=== PATIENT | female | born 1960 | race Hispanic/Latino ===

== ENCOUNTER 2017-03-13 17:57 | Emergency (ER) | payer SELFPAY ==
[~2017-03-13] VITALS: Ht 147.3 cm; Wt 64.9 kg
--- NOTE | 2017-03-13 18:36 | Diagnostic Imaging Report ---
PROCEDURE: Frontal and lateral views of the chest. COMPARISON: None. INDICATIONS: cough, sob FINDINGS: Lines/tubes: None. Lungs: The lungs are well inflated and clear. There is no evidence of pneumonia or pulmonary edema. Pleura: There is no pleural effusion or pneumothorax. Heart and mediastinum: The heart and the mediastinum are normal. Mild calcification of aortic arch. Bones: No acute bony abnormality. IMPRESSION: 1. No acute cardiopulmonary disease. Libia Rodriguez M.D. Dictated by: Libia Rodriguez M.D. on 03/13/2017 at 18:45 Electronically approved by: Libia Rodriguez M.D. on 03/13/2017 at 18:45
[2017-03-14] MEDS ORDERED: CLONIDINE HCL 0.1 MG TAB PO ONE (00:30)
[2017-03-14 02:10] VITALS: BP 144/67
== END 2017-03-14 02:15 | disposition home or self-care (01) ==
LOC: ER 17:57
DX: R05 Cough (principal); J20.9 Acute bronchitis, unspecified; I10 Essential (primary) hypertension; E11.9 Type 2 diabetes mellitus without complications
CPT/HCPCS: 71020; 87400; 99283

== ENCOUNTER 2017-04-19 09:21 | Inpatient (IN) | payer MEDICAID ==
[~2017-04-19] VITALS: Ht 147.3 cm; Wt 66.2 kg
--- OUTSIDE RECORDS SUMMARY | 2017-04-19 09:23 | XMS REPORT ---
Author Author [facility] Address Unknown Phone Unavailable Care Team Providers Care Cushion Builder Name Role Phone MOE MCKEON Unavailable Unavailable Problems This patient has no known problems. Allergies, Adverse Reactions, Alerts This patient has no known allergies or adverse reactions. Medications This patient has no known medications. Encounters Start Date/Time End Date/Time Encounter Type Admission Type Attending Clinicians Care Facility Care Department Encounter ID 2016-06-03 00:00:00 2016-06-03 00:00:00 Outpatient [facility] [id number] Results Test Description Test Time Test Comments Text Results Atomic Results Result Comments CHEST 2 VIEWS [place] [address] Patient Name: JIMBO TORRES MR #: [id number] : 1960 Age/Sex: 57/F Req # : [id number] Adm Physician: Ordered by: MOE MCKEON MD Report #: [id number] Location: ER Room/Bed: Procedure: [id number] DX/CHEST 2 VIEWS Exam Date: 03/13/17 Exam Time : 1820 REPORT STATUS: Signed PROCEDURE: Frontal and lateral views of the chest. COMPARISON: None. INDICATIONS: cough, sob FINDINGS: Lines/tubes: None. Lungs: The lungs are well inflated and clear. There is no evidence of pneumonia or pulmonary edema. Pleura: There is no pleural effusion or pneumothorax. Heart and mediastinum: The heart and the mediastinum are normal. Mild calcification of aortic arch. Bones: No acute bony abnormality. IMPRESSION: 1. No acute cardiopulmonary disease. Libia Mcpherson M.D. Dictated by: Libia Mcpherson M.D. on 03/13/2017 at 18:45 Electronically approved by: Libia Mcpherson M.D. on 03/13/2017 at 18:45 Dictated By: NATHALIE MCPHERSON MD, MD 44 Transcribed By: BRENT on 03/13/171844 COPY TO: MOE MCKEON MD
[2017-04-19] MEDS ORDERED: LISINOPRIL10 MG PO (10:03)
[2017-04-19] MEDS ORDERED: CLONIDINE HCL0.1 MG PO (10:03)
[2017-04-19] MEDS ORDERED: ASPIRIN 81 MG CHEW TAB PO ONE (10:15)
[2017-04-19 10:22] LABS: BASOPHILS # (AUTO) 0.1 (0.0-0.1); BASOPHILS % 0.7 % (0.0-1.0); EOSINOPHILS # (AUTO) 0.3 (0.0-0.4); EOSINOPHILS % 2.3 % (0.0-6.0); HEMATOCRIT 31.2 % (34.2-44.1); HEMOGLOBIN 10.4 g/dL (12.0-16.0); LYMPHOCYTES # (AUTO) 2.9 (1.0-3.2); LYMPHOCYTES % 21.9 % (18.0-39.1); MEAN CORPUSCULAR HGB CONC 33.3 g/dL (31-35); MEAN CORPUSCULAR VOLUME 89.9 fL (81-99); MONOCYTES # (AUTO) 0.7 (0.2-0.8); MONOCYTES % 5.2 % (4.4-11.3); NEUTROPHILS # (AUTO) 9.2 (2.1-6.9); NEUTROPHILS % 69.6 % (38.7-80.0); PLATELET COUNT 360 x10e3/uL (140-360); RED BLOOD COUNT 3.47 x10e6/uL (3.6-5.1); RED CELL DISTRIBUTION WIDTH 14.1 % (11.7-14.4)
[2017-04-19 10:26] LABS: INR 1.01; PROTHROMBIN TIME 12.5 seconds (11.9-14.5)
[2017-04-19 10:27] LABS: PARTIAL THROMBOPLASTIN TIME 34.7 seconds (23.8-35.5)
[2017-04-19] MEDS ORDERED: FUROSEMIDE INJ 10 MG/ML 4 ML VIAL IV NR (10:30)
[2017-04-19 10:38] LABS: ALANINE AMINOTRANSFERASE 11 IU/L (0-55); ALBUMIN 1.6 g/dL (3.5-5.0); ALBUMIN/GLOBULIN RATIO 0.4 (0.8-2.0); ALKALINE PHOSPHATASE 104 IU/L (40-150); ANION GAP 13.3 mmol/L (8-16); BLOOD UREA NITROGEN 30 mg/dL (7-26); BUN/CREATININE RATIO 8 (6-25); CALCIUM 8.2 mg/dL (8.4-10.2); CARBON DIOXIDE 19 mmol/L (22-29); CHLORIDE 113 mmol/L (98-107); CREATINE KINASE 150 IU/L (29-168); CREATININE, SERUM 3.95 mg/dL (0.57-1.11); EST GLOMERULAR FILTRATION RATE 12 ML/MIN (60-); GLUCOSE 114 mg/dL (74-118); POTASSIUM 3.3 mmol/L (3.5-5.1); SODIUM 142 mmol/L (136-145)
--- NOTE | 2017-04-19 11:46 | Diagnostic Imaging Report ---
EXAMINATION: CHEST 2 VIEWS INDICATION: \S\SOB \[id number] \S\1040 \S\N COMPARISON: Chest radiograph from 03/13/2017 FINDINGS: PA and lateral views TUBES and LINES: None. LUNGS: Lungs are well inflated. Bilateral interstitial edema, new since prior exam. No lobar consolidations. PLEURA: No pleural effusion or pneumothorax. HEART AND MEDIASTINUM: The cardiac silhouette is mildly enlarged. Mild atherosclerotic calcifications of the aortic arch. BONES AND SOFT TISSUES: No acute osseous lesion. Soft tissues are unremarkable. UPPER ABDOMEN: No free air under the diaphragm. IMPRESSION: Interval development of bilateral interstitial edema. Superimposed atypical infection can have a similar appearance. Signed by: Dr. Eileen Blake M.D. on 04/19/2017 11:42 AM
[2017-04-19] MEDS ORDERED: ISOSORBIDE MONONITRATE 30 MG TAB CR PO STA (13:50)
[2017-04-19] MEDS ORDERED: DEXTROSE 50% SYRINGE 50 ML IV PRN (14:00)
[2017-04-19] MEDS ORDERED: SODIUM CHLORIDE FLUSH 10 ML SYR INJ PRN (14:00)
[2017-04-19] MEDS ORDERED: HYDRALAZINE HCL 20 MG/ML VIAL IV NR (14:15)
[2017-04-19] MEDS ORDERED: METFORMIN HCL500 MG PO (14:47)
[2017-04-19] MEDS: ISOSORBIDE MONONITRATE 30 MG TAB CR PO SCH (16:32)
[2017-04-19] MEDS: INSULIN REGULAR, HUMAN 100 UNIT/1 ML 3ML VIAL SQ SCH ×2 (16:48→21:00)
[2017-04-19] MEDS: FUROSEMIDE INJ 10 MG/ML 4 ML VIAL IV SCH (17:52)
[2017-04-19] MEDS: HYDRALAZINE HCL 25 MG TAB PO SCH ×3 (17:52→23:59)
[2017-04-19 21:11] VITALS: BP 194/84
[2017-04-19 21:56] LABS: CREATINE KINASE MB 3.5 ng/mL (0-5.0)
[2017-04-19 22:08] LABS: BILIRUBIN,URINE NEGATIVE (NEGATIVE); CLARITY,URINE CLEAR (CLEAR); COLOR,URINE YELLOW (YELLOW); KETONES,URINE NEGATIVE (NEGATIVE); LEUKOCYTE ESTERASE ,URINE NEGATIVE (NEGATIVE); NITRITE,URINE NEGATIVE (NEGATIVE); PROTEIN,URINE DIPSTICK 3+ (NEGATIVE); URINE UROBILINOGEN 0.2 mg/dL (0.2 - 1)
[2017-04-19 22:35] LABS: BACTERIA,URINE FEW /HPF; EPITHELIAL CELLS,URINE FEW /LPF
[2017-04-19 22:37] VITALS: BP 168/76
[2017-04-19 23:00] VITALS: BP 168/76
[2017-04-20] VITALS (9 sets, daily range): BP systolic 116–197; BP diastolic 56–93
[2017-04-20] MEDS: HYDRALAZINE HCL 25 MG TAB PO SCH ×3 (06:09→22:30)
[2017-04-20 07:07] LABS: BASOPHILS # (AUTO) 0.1 (0.0-0.1); BASOPHILS % 0.5 % (0.0-1.0); EOSINOPHILS # (AUTO) 0.3 (0.0-0.4); EOSINOPHILS % 2.8 % (0.0-6.0); LYMPHOCYTES # (AUTO) 2.2 (1.0-3.2); LYMPHOCYTES % 20.7 % (18.0-39.1); MEAN CORPUSCULAR HEMOGLOBIN 31.1 pg (28-32); MEAN CORPUSCULAR HGB CONC 33.6 g/dL (31-35); MEAN CORPUSCULAR VOLUME 92.4 fL (81-99); MONOCYTES # (AUTO) 0.6 (0.2-0.8); MONOCYTES % 6.1 % (4.4-11.3); NEUTROPHILS # (AUTO) 7.3 (2.1-6.9); NEUTROPHILS % 69.6 % (38.7-80.0); PLATELET COUNT 251 x10e3/uL (140-360); RED BLOOD COUNT 2.38 x10e6/uL (3.6-5.1); RED CELL DISTRIBUTION WIDTH 14.1 % (11.7-14.4)
[2017-04-20 07:12] LABS: HEMOGLOBIN 7.4 g/dL (12.0-16.0)
[2017-04-20 07:22] LABS: ANION GAP 13.5 mmol/L (8-16); CALCIUM 7.9 mg/dL (8.4-10.2); CREATININE, SERUM 4.04 mg/dL (0.57-1.11); POTASSIUM 3.5 mmol/L (3.5-5.1)
[2017-04-20] MEDS: INSULIN REGULAR, HUMAN 100 UNIT/1 ML 3ML VIAL SQ SCH ×4 (07:30→21:00)
[2017-04-20 07:38] LABS: CREATINE KINASE MB 2.3 ng/mL (0-5.0)
--- NOTE | 2017-04-20 07:43 | Diagnostic Imaging Report ---
EXAM: Single AP view of the chest (Portable). COMPARISON: Chest radiograph from 04/19/2017 INDICATION: CHF FINDINGS: Single portable AP view of the chest. The visualized bones and soft tissues, cardiac silhouette , pleura appear unchanged. IMPRESSION: 1. Lines/tubes: None 2. Significant improvement in the bilateral interstitial edema. Signed by: Dr. Eileen Blake M.D. on 04/20/2017 7:39 AM
[2017-04-20] MEDS: ISOSORBIDE MONONITRATE 30 MG TAB CR PO SCH ×3 (08:02→18:21)
[2017-04-20] MEDS: FUROSEMIDE INJ 10 MG/ML 4 ML VIAL IV SCH ×3 (08:02→18:20)
[2017-04-20] MEDS ORDERED: HYDRALAZINE HCL 20 MG/ML VIAL IV PRN (08:30)
[2017-04-20 08:37] LABS: HEMOGLOBIN 7.3 g/dL (12.0-16.0)
[2017-04-20] MEDS ORDERED: CARVEDILOL 3.125 MG TAB PO SCH (09:00)
[2017-04-20] MEDS ORDERED: SODIUM CHLORIDE 0.9% 250ML 250 ML IV NR (09:30)
[2017-04-20] MEDS ORDERED: HYDRALAZINE HCL 25 MG TAB PO SCH (12:00)
[2017-04-20] MEDS: FAMOTIDINE 20 MG TAB PO SCH ×2 (12:32→16:30)
[2017-04-20] MEDS: CARVEDILOL 3.125 MG TAB PO SCH ×2 (12:33→21:00)
[2017-04-20] MEDS ORDERED: SODIUM CHLORIDE 0.9% 250ML 250 ML IV ONE (13:30)
[2017-04-20] MEDS: CLONIDINE HCL 0.1 MG TAB PO SCH ×3 (14:18→18:21)
[2017-04-20] MEDS: AMLODIPINE BESYLATE 10 MG TAB PO SCH (14:19)
--- NOTE | 2017-04-20 15:17 | History and Physical ---
PRIMARY CARE PROVIDER: [facility]. The patient has no insurance. CHIEF COMPLAINT: Shortness of breath. HISTORY OF PRESENT ILLNESS: Ms. Bradshaw is a 57-year-old lady presenting with 1 to 2 days of increasing shortness of breath, dyspnea with exertion, orthopnea and lower extremity swelling. The patient normally takes Lasix as needed for lower extremity edema. She has not been taking her Lasix for the last couple of weeks. She presents now with what appears to be worsening CHF or volume overload. The patient has a history of diabetes and hypertension. She is not sure about her kidney status although here her labs showed chronic kidney disease stage V. She says that she has been told that the diabetes and hypertension have effected her kidneys but no one has told her how bad. REVIEW OF SYSTEMS: She denies fever, chills or weight loss. Denies sinus congestion or sore throat. Denies chest pain or palpitations. She has had shortness of breath, dyspnea on exertion and orthopnea and lower extremity edema. She denies abdominal pain, nausea, vomiting or melena. She denies dysuria or flank pain. She denies rash or pruritus. She denies joint pain or swelling. She denies bleeding or bruising. She denies headache, vertigo or loss of consciousness. Denies depression, agitation, homicidal or suicidal ideation. PAST MEDICAL HISTORY: Significant for longstanding hypertension, type 2 diabetes, apparently has a history of congestive heart failure, probably diastolic. Hyperlipidemia and apparently chronic kidney disease. REGULAR MEDICATIONS: Clonidine 0.1 mg daily. Lisinopril 40 mg daily. Metformin 500 mg twice daily. PAST SURGICAL HISTORY: Laparoscopic cholecystectomy a couple of years ago. ALLERGIES: NO KNOWN DRUG ALLERGIES. FAMILY HISTORY: Remarkable for hypertension and diabetes. SOCIAL HISTORY: The patient is . She is bilingual and speaks fairly good Arabic. She does not smoke, drink or use illegal drugs. She is generally independently functioning. PHYSICAL EXAM: PSYCHIATRIC: She is alert and oriented times 3 with normal mood and affect. CONSTITUTIONAL: She has a normal body habitus. Is in no acute distress. VITAL SIGNS: Blood pressure 197/93. Pulse 78 and regular. Respiratory rate 18. O2 sat 99% on 2 liters nasal cannula. Temperature 97.5. HEENT: Head is atraumatic. Her eyes are anicteric with clear conjunctivae. Ears and nares are without erythema or discharge. Oropharynx is clear. NECK: Is supple with no mass or thyromegaly. LYMPHATIC SYSTEM: She has no palpable cervical, axillary or inguinal adenopathy. CARDIOVASCULAR: Her heart has a regular rate and rhythm without murmur or extra heart sounds. She has no carotid bruit. She has a small amount of pretibial pitting edema about the ankles. She has palpable dorsal pedal pulse. RESPIRATORY: Clear to auscultation and percussion with normal respiratory effort. GASTROINTESTINAL: Abdomen is soft without organomegaly, masses or tenderness. Normal bowel sounds present. CUTANEOUS: Her skin is warm dry to touch with no rash or skin breakdown. MUSCULOSKELETAL: Joints are normal alignment without erythema or swelling. She has no calf tenderness. NEUROLOGIC: Exam is nonfocal with intact cranial nerves and no motor or sensory deficits. DIAGNOSTIC STUDIES: Chest x-ray on admission showed bilateral interstitial edema. A followup chest x-ray after Lasix showed some improvement. Her UA has 6 to 10 white cells, rare bacteria. BNP is 2345.2. Troponin 0.045 and 0.027. Her chemistry shows potassium 3.3. Rest of her electrolytes are normal. CO2 is 19. Creatinine 3.95. BUN 30 for a GFR of 12. Glucose 114. Calcium 8.2. CBC shows a white count 13.2 with 70% neutrophils, 22% lymphocytes. Hemoglobin 10.4, hematocrit 31.2 and platelet count 360,000. Followup CBC twenty four hours later shows a white count of 10.4 with 70% neutrophils. Hemoglobin 7.3, hematocrit 22.0 and platelet count 251,000. Coags are normal. Transaminases, bilirubin and alkaline phos are normal. Repeat chemistry profile shows a creatinine 4.04, BUN 33 for GFR 11. Calcium 7.9. Glucose 112. Electrolytes are normal after 24 hours. IMPRESSION AND PLAN 1. Acute on chronic diastolic heart failure. Presumably diastolic although echocardiogram is pending. Has been ordered but has not been done yet. The patient has been started on IV Lasix 40 mg q.12 hours for 48 hours and then will switch to 40 mg p.o. daily at noon. Patient has been placed on Imdur and hydralazine since we cannot use any GAGAN inhibitors or ARBs due to the chronic kidney disease. 2. Chronic kidney disease stage 5 with volume overload. Again patient started on IV Lasix as well as renally neutral blood pressure medications of Imdur, hydralazine and Norvasc. 3. Accelerated hypertension. The patient's lisinopril has been discontinued due to stage 5 chronic kidney disease. Will restart her clonidine at a slightly higher dose and will add Imdur, hydralazine and Norvasc which are renally neutral and should help with the heart failure. 4. Type 2 diabetes. Will stop metformin due to chronic kidney disease stage V. Will use sliding scale insulin for now and start low-dose Glucotrol. 5. Normocytic anemia most likely due to chronic kidney disease. Will transfuse 2 units of packed cells for hemoglobin of 7.3. Will check fecal occult blood as well as the other typical anemia labs. 6. For prophylaxis the patient will be using SCDs for DVT prophylaxis. No anticoagulation due to the anemia and Pepcid for GI prophylaxis. Job#: [id number]
[2017-04-20] MEDS ORDERED: SODIUM CHLORIDE 0.9% 250ML 250 ML ONE (17:26)
[2017-04-20] MEDS: FUROSEMIDE INJ 10 MG/ML 2 ML VIAL IV PRN (22:20)
[2017-04-21] VITALS (7 sets, daily range): BP systolic 109–141; BP diastolic 54–65
[2017-04-21] MEDS: FUROSEMIDE INJ 10 MG/ML 2 ML VIAL IV PRN (02:25)
[2017-04-21] MEDS: HYDRALAZINE HCL 25 MG TAB PO SCH ×3 (06:01→22:15)
[2017-04-21 07:15] LABS: BASOPHILS # (AUTO) 0.1 (0.0-0.1); BASOPHILS % 0.6 % (0.0-1.0); EOSINOPHILS # (AUTO) 0.3 (0.0-0.4); EOSINOPHILS % 3.1 % (0.0-6.0); HEMOGLOBIN 9.7 g/dL (12.0-16.0); LYMPHOCYTES # (AUTO) 1.9 (1.0-3.2); MEAN CORPUSCULAR HEMOGLOBIN 30.3 pg (28-32); MEAN CORPUSCULAR HGB CONC 34.6 g/dL (31-35); MEAN CORPUSCULAR VOLUME 87.5 fL (81-99); MONOCYTES # (AUTO) 0.7 (0.2-0.8); MONOCYTES % 7.1 % (4.4-11.3); NEUTROPHILS # (AUTO) 6.7 (2.1-6.9); NEUTROPHILS % 68.8 % (38.7-80.0); PLATELET COUNT 239 x10e3/uL (140-360); RED CELL DISTRIBUTION WIDTH 14.4 % (11.7-14.4)
[2017-04-21 07:57] LABS: ANION GAP 10.9 mmol/L (8-16); CALCIUM 7.7 mg/dL (8.4-10.2); CREATININE, SERUM 4.14 mg/dL (0.57-1.11); MAGNESIUM 1.5 MG/DL (1.3-2.1)
[2017-04-21 08:01] LABS: POTASSIUM 2.9 mmol/L (3.5-5.1)
[2017-04-21 08:02] LABS: FREE T4 (FREE THYROXINE) 0.89 ng/dL (0.9-1.8); THYROID STIMULATING HORMONE 5.413 uIU/mL (0.350-4.940)
[2017-04-21] MEDS: INSULIN REGULAR, HUMAN 100 UNIT/1 ML 3ML VIAL SQ SCH ×4 (08:22→21:00)
[2017-04-21] MEDS: FAMOTIDINE 20 MG TAB PO SCH ×2 (08:22→16:56)
[2017-04-21] MEDS: ISOSORBIDE MONONITRATE 30 MG TAB CR PO SCH ×2 (08:23→16:57)
[2017-04-21] MEDS: CARVEDILOL 3.125 MG TAB PO SCH ×2 (08:23→21:00)
[2017-04-21] MEDS: AMLODIPINE BESYLATE 10 MG TAB PO SCH (08:23)
[2017-04-21] MEDS: CLONIDINE HCL 0.1 MG TAB PO SCH ×2 (08:23→16:50)
[2017-04-21] MEDS ORDERED: POTASSIUM CHLORIDE 20 MEQ TAB CR PO ONE (08:30)
[2017-04-21 08:47] LABS: FOLATE 6.4 ng/mL (7.0-15.4)
[2017-04-21] MEDS ORDERED: FUROSEMIDE 40 MG TAB PO SCH (09:00)
[2017-04-21] MEDS ORDERED: GLIPIZIDE 5 MG TAB PO SCH (10:00)
[2017-04-21] MEDS: LEVOTHYROXINE SODIUM 25 MCG TABLET PO SCH (10:32)
[2017-04-21] MEDS: FOLIC ACID 1 MG TAB PO SCH (10:32)
[2017-04-21] MEDS: GLIPIZIDE 5 MG TAB PO SCH (10:32)
[2017-04-21] MEDS: FUROSEMIDE 40 MG TAB PO SCH (12:13)
[2017-04-22 00:17] VITALS: BP 146/55
[2017-04-22 00:35] VITALS: BP 146/55
[2017-04-22 04:33] VITALS: BP 137/61
[2017-04-22] MEDS: LEVOTHYROXINE SODIUM 25 MCG TABLET PO SCH (05:55)
[2017-04-22] MEDS: HYDRALAZINE HCL 25 MG TAB PO SCH (06:00)
[2017-04-22 07:13] LABS: BASOPHILS % 0.4 % (0.0-1.0); EOSINOPHILS # (AUTO) 0.3 (0.0-0.4); HEMATOCRIT 28.2 % (34.2-44.1); HEMOGLOBIN 9.4 g/dL (12.0-16.0); LYMPHOCYTES # (AUTO) 2.3 (1.0-3.2); LYMPHOCYTES % 21.4 % (18.0-39.1); MEAN CORPUSCULAR HGB CONC 33.3 g/dL (31-35); MEAN CORPUSCULAR VOLUME 90.1 fL (81-99); MONOCYTES # (AUTO) 0.8 (0.2-0.8); MONOCYTES % 7.5 % (4.4-11.3); NEUTROPHILS # (AUTO) 7.1 (2.1-6.9); NEUTROPHILS % 67.3 % (38.7-80.0); PLATELET COUNT 249 x10e3/uL (140-360); RED BLOOD COUNT 3.13 x10e6/uL (3.6-5.1); RED CELL DISTRIBUTION WIDTH 14.6 % (11.7-14.4)
[2017-04-22] MEDS: INSULIN REGULAR, HUMAN 100 UNIT/1 ML 3ML VIAL SQ SCH ×2 (07:30→11:30)
[2017-04-22] MEDS ORDERED: GLIPIZIDE 5 MG TAB PO SCH (07:30)
[2017-04-22] MEDS: GLIPIZIDE 5 MG TAB PO SCH (07:30)
[2017-04-22 07:40] LABS: ANION GAP 13.1 mmol/L (8-16); CALCIUM 7.8 mg/dL (8.4-10.2); CREATININE, SERUM 4.55 mg/dL (0.57-1.11); MAGNESIUM 1.9 MG/DL (1.3-2.1); POTASSIUM 4.1 mmol/L (3.5-5.1)
[2017-04-22 07:50] VITALS: BP 137/61
[2017-04-22 08:12] VITALS: BP 143/66
[2017-04-22] MEDS: CARVEDILOL 3.125 MG TAB PO SCH (08:33)
[2017-04-22] MEDS: FAMOTIDINE 20 MG TAB PO SCH (08:33)
[2017-04-22] MEDS: FOLIC ACID 1 MG TAB PO SCH (08:33)
[2017-04-22] MEDS: ISOSORBIDE MONONITRATE 30 MG TAB CR PO SCH (08:33)
[2017-04-22] MEDS: AMLODIPINE BESYLATE 10 MG TAB PO SCH (08:34)
[2017-04-22] MEDS: CLONIDINE HCL 0.1 MG TAB PO SCH (09:00)
[2017-04-22] MEDS ORDERED: POTASSIUM CHLORIDE 20 MEQ TAB CR PO SCH (09:00)
[2017-04-22] MEDS ORDERED: FOLIC ACID 1 MG TAB PO SCH (09:00)
--- NOTE | 2017-04-22 09:07 | Diagnostic Imaging Report ---
PROCEDURE: CHEST SINGLE (PORTABLE) COMPARISON: Patients [facility], DX, CHEST SINGLE (PORTABLE), 04/20/2017, 7:13. INDICATIONS: SHORTNESS OF BREATH. PULMONARY EDEMA FINDINGS: LUNGS: Bibasilar airspace opacities likely represents pneumonia with a worsened appearance. PLEURA: There is a left pleural effusion. HEART \T\ MEDIASTINUM: The heart is within normal size-limits. BONES \T\ SOFT TISSUES: No acute findings. CONCLUSION: Worsening bibasilar airspace opacities. Emeterio Fong D.O. Dictated by: Emeterio Fong D.O. on 04/22/2017 at 9:06 Electronically approved by: Emeterio Fong D.O. on 04/22/2017 at 9:06
[2017-04-22] MEDS ORDERED: CALCIUM GLUCONATE 10% INJ 13.95 MEQ in SODIUM CHLORIDE 0.9% 100 ML 100 ML IV ONE (09:30)
[2017-04-22] MEDS ORDERED: KLOR-CON M2020 MEQ PO (09:32)
[2017-04-22] MEDS ORDERED: Isosorbide Mononitrate PO (09:32)
[2017-04-22] MEDS ORDERED: COREG3.125 MG PO (09:32)
[2017-04-22] MEDS ORDERED: NORVASC10 MG PO (09:32)
[2017-04-22] MEDS ORDERED: FOLIC ACID1 MG PO (09:32)
[2017-04-22] MEDS ORDERED: LEVOTHYROXINE25 MCG PO (09:32)
[2017-04-22] MEDS ORDERED: FUROSEMIDE40 MG PO (09:32)
[2017-04-22] MEDS ORDERED: INSULIN HUMALOG SC (09:39)
[2017-04-22] MEDS ORDERED: AZITHROMYCIN250 MG PO (09:56)
[2017-04-22] MEDS ORDERED: CEFTIN PO (09:56)
[2017-04-22 11:47] VITALS: BP 132/62
[2017-04-22] MEDS: FUROSEMIDE 40 MG TAB PO SCH (11:57)
--- NOTE | 2017-04-23 16:33 | Discharge Summary ---
ADMISSION DIAGNOSES 1. [id number] diastolic heart failure. 2. Chronic kidney disease stage 5 with volume overload. 3. Accelerated hypertension. 4. Type 2 diabetes. 5. Normocytic anemia. DISCHARGE DIAGNOSES 1. [id number] diastolic heart failure. 2. Chronic kidney disease stage 5 with volume overload. 3. Accelerated hypertension. 4. Type 2 diabetes. 5. Normocytic anemia. 6. Rule out gastrointestinal bleed. HISTORY: Patient has a history of hypertension, type 2 diabetes, CHF, hyperlipidemia and CKD, although she was unaware of the kidney disease. HOSPITAL COURSE: A 57-year-old female, presents with 1 to 2 days of increasing shortness of breath, dyspnea with exertion, orthopnea and lower extremity swelling. The patient usually takes Lasix as needed for lower extremity edema. She has not been taking her Lasix for the last couple of weeks. She was apparently told that diabetes and hypertension have affected her kidneys, but she did not know how badly they were affected. Patient was started on IV Lasix and eventually switched to p.o. Lasix once a day. We discontinued her metformin and lisinopril and started her on Glucotrol which she was unable to handle and sliding scale insulin. Patient was started on Imdur, Norvasc, hydralazine and her clonidine dose was increased. Her blood pressure dropped drastically. On admission, her systolic blood pressure was 223, so she needed those medications; but during hospitalization, the nurses held the clonidine and the hydralazine and the patient's blood pressure was noted to be in the 130s and 140s on just those 2 medications. Patient had an echo done which showed EF of 55% to 60%, pericardial effusion of 1.5 cm, mild MR and TR. Chest x-ray on admission showed interval development of bilateral interstitial edema. The next day, it showed significant improvement in bilateral interstitial edema. Chest x-ray on the 6th, day of discharge, showed worsening airspace opacity. Patient was started on antibiotics. During hospitalization, the patient's hemoglobin dropped from 10.4 on the 3rd to 7.4 on the 4th and with the re-draw, the hemoglobin was still 7.3. Patient was given 2 units of PRBC and the patient's hemoglobin stabilized in the 9. On the day of discharge, WBC was 10.5, hemoglobin 9.4, hematocrit of 28.2. Sodium 140, potassium 4.1, creatinine 4.55, GFR of 10, BUN of 45, calcium 7.8, patient was given 3 g prior to discharge, mag 1.9. Blood pressure was 143/66, pulse of 68. Patient was sent home on her Norvasc, Coreg, Lasix, potassium, sliding scale insulin and Imdur. During hospitalization, patient was also found to have hypothyroidism. She was started on levothyroxine 25 mcg daily. She was also found to have a low folic acid and was started on 1 mg folic acid daily. Patient will follow up with primary care in 1 to 2 weeks. She refused to have any specialist on her case because she did not have insurance and would not be able to follow up with them. She said she would just go to [facility] and have them follow her kidneys and heart as well as other medical issue. Dictated by Batool Foster NP. MENDOZA VILLEGAS MD Job#: [id number]
== END 2017-04-22 13:59 | disposition home or self-care (01) | DRG 291 ==
LOC: ER 09:21 → ERHOLD 15:24 → MED/SURG 20:19
PROVIDERS: ADMIT Internal Medicine; ATTEND Internal Medicine
DX: I13.2 Hypertensive heart and chronic kidney disease with heart failure and with stage 5 chronic kidney disease, or end stage renal disease (principal); I50.33 Acute on chronic diastolic (congestive) heart failure; N18.5 Chronic kidney disease, stage 5; E11.22 Type 2 diabetes mellitus with diabetic chronic kidney disease; E87.1 Hypo-osmolality and hyponatremia; I12.9 Hypertensive chronic kidney disease with stage 1 through stage 4 chronic kidney disease, or unspecified chronic kidney disease; N18.9 Chronic kidney disease, unspecified; D64.9 Anemia, unspecified; E03.9 Hypothyroidism, unspecified; E87.6 Hypokalemia
CPT/HCPCS: 36415; 36430; 71045; 71046; 80048; 80053; 81001; 82270; 82550; 82553; 82607; 82746; 82948; 83540; 83735; 83880; 84439; 84443; 84466; 84484; 85014; 85018; 85025; 85610; 85730; 86850; 86900; 86920; 87086; 93005; 93306; 96374; 96376; 99284; J0360; J0610; J1940; J7050; J7799; P9016

== ENCOUNTER 2017-07-09 13:00 | Inpatient (IN) | payer MEDICAID ==
[~2017-07-09] VITALS: Ht 154.9 cm; Wt 53.6 kg
[~2017-07-09 13:00] MED LIST: ALPRAZOLAM0.5 MG PO; AZITHROMYCIN250 MG PO; CATAPRES0.3 MG PO; CEFTIN PO; CLONIDINE HCL0.1 MG PO; COREG12.5 MG PO; COREG3.125 MG PO; FOLIC ACID1 MG PO; FUROSEMIDE40 MG PO; HYDRALAZINE HC100 MG PO; INSULIN HUMALOG SC; ISOSORBIDE DINI20 MG PO; Isosorbide Mononitrate PO; KLOR-CON M2020 MEQ PO; LEVOTHYROXINE25 MCG PO; LISINOPRIL10 MG PO; METFORMIN HCL500 MG PO; MINOXIDIL2.5 MG PO; NORVASC10 MG PO; PROTONIX40 MG/ML PO; RENVELA800 MG PO; SEROQUEL25 MG PO
--- OUTSIDE RECORDS SUMMARY | 2017-07-09 13:05 | XMS REPORT | Continuity of Care Document ---
Author Author [facility] Organization [facility] Address [address] [place] [address] Phone Unavailable Care Team Providers Care Jockey'S Agent Name Role Phone NO, PCP PCP Unavailable Insurance Providers Guarantor Jimbo Torres Address [facility] [place] [address] Email [email or web address] Payer Medicaid Pending Subscriber's Name Jimbo Torres Relationship 18 Self / Same As Patient Advance Directives Directive Response Recorded Date/Time Does the patient have an advance directive? No 06/10/17 1:00pm If yes, is advance directive on file with [facility]? No 06/10/17 1:00pm If not on file with [facility] will patient provide a copy? No 06/10/17 1:00pm Do you have a Directive to Physician? No 06/09/17 4:19pm Do you have a Medical Power of Tank Setter Helper? No 06/09/17 4:19pm Do you have an out of hospital Do Not Resuscitate Order? No 06/09/17 4:19pm Do you have any special needs we should be aware of? NN 06/09/17 4:19pm Do you have a support person here with you today? Yes 06/09/17 4:19pm Did patient receive Notice of Privacy Practices? Yes 06/09/17 4:19pm Did patient receive patient rights and responsibilities? Yes 06/09/17 4:19pm Problems Medical Problem Onset Date Status Acute renal failure Unknown CHF (congestive heart failure) Unknown Cough Unknown Acute Hypertension Unknown Acute Hypertension Unknown Medications Current Home Medications Medication Dose Units Route Directions Days Qty Instructions Start Date Alprazolam 0.5 Mg Tablet 0.5 Mg Oral Every 8 Hours 14 Days 06/19/17 Carvedilol (Coreg) 12.5 Mg Tab 50 Mg Oral Every 12 Hours 30 Days Clonidine Hcl (Catapres) 0.3 Mg Tablet 0.3 Mg Oral Three Times A Day 30 Days 06/19/17 Folic Acid 1 Mg Tablet 1 Mg Oral Daily 30 Days 04/22/17 Furosemide 40 Mg Tablet 40 Mg Oral Q24h 30 Days 04/22/17 Hydralazine Hcl 100 Mg Tablet 100 Mg Oral Every 8 Hours 30 Days 05/04 Insulin, Humalog Units Subcutaneously Before Meals And At Bedtime BS 121-150=> 2 UNITS BS 151-200=> 4 UNITS BS 201-250=> 6 UNITS BS 251-300=> 8 UNITS BS 301-350=> 10 UNITS BS 351-399=>12 UNITS BS >400=> 14 UNITS 04/22/17 Isosorbide Dinitrate 20 Mg Tablet 30 Mg Oral Twice A Day 30 Days Levothyroxine Sodium 25 Mcg Tablet 25 Mcg Oral Daily@06 30 Days 08/04 Minoxidil 2.5 Mg Tablet 5 Mg Oral Every 12 Hours 14 Days 06/19/17 Pantoprazole Sod (Protonix) 40 Mg/Ml Susp 40 Mg Oral Before Breakfast 30 Days 06/19/17 Potassium Chloride (Klor-Con M20) 20 Meq Tabcr 20 Meq Oral Daily 30 Days 04/22/17 Quetiapine Fumarate (Seroquel) 25 Mg Tablet 12.5 Mg Oral Bedtime 30 Days 06/19/17 Sevelamer Hcl (Renvela) 800 Mg Tab 800 Mg Oral Three Times Daily With Meals 90 Days 06/19/17 Past Home Medications Medication Directions Ordered Status Amlodipine Besylate (Norvasc) 10 Mg Tab, 10 Mg Oral Daily 04/22/17 Discontinued Azithromycin (Z-Sushant) 250 Mg Tablet, 500 Mg Oral 5 Day Pack As Direct Discontinued Carvedilol (Coreg) 3.125 Mg Tab, 6.25 Mg Oral Every 12 Hours 04/22/17 Discontinued Ceftin , 500 Mg Oral Twice A Day 04/22/17 Discontinued Clonidine Hcl 0.1 Mg Tablet, 1 Tab Oral Daily Discontinued Isosorbide Mononitrate 30 Mg Tabcr, 30 Mg Oral Twice A Day 04/22/17 Discontinued Lisinopril 10 Mg Tablet, 40 Mg Oral Daily Discontinued Metformin Hcl 500 Mg Tablet, 500 Mg Oral Twice A Day Discontinued Social History Social History Problem Response Recorded Date/Time Onset Date Status Hx Psychiatric Problems No 06/10/2017 1:00pm Not Applicable Not Applicable Hx Eating Disorder No 06/10/2017 1:00pm Not Applicable Not Applicable Hx Substance Use Disorder No 06/10/2017 1:00pm Not Applicable Not Applicable Hx Depression No 06/10/2017 1:00pm Not Applicable Not Applicable Hx Alcohol Use No 06/10/2017 1:00pm Not Applicable Not Applicable Hx Substance Use Treatment No 06/10/2017 1:00pm Not Applicable Not Applicable Hx Physical Abuse No 06/10/2017 1:00pm Not Applicable Not Applicable Smoking Status Start Date Stop Date Former smoker Hospital Discharge Instructions No hospital discharge instruction information available. Plan of Care Discharge Date 06/22/17 6:20pm Disposition HOME, SELF-CARE Instructions/Education Provided Kidney Failure Prescriptions See Medication Section Referrals Your note keeper (Nephrology) Order Date: 5-7 Days Entered Date: 06/19/2017 8:02am AVA BUENROSTRO MD (Internal Medicine) Order Date: 5-7 Days Entered Date: 06/19/2017 8:23am Address: [address] [place] [id number] SUZI YOUNGER MD (Surgery) Order Date: 1 Month Entered Date: 06/22/2017 12:47pm Address: [address] [place] [id number] Additional Instructions/Education Attend scheduled Hemodialysis tomorrow at 3: 30pm @ [address] [place] [address], phone [phone] Monitor B/P at home and hold B/P meds x 4 hours, then recheck; contact HD clinic if BP still low for guidance on HD days. Activity as tolerated Renal diet Maintain BP log for PCP/Hot Header Operator Assistance at home per family PO OTC stool softener for constipation FOLLOW UP WITH YOUR PRIMARY CARE PHYSICIAN IN 1 WEEK. Functional Status Query Response Date Recorded Assistive Devices None June 10, 2017 1:00pm Ambulation Ability Independent June 10, 2017 1:00pm Toileting Ability Moderate Assistance June 22, 2017 1:59pm Allergies, Adverse Reactions, Alerts Allergen Type Severity Reaction Status Last Updated Nifedipine Allergy Intermediate Active 06/17/17 Immunizations No immunization information available. Vital Signs Acute Vital Signs Vital Response Date/Time Temperature (Fahrenheit) 96.6 degrees F (97.6 - 99.5) 06/22/2017 4:07pm Pulse Pulse Rate (adult) 92 bpm (60 - 90) 06/22/2017 4:07pm Respiratory Rate 18 bpm (12 - 24) 06/22/2017 4:07pm Blood Pressure 150/66 mm Hg 06/22/2017 4:07pm Height 4 ft 10 in 06/09/2017 2:05pm Weight 141.56 lb 06/20/2017 12:00am Body Mass Index 29.6 kg/m^2 06/20/2017 12:00am Results Laboratory Results Test Name Result Units Flags Reference Collection Date/Time Result Date/ Time Comments Influenza Virus Types A,B Antigen NEGATIVE NEGATIVE 03/13/2017 6:00pm 03/13/2017 10:31pm Iron Level 57 ug/dL 50-170 04/21/2017 6:45am 04/21/2017 8:01am Total Iron Binding Capacity 137 ug/dL L 261-478 04/21/2017 6:45am 2017 8:01am Percent Iron Saturation 42 % 15-50 04/21/2017 6:45am 04/21/2017 8:01am Transferrin 98 mg/dL L 180-382 04/21/2017 6:45am 04/21/2017 8:01am Vitamin B12 Level 530 pg/mL 213-816 04/21/2017 6:45am 04/21/2017 8: 49am Folate 6.4 ng/mL L 7.0-15.4 04/21/2017 6:45am 04/21/2017 8:49am Free Thyroxine 0.89 ng/dL L 0.9-1.8 04/21/2017 6:45am 04/21/2017 8:02am Stool Occult Blood NEGATIVE NEGATIVE 04/20/2017 3:05am 04/20/2017 3: 33pm White Blood Count 11.54 x10e3/uL H 4.8-10.8 06/22/2017 6:55am 2017 7:33am Red Blood Count 2.69 x10e6/uL L 3.6-5.1 06/22/2017 6:55am 06/22/2017 7: 33am Hemoglobin 8.0 g/dL L 12.0-16.0 06/22/2017 6:55am 06/22/2017 7:33am Hematocrit 24.8 % L 34.2-44.1 06/22/2017 6:55am 06/22/2017 7:33am Mean Corpuscular Volume 92.2 fL 81-99 06/22/2017 6:55am 06/22/2017 7: 33am Mean Corpuscular Hemoglobin 29.7 pg 28-32 06/22/2017 6:55am 06/22/2017 7:33am Mean Corpuscular Hemoglobin Concent 32.3 g/dL 31-35 06/22/2017 6:55am 06/22/2017 7:33am Red Cell Distribution Width 13.8 % 11.7-14.4 06/22/2017 6:55am 2017 7:33am Platelet Count 227 x10e3/uL 140-360 06/22/2017 6:55am 06/22/2017 7: 33am Neutrophils (%) (Auto) 72.8 % 38.7-80.0 06/22/2017 6:55am 06/22/2017 7: 33am Lymphocytes (%) (Auto) 15.0 % L 18.0-39.1 06/22/2017 6:55am 06/22/2017 7 :33am Monocytes (%) (Auto) 9.5 % 4.4-11.3 06/22/2017 6:55am 06/22/2017 7: 33am Eosinophils (%) (Auto) 1.6 % 0.0-6.0 06/22/2017 6:55am 06/22/2017 7: 33am Basophils (%) (Auto) 0.5 % 0.0-1.0 06/22/2017 6:55am 06/22/2017 7:33am IM GRANULOCYTES % 0.6 % 0.0-1.0 06/22/2017 6:55am 06/22/2017 7:33am Neutrophils # (Auto) 8.4 H 2.1-6.9 06/22/2017 6:55am 06/22/2017 7: 33am Lymphocytes # (Auto) 1.7 1.0-3.2 06/22/2017 6:55am 06/22/2017 7:33am Monocytes # (Auto) 1.1 H 0.2-0.8 06/22/2017 6:55am 06/22/2017 7:33am Eosinophils # (Auto) 0.2 0.0-0.4 06/22/2017 6:55am 06/22/2017 7:33am Basophils # (Auto) 0.1 0.0-0.1 06/22/2017 6:55am 06/22/2017 7:33am Absolute Immature Granulocyte (auto 0.07 x10e3/uL 0-0.1 06/22/2017 6: 55am 06/22/2017 7:33am Prothrombin Time 13.5 seconds 11.9-14.5 06/10/2017 4:40am 06/10/2017 5: 22am Prothromb Time International Ratio 1.11 06/10/2017 4:40am 2017 5:22am Oral Anticoagulant Therapy INR Values: 1. Low Intensity Therapy 1.5 - 2.0 2. Moderate Intensity Therapy 2.0 - 3.0 3. High Intensity Therapy(1) 2.5 - 3.5 4. High Intensity Therapy(2) 3.0 - 4.0 5. Panic Value INR > 5.0 Activated Partial Thromboplast Time 35.4 seconds 23.8-35.5 06/10/2017 4: 40am 06/10/2017 5:22am Urine Color YELLOW YELLOW 06/09/2017 2:20pm 06/09/2017 2:47pm Urine Clarity CLEAR CLEAR 06/09/2017 2:20pm 06/09/2017 2:47pm Urine Specific [place] 1.025 1.010-1.025 06/09/2017 2:20pm 2017 2:47pm Urine pH 7 5 - 7 06/09/2017 2:20pm 06/09/2017 2:47pm Urine Leukocyte Esterase NEGATIVE NEGATIVE 06/09/2017 2:20pm 2017 2:47pm Urine Nitrite NEGATIVE NEGATIVE 06/09/2017 2:20pm 06/09/2017 2:47pm Urine Protein 3+ H NEGATIVE 06/09/2017 2:20pm 06/09/2017 2:47pm Urine Glucose (UA) 2+ H NEGATIVE 06/09/2017 2:20pm 06/09/2017 2:47pm Urine Ketones NEGATIVE NEGATIVE 06/09/2017 2:20pm 06/09/2017 2:47pm Urine Urobilinogen 0.2 mg/dL 0.2 - 1 06/09/2017 2:20pm 06/09/2017 2: 47pm Urine Bilirubin NEGATIVE NEGATIVE 06/09/2017 2:20pm 06/09/2017 2: 47pm Urine Blood 2+ H NEGATIVE 06/09/2017 2:20pm 06/09/2017 2:47pm Urine WBC 0-5 /HPF 0-5 06/09/2017 2:20pm 06/09/2017 3:02pm Urine RBC 11-20 /HPF H 0-5 06/09/2017 2:20pm 06/09/2017 3:02pm Urine Bacteria RARE /HPF NONE 06/09/2017 2:20pm 06/09/2017 3:02pm Urine Epithelial Cells MODERATE /LPF NONE 06/09/2017 2:20pm 06/09/2017 3:02pm Urine Mucus FEW H RARE 06/09/2017 2:20pm 06/09/2017 3:02pm Urine Random Total Protein 892.5 mg/dL H 1-14 06/11/2017 10:25am 2017 11:18am Urine Collection Time 24 hrs 06/11/2017 10:25am 06/11/2017 10:50am Urine Total Volume 900 ml/24hr 800-2000 06/11/2017 10:25am 06/11/2017 10:50am Urine Creatinine 50.57 mg/dL 47-110 06/11/2017 10:25am 06/11/2017 11: 04am Urine Creatinine 24 Hour 455 mg/24hr L 600-1800 06/11/2017 10:25am 06/11 11:04am Creatinine Clearance 6 ml/min L 88-128 06/11/2017 10:25am 06/11/2017 11: 04am Urine Total Protein 24 Hour 8032.5 mg/24hr H 50-100 06/11/2017 10:25am 06/11/2017 11:18am Sodium Level 137 mmol/L 136-145 06/21/2017 10:15am 06/21/2017 10:39am Potassium Level 4.5 mmol/L 3.5-5.1 06/21/2017 10:15am 06/21/2017 10: 39am Chloride Level 103 mmol/L 98-107 06/21/2017 10:15am 06/21/2017 10:39am Carbon Dioxide Level 23 mmol/L 22-29 06/21/2017 10:15am 06/21/2017 10: 39am Anion Gap 15.5 mmol/L 8-16 06/21/2017 10:15am 06/21/2017 10:39am Blood Urea Nitrogen 12 mg/dL 7-06/21/2017 10:15am 06/21/2017 10: 39am Creatinine 2.63 mg/dL H 0.57-1.11 06/21/2017 10:15am 06/21/2017 10:39am BUN/Creatinine Ratio 5 L 6-06/21/2017 10:15am 06/21/2017 10:39am Estimat Glomerular Filtration Rate 19 ML/MIN L 60- 06/21/2017 10:15am 10:39am Ranges were taken from the National Kidney Disease Education Program and the National Kidney Foundation literature. Reference ranges: 60 or greater: Normal 16-59 (for 3 consecutive months): Chronic kidney disease 15 or less: Kidney failure Glucose Level 129 mg/dL H 74-118 06/21/2017 10:15am 06/21/2017 10:39am Calcium Level 8.1 mg/dL L 8.4-10.2 06/21/2017 10:15am 06/21/2017 10: 39am Bedside Glucose 88 mg/dL 70-120 06/22/2017 3:30pm 06/22/2017 3:46pm Meter ID: [id number] Hemoglobin A1c Percent 5.0 % 4.0-7.0 06/10/2017 4:40am 06/10/2017 8: 47am Phosphorus Level 2.4 MG/DL 2.3-4.7 06/16/2017 10:35am 06/16/2017 11: 42am Magnesium Level 1.6 MG/DL 1.3-2.1 06/10/2017 4:40am 06/10/2017 6:06am Total Bilirubin 0.3 mg/dL 0.2-1.2 06/12/2017 6:30am 06/12/2017 7:36am Aspartate Amino Transf (AST/SGOT) 13 IU/L 5-34 06/12/2017 6:302017 7:36am Alanine Aminotransferase (ALT/SGPT) 7 IU/L 0-55 06/12/2017 6:3006/12 7:36am Total Protein 5.2 g/dL L 6.5-8.1 06/12/2017 6:3006/12/2017 7:36am Albumin 1.6 g/dL L 3.5-5.0 06/12/2017 6:3006/12/2017 7:36am Globulin 3.6 g/dL H 2.3-3.5 06/12/2017 6:3006/12/2017 7:36am Albumin/Globulin Ratio 0.4 L 0.8-2.0 06/12/2017 6:3006/12/2017 7: 36am Alkaline Phosphatase 90 IU/L 40-150 06/12/2017 6:30am 06/12/2017 7: 36am B-Type Natriuretic Peptide 2158.5 pg/mL H 0-100 06/09/2017 2:20pm 2017 3:05pm Creatine Kinase 107 IU/L 29-168 06/09/2017 2:20pm 06/09/2017 3:02pm Creatine Kinase MB 5.30 ng/mL H 0-5.0 06/09/2017 2:20pm 06/09/2017 3: 10pm Troponin I 0.016 ng/mL 0-0.300 06/09/2017 2:20pm 06/09/2017 3:10pm Thyroid Stimulating Hormone (TSH) 6.568 uIU/mL H 0.350-4.940 06/10/2017 4 :40am 06/10/2017 8:56am Hepatitis B Surface Antibody, Quant <3.1 mIU/mL L Immunity>9.9 2017 12:15pm 06/19/2017 7:53am Status of Immunity Anti- HBs Level Inconsistent with Immunity 0.0 - 9.9 Consistent with Immunity >9.9 Hepatitis B Core Total Antibody Negative Negative 06/18/2017 12:15pm 06/19/2017 7:53am Performed at: - [facility] [id number] Merchandise Manager: Mani Stevens MD, Phone: [phone] Hepatitis B Surface Antigen Negative Negative 06/18/2017 12:15pm 04/2017 7:53am Prealbumin 14 mg/dL 10-36 06/10/2017 4:40am 06/11/2017 1:17pm Performed at: [facility] - [address] [id number] Merchandise Manager: Mani Stevens MD, Phone: [phone] Microbiology Results Procedure Source Organism/Result Collection Date/Time Result Date/Time Result Status Blood Culture Blood NO GROWTH AFTER 5 DAYS, FINAL REPORT 06/09/2017 3:44pm 06/14/2017 6:54pm Final Blood Culture Blood STAPHYLOCOCCUS SP COAG NEG 06/09/2017 3:44pm 2017 7:39am Final Procedures Procedure Status Date Provider(s) Creation of arteriovenous fistula Completed 06/20/17 SUZI ABEL MD X-ray of chest, two views Active 03/13/17 MOE MCKEON MD X-ray of chest, two views Active 04/19/17 ARCHIE THORNTON MD X-ray of chest, single view Active 06/09/17 ARCHIE THORNTON MD Ultrasound, renal Active 06/09/17 TATA WATKINS NP Ultrasound guidance for vascular access Active 06/12/17 AVA BUENROSTRO MD Encounters Encounter Location Arrival/Admit Date Discharge/Depart Date Attending Provider Discharged Inpatient [facility] 06/09/17 6:12pm 06/22/17 6:20pm AVA BUENROSTRO MD Discharged Inpatient [facility] 04/19/17 3:24pm 04/22/17 1:59pm MENDOZA VILLEGAS MD Departed Emergency Room [facility] 03/13/17 5:57pm 2:15am MOE MCKEON MD
[2017-07-09] MEDS ORDERED: ASPIRIN 81 MG CHEW TAB PO ONE ×2 (13:30→16:00)
--- NOTE | 2017-07-09 14:11 | Diagnostic Imaging Report ---
Examination: CT BRAIN WITHOUT CONTRAST History:Weakness. Comparison studies:None Technique: Axial images were obtained from the skull base to the vertex. Coronal and sagittal images reconstructed from the axial data. Intravenous contrast: None Findings: Scalp: No abnormalities. Bones: No fractures, blastic or lytic lesions. Brain sulci: Mild central volume loss for age with ex vacuo dilatation of the lateral ventricles. Ventricles: No hydrocephalus. Extra-axial space: No abnormalities. Parenchyma: No masses, hemorrhage, or acute or chronic cortical based vascular insults. Sellar/suprasellar region: No abnormalities. Craniocervical junction: Patent foramen magnum. No Chiari one malformation. Incidental findings: Atherosclerotic calcification of the cavernous and supraclinoid internal carotid arteries. Impression: No acute intracranial abnormalities. Mild volume loss for age. Signed by: Dr. Lu Giron M.D. on 07/09/2017 2:08 PM
--- NOTE | 2017-07-09 14:14 | Diagnostic Imaging Report ---
PROCEDURE: A single AP view of the chest. COMPARISON: Patients [facility], DX, CHEST SINGLE (NOT PORTABLE), 06/09/2017, 14:31. INDICATIONS: COUGH, EYE TWITCH FINDINGS: Lines/tubes: Right sided dual lumen tunneled central venous catheter with the distal tips projected on the cavoatrial junction/right atrium. Lungs: There is patchy density in the right upper lobe, and left lower lobe concerning for multifocal pneumonia. Pleura: There is no pneumothorax. The small left pleural effusion. Heart and mediastinum: The heart and the mediastinum are unremarkable. Bones: No acute bony abnormality. IMPRESSION: 1. Findings suggestive of right upper lobe and left lower lobe pneumonia. Recommend followup after treatment to document resolution. Libia Rodriguez M.D. Dictated by: Libia Rodriguez M.D. on 07/09/2017 at 14:17 Electronically approved by: Libia Rodriguez M.D. on 07/09/2017 at 14:17
[2017-07-09 14:21] LABS: BASOPHILS % 0.5 % (0.0-1.0); EOSINOPHILS # (AUTO) 0.2 (0.0-0.4); EOSINOPHILS % 2.1 % (0.0-6.0); HEMOGLOBIN 7.6 g/dL (12.0-16.0); LYMPHOCYTES # (AUTO) 0.9 (1.0-3.2); MEAN CORPUSCULAR HGB CONC 34.1 g/dL (31-35); MEAN CORPUSCULAR VOLUME 88.1 fL (81-99); MONOCYTES # (AUTO) 0.4 (0.2-0.8); MONOCYTES % 5.2 % (4.4-11.3); NEUTROPHILS # (AUTO) 6.9 (2.1-6.9); NEUTROPHILS % 80.7 % (38.7-80.0); PLATELET COUNT 233 x10e3/uL (140-360); RED BLOOD COUNT 2.53 x10e6/uL (3.6-5.1); RED CELL DISTRIBUTION WIDTH 14.2 % (11.7-14.4)
[2017-07-09 14:22] LABS: HEMATOCRIT 22.3 % (34.2-44.1)
[2017-07-09 14:28] LABS: INR 1.04; PROTHROMBIN TIME 12.8 seconds (11.9-14.5)
[2017-07-09 14:29] LABS: PARTIAL THROMBOPLASTIN TIME 34.9 seconds (23.8-35.5)
[2017-07-09 14:36] LABS: ALBUMIN 2.1 g/dL (3.5-5.0); ALBUMIN/GLOBULIN RATIO 0.5 (0.8-2.0); ALKALINE PHOSPHATASE 95 IU/L (40-150); AMYLASE 30 U/L (25-125); ANION GAP 12.8 mmol/L (8-16); BLOOD UREA NITROGEN 16 mg/dL (7-26); BUN/CREATININE RATIO 5 (6-25); CALCIUM 8.7 mg/dL (8.4-10.2); CARBON DIOXIDE 32 mmol/L (22-29); CHLORIDE 98 mmol/L (98-107); CREATINE KINASE 38 IU/L (29-168); CREATININE, SERUM 2.98 mg/dL (0.57-1.11); EST GLOMERULAR FILTRATION RATE 16 ML/MIN (60-); GLUCOSE 182 mg/dL (74-118); SODIUM 140 mmol/L (136-145)
[2017-07-09 14:37] LABS: ALANINE AMINOTRANSFERASE < 6 IU/L (0-55)
[2017-07-09 14:39] LABS: POTASSIUM 2.8 mmol/L (3.5-5.1)
[2017-07-09 14:53] LABS: B-TYPE NATRIURETIC PEPTIDE2 2675.9 pg/mL (0-100)
[2017-07-09] MEDS ORDERED: LEVOFLOXACIN 500MG/D5W 100ML 100 ML IV ONE (15:15)
[2017-07-09] MEDS ORDERED: AZITHROMYCIN 500MG/NS 250 ML 250 ML IV ONE (15:15)
[2017-07-09] MEDS ORDERED: HYDRALAZINE HCL 20 MG/ML VIAL IV ONE ×2 (16:15→16:30)
[2017-07-09] MEDS ORDERED: POTASSIUM CHLORIDE 20 MEQ TAB CR PO STA (17:58)
[2017-07-09] MEDS: SODIUM CHLORIDE 0.9% 250ML 250 ML IV ONE (18:15)
[2017-07-09] MEDS ORDERED: FUROSEMIDE INJ 10 MG/ML 2 ML VIAL IV PRN (18:45)
--- NOTE | 2017-07-09 19:52 | Consultation ---
DATE OF CONSULTATION: July 09, 2017 HISTORY OF PRESENT ILLNESS: Ms. Bradshaw is a 57-year-old, right-hand dominant woman with past medical history significant for hypertension, diabetes mellitus, and end-stage renal disease on hemodialysis Mondays, Wednesdays and Fridays, who presented to the emergency center at [facility] on July 09, 2017, with symptoms concerning for stroke. On the morning of July 08, 2017, the patient experienced the abrupt onset of right facial weakness and left hemiparesis, arm and leg equally affected, as well as numbness over the left arm. Ms. Bradshaw endorses gait impairment as well. However, both the patient and her daughter report the impairment of gait and poor balance is chronic. Ms. Bradshaw does not report a visual field cut or other disturbance, dysarthria, aphasia, dizziness, or confusion. She has not experienced similar symptoms previously. As stated above, the described symptoms began suddenly on the morning of July 08, 2017. After the symptoms persisted for more than 24 hours, the patient was brought to the emergency center at [facility] by multiple family members for further evaluation. Upon arrival in the emergency center, the patient was afebrile with a blood pressure of 198/77 mmHg and a pulse of 68 beats per minute. The neurological examination performed by the emergency center physician was significant for right facial weakness and left hemiparesis. A CT of the brain without contrast was performed, but did not show evidence of recent large territorial ischemia or hemorrhage. A chest x-ray performed in the emergency center did show evidence of pneumonia. Ms. Bradshaw will be admitted to [facility] for treatment of pneumonia and evaluation and treatment of her other symptoms. REVIEW OF SYSTEMS: Right facial weakness, numbness of the left arm and both feet, weakness of the left arm and leg, impairment of balance and gait (chronic). Otherwise, a 12-point review of systems is negative. PAST MEDICAL HISTORY: Hypertension, diabetes mellitus, end-stage renal disease on hemodialysis Friday, Friday and Friday. PAST SURGICAL HISTORY: Multiple AV fistulas procedures. Most recently, an AV fistula was placed in the left upper arm. Bilateral tubal ligation, laser eye surgery. PAST HOSPITALIZATIONS: Surgeries and procedures as listed, childbirth times 7, multiple hospitalizations for renal dysfunction and pulmonary edema/effusion. FAMILY HISTORY: The patient's paternal and maternal grandparents are . Their medical histories are unknown. The patient's father is . He had hypertension. Ms. Bradshaw' mother is . She had hypertension and diabetes mellitus. Ms. Bradshaw has 2 sisters who are living, both have hypertension. All of the patient's 7 children are alive and healthy. SOCIAL HISTORY: Ms. Bradshaw is single. She is in the process of filing for disability. The patient does not report current or prior tobacco, alcohol, or recreational drug use. MEDICATIONS: Lasix 40 mg by mouth daily, hydralazine 100 mg by mouth every 8 hours, isosorbide dinitrate 30 mg by mouth twice daily, carvedilol 50 mg by mouth every 12 hours, minoxidil 5 mg by mouth every 12 hours, sevelamer 800 mg by mouth every 8 hours, pantoprazole 40 mg by mouth daily. ALLERGIES: NO KNOWN DRUG ALLERGIES. NO KNOWN FOOD ALLERGIES. NO KNOWN ALLERGIES TO LATEX. NO KNOWN ALLERGIES TO IODINE OR OTHER CONTRAST MATERIALS. PHYSICAL EXAMINATION: VITAL SIGNS: Height 58 inches, weight 145 pounds, BMI 30.3 kg/m squared, blood pressure 199/82 mmHg, pulse 71 beats per minute, respiratory rate 18 breaths per minute, oxygen saturation 95% on room air. GENERAL: The patient is awake and alert, does not appear distressed. Overweight. HEENT: Normocephalic, atraumatic. Pupils are surgical. Moist mucous membranes. NECK: Supple. No appreciable thyromegaly. No appreciable carotid bruits. CARDIOVASCULAR: S1, S2. Regular rate and rhythm. No murmurs, rubs, or gallops. RESPIRATORY: Clear to auscultation bilaterally. No wheezes, rhonchi, or rales. EXTREMITIES: The skin is warm and dry. No clubbing, cyanosis or edema. The posterior tibial and dorsalis pedis pulses are 1+ and symmetric. SKIN: No rashes or lesions. NEUROLOGIC MEMORY/ATTENTION: The patient is awake and alert, oriented to person, place, time, and situation. CRANIAL NERVES: Cranial nerve I-not tested. Cranial nerves II, III, IV, -pupils are surgical, extraocular movements intact, no nystagmus. Cranial nerve V-sensation to light touch and pinprick is intact in the bilateral V1 through V3 distributions. Strength of the temporalis and masseter muscles is within normal limits. Cranial nerve VII-there is right facial asymmetry with [id number] right facial weakness. The right side of the forehead is mildly affected. Cranial nerve VIII-hearing is intact to finger rub on the right, diminished to finger rub on the left. Cranial nerves IX, X-the soft palate elevates equally and symmetrically. Cranial nerve XI-normal strength of the bilateral sternocleidomastoid and trapezius muscles. Cranial nerve XII-the tongue protrudes in the midline and moves symmetrically from side to side. STRENGTH: Bulk is normal. Ms. Bradshaw maintains both arms against gravity for more than 10 seconds each with drift in the left arm. She maintains both legs against gravity for more than 5 seconds each without drift. Tone is normal. DTRs: Deep tendon reflexes are trace and symmetric at the triceps, biceps, brachioradialis, and patellas. Deep tendon reflexes are absent and symmetric at the Achilles. Plantar responses are flexor bilaterally. SENSATION: Sensation is intact to light touch and pinprick in both arms and both legs except as follows: Decreased sensation to pinprick over the left hand. CEREBELLAR: Mysakc-gbzh-umcrie movements are impaired on the left arm, but within the bounds of paresis. Heel-saenz movements are impaired on the left leg, not within the bounds of paresis. GAIT: Deferred. SPEECH: Spontaneous speech is dysarthric without aphasia. Repetition is intact. INVOLUNTARY MOVEMENTS: None. PRONATOR DRIFT: As per motor exam. LABORATORY DATA: Sodium 140, potassium 2.8, chloride 98, carbon dioxide 32, anion gap 12.8, BUN 16, creatinine 2.98, estimated GFR 16, BUN to creatinine ratio of 5, glucose 182, calcium 8.7. Total bilirubin 0.5, AST 14, ALT less than 6, alkaline phosphatase 95, total protein 6.6, albumin 2.1, globulin 4.5, albumin to globulin ratio 0.5. Creatinine kinase 38, CK-MB 0.70, troponin I is 0.380. B-type natriuretic peptide 2675.9. Lactic acid 11.5, amylase 30. CBC with differential and platelets reveals a white blood cell count of 8.53 with 80.7% neutrophils, 11.0% lymphocytes, 5.2% monocytes, 2.1% eosinophils and 0.5% basophils. The hemoglobin and hematocrit are 7.6 and 22.3, respectively. The platelet count is 233,000. PT 12.8, INR 1.04, PTT 34.9. DIAGNOSTIC STUDIES: 1. EKG of July 09, 2017: Accelerated junctional rhythm at 68 beats per minute. 2. Chest x-ray of July 09, 2017: Findings suggestive of right upper lobe and left lower lobe pneumonia. Recommend followup after treatment to document resolution. 3. CT of the brain without contrast of July 09, 2017: On my review, there is no evidence of recent large territorial ischemia, hemorrhage, mass, or mass effect. ASSESSMENT AND PLAN: Ms. Bradshaw is a 57-year-old, right-hand dominant woman with multiple vascular risk factors who presented to the emergency center at [facility] on July 09, 2017, with right facial weakness and left hemiparesis of one day's duration. The patient's neurological examination is detailed above. Ms. Bradshaw' laboratory data and diagnostic studies have been reviewed and are documented above. In a patient with multiple vascular risk factors who presents with the acute onset of multiple neurological deficits, stroke must be the primary concern. In the case of Ms. Bradshaw, a brainstem stroke could explain the crossed findings on examination. Other possible diagnosis which would account for the crossed findings include a right Laird's palsy with a right middle cerebral artery stroke or a right Laird's palsy with effort dependent weakness of the left arm and leg. RECOMMENDATIONS: 1. An MRI of the brain without contrast will be ordered for further evaluation. If the patient has experienced a stroke, there should be evidence of it on the MRI of the brain. 2. Results of the above study will dictate further recommendations for evaluation and treatment. 3. Defer treatment of the remaining medical comorbidities to the primary and other services. Thank you for this consultation. I will continue to follow this patient while she remains in the hospital. TIME SPENT: 50 minutes. Job#: [id number] [facility]PITALErna
[2017-07-10 00:30] LABS: CREATINE KINASE MB 0.8 ng/mL (0-5.0)
[2017-07-10] MEDS: CARVEDILOL 12.5 MG TAB PO SCH ×3 (05:16→21:14)
[2017-07-10 06:40] LABS: CHOL/HDL RATIO 4.4 (3.0-3.6)
[2017-07-10 06:50] LABS: CREATINE KINASE MB 0.7 ng/mL (0-5.0)
[2017-07-10 06:50] LABS: CLARITY,URINE SL CLOUDY (CLEAR); COLOR,URINE YELLOW (YELLOW)
[2017-07-10 06:51] LABS: BILIRUBIN,URINE NEGATIVE (NEGATIVE); KETONES,URINE NEGATIVE (NEGATIVE); LEUKOCYTE ESTERASE ,URINE NEGATIVE (NEGATIVE); NITRITE,URINE NEGATIVE (NEGATIVE); PROTEIN,URINE DIPSTICK 3+ (NEGATIVE); URINE UROBILINOGEN 0.2 mg/dL (0.2 - 1)
[2017-07-10 07:01] LABS: RBC,URINE 0-5 /HPF (0-5)
[2017-07-10 07:02] LABS: BACTERIA,URINE RARE /HPF; EPITHELIAL CELLS,URINE MODERATE /LPF; MUCUS,URINE RARE (RARE); YEAST,URINE FEW
[2017-07-10] MEDS ORDERED: CEFTRIAXONE SOD 1 GM/NS 50 ML 50 ML IV SCH (08:30)
[2017-07-10] MEDS ORDERED: DEXTROSE 50% SYRINGE 50 ML IV PRN (08:30)
[2017-07-10] MEDS: CEFTRIAXONE SOD 1 GM VIAL IV SCH (08:58)
[2017-07-10] MEDS: ISOSORBIDE DINITRATE 20 MG TAB PO SCH ×2 (08:59→17:29)
[2017-07-10] MEDS: CLONIDINE HCL 0.3 MG TAB PO SCH ×3 (08:59→21:10)
[2017-07-10] MEDS ORDERED: POTASSIUM CHLORIDE 20 MEQ TAB CR PO SCH (09:00)
[2017-07-10] MEDS: SODIUM CHLORIDE 0.9% 250ML 250 ML IV ONE (09:00)
[2017-07-10] MEDS ORDERED: MINOXIDIL 2.5 MG TAB PO SCH (09:00)
[2017-07-10] MEDS: INSULIN LISPRO 100 UNIT/1 ML 3ML VIAL SQ SCH ×3 (11:55→21:15)
[2017-07-10] MEDS ORDERED: HEPARIN SOD (PORCINE) 1000 UNIT/ML SDV IV NR (12:00)
[2017-07-10] MEDS: FOLIC ACID 1 MG TAB PO SCH (12:03)
[2017-07-10] MEDS: FUROSEMIDE 40 MG TAB PO SCH (12:04)
[2017-07-10] MEDS ORDERED: CLONIDINE HCL 0.2 MG TAB ONE (12:40)
[2017-07-10] MEDS ORDERED: CLONIDINE HCL 0.1 MG TAB ONE (12:40)
[2017-07-10] MEDS: SEVELAMER CARBONATE 800 MG TAB PO SCH ×2 (13:36→17:29)
[2017-07-10] MEDS ORDERED: DOCUSATE SODIUM 100 MG CAP PO ONE (14:00)
[2017-07-10] MEDS: HYDRALAZINE HCL 100 MG TABLET PO SCH ×2 (14:45→22:59)
[2017-07-10 15:14] LABS: CREATINE KINASE MB 1.2 ng/mL (0-5.0)
[2017-07-10] MEDS: AZITHROMYCIN 250MG/NS 100 ML 100 ML IV SCH (15:31)
[2017-07-10] MEDS ORDERED: HYDRALAZINE HCL 20 MG/ML VIAL IV STA (15:45)
[2017-07-10] MEDS ORDERED: NITROGLYCERIN 0.4 MG SUBL SL PRN (15:45)
--- NOTE | 2017-07-10 15:55 | Diagnostic Imaging Report ---
EXAMINATION: MRI of the brain without contrast. HISTORY: CVA, pneumonia, evaluate for acute infarct, facial droop COMPARISON: Head CT on 07/09/2017 TECHNIQUE: Sagittal T2; axial DWI, T2, FLAIR, T1-IR, T2 gradient echo; coronal FLAIR. IMAGE QUALITY: Adequate. FINDINGS: Parenchyma: 1. Approximately 8 mm low T1, high T2 and FLAIR signal intensity lesion in the right middle cerebellar peduncle with minimal expansion, no surrounding edema or significant mass effect. This finding is nonspecific and may represent an area of ischemia, demyelinating lesion, less likely low-grade neoplasm. 2. Few scattered white matter T2 hyperintense foci, most likely nonspecific chronic microvascular ischemic changes. 3. Small focal cortical subcortical encephalomalacia in the left inferior parietal lobule, likely sequela from remote infarction or trauma. 4. No hemorrhage or acute infarcts. Skull: Unremarkable. Vessels: Expected flow voids present in the major arteries and dural sinuses. Extra-axial spaces: No abnormal signal intensity or mass effect. Brain volume: Within normal limits for age. Ventricles: No hydrocephalus or displacement. Foramen magnum: Unremarkable. Sella: Unremarkable. Paranasal / mastoid sinuses: No significant inflammatory disease. IMPRESSION: 1. No acute infarcts. 2. Nonspecific small focal lesion in the right middle cerebellar pedicle, the differential diagnoses would include ischemia, demyelination or low-grade neoplasm. Comparison to prior brain MRIs if available is recommended, otherwise a brain MRI with contrast is advised. 3. Small chronic cortical infarct in the left parietal lobe. 4. Mild chronic microvascular ischemic changes. Signed by: Dr. Rolanda Lundy M.D. on 07/10/2017 3:52 PM
[2017-07-10] MEDS ORDERED: HYDRALAZINE HCL 20 MG/ML VIAL IV PRN (16:00)
--- NOTE | 2017-07-10 16:37 | Consultation ---
DATE OF CONSULTATION: July 10, 2017 Patient seen in the emergency room. A 57-year-old lady who is known to nephrology service, has poorly controlled hypertension, underlying hyperlipidemia, type 2 diabetes, peripheral neuropathy, end stage renal disease, hypothyroidism, secondary hypoparathyroidism, anemia, chronic kidney disease who has had a prior CVA and pneumonia, history of congestive heart failure. Came in for possible CVA. She came yesterday. She is currently awake, alert, no apparent distress. Had a CT scan done. There is no acute CVA noted. She is currently laying supine, no apparent distress. Following commands. Denies any nausea, vomiting, or shortness of breath. She has been relatively hypertensive. PHYSICAL EXAMINATION VITAL SIGNS: This morning blood pressure 192/76, pulse of 73, repeat 189/70, pulse of 65. Respiratory rate 14. HEAD AND NECK: Cornea clear. Oral mucosa dry. Neck veins flat. LUNGS: Few bibasilar rales. HEART: S1, S2 audible. ABDOMEN: Otherwise soft, nontender. EXTREMITIES: Lower extremity examination shows no edema. CURRENT MEDICATIONS: Patient is on azithromycin, got 1 dose of Levaquin, aspirin 81 mg to chew, carvedilol 50 mg p.o. q.12, ceftriaxone 1 gram IV daily, clonidine 0.3 mg p.o. t.i.d., she is on folic acid 1 mg daily, Furosemide 40 mg daily, she is on hydralazine 100 mg q.8, isosorbide 30 mg p.o. b.i.d., levothyroxine 25 mcg daily. She is on, for some reason, potassium chloride 20 mEq daily which I am going to stop immediately. SOCIAL HISTORY: Does not smoke or drink. LABS: White count 8.5, hemoglobin 7.6, potassium level of 2.8 critically low with creatinine of 2.98. IMPRESSION/PLAN 1. Hypokalemia. 2. End stage renal disease. 3. Anemia. Plan on hemodialysis. Will transfuse packed RBC. I will be dialyzing against a high potassium bath in order to correct the hypokalemia. Will increase minoxidil dose to 10 mg p.o. b.i.d. Will place on hydralazine 10 mg IV q.4-6 hours p.r.n. for systolic blood pressure 180 or more with these stroke-like symptoms, which is not clear and evident that she has had a stroke. I will have to be careful in lowering her blood pressure. Will seek Neurology input of how much the blood pressure needs to be corrected. Brain MRI was done, results are pending. Please see orders. Job#: [id number] DG
[2017-07-10 18:00] VITALS: BP 128/97
[2017-07-10 20:29] VITALS: BP 147/62
[2017-07-10 21:10] VITALS: BP 147/62
[2017-07-10] MEDS: MINOXIDIL 2.5 MG TAB PO SCH (21:14)
[2017-07-10] MEDS: ONDANSETRON HCL 4 MG ORAL DISINTEGRATING TAB PO PRN (22:54)
[2017-07-10 22:55] VITALS: BP 180/85
[2017-07-11] MEDS: HYDRALAZINE HCL 100 MG TABLET PO SCH ×3 (05:25→22:00)
[2017-07-11] MEDS: LEVOTHYROXINE SODIUM 25 MCG TABLET PO SCH (05:33)
[2017-07-11 05:41] VITALS: BP 127/57
[2017-07-11 06:23] LABS: BASOPHILS % 0.3 % (0.0-1.0); HEMATOCRIT 26.9 % (34.2-44.1); HEMOGLOBIN 9.2 g/dL (12.0-16.0); LYMPHOCYTES # (AUTO) 0.9 (1.0-3.2); MEAN CORPUSCULAR HEMOGLOBIN 29.7 pg (28-32); MEAN CORPUSCULAR HGB CONC 34.2 g/dL (31-35); MEAN CORPUSCULAR VOLUME 86.8 fL (81-99); MONOCYTES # (AUTO) 0.3 (0.2-0.8); MONOCYTES % 5.2 % (4.4-11.3); NEUTROPHILS # (AUTO) 5.3 (2.1-6.9); NEUTROPHILS % 80.2 % (38.7-80.0); PLATELET COUNT 165 x10e3/uL (140-360); RED CELL DISTRIBUTION WIDTH 14.5 % (11.7-14.4)
[2017-07-11 06:31] LABS: ANION GAP 14.8 mmol/L (8-16); CREATININE, SERUM 2.44 mg/dL (0.57-1.11)
[2017-07-11 06:40] LABS: POTASSIUM 2.8 mmol/L (3.5-5.1)
[2017-07-11] MEDS: INSULIN LISPRO 100 UNIT/1 ML 3ML VIAL SQ SCH ×4 (07:30→21:44)
[2017-07-11 07:50] VITALS: BP 128/49
[2017-07-11 07:58] LABS: LYMPHOCYTES % (MANUAL) 10 % (19-48); MONOCYTES % (MANUAL) 9 % (3.4-9.0); NEUTROPHILS % (MANUAL) 80 % (40-74)
[2017-07-11 07:59] LABS: ANISOCYTOSIS SLIGHT; HYPOCHROMASIA SLIGHT; PLATELET ESTIMATE ADEQUATE; PLATELET MORPHOLOGY COMMENT FEW LARGE; RBC MORPHOLOGY COMMENT NORMAL
[2017-07-11 08:00] VITALS: BP 128/49
[2017-07-11] MEDS: DOCUSATE SODIUM 100 MG CAP PO SCH (08:40)
[2017-07-11] MEDS: SEVELAMER CARBONATE 800 MG TAB PO SCH ×3 (08:40→17:00)
[2017-07-11] MEDS: CLONIDINE HCL 0.3 MG TAB PO SCH ×3 (08:40→21:00)
[2017-07-11] MEDS: CEFTRIAXONE SOD 1 GM VIAL IV SCH (08:40)
[2017-07-11] MEDS: FUROSEMIDE 40 MG TAB PO SCH (08:40)
[2017-07-11] MEDS: PANTOPRAZOLE SOD 40 MG TABEC PO SCH (08:40)
[2017-07-11] MEDS: ISOSORBIDE DINITRATE 20 MG TAB PO SCH ×2 (08:40→16:36)
[2017-07-11] MEDS: MINOXIDIL 2.5 MG TAB PO SCH ×2 (08:40→21:00)
[2017-07-11] MEDS: FOLIC ACID 1 MG TAB PO SCH (08:40)
[2017-07-11] MEDS ORDERED: POTASSIUM CHLORIDE 20 MEQ TAB CR PO NR (09:00)
[2017-07-11] MEDS: CARVEDILOL 12.5 MG TAB PO SCH ×2 (09:00→21:00)
[2017-07-11 12:00] VITALS: BP 112/45
[2017-07-11] MEDS: ONDANSETRON HCL 4 MG ORAL DISINTEGRATING TAB PO PRN (12:00)
[2017-07-11] MEDS: ACETAMINOPHEN 325 MG TAB PO PRN ×2 (13:00→18:27)
[2017-07-11] MEDS: SODIUM CHLORIDE 0.9% 1000ML 2,000 ML IV PRN (14:37)
[2017-07-11] MEDS: HEPARIN SOD (PORCINE) 1000 UNIT/ML SDV IV PRN (14:37)
[2017-07-11 15:11] LABS: CHOL/HDL RATIO 4.3 (3.0-3.6)
[2017-07-11 16:00] VITALS: BP 111/53
[2017-07-11] MEDS: FAMOTIDINE 20 MG TAB PO SCH (17:00)
[2017-07-11 19:05] VITALS: BP 98/47
[2017-07-11] MEDS: AZITHROMYCIN 250MG/NS 100 ML 100 ML IV SCH (19:14)
[2017-07-11] MEDS ORDERED: IOPAMIDOL 370 MG/ML 200 ML INFUS..BTL INJ ONE (22:26)
[2017-07-11] MEDS ORDERED: SODIUM CHLORIDE 0.9% 50ML 50 ML ONE (22:26)
--- NOTE | 2017-07-11 22:43 | Diagnostic Imaging Report ---
History: Abnormal MR Comparison studies: MR brain 07/10/17 Technique: Axial images were obtained from the skull base to the vertex. Coronal and sagittal reconstructions obtained from the axial data. Findings: Scalp/skull: No abnormalities. No fractures, blastic or lytic lesions. Extra-axial spaces: No masses. No fluid collections. Brain sulci: Appropriate for age. Ventricles: Normal in size and configuration. No hydrocephalus. Parenchyma: Subtle non enhancing small hypodensity in the right middle cerebellar peduncle , no surrounding edema or significant mass effect. . No hemorrhage. Sellar/suprasellar region: No abnormalities Craniocervical junction: Patent foramen magnum. No Chiari one malformation. IMPRESSION: Non specific small non enhancing lesion at the right middle cerebellar peduncle, better seen on MR, recommend MR follow up in 3 months . Signed by: DR Nestor Calvillo M.D. on 07/11/2017 10:40 PM
[2017-07-12] VITALS (8 sets, daily range): BP systolic 99–111; BP diastolic 51–57
[2017-07-12] MEDS: HYDRALAZINE HCL 100 MG TABLET PO SCH ×3 (00:52→14:00)
[2017-07-12] MEDS: LEVOTHYROXINE SODIUM 25 MCG TABLET PO SCH (06:00)
[2017-07-12 07:02] LABS: ALBUMIN 1.8 g/dL (3.5-5.0); ALBUMIN/GLOBULIN RATIO 0.5 (0.8-2.0); CALCIUM 7.7 mg/dL (8.4-10.2); CREATININE, SERUM 1.61 mg/dL (0.57-1.11); POTASSIUM 3.2 mmol/L (3.5-5.1)
[2017-07-12 07:44] LABS: ANION GAP 15.2 mmol/L (8-16)
[2017-07-12] MEDS: CLONIDINE HCL 0.3 MG TAB PO SCH ×3 (08:29→21:00)
[2017-07-12] MEDS: CARVEDILOL 12.5 MG TAB PO SCH ×2 (08:30→21:00)
[2017-07-12] MEDS: ISOSORBIDE DINITRATE 20 MG TAB PO SCH ×2 (08:31→16:37)
[2017-07-12] MEDS: MINOXIDIL 2.5 MG TAB PO SCH (08:32)
[2017-07-12] MEDS: DOCUSATE SODIUM 100 MG CAP PO SCH (08:46)
[2017-07-12] MEDS: FAMOTIDINE 20 MG TAB PO SCH ×2 (08:46→16:44)
[2017-07-12] MEDS: COLLAGENASE OINTMENT 30 GM TUBE TP SCH (08:46)
[2017-07-12] MEDS: FUROSEMIDE 40 MG TAB PO SCH (08:46)
[2017-07-12] MEDS: FOLIC ACID 1 MG TAB PO SCH (08:46)
[2017-07-12] MEDS: PANTOPRAZOLE SOD 40 MG TABEC PO SCH (08:46)
[2017-07-12] MEDS: SEVELAMER CARBONATE 800 MG TAB PO SCH ×3 (08:46→16:44)
[2017-07-12] MEDS: ASPIRIN 81 MG ENTERIC COATED PO SCH (08:46)
[2017-07-12] MEDS: CEFTRIAXONE SOD 1 GM VIAL IV SCH (08:46)
[2017-07-12] MEDS: INSULIN LISPRO 100 UNIT/1 ML 3ML VIAL SQ SCH ×4 (08:50→21:45)
[2017-07-12] MEDS: MEGACE 400MG/ 10ML CUP PO SCH (12:07)
[2017-07-12] MEDS: AZITHROMYCIN 250MG/NS 100 ML 100 ML IV SCH (13:49)
[2017-07-12] MEDS: ACETAMINOPHEN 325 MG TAB PO PRN (14:34)
[2017-07-12] MEDS ORDERED: BISACODYL 10 MG SUPP PR PRN (17:30)
[2017-07-12] MEDS: SIMVASTATIN 20 MG TAB PO SCH (21:45)
[2017-07-13] VITALS: BP 161/72
[2017-07-13] MEDS: HYDRALAZINE HCL 100 MG TABLET PO SCH ×3 (05:31→22:45)
[2017-07-13] MEDS: LEVOTHYROXINE SODIUM 25 MCG TABLET PO SCH (05:33)
[2017-07-13] MEDS: INSULIN LISPRO 100 UNIT/1 ML 3ML VIAL SQ SCH ×4 (07:30→21:40)
[2017-07-13 08:00] VITALS: BP 158/68
[2017-07-13] MEDS: MEGACE 400MG/ 10ML CUP PO SCH (08:55)
[2017-07-13] MEDS: DOCUSATE SODIUM 100 MG CAP PO SCH (08:55)
[2017-07-13] MEDS: PANTOPRAZOLE SOD 40 MG TABEC PO SCH (08:55)
[2017-07-13] MEDS: CLONIDINE HCL 0.3 MG TAB PO SCH ×3 (08:55→21:43)
[2017-07-13] MEDS: FAMOTIDINE 20 MG TAB PO SCH ×2 (08:55→16:00)
[2017-07-13] MEDS: SEVELAMER CARBONATE 800 MG TAB PO SCH ×3 (08:55→16:00)
[2017-07-13] MEDS: ASPIRIN 81 MG ENTERIC COATED PO SCH (08:55)
[2017-07-13] MEDS: CEFTRIAXONE SOD 1 GM VIAL IV SCH (08:55)
[2017-07-13] MEDS: FOLIC ACID 1 MG TAB PO SCH (08:55)
[2017-07-13] MEDS: CARVEDILOL 12.5 MG TAB PO SCH ×2 (08:55→21:00)
[2017-07-13] MEDS: COLLAGENASE OINTMENT 30 GM TUBE TP SCH (08:55)
[2017-07-13] MEDS ORDERED: LACTULOSE SYRUP 20 GM/30 ML UDC PO PRN (09:15)
[2017-07-13] MEDS ORDERED: BISACODYL 10 MG SUPP PR PRN (09:15)
[2017-07-13] MEDS: SENNOSIDES 8.6 MG TAB PO SCH ×2 (11:00→16:34)
[2017-07-13 12:00] VITALS: BP 172/106
[2017-07-13] MEDS: AZITHROMYCIN 250MG/NS 100 ML 100 ML IV SCH (14:00)
[2017-07-13 16:00] VITALS: BP 123/58
[2017-07-13] MEDS: BALSAM PERU/CASTOR OIL 60 GM OINT...G. TP SCH (17:24)
[2017-07-13] MEDS: SIMVASTATIN 20 MG TAB PO SCH (21:40)
[2017-07-14] MEDS: HYDRALAZINE HCL 100 MG TABLET PO SCH ×3 (06:00→21:45)
[2017-07-14 06:22] LABS: ALBUMIN 1.6 g/dL (3.5-5.0); ALBUMIN/GLOBULIN RATIO 0.4 (0.8-2.0); ANION GAP 14.1 mmol/L (8-16); CALCIUM 7.7 mg/dL (8.4-10.2); CREATININE, SERUM 3.69 mg/dL (0.57-1.11); POTASSIUM 3.1 mmol/L (3.5-5.1)
[2017-07-14] MEDS: LEVOTHYROXINE SODIUM 25 MCG TABLET PO SCH (06:23)
[2017-07-14] MEDS: INSULIN LISPRO 100 UNIT/1 ML 3ML VIAL SQ SCH ×4 (07:30→21:45)
[2017-07-14 07:56] VITALS: BP 153/67
[2017-07-14 08:06] VITALS: BP 153/67
[2017-07-14] MEDS: PANTOPRAZOLE SOD 40 MG TABEC PO SCH (08:39)
[2017-07-14] MEDS: SEVELAMER CARBONATE 800 MG TAB PO SCH ×3 (08:39→16:00)
[2017-07-14] MEDS: ASPIRIN 81 MG ENTERIC COATED PO SCH (08:39)
[2017-07-14] MEDS: CEFTRIAXONE SOD 1 GM VIAL IV SCH (08:39)
[2017-07-14] MEDS: FAMOTIDINE 20 MG TAB PO SCH ×2 (08:39→16:00)
[2017-07-14] MEDS: SENNOSIDES 8.6 MG TAB PO SCH ×2 (08:40→16:00)
[2017-07-14] MEDS: BALSAM PERU/CASTOR OIL 60 GM OINT...G. TP SCH ×2 (08:40→16:00)
[2017-07-14] MEDS: MEGACE 400MG/ 10ML CUP PO SCH (08:40)
[2017-07-14] MEDS: CARVEDILOL 12.5 MG TAB PO SCH ×2 (08:40→21:45)
[2017-07-14] MEDS: COLLAGENASE OINTMENT 30 GM TUBE TP SCH (08:40)
[2017-07-14] MEDS: FOLIC ACID 1 MG TAB PO SCH (08:40)
[2017-07-14] MEDS: CLONIDINE HCL 0.3 MG TAB PO SCH ×3 (08:41→21:45)
[2017-07-14] MEDS: SODIUM CHLORIDE 0.9% 1000ML 2,000 ML IV PRN (08:42)
[2017-07-14] MEDS: HEPARIN SOD (PORCINE) 1000 UNIT/ML SDV IV PRN (08:42)
[2017-07-14 12:00] VITALS: BP 123/61
[2017-07-14] MEDS: BENZONATATE 100 MG CAP PO SCH ×3 (12:00→21:45)
[2017-07-14] MEDS: GUAIFENESIN 600 MG TAB PO SCH ×2 (12:00→16:00)
[2017-07-14] MEDS: LEVOFLOXACIN 250 MG TAB PO SCH (12:00)
[2017-07-14 16:00] VITALS: BP 143/63
[2017-07-14 20:00] VITALS: BP 121/57
[2017-07-14 20:32] VITALS: BP 121/57
[2017-07-14] MEDS: SIMVASTATIN 20 MG TAB PO SCH (21:45)
[2017-07-15] VITALS (7 sets, daily range): BP systolic 120–153; BP diastolic 53–80
[2017-07-15] MEDS: HYDRALAZINE HCL 100 MG TABLET PO SCH ×3 (06:02→22:00)
[2017-07-15] MEDS: LEVOTHYROXINE SODIUM 25 MCG TABLET PO SCH (06:02)
[2017-07-15] MEDS: INSULIN LISPRO 100 UNIT/1 ML 3ML VIAL SQ SCH ×4 (07:30→20:58)
[2017-07-15] MEDS: FAMOTIDINE 20 MG TAB PO SCH ×2 (09:28→16:40)
[2017-07-15] MEDS: SEVELAMER CARBONATE 800 MG TAB PO SCH ×3 (09:28→16:41)
[2017-07-15] MEDS: AMOXICILLIN/CLAVULANATE K 875 MG TAB PO SCH (09:28)
[2017-07-15] MEDS: ASPIRIN 81 MG ENTERIC COATED PO SCH (09:28)
[2017-07-15] MEDS: PANTOPRAZOLE SOD 40 MG TABEC PO SCH (09:28)
[2017-07-15] MEDS: GUAIFENESIN 600 MG TAB PO SCH ×2 (09:29→16:41)
[2017-07-15] MEDS: SENNOSIDES 8.6 MG TAB PO SCH ×2 (09:29→16:41)
[2017-07-15] MEDS: MEGACE 400MG/ 10ML CUP PO SCH (09:29)
[2017-07-15] MEDS: FOLIC ACID 1 MG TAB PO SCH (09:29)
[2017-07-15] MEDS: BENZONATATE 100 MG CAP PO SCH ×3 (09:29→20:56)
[2017-07-15] MEDS: CLONIDINE HCL 0.3 MG TAB PO SCH ×3 (09:29→20:55)
[2017-07-15] MEDS: CARVEDILOL 12.5 MG TAB PO SCH ×2 (09:30→20:56)
[2017-07-15] MEDS: COLLAGENASE OINTMENT 30 GM TUBE TP SCH (09:30)
[2017-07-15] MEDS: BALSAM PERU/CASTOR OIL 60 GM OINT...G. TP SCH ×2 (09:30→16:41)
[2017-07-15] MEDS: LEVOFLOXACIN 250 MG TAB PO SCH (11:27)
[2017-07-15] MEDS: SIMVASTATIN 20 MG TAB PO SCH (20:56)
[2017-07-16] VITALS (8 sets, daily range): BP systolic 88–157; BP diastolic 50–80
[2017-07-16] MEDS: LEVOTHYROXINE SODIUM 25 MCG TABLET PO SCH (06:00)
[2017-07-16] MEDS: HYDRALAZINE HCL 100 MG TABLET PO SCH ×2 (06:00→13:10)
[2017-07-16] MEDS: PANTOPRAZOLE SOD 40 MG TABEC PO SCH (08:25)
[2017-07-16] MEDS: FAMOTIDINE 20 MG TAB PO SCH ×2 (08:25→16:49)
[2017-07-16] MEDS: CARVEDILOL 12.5 MG TAB PO SCH ×2 (08:26→21:52)
[2017-07-16] MEDS: INSULIN LISPRO 100 UNIT/1 ML 3ML VIAL SQ SCH ×4 (08:26→21:00)
[2017-07-16] MEDS: AMOXICILLIN/CLAVULANATE K 875 MG TAB PO SCH (08:26)
[2017-07-16] MEDS: ASPIRIN 81 MG ENTERIC COATED PO SCH (08:26)
[2017-07-16] MEDS: SEVELAMER CARBONATE 800 MG TAB PO SCH ×3 (08:26→16:51)
[2017-07-16] MEDS: BENZONATATE 100 MG CAP PO SCH ×3 (08:27→21:52)
[2017-07-16] MEDS: GUAIFENESIN 600 MG TAB PO SCH ×2 (08:27→16:50)
[2017-07-16] MEDS: LEVOFLOXACIN 250 MG TAB PO SCH (08:27)
[2017-07-16] MEDS: MEGACE 400MG/ 10ML CUP PO SCH (08:27)
[2017-07-16] MEDS: SENNOSIDES 8.6 MG TAB PO SCH ×2 (08:27→16:51)
[2017-07-16] MEDS: FOLIC ACID 1 MG TAB PO SCH (08:46)
[2017-07-16] MEDS: CLONIDINE HCL 0.3 MG TAB PO SCH ×2 (09:00→15:00)
[2017-07-16] MEDS ORDERED: HEPARIN SOD (PORCINE) 1000 UNIT/ML SDV IV PRN (10:15)
[2017-07-16] MEDS ORDERED: MANNITOL 25% 12.5GM/50 ML VIAL IV PRN (10:15)
[2017-07-16] MEDS ORDERED: SODIUM CHLORIDE 0.9% 250ML 500 ML IV PRN (10:15)
[2017-07-16] MEDS ORDERED: SODIUM CHLORIDE 0.9% 1000ML 2,000 ML IV PRN (10:15)
[2017-07-16] MEDS ORDERED: ALBUMIN 25% 12.5GM 0.25 GM/ML BTL IV PRN (10:15)
[2017-07-16] MEDS: COLLAGENASE OINTMENT 30 GM TUBE TP SCH (14:30)
[2017-07-16] MEDS: BALSAM PERU/CASTOR OIL 60 GM OINT...G. TP SCH ×2 (14:30→18:26)
[2017-07-16] MEDS ORDERED: CLONIDINE HCL 0.3 MG TAB PO SCH (21:00)
[2017-07-16] MEDS: SIMVASTATIN 20 MG TAB PO SCH (21:52)
[2017-07-16] MEDS: CLONIDINE HCL 0.1 MG TAB PO SCH (21:53)
[2017-07-17] VITALS: BP 138/63
[2017-07-17 04:00] VITALS: BP 181/82
[2017-07-17] MEDS: LEVOTHYROXINE SODIUM 25 MCG TABLET PO SCH (06:10)
[2017-07-17 08:00] VITALS: BP 139/77
[2017-07-17] MEDS: CLONIDINE HCL 0.1 MG TAB PO SCH ×2 (08:33→16:21)
[2017-07-17] MEDS: FAMOTIDINE 20 MG TAB PO SCH ×2 (08:33→16:20)
[2017-07-17] MEDS: FOLIC ACID 1 MG TAB PO SCH (08:33)
[2017-07-17] MEDS: SEVELAMER CARBONATE 800 MG TAB PO SCH ×3 (08:33→16:20)
[2017-07-17] MEDS: AMOXICILLIN/CLAVULANATE K 875 MG TAB PO SCH (08:33)
[2017-07-17] MEDS: CARVEDILOL 12.5 MG TAB PO SCH (08:33)
[2017-07-17] MEDS: INSULIN LISPRO 100 UNIT/1 ML 3ML VIAL SQ SCH ×3 (08:33→16:21)
[2017-07-17] MEDS: ASPIRIN 81 MG ENTERIC COATED PO SCH (08:33)
[2017-07-17] MEDS: PANTOPRAZOLE SOD 40 MG TABEC PO SCH (08:33)
[2017-07-17] MEDS: MEGACE 400MG/ 10ML CUP PO SCH (08:34)
[2017-07-17] MEDS: BENZONATATE 100 MG CAP PO SCH ×2 (08:34→16:20)
[2017-07-17] MEDS: GUAIFENESIN 600 MG TAB PO SCH ×2 (08:34→16:20)
[2017-07-17] MEDS: BALSAM PERU/CASTOR OIL 60 GM OINT...G. TP SCH (08:34)
[2017-07-17] MEDS: COLLAGENASE OINTMENT 30 GM TUBE TP SCH (09:00)
[2017-07-17 09:08] VITALS: BP 139/77
[2017-07-17] MEDS: LEVOFLOXACIN 250 MG TAB PO SCH (09:30)
[2017-07-17 12:00] VITALS: BP 140/60
[2017-07-17] MEDS: SENNOSIDES 8.6 MG TAB PO SCH ×2 (12:30→16:20)
--- NOTE | 2017-07-17 15:07 | Discharge Summary ---
CONSULTANTS: Dr. Jesús Tellez and Dr. Collazo. FINAL DIAGNOSES 1. Acute cerebrovascular accident, ischemic. 2. Baseline pneumonia. 3. End-stage renal disease, on dialysis. 4. Left-sided facial weakness with left hemiparesis and dysarthria secondary to the above. 5. Multiple chronic baseline problems. SUMMARY: Patient is a 57-year-old female, patient of [facility], came in with basically left facial weakness and speech problems. Patient basically had an ischemic stroke. Please review Dr. Collazo's evaluation. Patient is doing better. She did receive dialysis. Arrangement was made for the patient to go home and continue with her dialysis. The patient refused any home health arrangement that was offered by casework supervisor. Please review casework supervisor note. The patient is stable. Of note, the MRI of the brain shows that the patient has nonspecific small focal lesion in the right middle cerebral pedicle. The differential diagnosis includes ischemic, most likely CVA due to the right facial droop. CT scan of the brain otherwise unremarkable and nonspecific. The patient is stable. Vital signs are stable. Blood pressure is 139/77, pulse rate 66. Laboratory otherwise unremarkably. She did receive 1 unit of blood transfusion with dialysis. Hemoglobin and hematocrit are 9.2 and 26.9. Chemistry is stable. The patient is stable at this time. She is comfortable. She will go home today. Follow up with the [facility]. Family is educated on the medications that she was taking. The patient will take the following medications: 1. She will take Ecotrin 81 mg daily. 2. Augmentin 875 mg daily for 7 days. 3. Tessalon Perles p.r.n. 4. Senna-S 1 tablet b.i.d. 5. For her diabetes, will be NPH 10 units twice a day. For insulin coverage, the patient will continue with Humalog insulin coverage at home. The patient is stable and will discharge home today. Job#: [id number] ANDRES
[2017-07-17 16:00] VITALS: BP 139/64
== END 2017-07-17 18:51 | disposition home or self-care (01) | DRG 64 ==
LOC: ER 13:00 → ERHOLD 15:51 → MED/SURG2 07-10 17:06
PROVIDERS: ADMIT Internal Medicine; ATTEND Internal Medicine
PROC: 5A1D70Z Performance of Urinary Filtration, Intermittent, Less than 6 Hours Per Day (ICD-10-PCS; principal; 2017-07-10)
PROC: 30243N1 Transfusion of Nonautologous Red Blood Cells into Central Vein, Percutaneous Approach (ICD-10-PCS; principal; 2017-07-10)
PROC: 5A1D70Z Performance of Urinary Filtration, Intermittent, Less than 6 Hours Per Day (ICD-10-PCS; 2017-07-11)
PROC: 5A1D70Z Performance of Urinary Filtration, Intermittent, Less than 6 Hours Per Day (ICD-10-PCS; 2017-07-14)
PROC: 5A1D70Z Performance of Urinary Filtration, Intermittent, Less than 6 Hours Per Day (ICD-10-PCS; 2017-07-16)
PROC: 0T768DZ Dilation of Right Ureter with Intraluminal Device, Via Natural or Artificial Opening Endoscopic (ICD-10-PCS; 2017-07-16)
DX: I63.9 Cerebral infarction, unspecified (principal); J18.9 Pneumonia, unspecified organism; N18.6 End stage renal disease; G81.94 Hemiplegia, unspecified affecting left nondominant side; I13.2 Hypertensive heart and chronic kidney disease with heart failure and with stage 5 chronic kidney disease, or end stage renal disease; Z99.2 Dependence on renal dialysis; R47.1 Dysarthria and anarthria; R29.810 Facial weakness; E11.22 Type 2 diabetes mellitus with diabetic chronic kidney disease; Z79.4 Long term (current) use of insulin; E03.9 Hypothyroidism, unspecified; E11.51 Type 2 diabetes mellitus with diabetic peripheral angiopathy without gangrene; E20.8 Other hypoparathyroidism; D63.1 Anemia in chronic kidney disease; E87.6 Hypokalemia; G51.0 Bell's palsy; L89.320 Pressure ulcer of left buttock, unstageable; L89.310 Pressure ulcer of right buttock, unstageable; L89.150 Pressure ulcer of sacral region, unstageable; I50.9 Heart failure, unspecified
CPT/HCPCS: 36415; 70450; 70460; 70551; 71045; 80048; 80053; 80061; 81001; 82150; 82550; 82553; 82948; 83036; 83605; 83880; 84443; 84484; 85025; 85610; 85730; 86704; 86706; 86850; 86900; 86920; 87086; 87340; 90962; 93005; 93880; 96372; 97139; 99285; J0360; J0456; J0696; J1644; J1956; J2150; J7030; P9016; Q9967

== ENCOUNTER 2017-11-24 21:00 | Emergency (ER) | payer MEDICARE ==
[~2017-11-24] VITALS: Ht 154.9 cm; Wt 54.9 kg
[2017-11-24 21:52] LABS: BASOPHILS % 0.5 % (0.0-1.0); EOSINOPHILS % 0.1 % (0.0-6.0); HEMATOCRIT 34.3 % (34.2-44.1); HEMOGLOBIN 11.6 g/dL (12.0-16.0); LYMPHOCYTES # (AUTO) 1.1 (1.0-3.2); LYMPHOCYTES % 13.1 % (18.0-39.1); MEAN CORPUSCULAR HEMOGLOBIN 29.4 pg (28-32); MEAN CORPUSCULAR HGB CONC 33.8 g/dL (31-35); MEAN CORPUSCULAR VOLUME 87.1 fL (81-99); MONOCYTES # (AUTO) 0.2 (0.2-0.8); MONOCYTES % 2.9 % (4.4-11.3); NEUTROPHILS # (AUTO) 6.9 (2.1-6.9); NEUTROPHILS % 83.3 % (38.7-80.0); PLATELET COUNT 263 x10e3/uL (140-360); RED BLOOD COUNT 3.94 x10e6/uL (3.6-5.1); RED CELL DISTRIBUTION WIDTH 14.1 % (11.7-14.4)
[2017-11-24 21:56] LABS: INR 0.92; PROTHROMBIN TIME 13.2 seconds (11.9-14.5)
[2017-11-24 21:57] LABS: PARTIAL THROMBOPLASTIN TIME 30.8 seconds (23.8-35.5)
[2017-11-24] MEDS ORDERED: COREG12.5 MG PO (22:06)
--- NOTE | 2017-11-24 22:12 | Diagnostic Imaging Report ---
EXAM: CT ABDOMEN AND PELVIS without IV CONTRAST INDICATION: Nausea and vomiting after dialysis this morning COMPARISON: None TECHNIQUE: The abdomen and pelvis were scanned using a multidetector helical scanner. Coronal and sagittal reformations were obtained. Dose modulation, iterative reconstruction, and/or weight based adjustment of the mA/kV was utilized to reduce the radiation dose to as low as reasonably achievable. Renal stone protocol performed. IV Contrast: None Oral Contrast: None CTDIvol has been reviewed. It is below the limits set by the Radiation Protocol Committee (RPC). FINDINGS: LOWER THORAX: Mild septal thickening. Trace bilateral pleural effusions. Small pericardial effusion. Partially visualized hemodialysis catheter tip in the proximal right atrium. LIVER: No masses BILIARY: Cholecystectomy. No ductal dilation. SPLEEN: No masses PANCREAS: No masses ADRENALS: No nodules RIGHT KIDNEY: No nephroureterolithiasis or hydronephrosis. LEFT KIDNEY: No nephroureterolithiasis or hydronephrosis. GI TRACT: No wall thickening or obstruction. Nonspecific debris in the fundus of the stomach. Normal appendix. VESSELS: Mild atherosclerotic changes of the abdominal aorta without aneurysm. PERITONEUM/RETROPERITONEUM: No free air or fluid LYMPH NODES: No lymphadenopathy REPRODUCTIVE ORGANS: Normal BLADDER: Normal SOFT TISSUES: Normal BONES: No suspicious bone lesions. IMPRESSION: No acute findings in the CT of the abdomen or pelvis. No bowel obstruction or evidence of appendicitis. Mild interstitial edema, trace bilateral pleural effusions and small pericardial effusion. Signed by: Dr. Waleska Bustillo M.D. on 11/24/2017 10:09 PM
--- NOTE | 2017-11-24 22:15 | Diagnostic Imaging Report ---
EXAM: CHEST SINGLE (PORTABLE), AP 1 view INDICATION: Nausea and vomiting since this morning after dialysis COMPARISON: AP view of the chest July 09, 2017 FINDINGS: LINES/TUBES: Stable position right internal jugular vein tunneled hemodialysis catheter. LUNGS: Mild interstitial edema. PLEURA: Trace bilateral pleural effusions better seen on same-day CT of the abdomen and pelvis. HEART AND MEDIASTINUM: Normal size and contour. BONES AND SOFT TISSUES: Right upper quadrant cholecystectomy clips. IMPRESSION: Mild interstitial edema and trace bilateral pleural effusions. Signed by: Dr. Waleska Bustillo M.D. on 11/24/2017 10:11 PM
[2017-11-24] MEDS ORDERED: MORPHINE SULFATE 2 MG/ML SYR IV STA (22:59)
[2017-11-24] MEDS ORDERED: ONDANSETRON HCL INJ 2 MG/ML VIAL IV STA (22:59)
[2017-11-24] MEDS ORDERED: PROMETHAZINE 12.5MG/ NACL 0.9% 12.5 MG/50 ML BAG IV ONE (23:15)
[2017-11-25 00:02] LABS: ALBUMIN 3.2 g/dL (3.5-5.0); ALBUMIN/GLOBULIN RATIO 0.7 (0.8-2.0); ANION GAP 12.9 mmol/L (8-16); CREATININE, SERUM 2.9 mg/dL (0.57-1.11); POTASSIUM 3.9 mmol/L (3.5-5.1)
[2017-11-25 00:08] LABS: CREATINE KINASE MB 1.1 ng/mL (0-5.0)
[2017-11-25 00:31] LABS: CALCIUM 11.6 mg/dL (8.4-10.2)
[2017-11-25] MEDS ORDERED: CLONIDINE HCL 0.2 MG TAB PO ONE (01:15)
[2017-11-25 03:42] VITALS: BP 167/89
== END 2017-11-25 03:58 | disposition home or self-care (01) ==
LOC: ER 21:00
DX: R10.12 Left upper quadrant pain (principal); R11.2 Nausea with vomiting, unspecified
CPT/HCPCS: 36415; 71045; 74176; 80053; 82150; 82330; 82550; 82553; 83690; 84484; 85025; 85610; 85730; 99284; J2270; J2550

== ENCOUNTER 2018-01-04 12:57 | Observation (INO) | payer MEDICARE ==
[~2018-01-04] VITALS: Ht 142.2 cm; Wt 55.8 kg
[2018-01-04 13:54] LABS: BASOPHILS # (AUTO) 0.1 (0.0-0.1); BASOPHILS % 0.4 % (0.0-1.0); EOSINOPHILS # (AUTO) 0.6 (0.0-0.4); EOSINOPHILS % 4.5 % (0.0-6.0); HEMATOCRIT 24.7 % (34.2-44.1); HEMOGLOBIN 8.2 g/dL (12.0-16.0); LYMPHOCYTES # (AUTO) 2.1 (1.0-3.2); LYMPHOCYTES % 15.7 % (18.0-39.1); MEAN CORPUSCULAR HGB CONC 33.2 g/dL (31-35); MEAN CORPUSCULAR VOLUME 90.5 fL (81-99); MONOCYTES % 7.3 % (4.4-11.3); NEUTROPHILS # (AUTO) 9.7 (2.1-6.9); NEUTROPHILS % 71.7 % (38.7-80.0); PLATELET COUNT 270 x10e3/uL (140-360); RED BLOOD COUNT 2.73 x10e6/uL (3.6-5.1); RED CELL DISTRIBUTION WIDTH 15.4 % (11.7-14.4)
[2018-01-04 14:04] LABS: INR 0.96; PROTHROMBIN TIME 13.7 seconds (11.9-14.5)
[2018-01-04 14:12] LABS: B-TYPE NATRIURETIC PEPTIDE2 3086.5 pg/mL (0-100)
[2018-01-04 14:13] LABS: ALBUMIN 2.4 g/dL (3.5-5.0); ALBUMIN/GLOBULIN RATIO 0.5 (0.8-2.0); ANION GAP 18.7 mmol/L (8-16); CREATININE, SERUM 4.66 mg/dL (0.57-1.11); MAGNESIUM 2.1 MG/DL (1.3-2.1); POTASSIUM 3.7 mmol/L (3.5-5.1)
--- NOTE | 2018-01-04 14:14 | Diagnostic Imaging Report ---
EXAMINATION: CHEST SINGLE (NOT PORTABLE) COMPARISON: Chest x-ray 11/24/2017 INDICATION: Shortness of breath, left chest pain DISCUSSION: Frontal view of the chest obtained at 1343 hours. HEART AND MEDIASTINUM: The heart is top normal in size and normal in contour. LINES: Dual lumen central venous catheter remains at the cavoatrial junction. LUNGS: Low lung volumes. No confluent infiltrates. Pulmonary vascular markings and interstitium are normal. PLEURA: No pleural effusion or pneumothorax. BONES AND SOFT TISSUES: No focal osseous lesion. Cholecystectomy clips in the right upper quadrant are stable. IMPRESSION: Low lung volumes. No acute cardiopulmonary process. Signed by: Dr. Otilio Barr MD on 01/04/2018 2:10 PM
[2018-01-04 14:20] LABS: CREATINE KINASE MB 0.7 ng/mL (0-5.0)
[2018-01-04] MEDS ORDERED: MORPHINE SULFATE 2 MG/ML SYR IV NR (15:00)
[2018-01-04] MEDS ORDERED: FUROSEMIDE INJ 10 MG/ML 4 ML VIAL IV NR (15:15)
[2018-01-04] MEDS ORDERED: MORPHINE SULFATE 2 MG/ML SYR IV PRN (15:15)
[2018-01-04] MEDS ORDERED: NITROGLYCERIN 0.4 MG SUBL SL PRN (15:15)
[2018-01-04] MEDS ORDERED: ONDANSETRON HCL INJ 2 MG/ML VIAL IV PRN (15:15)
[2018-01-04] MEDS ORDERED: DEXTROSE 50% SYRINGE 50 ML IV PRN (15:15)
[2018-01-04] MEDS: ASPIRIN 81 MG ENTERIC COATED PO SCH (15:40)
[2018-01-04 16:38] VITALS: BP 173/74
[2018-01-04 16:49] VITALS: BP 173/74
[2018-01-04] MEDS: INSULIN LISPRO 100 UNIT/1 ML 3ML VIAL SQ SCH ×2 (17:00→20:29)
[2018-01-04 17:24] VITALS: BP 173/74
[2018-01-04] MEDS ORDERED: CLONIDINE HCL0.3 MG PO (17:46)
[2018-01-04 18:45] LABS: CREATINE KINASE MB 0.7 ng/mL (0-5.0)
[2018-01-04 19:51] VITALS: BP 182/79
[2018-01-04 20:00] VITALS: BP 182/79
[2018-01-05] VITALS (8 sets, daily range): BP systolic 156–220; BP diastolic 69–89
--- NOTE | 2018-01-05 00:57 | Consultation ---
DATE OF CONSULTATION: January 04, 2018 NEPHROLOGY CONSULTATION REASON FOR CONSULTATION: ESRD. REFERRING PHYSICIAN: ER physician. HISTORY OF PRESENT ILLNESS: This is a 57-year-old female with past medical history of ESRD and hemodialysis on Friday, Friday, and Friday scheduled through right chest Port-A-Cath with last dialysis 2 days ago; congestive heart failure; status post left arm AV fistula (which has not matured yet); hyperlipidemia; diabetes mellitus; hypertension; and anemia, who was admitted with chest pain and shortness of breath. At the time of my examination, she appeared in no acute distress and was laying flat without any oxygen and denied any chest pain or shortness of breath. She denied any nausea, vomiting, headache, blurring of vision, cough, phlegm, fever, chills, abdominal pain, diarrhea, urinary problems, skin rash, joint pains, or any focal weakness. PAST MEDICAL AND SURGICAL HISTORY: As above. PERSONAL/SOCIAL HISTORY: No history of alcohol or tobacco. MEDICATIONS: See the medication sheet that was reviewed. PHYSICAL EXAMINATION GENERAL: She appeared in no acute distress. VITAL SIGNS: Blood pressure 155/61, respirations 16, heart rate 68, and temperature 98.7. HEENT: Head was atraumatic and normocephalic. Pupils were reactive to light. NECK: Supple. There was no significant lymphadenopathy or thyromegaly. CHEST: Fair air entry with occasional crackles. HEART: S1 and S2. ABDOMEN: Soft. Bowel sounds were positive. EXTREMITIES: No pedal edema. RESOURCE TECHNICIAN: She was awake, alert, and oriented x3. Cranial nerves were intact. There was no gross motor deficit noted. LABS: Sodium 136, potassium 3.7, BUN 50, creatinine 4.6, calcium 8, and albumin 2.4. White cell count 13.5, hemoglobin 8.2, hematocrit 24.7, and platelets 270. IMPRESSION 1. End-stage renal disease, on hemodialysis on a Friday, Friday, and Friday schedule. There is no evidence of volume overload or hyperkalemia. 2. Anemia secondary to chronic kidney disease. 3. Chest pain, rule out myocardial infarction. PLAN: Strict I's and O's. Renal diet with 5-liter fluid restriction in 24 hours. CBC and BMP in the a.m. Epogen 6000 units subcutaneous Friday, Friday, and Friday, dialysis in the morning. Further recommendations to follow. Thank you for the consultation. Job#: [id number] ARACELI
[2018-01-05 01:57] LABS: CREATINE KINASE MB 0.4 ng/mL (0-5.0)
[2018-01-05 05:05] LABS: BASOPHILS % 0.4 % (0.0-1.0); EOSINOPHILS # (AUTO) 0.7 (0.0-0.4); EOSINOPHILS % 6.2 % (0.0-6.0); HEMOGLOBIN 7.2 g/dL (12.0-16.0); LYMPHOCYTES # (AUTO) 2.7 (1.0-3.2); LYMPHOCYTES % 24.4 % (18.0-39.1); MEAN CORPUSCULAR HEMOGLOBIN 29.9 pg (28-32); MEAN CORPUSCULAR HGB CONC 32.6 g/dL (31-35); MEAN CORPUSCULAR VOLUME 91.7 fL (81-99); MONOCYTES % 8.9 % (4.4-11.3); NEUTROPHILS # (AUTO) 6.6 (2.1-6.9); NEUTROPHILS % 59.7 % (38.7-80.0); PLATELET COUNT 209 x10e3/uL (140-360); RED BLOOD COUNT 2.41 x10e6/uL (3.6-5.1); RED CELL DISTRIBUTION WIDTH 15.4 % (11.7-14.4)
[2018-01-05 05:23] LABS: ANION GAP 16.4 mmol/L (8-16); CALCIUM 9.1 mg/dL (8.4-10.2); CHOL/HDL RATIO 3.8 (3.0-3.6); CREATININE, SERUM 5.22 mg/dL (0.57-1.11); POTASSIUM 3.4 mmol/L (3.5-5.1)
[2018-01-05 05:40] LABS: HEMATOCRIT 22.1 % (34.2-44.1)
[2018-01-05] MEDS: INSULIN LISPRO 100 UNIT/1 ML 3ML VIAL SQ SCH ×4 (07:48→19:24)
[2018-01-05] MEDS: FOLIC ACID/CYANOCOB/PYRIDOXINE TAB PO SCH (08:39)
[2018-01-05] MEDS: CARVEDILOL 12.5 MG TAB PO SCH ×2 (08:39→18:58)
[2018-01-05 09:34] LABS: CREATINE KINASE MB 0.6 ng/mL (0-5.0)
[2018-01-05] MEDS ORDERED: SODIUM CHLORIDE 0.9% 250ML 250 ML IV ONE (11:30)
[2018-01-05] MEDS ORDERED: HEPARIN SOD (PORCINE) 1000 UNIT/ML SDV IV PRN (14:45)
[2018-01-05] MEDS ORDERED: SODIUM CHLORIDE 0.9% 250ML 500 ML IV PRN (14:45)
[2018-01-05] MEDS ORDERED: SODIUM CHLORIDE 0.9% 1000ML 2,000 ML IV PRN (14:45)
[2018-01-05] MEDS: HYDRALAZINE HCL 25 MG TAB PO SCH ×5 (15:00→21:56)
--- NOTE | 2018-01-05 15:26 | Consultation ---
DATE OF CONSULTATION: CARDIOLOGY CONSULTATION REASON FOR CONSULTATION: Chest pain. HISTORY OF PRESENT ILLNESS: This is a 57-year-old woman with a history of end-stage renal disease on hemodialysis and hypertension who presented to the emergency department with chest pain and shortness of breath. The patient reported left anterior chest pain that woke her up from sleep. No exacerbating factors. Was relieved with Tylenol, and she returned to sleep. She also had some atypical shortness of breath and presented to the emergency department where she was found to be hypertensive. The patient states that she has no history of heart attacks or coronary artery disease. She states that she had a stress test done at [facility] within the previous year which was normal. She is currently feeling well, and laboratory values do not indicate any acute coronary syndrome. She currently denies any chest pain, shortness of breath, palpitations, or near syncopal symptoms. REVIEW OF SYSTEMS: A 12-point review of systems was conducted and was negative unless otherwise stated above in the HPI. PAST MEDICAL HISTORY: End-stage renal disease, hypertension. PAST SURGICAL HISTORY: AV fistula. ALLERGIES: NIFEDIPINE. MEDICATIONS: See medication reconciliation form. SOCIAL HISTORY: No illicit drug use, alcohol use or tobacco use. OBJECTIVE VITAL SIGNS: Temperature 98.4, heart rate 66, respiratory rate 20, blood pressure 176/76, oxygen saturation 99% on room air. GENERAL: She is a woman lying comfortably in bed. Appears older than her stated age. In no apparent distress. Alert and oriented times 3. HEAD: Normocephalic and atraumatic. EYES: The extraocular muscles are intact. Conjunctivae are clear. NECK: No JVD. No bruits. CARDIOVASCULAR: Regular rate and rhythm with a mild systolic murmur heard best at the left lower sternal border and apical region. LUNGS: Clear to auscultation. ABDOMEN: Soft, nontender. EXTREMITIES: No edema. VASCULAR: Diminished pulses. NEUROLOGIC: No focal deficits noted. SKIN: Warm, dry and intact. LABORATORY DATA: White blood cell count 11, hemoglobin 7.2, platelets 209. Creatinine is 5.22. Troponins are within normal limits times 4. BNP is 3086. Chest x-ray shows no acute cardiopulmonary abnormality. IMPRESSION AND RECOMMENDATIONS 1. Precordial pain. The patient has atypical features and reported as sharp sensation. She has ruled out for acute myocardial infarction. A 2-D echocardiogram showed overall preserved left ventricular systolic function with a small pericardial effusion. She is currently hemodynamically stable and asymptomatic. The patient states she had a recent stress test at [facility]. No further cardiac workup is necessary at this point in time. She can follow up as an outpatient to assess for further ischemic workup. 2. Hypertension. The patient's blood pressure is elevated. Continue volume removal with hemodialysis. Continue Coreg and clonidine. I have started hydralazine for further afterload reduction. Can increase this as needed. 3. Anemia. This is due to chronic kidney disease. No evidence of bleeding. Thank you for the consultation. The patient is stable from a cardiovascular standpoint for discharge and outpatient followup. Job#: [id number]
[2018-01-05] MEDS ORDERED: EPOETIN ALFA 10000 UNIT/ML VIAL SC SCH (18:00)
[2018-01-05] MEDS: CLONIDINE HCL 0.3 MG TAB PO PRN (23:54)
[2018-01-06] VITALS (8 sets, daily range): BP systolic 149–203; BP diastolic 67–84
[2018-01-06] MEDS: CLONIDINE HCL 0.3 MG TAB PO PRN (04:12)
[2018-01-06 06:20] LABS: BASOPHILS # (AUTO) 0.1 (0.0-0.1); BASOPHILS % 0.5 % (0.0-1.0); EOSINOPHILS # (AUTO) 0.6 (0.0-0.4); EOSINOPHILS % 6.5 % (0.0-6.0); LYMPHOCYTES # (AUTO) 2.6 (1.0-3.2); LYMPHOCYTES % 27.6 % (18.0-39.1); MEAN CORPUSCULAR HEMOGLOBIN 29.6 pg (28-32); MEAN CORPUSCULAR HGB CONC 33.3 g/dL (31-35); MEAN CORPUSCULAR VOLUME 88.8 fL (81-99); MONOCYTES # (AUTO) 0.9 (0.2-0.8); MONOCYTES % 9.5 % (4.4-11.3); NEUTROPHILS # (AUTO) 5.2 (2.1-6.9); NEUTROPHILS % 55.7 % (38.7-80.0); PLATELET COUNT 198 x10e3/uL (140-360); RED BLOOD COUNT 3.38 x10e6/uL (3.6-5.1); RED CELL DISTRIBUTION WIDTH 15.9 % (11.7-14.4)
[2018-01-06 06:55] LABS: ALBUMIN 2.2 g/dL (3.5-5.0); ALBUMIN/GLOBULIN RATIO 0.5 (0.8-2.0); ANION GAP 12.5 mmol/L (8-16); CALCIUM 8.7 mg/dL (8.4-10.2); CREATININE, SERUM 3.08 mg/dL (0.57-1.11); POTASSIUM 3.5 mmol/L (3.5-5.1)
[2018-01-06] MEDS: INSULIN LISPRO 100 UNIT/1 ML 3ML VIAL SQ SCH ×4 (07:50→21:00)
[2018-01-06] MEDS: ASPIRIN 81 MG ENTERIC COATED PO SCH (08:01)
[2018-01-06] MEDS: HYDRALAZINE HCL 25 MG TAB PO SCH ×3 (08:01→21:28)
[2018-01-06] MEDS: CARVEDILOL 12.5 MG TAB PO SCH ×2 (08:01→17:06)
[2018-01-06] MEDS: FOLIC ACID/CYANOCOB/PYRIDOXINE TAB PO SCH (08:01)
--- NOTE | 2018-01-06 17:59 | Progress Note ---
DATE: CARDIOLOGY PROGRESS NOTE SUBJECTIVE: The patient feels better, denies any chest pain or shortness of breath. Her blood pressure is elevated. OBJECTIVE VITAL SIGNS: Temperature 96.7, heart rate is 60, respirations 18, blood pressure is 184/79, oxygen saturation is 100% on room air. GENERALLY: She is well-appearing, seated in bed. CARDIOVASCULAR: Regular rate and rhythm. A systolic murmur heard best at the left lower sternal border and apex. LUNGS: Clear to auscultation. ABDOMEN: Soft, nontender. NEUROLOGIC: No focal deficits noted. All laboratory data were reviewed. Telemetry showed normal sinus rhythm. IMPRESSION/RECOMMENDATIONS 1. Chest pain. Patient has atypical features and has subsided. A 2-D echocardiogram showed overall preserved left ventricular systolic function. She ruled out for acute myocardial infarction. The patient states that she had a recent stress test at [facility]. Continue aspirin and check a lipid panel and start a statin as indicated. 2. Hypertension. The patient's blood pressure remains elevated despite increased doses of hydralazine and maximal dose of carvedilol. Will start amlodipine. Of note, it says that she has an ALLERGY TO NIFEDIPINE. However, when talking with her and her daughter, she has NO TRUE ALLERGY TO THIS. They think she had hallucinations in a dialysis session with a medication that sounded similar to nifedipine. Thank you for the consultation. No further cardiovascular evaluation currently needed. Patient will be initiated on amlodipine for better blood pressure control. She can follow up as an outpatient for further ischemic testing. Job#: [id number] EV
[2018-01-06] MEDS: AMLODIPINE BESYLATE 10 MG TAB PO SCH (18:29)
[2018-01-07] VITALS: BP 131/58
[2018-01-07 04:00] VITALS: BP 146/65
[2018-01-07] MEDS: INSULIN LISPRO 100 UNIT/1 ML 3ML VIAL SQ SCH ×2 (07:30→11:30)
[2018-01-07 08:00] VITALS: BP 160/71
[2018-01-07] MEDS: HYDRALAZINE HCL 25 MG TAB PO SCH ×2 (08:52→15:15)
[2018-01-07] MEDS: AMLODIPINE BESYLATE 10 MG TAB PO SCH ×2 (08:53→15:15)
[2018-01-07] MEDS: CARVEDILOL 12.5 MG TAB PO SCH (08:53)
[2018-01-07] MEDS: ASPIRIN 81 MG ENTERIC COATED PO SCH (08:53)
[2018-01-07] MEDS: FOLIC ACID/CYANOCOB/PYRIDOXINE TAB PO SCH (08:54)
--- NOTE | 2018-01-07 10:59 | Progress Note ---
DATE: January 07, 2018 CARDIOLOGY PROGRESS NOTE SUBJECTIVE: Patient feels better. Denies any chest pain, shortness of breath or palpitations. OBJECTIVE VITAL SIGNS: Temperature is 98.6, heart rate 63, respirations are 14, blood pressure is 146/65. GENERAL: Elderly appearing and no apparent distress. CARDIOVASCULAR: Regular rate and rhythm. Systolic murmur. LUNGS: Clear to auscultation. ABDOMEN: Soft and nontender. NEUROLOGIC: No focal deficits noted. Telemetry monitoring revealed normal sinus rhythm. MEDICATIONS: Reviewed. LABORATORY AND IMAGING DATA: Reviewed. IMPRESSION 1. Chest pain. 2. Hypertension. 3. End-stage renal disease. 4. Hyperlipidemia. RECOMMENDATIONS: Patient's blood pressure is better controlled with hydralazine 50 mg t.i.d., amlodipine 10 mg, and carvedilol. Continue these medications and can increase hydralazine as needed. Patient does not have an allergy to nifedipine. She has tolerated amlodipine times 1 dose. She is otherwise stable for discharge from a cardiovascular standpoint. Again, she ruled out for acute myocardial infarction, and recent stress test at [facility] showed no abnormalities per the patient. Patient is stable for discharge from a cardiovascular standpoint. Job#: [id number] ANDRES
[2018-01-07 12:02] VITALS: BP 162/63
[2018-01-07] MEDS: CLONIDINE HCL 0.3 MG TAB PO PRN (13:23)
[2018-01-07] MEDS ORDERED: AMLODIPINE BESY10 MG PO (16:01)
[2018-01-07] MEDS ORDERED: HYDRALAZINE HCL25 MG PO (16:02)
[2018-01-07 16:38] VITALS: BP 154/68
== END 2018-01-07 17:15 | disposition home or self-care (01) ==
LOC: ER 12:57 → ERHOLD 15:27 → IMCU 15:49
PROVIDERS: ADMIT Internal Medicine; ATTEND Internal Medicine
DX: I13.2 Hypertensive heart and chronic kidney disease with heart failure and with stage 5 chronic kidney disease, or end stage renal disease (principal); I50.9 Heart failure, unspecified; N18.6 End stage renal disease; Z99.2 Dependence on renal dialysis; E78.5 Hyperlipidemia, unspecified; E11.22 Type 2 diabetes mellitus with diabetic chronic kidney disease; D63.1 Anemia in chronic kidney disease; I16.0 Hypertensive urgency; R07.89 Other chest pain; Z82.49 Family history of ischemic heart disease and other diseases of the circulatory system
CPT/HCPCS: 36415 ×3; 36430; 71045; 80048; 80053 ×2; 80061; 82150; 82550 ×2; 82553 ×2; 82948 ×4; 83605; 83690; 83735; 83880; 84484 ×2; 85025 ×3; 85610; 85730; 86704; 86706; 86850; 86900; 86920; 87340; 90935; 93005; 93306; 99284; G0378 ×4; J1644 ×2; J1940; J2270; J2405; J7030 ×2; P9016; Q4081; 90962

== ENCOUNTER 2018-01-09 21:18 | Emergency (ER) | payer MEDICARE ==
[~2018-01-09] VITALS: Ht 142.2 cm; Wt 55.8 kg
[~2018-01-09 21:18] MED LIST changes: +AMLODIPINE BESY10 MG PO; +CLONIDINE HCL0.3 MG PO; +HYDRALAZINE HCL25 MG PO
[2018-01-09] MEDS ORDERED: SODIUM CHLORIDE 0.9% 1000ML 1,000 ML IV STA (21:24)
[2018-01-09 21:47] LABS: BASOPHILS # (AUTO) 0.1 (0.0-0.1); BASOPHILS % 0.8 % (0.0-1.0); EOSINOPHILS % 0.1 % (0.0-6.0); HEMATOCRIT 37.3 % (34.2-44.1); HEMOGLOBIN 12.4 g/dL (12.0-16.0); LYMPHOCYTES # (AUTO) 1.4 (1.0-3.2); MEAN CORPUSCULAR HEMOGLOBIN 29.6 pg (28-32); MEAN CORPUSCULAR HGB CONC 33.2 g/dL (31-35); MONOCYTES # (AUTO) 0.6 (0.2-0.8); MONOCYTES % 5.3 % (4.4-11.3); NEUTROPHILS # (AUTO) 9.5 (2.1-6.9); NEUTROPHILS % 81.2 % (38.7-80.0); PLATELET COUNT 306 x10e3/uL (140-360); RED BLOOD COUNT 4.19 x10e6/uL (3.6-5.1)
[2018-01-09] MEDS ORDERED: HYDRALAZINE HCL 20 MG/ML VIAL ONE (21:48)
[2018-01-09] MEDS ORDERED: HYDRALAZINE HCL 20 MG/ML VIAL IV STA (21:50)
[2018-01-09 21:56] LABS: INR 1.02; PROTHROMBIN TIME 14.3 seconds (11.9-14.5)
[2018-01-09 22:05] LABS: ALBUMIN 3.1 g/dL (3.5-5.0); ALBUMIN/GLOBULIN RATIO 0.6 (0.8-2.0); ANION GAP 18.6 mmol/L (8-16); CREATININE, SERUM 3.05 mg/dL (0.57-1.11); POTASSIUM 3.6 mmol/L (3.5-5.1)
[2018-01-09 22:11] LABS: CREATINE KINASE MB 1.2 ng/mL (0-5.0)
[2018-01-09 22:23] LABS: CALCIUM 10.1 mg/dL (8.4-10.2)
--- NOTE | 2018-01-09 22:25 | Diagnostic Imaging Report ---
EXAMINATION: CHEST SINGLE (PORTABLE) INDICATION: Lower abdominal pain. COMPARISON: Chest x-ray 01/04/2018 FINDINGS: AP view TUBES and LINES: Right IJ dual lumen dialysis catheter tip overlies the right atrium. LUNGS: Lungs are well inflated. Mild interstitial prominence. There is no evidence of pneumonia. PLEURA: No pleural effusion or pneumothorax. HEART AND MEDIASTINUM: The cardiomediastinal silhouette is unremarkable. BONES AND SOFT TISSUES: No acute osseous lesion. Soft tissues are unremarkable. UPPER ABDOMEN: No free air under the diaphragm. IMPRESSION: Mild interstitial edema. Signed by: DR. James Bauer MD on 01/09/2018 10:22 PM
[2018-01-09] MEDS ORDERED: ONDANSETRON HCL INJ 2 MG/ML VIAL IV STA (23:04)
[2018-01-09] MEDS ORDERED: ONDANSETRON HCL INJ 2 MG/ML VIAL ONE (23:06)
[2018-01-09] MEDS ORDERED: PANTOPRAZOLE 40 MG 10ML VIAL IV STA (23:41)
[2018-01-09] MEDS ORDERED: DONNATAL/LIDOCAINE/MAALOX 30 ML SUSP PO ONE (23:45)
[2018-01-09] MEDS ORDERED: BELLADONNA ALK/PHENOBARBITAL 5 ML UDC ONE (23:52)
[2018-01-09] MEDS ORDERED: LIDOCAINE VISC 2% SOLN 15 ML UDC ONE (23:52)
[2018-01-09] MEDS ORDERED: MAGNESIUM/ALUMINUM/SIMETHICONE 30 ML UDC ONE (23:52)
== END 2018-01-10 | disposition home or self-care (01) ==
LOC: ER 01-10 00:37
DX: K29.00 Acute gastritis without bleeding (principal); E11.43 Type 2 diabetes mellitus with diabetic autonomic (poly)neuropathy; K31.84 Gastroparesis; Z88.8 Allergy status to other drugs, medicaments and biological substances
CPT/HCPCS: 36415; 71045; 80053; 82550; 82553; 83690; 84484; 85025; 85610; 85730; 93005; 99283; J0360; J2405

== ENCOUNTER 2018-01-11 13:05 | Emergency (ER) | payer MEDICARE ==
[~2018-01-11] VITALS: Ht 142.2 cm; Wt 55.8 kg
[2018-01-11 14:22] LABS: BASOPHILS # (AUTO) 0.1 (0.0-0.1); BASOPHILS % 0.8 % (0.0-1.0); EOSINOPHILS # (AUTO) 0.1 (0.0-0.4); EOSINOPHILS % 0.7 % (0.0-6.0); HEMATOCRIT 39.5 % (34.2-44.1); HEMOGLOBIN 13.3 g/dL (12.0-16.0); LYMPHOCYTES # (AUTO) 1.6 (1.0-3.2); LYMPHOCYTES % 11.4 % (18.0-39.1); MEAN CORPUSCULAR HGB CONC 33.7 g/dL (31-35); MEAN CORPUSCULAR VOLUME 89.2 fL (81-99); MONOCYTES # (AUTO) 0.7 (0.2-0.8); MONOCYTES % 4.9 % (4.4-11.3); NEUTROPHILS # (AUTO) 11.5 (2.1-6.9); NEUTROPHILS % 81.2 % (38.7-80.0); PLATELET COUNT 343 x10e3/uL (140-360); RED BLOOD COUNT 4.43 x10e6/uL (3.6-5.1); RED CELL DISTRIBUTION WIDTH 15.7 % (11.7-14.4)
[2018-01-11 14:36] LABS: ALBUMIN 3.3 g/dL (3.5-5.0); ALBUMIN/GLOBULIN RATIO 0.6 (0.8-2.0); ANION GAP 18.7 mmol/L (8-16); CALCIUM 9.8 mg/dL (8.4-10.2); CREATININE, SERUM 5.79 mg/dL (0.57-1.11); POTASSIUM 3.7 mmol/L (3.5-5.1)
[2018-01-11] MEDS ORDERED: PROMETHAZINE 12.5MG/ NACL 0.9% 12.5 MG/50 ML BAG IV ONE (15:00)
[2018-01-11] MEDS ORDERED: FAMOTIDINE 20 MG/2 ML VIAL IV ONE (15:30)
[2018-01-11] MEDS ORDERED: HYDRALAZINE HCL 20 MG/ML VIAL IV ONE (15:30)
[2018-01-11] MEDS ORDERED: CLONIDINE HCL 0.2 MG TAB PO ONE (15:30)
[2018-01-11] MEDS ORDERED: PANTOPRAZOLE 40 MG 10ML VIAL IV ONE (15:30)
[2018-01-11 15:32] LABS: CLARITY,URINE HAZY (CLEAR); COLOR,URINE YELLOW (YELLOW); LEUKOCYTE ESTERASE ,URINE NEGATIVE (NEGATIVE); NITRITE,URINE NEGATIVE (NEGATIVE); PROTEIN,URINE DIPSTICK 3+ (NEGATIVE)
[2018-01-11 15:33] LABS: BILIRUBIN,URINE NEGATIVE (NEGATIVE); KETONES,URINE NEGATIVE (NEGATIVE); URINE UROBILINOGEN 0.2 mg/dL (0.2 - 1)
[2018-01-11 15:40] LABS: BACTERIA,URINE MODERATE /HPF; EPITHELIAL CELLS,URINE MODERATE /LPF; WBC,URINE (MAN) 0-5 /HPF (0-5)
--- NOTE | 2018-01-11 15:57 | Diagnostic Imaging Report ---
EXAMINATION: CT of the abdomen and pelvis without contrast. TECHNIQUE: Spiral CT images of the abdomen and pelvis were performed from the lung bases to the lesser trochanters. No intravenous contrast was given per renal stone protocol. Coronal and sagittal reformatted images were obtained. COMPARISON: None. CLINICAL HISTORY:Stomach pain, epigastric pain, nausea and vomiting for 2 days DISCUSSION: ABSENCE OF INTRAVENOUS CONTRAST DECREASES SENSITIVITY FOR DETECTION OF FOCAL LESIONS AND VASCULAR PATHOLOGY. ABDOMEN/PELVIS: LOWER THORAX: Unremarkable. HEPATOBILIARY: No focal hepatic lesions. No intra or extrahepatic biliary ductal dilation. GALLBLADDER: Cholecystectomy clips. SPLEEN: No splenomegaly. PANCREAS: No focal masses or ductal dilatation. ADRENALS: No adrenal nodules. KIDNEYS/URETERS: No renal or ureteral calculi, hydronephrosis or obstruction. No significant perinephric stranding or contour abnormalities. PELVIC ORGANS/BLADDER: Bladder is unremarkable. Calcification of uterine arteries. No adnexal masses. PERITONEUM/RETROPERITONEUM: No free air or fluid. LYMPH NODES: No intra-abdominal,retroperitoneal, pelvic or inguinal lymphadenopathy. VESSELS: Atherosclerotic calcification of the abdominal aorta and iliac vessels. GI TRACT: No bowel dilation or evidence of obstruction BONES AND SOFT TISSUES: No bony destructive lesions. Degenerative changes in the cervical spine. No soft tissue abnormalities. IMPRESSION: 1. No renal, ureteral or bladder calculi, hydronephrosis or obstruction. Signed by: Dr. Darion Hein M.D. on 01/11/2018 3:54 PM
[2018-01-11 16:15] LABS: AMYLASE 62 U/L (25-125); LIPASE 41 U/L (8-78)
[2018-01-11 17:06] VITALS: BP 173/66
[2018-01-12] MEDS ORDERED: AMLODIPINE BESYLATE 10 MG TAB PO SCH (09:00)
== END 2018-01-11 17:18 | disposition home or self-care (01) ==
LOC: ER 13:05
DX: R10.33 Periumbilical pain (principal); R10.13 Epigastric pain; K29.00 Acute gastritis without bleeding; I12.0 Hypertensive chronic kidney disease with stage 5 chronic kidney disease or end stage renal disease; E11.22 Type 2 diabetes mellitus with diabetic chronic kidney disease; N18.6 End stage renal disease; Z99.2 Dependence on renal dialysis
CPT/HCPCS: 36415; 74176; 80053; 81001; 82150; 83690; 85025; 93005; 99284; J0360; J2550

== ENCOUNTER 2018-02-13 02:30 | Observation (INO) | payer MEDICARE ==
[~2018-02-13] VITALS: Ht 147.3 cm; Wt 50.4 kg
[2018-02-13] MEDS ORDERED: PANTOPRAZOLE 40 MG 10ML VIAL IV STA (02:35)
[2018-02-13] MEDS ORDERED: ONDANSETRON HCL INJ 2 MG/ML VIAL IV STA (02:35)
[2018-02-13] MEDS ORDERED: SODIUM CHLORIDE 0.9% 1000ML 1,000 ML IV STA (02:35)
[2018-02-13] MEDS ORDERED: HALOPERIDOL LACTATE 5 MG/ML VIAL IM ONE ×2 (03:00→07:00)
[2018-02-13 03:33] LABS: BASOPHILS # (AUTO) 0.1 (0.0-0.1); BASOPHILS % 1.2 % (0.0-1.0); EOSINOPHILS # (AUTO) 0.1 (0.0-0.4); EOSINOPHILS % 2.1 % (0.0-6.0); HEMATOCRIT 37.5 % (34.2-44.1); HEMOGLOBIN 12.6 g/dL (12.0-16.0); LYMPHOCYTES # (AUTO) 1.4 (1.0-3.2); LYMPHOCYTES % 20.1 % (18.0-39.1); MEAN CORPUSCULAR HEMOGLOBIN 29.6 pg (28-32); MEAN CORPUSCULAR HGB CONC 33.6 g/dL (31-35); MEAN CORPUSCULAR VOLUME 88.2 fL (81-99); MONOCYTES # (AUTO) 0.5 (0.2-0.8); MONOCYTES % 7.3 % (4.4-11.3); NEUTROPHILS # (AUTO) 4.7 (2.1-6.9); NEUTROPHILS % 69.2 % (38.7-80.0); PLATELET COUNT 384 x10e3/uL (140-360); RED BLOOD COUNT 4.25 x10e6/uL (3.6-5.1); RED CELL DISTRIBUTION WIDTH 14.1 % (11.7-14.4)
[2018-02-13] MEDS ORDERED: SODIUM CHLORIDE 0.9% 50ML 50 ML ONE (03:37)
[2018-02-13] MEDS ORDERED: IOPAMIDOL 370 MG/ML 200 ML INFUS..BTL INJ ONE (03:38)
[2018-02-13] MEDS ORDERED: HYDRALAZINE HCL 20 MG/ML VIAL IV STA (03:52)
[2018-02-13 03:54] LABS: ALBUMIN 3.2 g/dL (3.5-5.0); ALBUMIN/GLOBULIN RATIO 0.6 (0.8-2.0); ANION GAP 21.2 mmol/L (8-16); CALCIUM 9.8 mg/dL (8.4-10.2); CREATININE, SERUM 4.73 mg/dL (0.57-1.11); POTASSIUM 3.2 mmol/L (3.5-5.1)
[2018-02-13 04:01] LABS: CREATINE KINASE MB 0.8 ng/mL (0-5.0)
--- NOTE | 2018-02-13 04:01 | Diagnostic Imaging Report ---
EXAM: CT ABDOMEN AND PELVIS with IV CONTRAST DATE: 02/13/2018 2:35 AM Time stamp on Exam: 0331 hours INDICATION: Abdominal pain COMPARISON: CT of the abdomen and pelvis January 11, 2018 TECHNIQUE: The abdomen and pelvis were scanned using a multidetector helical scanner. Coronal and sagittal reformations were obtained. Dose modulation, iterative reconstruction, and/or weight based adjustment of the mA/kV was utilized to reduce the radiation dose to as low as reasonably achievable. Routine protocol performed. IV Contrast: 100 cc Isovue 370 Oral Contrast: None FINDINGS: LOWER THORAX: No consolidations. Trace pericardial effusion. LIVER: No masses BILIARY: Cholecystectomy. Stable expected dilation of the common bile duct from reservoir effect. Subcentimeter hypodensity in the liver is too small to characterize. SPLEEN: Mid spleen wedge shaped hypodensity PANCREAS: No masses ADRENALS: No nodules KIDNEYS: Symmetric perfusion. No enhancing masses. No hydronephrosis. GI TRACT: Diffuse colonic wall thickening, predominantly involving the transverse, descending and sigmoid colon is with adjacent vascular congestion. No bowel obstruction. Normal appendix. VESSELS: Advanced atherosclerotic changes. The main portal and splenic veins are patent. Patent main splenic artery. The superior mesenteric, celiac and inferior mesenteric arteries are patent. Severe focal narrowing of the proximal superior mesenteric artery from soft plaque. PERITONEUM/RETROPERITONEUM: No free air or fluid LYMPH NODES: No lymphadenopathy REPRODUCTIVE ORGANS: Unremarkable BLADDER: Unremarkable SOFT TISSUES: Unremarkable BONES: No suspicious bone lesions. IMPRESSION: Findings consistent with pancolitis. Age-indeterminate partial splenic infarct (<50%). Advanced atherosclerotic changes of the abdominal aorta and branches including severe focal narrowing of the proximal superior mesenteric artery from soft plaque. Signed by: Dr. Waleska Bustillo M.D. on 02/13/2018 3:58 AM
--- NOTE | 2018-02-13 04:02 | Diagnostic Imaging Report ---
EXAM: CHEST SINGLE (PORTABLE), AP 1 view INDICATION: Nausea, vomiting, abdominal pain COMPARISON: AP view the chest January 09, 2018 FINDINGS: LINES/TUBES: Stable position right internal jugular vein tunneled hemodialysis catheter. LUNGS: No consolidations or edema. PLEURA: No effusions or pneumothorax. HEART AND MEDIASTINUM: Normal size and contour. BONES AND SOFT TISSUES: No acute findings. IMPRESSION: No acute thoracic abnormality. Signed by: Dr. Waleska Bustillo M.D. on 02/13/2018 3:59 AM
[2018-02-13] MEDS ORDERED: MORPHINE SULFATE 2 MG/ML SYR IV PRN (04:30)
[2018-02-13] MEDS ORDERED: LEVOFLOXACIN 500MG/D5W 100ML IV SCH (04:30)
[2018-02-13] MEDS ORDERED: MORPHINE SULFATE INJ 4 MG/ML INJ ONE (04:45)
[2018-02-13] MEDS ORDERED: POTASSIUM CHLORIDE 20 MEQ TAB CR PO STA (05:35)
--- NOTE | 2018-02-13 06:02 | NUR ---
PT VOMITED ORAL POTASSIUM CHLORIDE 40MEQ AFTER ADMINISTRATION. DR. KENDALL NOTIFIED AND VERBAL ORDER GIVEN FOR 10MEQ POTASSIUM CHLORIDE IV.
[2018-02-13] MEDS ORDERED: POTASSIUM CHLORIDE 10MEQ/100ML 100 ML IV ONE (06:15)
[2018-02-13] MEDS ORDERED: SODIUM CHLORIDE 0.9% 250ML 250 ML IV ONE (06:15)
[2018-02-13] MEDS ORDERED: SODIUM CHLORIDE 0.9% 250ML 250 ML ONE (06:20)
[2018-02-13] MEDS ORDERED: LISINOPRIL10 MG PO (06:40)
[2018-02-13] MEDS ORDERED: ULTRAM 50MG50 MG PO (06:40)
[2018-02-13] MEDS ORDERED: PROMETHAZINE HC25 M1 PO (06:40)
[2018-02-13] MEDS ORDERED: PANTOPRAZOLE SO40 MG PO (06:40)
[2018-02-13] MEDS ORDERED: METOPROLOL TARTRATE INJ 1 MG/ML VIAL IV ONE (07:00)
--- NOTE | 2018-02-13 07:40 | NUR ---
PT HAD BM. PERFORMED CHITRA-CARE ON PT.
--- NOTE | 2018-02-13 07:41 | NUR ---
REPORT GIVEN TO BRIANA PATEL DAY SHIFT NURSE.
--- NOTE | 2018-02-13 07:45 | NUR ---
RECIEVED REPORT FROM BRIANA TOUSSAINT TRANSPORTATION ATTENDANT NURSE.
[2018-02-13] MEDS: MORPHINE SULFATE INJ 4 MG/ML INJ IV PRN (09:10)
[2018-02-13] MEDS ORDERED: LIDOCAINE HCL 2% LOCAL INJ 5 ML SDV VIAL INJ ONE (12:11)
[2018-02-13] MEDS ORDERED: PROPOFOL IV EMULSION 10 MG/ML 50 ML VIAL ONE (12:11)
--- NOTE | 2018-02-13 13:05 | NUR ---
DR. Rina KUOD HERE TO EVAL PT AND AWARE PT DUE FOR DIALYSIS TODAY. PENDING FURTHER ORDERS AT THIS TIME.
--- NOTE | 2018-02-13 15:29 | NUR ---
CONSULTS CALLED ORDERED. PENDING RETURN CALLS AT THIS TIME.
--- NOTE | 2018-02-13 16:34 | NUR ---
RECEIVED CARE OF PATIENT FROM ER. PATIENT IS AAOX3. NO S/S OF DISTRESS NOTED. PATIENT DENIES HAVING PAIN AT THIS THIS TIME. PT DENIES N/V/D. PT HAS NON-WORKING LEFT AV FISTULA THAT WAS PLACED ABOUT 6 TO 7 MONTHS AGO. RIGHT CHEST DIALYSIS PORT NOTED. IV TO THE R AC, 20 GAUGE, PATENT AND INTACT. EDUCATED ON CURRENT NPO STATUS. PATIENT VERBALIZED UNDERSTANDING. PT ORIENTED TO ROOM AND UNIT. BED LOCKED AND IN LOW POSITION. CALL LIGHT WITHIN EASY REACH. INSTRUCTED TO CALL FOR ASSISTANCE NEEDED.
[2018-02-13 16:45] VITALS: BP 189/79
--- NOTE | 2018-02-13 17:17 | NUR ---
PAGED JESSICA REGARDING PATIENT SCHEDULED DIALYSIS DAY OF [facility]. AWAITING CALL BACK.
--- NOTE | 2018-02-13 17:19 | NUR ---
PAGED DR. Cindy YU REGARDING ORDERS FOR INSULIN SLIDING SCALE, ACHS, AND HOME MEDICATIONS RENEWED. AWAITING CALL BACK.
[2018-02-13 17:31] VITALS: BP 189/79
[2018-02-13 17:37] VITALS: BP 189/79
--- NOTE | 2018-02-13 17:55 | NUR ---
SPOKE WITH DR. AVILA ([employer] STATION HELPER FOR DR. Cindy YU) REGARDING RENEWING HOME MEDICATIONS, ACHS, AND INSULIN SLIDING SCALE. NEW ORDERS RECEIVED.
[2018-02-13] MEDS ORDERED: DEXTROSE 50% SYRINGE 50 ML IV PRN (18:00)
--- NOTE | 2018-02-13 19:35 | NUR ---
Patient received lying in bed. Family at bedside. AAO x 3. Patient had no complaints of pain. No signs of respiratory distress. Bed locked and in lowest position. Bed rails up x 2. Patient instructed to call for assistance when needed. Call light within reach.
[2018-02-13 20:00] VITALS: BP 189/79
--- NOTE | 2018-02-13 20:40 | NUR ---
Dr. Rina Tellez here to see patient.
[2018-02-13 20:50] VITALS: BP 179/75
--- NOTE | 2018-02-13 20:51 | NUR ---
Dr. Rina Tellez here to see patient.
[2018-02-13] MEDS: INSULIN REGULAR, HUMAN 100 UNIT/1 ML 3ML VIAL SQ SCH (20:52)
--- NOTE | 2018-02-13 22:27 | Consultation ---
DATE OF CONSULTATION: February 13, 2018 HISTORY OF PRESENT ILLNESS: Ms Denise Bradshaw is well known to me. She is a 58-year-old female, who was admitted with abdominal pain and nausea, underwent CT scan of the abdomen which showed evidence of pancolitis. Otherwise, she is scheduled for dialysis. Denies any shortness of breath, fever or chills at this point in time. Labs show white count of 6.8, hemoglobin 12.6, potassium 3.2, creatinine 4.7. LFTs within normal range. ALLERGIES: NIFEDIPINE. CURRENT MEDICATIONS: Patient received apparently 1 dose of potassium chloride in the emergency room. She received 1 liter of normal saline bolus in the emergency room. She is on hydralazine p.r.n. She is on insulin on a sliding scale, started on Levaquin 500 mg IV piggyback q.24h., which I am going to change to 250 mg q.48h. given her ESRD status. SOCIAL HISTORY: She does not smoke or drink. PAST MEDICAL HISTORY: History of type 2 diabetes, end-organ damage, diabetic retinopathy and neuropathy, prior pancolitis, anemia, chronic kidney disease, has a right-sided tunneled dialysis catheter, on dialysis, history of volume overload, and hypertension. PHYSICAL EXAMINATION GENERAL: Awake, alert, lying supine, in no apparent distress. VITAL SIGNS: Blood pressure of 189/79, pulse rate 88, afebrile, respiratory rate 17. HEAD AND NECK: Cornea clear. Oral mucosa is moist. LUNGS: Relatively clear. HEART: S1, S2 audible. ABDOMEN: Otherwise soft and nontender. EXTREMITIES: Lower extremities, no edema. IMPRESSION AND PLAN 1. Pancolitis. 2. Mild hypokalemia, corrected. 3. Blood pressure noted. 4. Levaquin dose adjusted. 5. GI to see. 6. End-stage renal disease, scheduled for dialysis. 7. Renal diet. Please see orders. Job#: [id number] ARACELI
[2018-02-13] MEDS: HYDRALAZINE HCL 20 MG/ML VIAL IV PRN (22:35)
[2018-02-14] VITALS (8 sets, daily range): BP systolic 139–197; BP diastolic 65–81
--- NOTE | 2018-02-14 03:10 | NUR ---
Dr. Zina De Dios here to see patient. New order received.
--- NOTE | 2018-02-14 04:27 | NUR ---
Patient informed about recommended diagnostic procedure----EGD. Patient was instructed that she would be "NPO" after having "Clear liquid" breakfast. Patient verbalized understanding and voluntarily signed "Disclosure and Consent' form.
[2018-02-14] MEDS: LEVOFLOXACIN 250MG/D5W 50ML 50 ML IV SCH (04:30)
[2018-02-14] MEDS ORDERED: LEVOFLOXACIN 500MG/D5W 100ML IV SCH (04:30)
[2018-02-14] MEDS ORDERED: SODIUM CHLORIDE 0.9% 250ML 250 ML ONE (04:38)
--- NOTE | 2018-02-14 06:31 | NUR ---
Call placed to inform Dr. Reid Millan of being a " Routine Consult" for patient. Reason: Stenosis of "Superior Mesenteric Artery". A message was left on answering service.
--- NOTE | 2018-02-14 07:15 | NUR ---
Shift report given to oncoming nurse. Patient in stable condition.
[2018-02-14] MEDS: INSULIN REGULAR, HUMAN 100 UNIT/1 ML 3ML VIAL SQ SCH ×4 (07:30→21:00)
--- NOTE | 2018-02-14 09:00 | NUR ---
PT RECEIVED LYING IN BED, AA/O X3. ASSESSMENT COMPLETE, VSS. STARTING HEMODIALYSIS TREATMENT. DISCUSSED PLAN FOR EGD SCHEDULED FOR TODAY.
[2018-02-14] MEDS ORDERED: SODIUM CHLORIDE 0.9% IV PRN (09:30)
[2018-02-14] MEDS ORDERED: SODIUM CHLORIDE 0.9% 1000ML 2,000 ML IV PRN (09:30)
[2018-02-14 09:44] LABS: BASOPHILS # (AUTO) 0.1 (0.0-0.1); BASOPHILS % 0.8 % (0.0-1.0); EOSINOPHILS # (AUTO) 0.2 (0.0-0.4); EOSINOPHILS % 1.9 % (0.0-6.0); HEMATOCRIT 28.5 % (34.2-44.1); HEMOGLOBIN 9.4 g/dL (12.0-16.0); LYMPHOCYTES # (AUTO) 2.1 (1.0-3.2); LYMPHOCYTES % 22.5 % (18.0-39.1); MEAN CORPUSCULAR HEMOGLOBIN 29.9 pg (28-32); MEAN CORPUSCULAR VOLUME 90.8 fL (81-99); MONOCYTES # (AUTO) 0.7 (0.2-0.8); MONOCYTES % 7.2 % (4.4-11.3); NEUTROPHILS # (AUTO) 6.3 (2.1-6.9); PLATELET COUNT 319 x10e3/uL (140-360); RED BLOOD COUNT 3.14 x10e6/uL (3.6-5.1)
[2018-02-14 09:57] LABS: CALCIUM 8.1 mg/dL (8.4-10.2); CREATININE, SERUM 4.78 mg/dL (0.57-1.11)
[2018-02-14] MEDS ORDERED: EPOETIN ALFA 10000 UNIT/ML VIAL SC NR (10:00)
--- NOTE | 2018-02-14 10:19 | Progress Note ---
DATE: February 14, 2018 SUBJECTIVE: Feels okay. On dialysis. Tolerating procedure. OBJECTIVE VITAL SIGNS: Temperature is 97.8, pulse 75, blood pressure 166/71. CHEST: Clear. EXTREMITIES: No edema. ABDOMEN: Now soft. ASSESSMENT 1. Pancolitis. 2. End-stage renal disease. 3. Mild hypokalemia on last check. PLAN: Hemodialysis today, 3.5-hour run, 4 potassium bath, fluid removal of 2 liters, blood flow rate 350 mL per minute, dialysate fluid 700 mL per minute. We will follow along. Job#: [id number] LPA
[2018-02-14] MEDS: ONDANSETRON HCL INJ 2 MG/ML VIAL IV PRN ×2 (13:30→21:20)
[2018-02-14] MEDS: MORPHINE SULFATE INJ 4 MG/ML INJ IV PRN ×2 (13:44→21:20)
--- NOTE | 2018-02-14 14:24 | Consultation ---
DATE OF CONSULTATION: CARDIOLOGY CONSULTATION REASON FOR CONSULTATION: Superior mesenteric arterial stenosis. HISTORY OF PRESENT ILLNESS: This is a 58-year-old woman with a history of end-stage renal disease and hypertension, who presented to the emergency department with abdominal pain. Patient states that last 2 days, she has had progressively worsening abdominal pain, moderate to severe in intensity, associated with nausea and vomiting. She had a CT scan ordered, which showed a severe narrowing of the superior mesenteric artery ostium along with evidence of pancolitis. Discussion with the patient did not reveal episodic daily postprandial pain. This started acutely and progressively worsened. She has no daily chronic abdominal pain. PAST MEDICAL HISTORY: Hypertension and end-stage renal disease. PAST SURGICAL HISTORY: AV fistula. PAST FAMILY HISTORY: No premature coronary artery disease or sudden cardiac . SOCIAL HISTORY: No illicit drug use, alcohol, or tobacco use. ALLERGIES: NONE. MEDICATIONS: See medication reconciliation form. PHYSICAL EXAMINATION VITAL SIGNS: Temperature is 98.4, heart rate is 78, respirations are 16, blood pressure is 164/71, oxygen saturation is 100% on room air. GENERAL: She is a chronically-ill appearing woman in no apparent distress. CARDIOVASCULAR: Regular rate and rhythm. LUNGS: Clear to auscultation. ABDOMEN: Soft, nontender. EXTREMITIES: No edema. VASCULAR: Diminished pulses. SKIN: Warm, dry, and intact. CARDIOVASCULAR MEDICATIONS: Reviewed. LABORATORY DATA: Reviewed. IMAGING DATA: CT of the abdomen showed severe focal narrowing of the proximal superior mesenteric artery from soft plaque and pancolitis. IMPRESSION 1. Pancolitis. 2. Peripheral arterial disease with severe narrowing of the superior mesenteric artery. 3. Hypertension. 4. End-stage renal disease. RECOMMENDATIONS: From a cardiovascular standpoint, patient appears well. Denies any chest pain or shortness of breath. Restart home antihypertensives as tolerated after dialysis. The chart states that she has a nifedipine allergy; however, this is not true, and she was able to tolerate amlodipine as an outpatient. Restart this for better blood pressure control. In regards to her SMA stenosis, patient by history does not complain of chronic mesenteric ischemia. She states prior to this episode she was able to eat daily meals without evidence of pain. I suspect her abdominal discomfort is due to this pancolitis rather than true mesenteric ischemia from her stenosis. Thank you for this consultation. We will follow along with you. Job#: [id number] LPA
--- NOTE | 2018-02-14 15:54 | Progress Note ---
DATE: INTERNAL MEDICINE PROGRESS NOTE SUBJECTIVE: Patient is complaining of abdominal pain. PHYSICAL EXAMINATION VITAL SIGNS: Blood pressure 164/71, temperature 98.4, heart rate 78 per minute, respiratory rate 16 per minute, oxygen saturation 100%. HEART: Showed regular rhythm. Normal S1, S2 sounds. LUNGS: Clear bilaterally. ABDOMEN: Soft. EXTREMITIES: Show no evidence of cyanosis, edema, or trauma. On the BMP: Sodium 135, potassium 4.0, chloride 100, CO2 of 23, BUN 37, creatinine 4.78, glucose 99. On the CBC: White blood count 9.33, hemoglobin 9.4, hematocrit 28.5, platelet count 618,000. AST 18, ALT 14, total bilirubin 0.6, alkaline phosphatase 148. FINAL IMPRESSION 1. Pancolitis. 2. Superior mesenteric artery stenosis. 3. Uncontrolled hypertension with end-stage renal disease. 4. End-stage renal disease, on dialysis. 5. Anemia of chronic disease secondary to end-stage renal disease. 6. Abdominal pain. 7. Uncontrolled diabetes mellitus type 2 with end-stage renal disease. PLAN OF TREATMENT: Continue with Levaquin IV q.48 hours. Continue with Zofran 4 mg IV q.4 hours as needed, morphine 4 mg IV q.4 hours as needed, hydralazine 10 mg IV q.4 hours, hydralazine 50 mg p.o. twice a day, D50 IV push as needed. Continue monitoring blood sugar a.c. and nightly. Job#: [id number] LPA
[2018-02-14] MEDS: HYDRALAZINE HCL 25 MG TAB PO SCH (17:00)
[2018-02-14] MEDS: HYDRALAZINE HCL 20 MG/ML VIAL IV PRN (17:01)
--- NOTE | 2018-02-14 18:14 | NUR ---
PT LEFT FLOOR FOR EGD
[2018-02-14] MEDS ORDERED: SODIUM CHLORIDE 0.9% 500ML 500 ML ONE (18:31)
--- NOTE | 2018-02-14 20:12 | Operative Report ---
DATE OF PROCEDURE: February 14, 2018 REFERRING PHYSICIAN: Dr. Marie De Dios. PROCEDURE PERFORMED: Esophagogastroduodenoscopy with biopsies. INDICATIONS FOR EGD: Upper abdominal pain, nausea, and vomiting. MEDICATION: Patient was done under MAC. Please see anesthesiologist's note. PROCEDURE: With the patient in left lateral decubitus position, a flexible fiberoptic Olympus gastroscope was introduced into the esophagus under direct visualization without any difficulty. There was some patchy erythema noted in distal esophagus. The scope was then advanced with ease into the stomach. Mucosa overlying the antrum and the body revealed some diffuse erythema and moderate edema, and biopsies were obtained and sent to stain for H. pylori. The pylorus was of normal contour and shape. It was intubated with ease, and the scope was advanced all the way to the 2nd portion of the duodenum. The scope was then withdrawn slowly. Mucosa overlying the proximal 2nd portion and the duodenal bulb appeared to be within normal limits. The scope was then withdrawn back into the stomach and retroflexed. Mucosa overlying the fundus and the cardia appeared to be within normal limits. The scope was then straightened out. It was subsequently withdrawn. Patient tolerated the procedure well. IMPRESSION 1. Distal esophagitis, mild. 2. Gastritis, biopsied. Biopsies sent to stain for Helicobacter pylori. PLAN: Follow up histology. Initiate Protonix 40 mg 1 p.o. q.a.m. a.c. Job#: [id number] LPA cc:DR. MARIE WHITTEN
[2018-02-14] MEDS ORDERED: PANTOPRAZOLE 40 MG 10ML VIAL IV STA (21:34)
--- NOTE | 2018-02-14 21:34 | NUR ---
SPOKE TO DR. Rachelle YU AT THIS TIME. NEW ORDERS RCV FOR PROTONIX IV.
[2018-02-15] VITALS (9 sets, daily range): BP systolic 167–198; BP diastolic 66–84
[2018-02-15] MEDS: HYDRALAZINE HCL 20 MG/ML VIAL IV PRN (05:59)
[2018-02-15] MEDS: INSULIN REGULAR, HUMAN 100 UNIT/1 ML 3ML VIAL SQ SCH ×4 (07:30→21:00)
[2018-02-15] MEDS: HYDRALAZINE HCL 25 MG TAB PO SCH ×2 (09:09→17:30)
[2018-02-15] MEDS: AMLODIPINE BESYLATE 5 MG TAB PO SCH (09:09)
--- NOTE | 2018-02-15 09:09 | NUR ---
PT RECEIVED LYING IN BED, AA/O X3. ASSESSMENT COMPLETE, VSS. NO C/O AT THIS TIME. DISCUSSED PLAN FOR DAY
[2018-02-15] MEDS: PANTOPRAZOLE 40 MG 10ML VIAL IV SCH ×2 (11:00→17:30)
--- NOTE | 2018-02-15 15:16 | Progress Note ---
DATE: INTERNAL MEDICINE PROGRESS NOTE SUBJECTIVE: The patient is doing well. No significant complaint. No abdominal pain. PHYSICAL EXAM VITAL SIGNS: Blood pressure 172/74, temperature 98.8, heart rate 82 per minute, respiratory rate 18 per minute, oxygen saturation 95%. HEART: Regular rhythm. Normal S1, S2 sounds. LUNGS: Clear bilaterally. ABDOMEN: Soft. No tension, retention, or visceromegaly. EXTREMITIES: Show no evidence of cyanosis, edema, or trauma. LABS: On the BMP; sodium 135, potassium 4.0, chloride 100, CO2 23, BUN 37, creatinine 4.78, and glucose 99. On the CBC; white blood count 9.33, hemoglobin 9.4, hematocrit 28.5, platelet count 319,000. AST 18, ALT 14, total bilirubin 0.6, and alkaline phosphatase 148,000. FINAL IMPRESSION 1. Pancolitis. 2. Gastritis. 3. Uncontrolled hypertension with end-stage renal disease. 4. End-stage renal disease. 5. Diabetes mellitus type 2 with end-stage renal disease. PLAN OF TREATMENT: Continue Levaquin IV q. 48 hours. Continue with Zofran 4 mg IV q.4 hours as needed, amlodipine 5 mg daily, hydralazine 10 mg IV push every 4 hours as needed for hypertension, hydralazine 50 mg p.o. twice a day, Protonix 40 mg twice a day. Continue monitoring blood sugar a.c. and h.s. Morphine 4 mg IV q.4 hours as needed. Job#: [id number] SE
[2018-02-15] MEDS ORDERED: LABETALOL HCL 5 MG/ML 20ML VIAL IV PRN (18:00)
--- NOTE | 2018-02-15 19:25 | NUR ---
Patient received lying in bed. Family at bedside. AAO x 3. No acute distress noted. Bed locked and in lowest position. Bed rails up x 2. Patient instructed to call for assistance when needed.
[2018-02-16] VITALS: BP 168/62
--- NOTE | 2018-02-16 01:27 | NUR ---
Patient's BP elevated (168/62); HR (84). Patient declined administration of Labetalol 5 mg to lower her BP.
[2018-02-16 04:00] VITALS: BP 179/89
[2018-02-16] MEDS: LEVOFLOXACIN 250MG/D5W 50ML 50 ML IV SCH (04:30)
--- NOTE | 2018-02-16 06:05 | NUR ---
Urine specimen sent to lab for analysis.
[2018-02-16 06:37] LABS: CLARITY,URINE HAZY (CLEAR); COLOR,URINE YELLOW (YELLOW)
[2018-02-16 06:38] LABS: LEUKOCYTE ESTERASE ,URINE NEGATIVE (NEGATIVE); NITRITE,URINE NEGATIVE (NEGATIVE)
[2018-02-16 06:39] LABS: BILIRUBIN,URINE NEGATIVE (NEGATIVE); KETONES,URINE NEGATIVE (NEGATIVE); PROTEIN,URINE DIPSTICK 3+ (NEGATIVE); URINE UROBILINOGEN 0.2 mg/dL (0.2 - 1)
[2018-02-16 06:44] LABS: BACTERIA,URINE MODERATE /HPF; EPITHELIAL CELLS,URINE MODERATE /LPF; RBC,URINE 0-5 /HPF (0-5)
[2018-02-16 06:45] LABS: AMORPHOUS SEDIMENT,URINE FEW (FEW)
--- NOTE | 2018-02-16 07:10 | NUR ---
Pt asleep resp even and unlabored at this time no distress noted, pt easily aroused, call light in reach.
--- NOTE | 2018-02-16 07:29 | NUR ---
Patient resting comfortably . Shift report given to oncoming nurse.
[2018-02-16] MEDS: INSULIN REGULAR, HUMAN 100 UNIT/1 ML 3ML VIAL SQ SCH ×4 (07:30→21:00)
[2018-02-16 08:39] VITALS: BP 186/80
[2018-02-16] MEDS: HYDRALAZINE HCL 25 MG TAB PO SCH ×2 (09:00→17:00)
[2018-02-16] MEDS: PANTOPRAZOLE 40 MG 10ML VIAL IV SCH ×2 (09:02→17:00)
[2018-02-16] MEDS: AMLODIPINE BESYLATE 5 MG TAB PO SCH (09:03)
[2018-02-16 11:42] VITALS: BP 168/72
--- NOTE | 2018-02-16 12:56 | NUR ---
Neon Tube Bender to bedside to discuss plan of care with patient/family. CM/SW role and care transitions discussed. Anticipated discharge plan discussed along with duration of care. CM/SW discussed patients right to make decisions in care. CM/SW work hours given. Patient lives: with her son Admit/Transfer: thru ED, from home POA/Emergency contact: daughter Cathy Bradshaw [phone] Current/Previous Home Health: states she has home health but does not remember the name of the company. PCP/Follow-up Care: does not have PCP, states she will follow up with Dr. Luke when she discharges Current/Previous DME: has walker and wheelchair Other Services: HD at [facility] MWF at 0730 Employment Status: unemployed Areas of Concerns: n/a Referral Needs: n/a Education Needs: medical management IMM/TELLO given and signed (if applicable): TELLO; signed copy in chart. Copy to pt. Goal for discharge: home with current home health. daughter will provide transportation CM/SW left business card at the bedside with contact information. Name and number was also written on the patients whiteboard. Patient verbalized understanding of discussion. CM will follow-up with ongoing discharge and transition of care needs.
--- NOTE | 2018-02-16 14:09 | Progress Note ---
DATE: February 16, 2018 CARDIOVASCULAR PROGRESS NOTE SUBJECTIVE: No major events overnight. Patient asking when she can go home. OBJECTIVE VITAL SIGNS: Temperature 98.1, pulse 65, respiratory rate 18, blood pressure 168/72, satting 99% on room air. GENERAL: female in no acute distress. VASCULAR: Regular rate and rhythm. No murmurs, rubs, or gallops. LUNGS: Clear to auscultation bilaterally. ABDOMEN: Soft, nontender and nondistended. NEURO AND PSYCH: Alert and oriented to person, place and time. Normal affect. CARDIOVASCULAR MEDICATIONS: Reviewed. LABORATORY DATA: Reviewed. Imaging data reviewed. CT scan of the abdomen shows severe focal narrowing of the proximal SMA and pancolitis. ASSESSMENT AND PLAN 1. Pancolitis. 2. Peripheral arterial disease with severe narrowing of superior mesenteric artery per computerized tomography of the abdomen and pelvis. 3. Hypertension. 4. End-stage renal disease. PLAN: Patient continues to do well. Lactate was not elevated. Although she has lost 10 pounds recently, prior to that she did not have any significant weight loss. She denies any pain after eating or any other warning signs of ongoing mesenteric ischemia. Although she has peripheral arterial disease of her SMA, currently she does not seem to be symptomatic from this. Given ongoing pancolitis, no plans or need for intervention at this time. Will continue to follow closely. Thank you for this consult. Job#: [id number] ANDRES
--- NOTE | 2018-02-16 14:45 | NUR ---
Spoke with Dr. De Dios who stated pt will discharge home after HD. MD left prescription in chart.
[2018-02-16 15:56] VITALS: BP 152/82
--- NOTE | 2018-02-16 17:30 | NUR ---
dialysis started, pt tolerating well.
--- NOTE | 2018-02-16 19:37 | NUR ---
report given to oncoming nurse, for continued care.
[2018-02-16 20:09] VITALS: BP 90/53
--- NOTE | 2018-02-16 21:23 | NUR ---
PATIENT LEFT VIA STRETCHER ACCOMPANIED BY STAFF, INSTRUCTIONS GIVEN, LEFT WITH PRIVATE AUTO. ALERT AND VERBAL, ORIENTED, NO COMPLAINTS
--- NOTE | 2018-02-18 07:36 | Operative Report ---
DATE OF PROCEDURE: February 14, 2018 REFERRING PHYSICIAN: Dr. Marie Yu. PROCEDURE PERFORMED: Esophagogastroduodenoscopy. INDICATIONS FOR ESOPHAGOGASTRODUODENOSCOPY: Upper abdominal pain, nausea and vomiting. MEDICATION: Patient was done under MAC. Please see anesthesiologist's note. PROCEDURE: With the patient in lateral decubitus position, flexible fiberoptic Olympus gastroscope was introduced into the esophagus under direct visualization without any difficulty. There was some patchy erythema noted in distal esophagus. The scope was then advanced with ease into the stomach. Mucosa overlying the antrum and the body revealed some diffuse erythema and moderate edema, and biopsies were obtained, sent to stain for H. pylori. The pylorus was of normal contour and shape. It was intubated with ease and the scope was advanced all the way to the 2nd portion of the duodenum. The scope was then withdrawn back into the stomach as the mucosa overlying the proximal 2nd portion and the duodenal bulb appeared to be within normal limits. The scope was then retroflexed and the mucosa overlying the fundus and the cardia appeared to be within normal limits. The scope was then straightened out and was subsequently withdrawn. The patient tolerated the procedure well. IMPRESSION 1. Distal esophagitis, mild. 2. Gastritis, biopsied. Biopsies sent to stain for Helicobacter pylori. PLAN: Follow up histology. Initiate Protonix 40 mg 1 p.o. q.a.m. a.c. Job#: [id number] GE cc:MARIE YU MD
== END 2018-02-16 21:23 | disposition home or self-care (01) ==
LOC: ER 02:30 → ERHOLD 05:11 → MED/SURG2 16:34
DX: K51.012 Ulcerative (chronic) pancolitis with intestinal obstruction (principal); E11.22 Type 2 diabetes mellitus with diabetic chronic kidney disease; I12.0 Hypertensive chronic kidney disease with stage 5 chronic kidney disease or end stage renal disease; N18.6 End stage renal disease; Z99.2 Dependence on renal dialysis; E87.6 Hypokalemia; I77.1 Stricture of artery; K20.9 Esophagitis, unspecified; K29.70 Gastritis, unspecified, without bleeding; D63.1 Anemia in chronic kidney disease; E11.65 Type 2 diabetes mellitus with hyperglycemia; K55.9 Vascular disorder of intestine, unspecified
CPT/HCPCS: 36415 ×4; 43239; 71045; 74177; 80048; 80053; 81001; 82550; 82553; 82948 ×4; 83605; 83690; 84484; 85025 ×2; 87340; 88305; 88312; 90935; 99284; G0378 ×4; J0360 ×3; J1630; J1956 ×3; J2001; J2270 ×2; J2405 ×2; J3480; J3490; J7030; J7040; J7050 ×2; J7799; Q4081; Q9967; 90962

== ENCOUNTER 2018-02-26 15:33 | Emergency (ER) | payer MEDICARE ==
[~2018-02-26] VITALS: Ht 147.3 cm; Wt 50.3 kg
[~2018-02-26 15:33] MED LIST changes: +PANTOPRAZOLE SO40 MG PO; +PROMETHAZINE HC25 M1 PO; +ULTRAM 50MG50 MG PO
[2018-02-26] MEDS ORDERED: METOCLOPRAMIDE HCL 10 MG TAB PO ONE (16:00)
[2018-02-26] MEDS ORDERED: PROMETHAZINE HCL (IM) 25 MG/ML VIAL IM ONE (16:00)
[2018-02-26 16:58] VITALS: BP 150/75
[2018-03-10] MEDS ORDERED: METOCLOPRAMIDE10 MG PO (14:06)
[2018-03-10] MEDS ORDERED: INSULIN SQ (14:06)
== END 2018-02-26 16:30 | disposition home or self-care (01) ==
LOC: ER 15:33
DX: R11.2 Nausea with vomiting, unspecified (principal); K29.50 Unspecified chronic gastritis without bleeding
CPT/HCPCS: 99282; J2550

== ENCOUNTER → 2018-03-12 | Day surgery (SDC) | payer MEDICARE ==
[2018-03-10 14:23] LABS: BASOPHILS % 0.5 % (0.0-1.0); EOSINOPHILS # (AUTO) 0.4 (0.0-0.4); EOSINOPHILS % 4.9 % (0.0-6.0); HEMATOCRIT 31.6 % (34.2-44.1); HEMOGLOBIN 10.2 g/dL (12.0-16.0); LYMPHOCYTES # (AUTO) 1.7 (1.0-3.2); LYMPHOCYTES % 22.2 % (18.0-39.1); MEAN CORPUSCULAR HEMOGLOBIN 29.9 pg (28-32); MEAN CORPUSCULAR HGB CONC 32.3 g/dL (31-35); MEAN CORPUSCULAR VOLUME 92.7 fL (81-99); MONOCYTES # (AUTO) 0.7 (0.2-0.8); MONOCYTES % 9.1 % (4.4-11.3); NEUTROPHILS # (AUTO) 4.9 (2.1-6.9); NEUTROPHILS % 62.9 % (38.7-80.0); PLATELET COUNT 296 x10e3/uL (140-360); RED BLOOD COUNT 3.41 x10e6/uL (3.6-5.1); RED CELL DISTRIBUTION WIDTH 15.4 % (11.7-14.4)
[~2018-03-12] MED LIST changes: +HYOSCYAMINE SULFATE 0.5 MG/ML INJ ONE; +INSULIN SQ; +METOCLOPRAMIDE10 MG PO; +PROPOFOL IV EMULSION 10 MG/ML 50 ML VIAL ONE; +SODIUM CHLORIDE 0.9% 500ML 500 ML ONE
[2018-03-12 10:15] VITALS: BP 162/64
--- NOTE | 2018-03-12 10:37 | Operative Report ---
DATE OF PROCEDURE: March 12, 2018 REFERRING PHYSICIAN: Dr. Marie Yu. PROCEDURE PERFORMED: Colonoscopy and polypectomy. INDICATIONS FOR COLONOSCOPY: Colorectal cancer screening. MEDICATION: Patient was done under MAC. Please see anesthesiologist's note. PROCEDURE: With the patient in the left lateral decubitus position, the flexible fiberoptic Olympus colonoscope was inserted into the rectum with ease and advanced all the way to the cecum. The scope was then withdrawn slowly. The mucosa overlying the cecum, ascending colon, transverse colon and descending colon appeared to be within normal limits. An approximately 8-mm sessile polyp was snared from the sigmoid colon. The rectum appeared to be within normal limits. The scope was then retroflexed into the distal rectum. Small internal hemorrhoids were noted, none of which was actively bleeding. In addition, some hypertrophic anal papillae were also noted. The scope was then straightened out. It was subsequently withdrawn. Patient tolerated the procedure well. IMPRESSION 1. Sigmoid colon polyp, approximately 8 mm, sessile, removed per snare electrocautery. 2. Internal hemorrhoids, none actively bleeding. 3. Hypertrophic anal papillae. PLAN: Follow up histology. Initiate high-fiber, low-fat diet. Initiate high-fiber supplement. Patient might benefit from a followup colonoscopy in 3 to 5 years. Job#: [id number] cc:MARIE YU MD
== END | disposition home or self-care (01) ==
LOC: OR 06:26
PROVIDERS: ATTEND Internal Medicine Gastroenterology
DX: Z12.11 Encounter for screening for malignant neoplasm of colon (principal); D12.5 Benign neoplasm of sigmoid colon; K64.8 Other hemorrhoids; K62.89 Other specified diseases of anus and rectum; K21.9 Gastro-esophageal reflux disease without esophagitis; E11.22 Type 2 diabetes mellitus with diabetic chronic kidney disease; I12.0 Hypertensive chronic kidney disease with stage 5 chronic kidney disease or end stage renal disease; N18.6 End stage renal disease; I69.349 Monoplegia of lower limb following cerebral infarction affecting unspecified side; Z88.8 Allergy status to other drugs, medicaments and biological substances; Z99.2 Dependence on renal dialysis; Z01.812 Encounter for preprocedural laboratory examination; Z79.4 Long term (current) use of insulin
CPT/HCPCS: 36415 ×2; 45385; 82948; 84132; 85025; 88305; J1980; J7040; 45378

== ENCOUNTER → 2018-03-31 | Outpatient (CLI) | payer MEDICARE ==
[~2018-03-31] MED LIST changes: -HYOSCYAMINE SULFATE 0.5 MG/ML INJ ONE; -PROPOFOL IV EMULSION 10 MG/ML 50 ML VIAL ONE; -SODIUM CHLORIDE 0.9% 500ML 500 ML ONE
--- NOTE | 2018-03-31 12:01 | Diagnostic Imaging Report ---
EXAM: US ABDOMEN COMPLETE DATE: 03/31/2018 10:55 AM INDICATION: Nausea, abdominal pain COMPARISON: CT abdomen and pelvis 02/13/2018 TECHNIQUE: Transverse and longitudinal quinones scale and color doppler sonographic images of the upper abdomen were obtained. FINDINGS: LIVER 12.9 cm in the right midclavicular line. Normal echogenicity, normal contour, no masses. SPLEEN 8.1 cm in maximum diameter. Normal echogenicity, no masses. GALLBLADDER Surgically removed BILE DUCTS No intra nor extra-hepatic biliary dilation. Common bile duct measures 0.4 cm PANCREAS: Poorly visualized secondary to overlying bowel gas RIGHT KIDNEY: 9.5 cm in length Echogenicity: Normal Collecting System: No hydronephrosis Stones: None Cyst/Mass: None LEFT KIDNEY: 9.7 cm in length Echogenicity: Normal Collecting System: No hydronephrosis Stones: None Cyst/Mass: None VESSELS: Aorta: Poorly visualized secondary to overlying bowel gas. Inferior Vena Cava: Patent Main Portal Vein: 0.8 cm, normal size with hepatopetal flow. FREE FLUID: None IMPRESSION: Status post cholecystectomy. Otherwise unremarkable abdominal ultrasound. Signed by: Dr. Lorenzo Quinteros M.D. on 03/31/2018 11:58 AM
== END ==
LOC: US 10:43
PROVIDERS: ATTEND Internal Medicine Gastroenterology
DX: R10.84 Generalized abdominal pain (principal)
CPT/HCPCS: 76700

== ENCOUNTER → 2018-06-04 | Day surgery (SDC) | payer MEDICARE ==
[~2018-06-04] MED LIST changes: +ACETAMINOPHEN/CODEINE 300MG - 30MG TAB ONE; +CEFAZOLIN SOD 1 GM/NS 50ML 50 ML IV ONE; +DESFLURANE 240 ML BTL INH ONE; +DEXTROSE 5% 250ML 250 ML IV ONE; +FENTANYL CITRATE/PF 100MCG/2 ML INJ ONE; +HEPARIN SOD (PORCINE) 5,000 UNIT/ML VIAL ONE; +HYDROMORPHONE 2MG/ML 2 MG/ML ML ONE; +LIDOCAINE HCL 2% LOCAL INJ 5 ML SDV VIAL INJ ONE; +MIDAZOLAM HCL 2 MG/2 ML VIAL ONE; +ONDANSETRON HCL INJ 2MG/ML 2ML 2 MG/ML VIAL ONE; +PROPOFOL IV EMULSION 10 MG/ML 20 ML VIAL ONE; +SODIUM CHLORIDE 0.9% 0 ML ONE; +SODIUM CHLORIDE 0.9% 500ML 500 ML ONE
[2018-06-04 12:45] LABS: CALCIUM 9.2 mg/dL (8.4-10.2); CREATININE, SERUM 4.56 mg/dL (0.57-1.11)
[2018-06-04 12:51] LABS: RED BLOOD COUNT 4.96 x10e6/uL (3.6-5.1)
[2018-06-04 12:52] LABS: HEMATOCRIT 48.1 % (34.2-44.1); HEMOGLOBIN 15.4 g/dL (12.0-16.0)
[2018-06-04 12:58] LABS: BASOPHILS % 1.1 % (0.0-1.0); EOSINOPHILS % 6.6 % (0.0-6.0); LYMPHOCYTES % 32.2 % (18.0-39.1); MONOCYTES % 10.5 % (4.4-11.3); NEUTROPHILS % 49.3 % (38.7-80.0); PLATELET COUNT 165 x10e3/uL (140-360); RED CELL DISTRIBUTION WIDTH 15.4 % (11.7-14.4)
[2018-06-04 12:59] LABS: BASOPHILS # (AUTO) 0.1 (0.0-0.1); EOSINOPHILS # (AUTO) 0.5 (0.0-0.4); LYMPHOCYTES # (AUTO) 2.6 (1.0-3.2); MONOCYTES # (AUTO) 0.8 (0.2-0.8); NEUTROPHILS # (AUTO) 3.9 (2.1-6.9)
[2018-06-04 14:50] VITALS: BP 165/94
--- NOTE | 2018-06-04 20:07 | Operative Report ---
DATE OF PROCEDURE: 06/04/2018 SURGEON: Lorenzo Robertson MD PREOPERATIVE DIAGNOSIS: End-stage renal disease. POSTOPERATIVE DIAGNOSIS: End-stage renal disease. PROCEDURES: Revision of left arm arteriovenous fistula with transposition of basilic vein. TAR ROOFER: None. ANESTHESIA: General. INDICATIONS AND FINDINGS: The patient is a 58-year-old female, previous left brachiobasilic fistula which has developed well, now it needs to be transposed, it could be used for dialysis. Surgery, the left arm AV fistula was found to be well developed with the vein up to 12 mm in diameter. There were multiple side branches which were ligated. The vein easily transposed into the subcutaneous tissue. TECHNIQUE: After adequate general anesthesia with the patient in supine position the left arm was prepped and draped in a sterile fashion with ChloraPrep solution. Incision made at the antecubital area medially over the area of the basilic vein. Venous outflow was carried down through the subcutaneous tissue. The vein was identified, dissected free from the surrounding tissues to control the vessel loop. The vein was then dissected free, incision extended proximally along the course of the vein. The vein was dissected free. Branches as encountered were dissected free and divided between hemoclips and one larger branch was dissected free and divided using larger hemoclips. The vein was dissected free all the way up to the axilla, lifted out of its bed so it could be transposed into the subcutaneous tissue, it was very redundant and very dilated with the vein being up to 12 mm in diameter. Once the vein was completely free hemostasis, the wound was seen to be adequate. The skin and subcutaneous tissue laterally was then incised and the skin flap raised so the vein could be transposed into the subcutaneous tissue. This was done in the upper arm throughout the course of the venous outflow. Once this flap had been raised, superficial fascia beneath this was closed, beneath the basilic vein, so it transposed in the subcutaneous tissue, care was taken. The vein was not twisted or kinked and using 2-0 Vicryl the superficial fascia was closed with a running suture. The vein easily sat in the subcutaneous tissue without any tension and was not twisted. There was good flow to the vein. The more superficial subcutaneous tissue was then closed with running suture with 3-0 Vicryl. Skin was closed with fabian. Sterile dressing was applied. The patient tolerated the procedure well. Estimated blood loss was 40 mL. There were no complications. All counts were correct. The patient was taken to the recovery room in satisfactory condition with a palpable thrill over the fistula. MD MAREN Moralez/ELLA /[id number]
== END | disposition home or self-care (01) ==
LOC: OR 11:08
PROVIDERS: ATTEND Surgery
DX: E11.22 Type 2 diabetes mellitus with diabetic chronic kidney disease (principal); I12.0 Hypertensive chronic kidney disease with stage 5 chronic kidney disease or end stage renal disease; N18.6 End stage renal disease; K21.9 Gastro-esophageal reflux disease without esophagitis; Z99.2 Dependence on renal dialysis; Z88.8 Allergy status to other drugs, medicaments and biological substances; Z01.810 Encounter for preprocedural cardiovascular examination; Z79.4 Long term (current) use of insulin; Z86.73 Personal history of transient ischemic attack (TIA), and cerebral infarction without residual deficits
CPT/HCPCS: 36415; 36832; 80048; 82948; 85025; 93005; J0690; J1170; J2001; J2250; J2405; J2704; J7040; J7070; J1644; J7050

== ENCOUNTER 2018-06-18 16:26 | Emergency (ER) | payer MEDICARE ==
[~2018-06-18] VITALS: Ht 147.3 cm; Wt 50.3 kg
[~2018-06-18 16:26] MED LIST changes: -ACETAMINOPHEN/CODEINE 300MG - 30MG TAB ONE; -CEFAZOLIN SOD 1 GM/NS 50ML 50 ML IV ONE; -DESFLURANE 240 ML BTL INH ONE; -DEXTROSE 5% 250ML 250 ML IV ONE; -FENTANYL CITRATE/PF 100MCG/2 ML INJ ONE; -HEPARIN SOD (PORCINE) 5,000 UNIT/ML VIAL ONE; -HYDROMORPHONE 2MG/ML 2 MG/ML ML ONE; -LIDOCAINE HCL 2% LOCAL INJ 5 ML SDV VIAL INJ ONE; -MIDAZOLAM HCL 2 MG/2 ML VIAL ONE; -ONDANSETRON HCL INJ 2MG/ML 2ML 2 MG/ML VIAL ONE; -PROPOFOL IV EMULSION 10 MG/ML 20 ML VIAL ONE; -SODIUM CHLORIDE 0.9% 0 ML ONE; -SODIUM CHLORIDE 0.9% 500ML 500 ML ONE
[2018-06-18] MEDS ORDERED: CLONIDINE HCL 0.1 MG TAB PO ONE (17:45)
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
[2018-06-18 19:32] VITALS: BP 165/67
== END 2018-06-18 19:52 | disposition home or self-care (01) ==
LOC: ER 16:26
DX: S16.1XXA Strain of muscle, fascia and tendon at neck level, initial encounter (principal); V43.62XA Car passenger injured in collision with other type car in traffic accident, initial encounter; Y92.410 Unspecified street and highway as the place of occurrence of the external cause
CPT/HCPCS: 72050; 99283

== ENCOUNTER → 2019-08-12 | Outpatient (CLI) | payer MEDICARE ==
[~2019-08-12] MED LIST changes: +IOPAMIDOL 370 MG/ML 200 ML INFUS..BTL INJ ONE; +SODIUM CHLORIDE 0.9% 50ML 50 ML ONE
--- NOTE | 2019-08-12 09:17 | Diagnostic Imaging Report ---
EXAM: CT Abdomen and Pelvis WITH intravenous contrast INDICATION: Gastritis, diarrhea COMPARISON: CT abdomen and pelvis of 02/13/2018 TECHNIQUE: Abdomen and pelvis were scanned utilizing a multidetector helical scanner from the lung base to the pubic symphysis after administration of IV contrast. Coronal and sagittal reformations were obtained. Routine protocol was performed. Scan was performed during portal venous phase. IV CONTRAST: 100mL of Isovue 370 ORAL CONTRAST: Water RADIATION DOSE: Total DLP: 315 mGy*cm Dose modulation, iterative reconstruction, and/or weight based adjustment of the mA/kV was utilized to reduce the radiation dose to as low as reasonably achievable. FINDINGS: LOWER THORAX: Bibasilar dependent subsegmental atelectasis. HEPATOBILIARY: Subcentimeter right hepatic hypodensities appear unchanged compared to 02/13/2018. No additional focal liver lesions. Status post cholecystectomy. Mild prominence of intrahepatic and extrahepatic bile ducts, likely representing reservoir effect following cholecystectomy. SPLEEN: No splenomegaly. PANCREAS: No focal masses or ductal dilatation. ADRENALS: No adrenal nodules. KIDNEYS/URETERS: No hydronephrosis, stones, or solid mass lesions. PELVIC ORGANS/BLADDER: Unremarkable. PERITONEUM / RETROPERITONEUM: No free air or fluid. LYMPH NODES: No lymphadenopathy. VESSELS: Moderate atherosclerotic calcifications of the nonaneurysmal abdominal aorta and major branches. At least moderate narrowing at the celiac and SMA origins. GI TRACT: No abnormal bowel thickening. No bowel obstruction. Normal appendix. BONES AND SOFT TISSUES: No acute osseous injury. No suspicious lytic or blastic lesions. IMPRESSION: No acute findings in the abdomen or pelvis. Signed by: Jose L Abbott MD on 08/12/2019 9:14 AM
== END ==
LOC: CT 07:32
PROVIDERS: ATTEND Internal Medicine Gastroenterology
DX: R19.7 Diarrhea, unspecified (principal); K29.70 Gastritis, unspecified, without bleeding
CPT/HCPCS: 74177; Q9967

== ENCOUNTER 2019-11-25 12:24 | Emergency (ER) | payer MEDICARE ==
[~2019-11-25] VITALS: Ht 147.3 cm; Wt 63.0 kg
[~2019-11-25 12:24] MED LIST changes: -IOPAMIDOL 370 MG/ML 200 ML INFUS..BTL INJ ONE; -SODIUM CHLORIDE 0.9% 50ML 50 ML ONE
--- NOTE | 2019-11-25 13:05 | Emergency Department Note ---
History of Present Illnes History of Present Illness Chief Complaint: General Medicine Complaints History of Present Illness This is a 59 year old female Chief Complaint Comment pt reports she was in the bathroom and was stepping up to get onto toilet when her foot caught the edge of the step up and fell. patient reports no LOC and that she did not hit her head. pt was brought in by POV and was taken to room via wheel chair. patien t transfered self from wheel chair to bed. pt able to move leg but reports pain 10/10 at this time. Power Regulator Required: No Onset (how long ago): hour(s) (1) Location: R leg Quality: Sharp Radiation: Reports non-radiation Severity: moderate Onset quality: sudden Duration (how long): hour(s) (1) Timing of current episode: constant Progression: unchanged Chronicity: new Context: Denies recent illness, Denies recent surgery Relieving factors: none Exacerbating factors: none Associated symptoms: Reports denies other symptoms Treatments prior to arrival: none Past Medical/Family History Physician Review I have reviewed the patient's past medical and family history. Any updates have been documented here. Past Medical History Past Medical History: Hypertension, Diabetes, CHF, CVA, ESRD, Hemodyalisis, Anxiety, Hyperlipedemia Other Medical History: DIALYSIS M/W/F Other Surgery: Left AV fistula R IJ tunnelled HD cath Social History Physically hurt or threatened: No Other Last Tetanus: UNKNOWN Review of Systems Review of Systems Constitutional: Reports no symptoms EENTM: Reports no symptoms Cardiovascular: Reports no symptoms Respiratory: Reports no symptoms Gastrointestinal: Reports no symptoms Genitourinary: Reports no symptoms Musculoskeletal: Reports as per HPI Integumentary: Reports no symptoms Neurological: Reports no symptoms Psychological: Reports no symptoms Endocrine: Reports no symptoms Hematological/Lymphatic: Reports no symptoms Physical Exam Related Data Allergies: Coded Allergies: nifedipine (Verified Allergy, Intermediate, 02/26/18) DIZZINESS Triage Vital Signs Vital Signs Date Time Temp Pulse Resp B/P (MAP) Pulse Ox O2 Delivery O2 Flow Rate FiO2 11/25/19 12:44 98.3 76 18 185/59 100 Vital signs reviewed: Yes Physical Exam CONSTITUTIONAL Constitutional: Present well-developed, Present well-nourished HENT HENT: Present normocephalic, Present atraumatic, Present oropharynx clear/moist, Present nose normal HENT L/R: Present left ext ear normal, Present right ext ear normal EYES Eyes: Reports PERRL, Reports conjunctivae normal NECK Neck: Present ROM normal PULMONARY Pulmonary: Present effort normal, Present breath sounds normal CARDIOVASCULAR Cardiovascular: Present regular rhythm, Present heart sounds normal, Present capillary refill normal, Present normal rate GASTROINTESTINAL Abdominal: Present soft, Present nontender, Present bowel sounds normal GENITOURINARY Genitourinary: Present exam deferred SKIN Skin: Present warm, Present dry MUSCULOSKELETAL Musculoskeletal: Present ROM normal, Present other (Pulses 2+/equal in BLE) NEUROLOGICAL Neurological: Present alert, Present oriented x 3, Present no gross motor or sensory deficits PSYCHOLOGICAL Psychological: Present mood/affect normal, Present judgement normal Results Imaging Imaging results reviewed: Yes Assessment & Plan Medical Decision Making MDM 59 y.o F presents for fall and R hamstring pain. X-rays benign. DC home. Doubt emergent process at this time. I discussed results patient as well as expected disease time course and management. They will follow up with their primary care provider or return to the emergency department for new or worsening symptoms. Patient's appropriate for discharge. Part of this note was dictated with Tavo and is subject to recognition errors. Reassessment Reassessment time: 14:26 Reassessment Well appearing, NAD Assessment & Plan Final Impression: (1) Hamstring strain Depart Disposition: HOME, SELF-CARE Last Vital Signs Date Time Temp Pulse Resp B/P (MAP) Pulse Ox O2 Delivery O2 Flow Rate FiO2 11/25/19 12:44 98.3 76 18 185/59 100 Home Meds Reported Medications Clonidine Hcl (CLONIDINE HCL) 0.3 Mg Tablet, 0.3 MG PO DAILY, #30 TAB 03/12/18 [Insulin Injection] No Conflict Check, U SQ DAILY 03/10/18 Metoclopramide Hcl (METOCLOPRAMIDE HCL) 10 Mg Tablet, 10 MG PO PRN, TAB 03/10/18 Pantoprazole Sodium* (PROTONIX) 40 Mg Tablet.dr, 40 MG PO HS 02/13/18 Lisinopril (LISINOPRIL) 10 Mg Tablet, 20 MG PO DAILY, #30 TAB 02/13/18 Tramadol Hcl* (ULTRAM 50MG*) 50 Mg Tab, 50 MG PO Q4HR PRN for SEVERE PAIN (7-10) 02/13/18 Hydralazine Hcl (HYDRALAZINE HCL) 25 Mg Tab, 100 MG PO TID, TAB 01/07/18 Amlodipine Besylate (AMLODIPINE BESYLATE) 10 Mg Tablet, 10 MG PO DAILY, #30 TAB 01/07/18 CASSIE CHO MD Nov 25, 2019 13:05
[2019-11-25] MEDS ORDERED: FENTANYL CITRATE/PF 100MCG/2 ML INJ IJ NR (13:15)
--- NOTE | 2019-11-25 14:15 | Diagnostic Imaging Report ---
EXAMINATION: 1. Right hip, 2 views with a single view of the pelvis. 2. Right femur, 2 views 3. Right knee, 3 views INDICATION: ^R hip pain Comparison: None available. Discussion: Multiple views of the right hip with a single view of the pelvis are negative for acute displaced fracture or dislocation of the right hip. Symphysis is not widened and demonstrates moderate degenerative change. Hip joint space is symmetric mild narrowing bilaterally. Sacrum is not well assessed due to overlying bowel gas and soft tissues. The visualized upper portion of the sacrum are unremarkable. SI joints are patent. AP and lateral radiographs of the femur are negative for an acute displaced fracture. Multiple views of the right knee are negative for an acute displaced fracture or dislocation. Negative for suprapatellar joint effusion. Mild narrowing of the patellofemoral and medial joint compartment is noted. Negative for osteophyte formation of [id number] articulation. Diffuse vascular calcifications are noted throughout the right lower extremity. Otherwise the soft tissues are unremarkable. IMPRESSION: 1. Negative for acute displaced fracture or dislocation of the right hip, right femur or right knee. 2. Mild joint space narrowing of the bilateral hip joints and right knee joint. Moderate degenerative change of the pubic symphysis. 3. Diffuse arterial vascular calcifications. Signed by: Scooter Basilio MD on 11/25/2019 2:12 PM
--- OUTSIDE RECORDS SUMMARY | 2019-11-25 14:57 | XMS REPORT | Continuity of Care Document ---
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 Comments Lymphocytes (%) (Auto) (test code = 736-9) 32.2 18.0-39.1 [facility]anoMonocytes (%) (Auto)2018-06-04 12:59:00* Test Item Value Reference Range Interpretation Comments Monocytes (%) (Auto) (test code = 5905-5) 10.5 4.4-11.3 [facility]anoEosinophils (%) (Auto)2018-06-04 12:59:00 * Test Item Value Reference Range Interpretation Comments Eosinophils (%) (Auto) (test code = 713-8) 6.6 0.0-6.0 H [facility]anoBasophils (%) (Auto)2018-06-04 12:59:00* Test Item Value Reference Range Interpretation Comments Basophils (%) (Auto) (test code = 706-2) 1.1 0.0-1.0 H [facility]anoIM GRANULOCYTES %2018-06-04 12:59:00* Test Item Value Reference Range Interpretation Comments IM GRANULOCYTES % (test code = IM GRANULOCYTES %) 0.3 0.0- 1.0 [facility]anoNeutrophils # (Auto)2018-06-04 12:59:00* Test Item Value Reference Range Interpretation Comments Neutrophils # (Auto) (test code = 751-8) 3.9 2.1-6.9 [facility]anoLymphocytes # (Auto)2018-06-04 12:59:00* Test Item Value Reference Range Interpretation Comments Lymphocytes # (Auto) (test code = 22689-8) 2.6 1.0-3.2 [facility]anoMonocytes # (Auto)2018-06-04 12:59:00* Test Item Value Reference Range Interpretation Comments Monocytes # (Auto) (test code = 742-7) 0.8 0.2-0.8 [facility]anoEosinophils # (Auto)2018-06-04 12:59:00* Test Item Value Reference Range Interpretation Comments Eosinophils # (Auto) (test code = 711-2) 0.5 0.0-0.4 H [facility]anoBasophils # (Auto)2018-06-04 12:59:00* Test Item Value Reference Range Interpretation Comments Basophils # (Auto) (test code = 704-7) 0.1 0.0-0.1 [facility] PlanoAbsolute Immature Granulocyte (auto 2018-06-04 12:59:00* Test Item Value Reference Range Interpretation Comments Absolute Immature Granulocyte (auto (bam t code = Absolute Immature Granulocyte (auto) 0.02 0-0.1 [facility] Trgih5727-94-63 12:45:00* Test Item Value Reference Range Interpretation Comments Sodium Level (test code = 2951-2) 134 136-145 L [facility]anoPotassium Xsfou4002-60-85 12:45:00* Test Item Value Reference Range Interpretation Comments Potassium Level (test code = 2823-3) 5.0 3.5-5.1 [facility]anoChloride Foila0918-85-21 12:45:00* Test Item Value Reference Range Interpretation Comments Chloride Level (test code = 2075-0) 99 98-107 [facility] PlanoCarbon Dioxide Ffhso8956-02-83 12:45:00* Test Item Value Reference Range Interpretation Comments Carbon Dioxide Level (test code = 2028-9) 21 22-29 L [facility] PlanoAnion Cef1381-56-37 12:45:00* Test Item Value Reference Range Interpretation Comments Anion Gap (test code = 59635-8) 19.0 8-16 H [facility] PlanoBlood Urea Nsnuchel4629-19-21 12:45:00* Test Item Value Reference Range Interpretation Comments Blood Urea Nitrogen (test code = 3094-0) 50 7-26 H [facility] PlanoCreatinine2019-04-18 12:45:00* Test Item Value Reference Range Interpretation Comments Creatinine (test code = 2160-0) 4.56 0.57-1.11 H [facility]anoBUN/Creatinine Fggqw3577-17-25 12:45:00* Test Item Value Reference Range Interpretation Comments BUN/Creatinine Ratio (test code = 3097-3) 11 6-25 [facility] PlanoEstimat Glomerular Filtration Rate 2018-06-04 12:45:00* Test Item Value Reference Range Interpretation Comments Estimat Glomerular Filtration Rate (test code = 268628882) 10 >60 L Ranges were taken from the National Kidney Disease Education Program and the [facility] literature.Reference ranges:60 or greater: Xlcphz31-41 ( for 3 consecutive months): Chronic kidney disease 15 or less: Kidney failureTexas Health Presbyterian Hospital PlanoGlucose Cznbo3082-03-95 12:45:00* Test Item Value Reference Range Interpretation Comments Glucose Level (test code = EBV6014) 78 74-118 [facility]anoCalcium Wwzut6963-97-96 12:45:00* Test Item Value Reference Range Interpretation Comments Calcium Level (test code = 19207-1) 9.2 8.4-10.2 [facility] PlanoBedside Uoxnith0519-17-62 12:11:00* Test Item Value Reference Range Interpretation Comments Bedside Glucose (test code = 61688-6) 79 70-120 Meter ID: [id number] Health Pres[facility] PlanoUS ABDOMEN COMPLETE 2018-03-31 11:56:00 [place] [address] Patient Name: JIMBO TORRES MR #: [id number] : 1960 Age/Sex: 58/F Req #: [id number] Adm Physician: Ordered by: GEOVANNA YU MD Report #: [id number] Location: Room/Bed: Procedure: [id number] US /US ABDOMEN COMPLETE Exam Date: 03/31/18 Exam Time: 1133 REPORT STATUS: Signed EXAM: US ABDOMEN COMPLETE DATE: 03/31/2018 10:55 AM INDICATION: Nausea, abdomi nal pain COMPARISON: CT abdomen and pelvis 2018 TECHNIQUE: Transverse and longitudinal quinones scale and color doppler sonographic images of the upper abdomen were obtained. FINDINGS: LIVER 12.9 cm in the right midc lavicular line. Normal echogenicity, normal contour, no masses. SPLEEN 8.1 cm in maximum diameter. Normal echogenicity, no masses. GALLBLADDER Surgically removed BILE DUCTS No intra nor extra-hepatic biliary dilatio n. Common bile duct measures 0.4 cm PANCREAS: Poorly visualized secondary to overlying bowel gas RIGHT KIDNEY: 9.5 cm in length Echogenicity: Norm al Collecting System: No hydronephrosis Stones: None Cyst/Mass: None LEFT KIDNEY: 9.7 cm in length Echogenicity: Normal Collecting System: No hydronephrosis Stones: None Cyst/Mass: None VESSELS: Aorta: Poorly v isualized secondary to overlying bowel gas. Inferior Vena Cava: Patent Main Portal Vein: 0.8 cm, normal size with hepatopetal flow. FREE FLUID: None IMPRESSION: Status post cholecystectomy. Otherwise unremarkable abdomi nal ultrasound. Signed by: Dr. Suzi Quinteros M.D. on 03/31/2018 11:58 AM Dictated By: SUZI QUINTEROS MD 1158 Transcribed By: JERMAN on 03/31/18 1158 COPY TO: GEOVANNA SIMPSON MD Bedside Tmqhjby1679-71-11 19:31:00* Test Item Value Reference Range Interpretation Comments Bedside Glucose (test code = 03634-6) 131 70-120 H Meter ID: [id number] [facility] Glucose 2018-02-16 19:31:00* Test Item Value Reference Range Interpretation Comments Bedside Glucose (test code = 73601-4) 131 70-120 H Meter ID: [id number] [facility] CenterUrine WXD7831-18-68 06:45:00* Test Item Value Reference Range Interpretation Comments Urine WBC (test code = 5821-4) 6-10 0-5 H [facility] PlanoUrine TWL6152-15-54 06:45:00* Test Item Value Reference Range Interpretation Comments Urine RBC (test code = 32981-2) 0-5 0-5 [facility]anoUrine Wltxkmea5615-82-98 06:45:00* Test Item Value Reference Range Interpretation Comments Urine Bacteria (test code = 31327-8) MODERATE NONE H [facility] PlanoUrine Epithelial Shalz1788-92-34 06:45:00 * Test Item Value Reference Range Interpretation Comments Urine Epithelial Cells (test code = 34136-1) MODERATE NONE [facility] Amorphous Gfkivhci6715-46-63 06:45:00* Test Item Value Reference Range Interpretation Comments Urine Amorphous Sediment (test code = 8246-1) FEW FEW [facility] PFO6270-09-60 06:45:00* Test Item Value Reference Range Interpretation Comments Urine WBC (test code = 5821-4) 6-10 0-5 H [facility] QNG6341-29-57 06:45:00* Test Item Value Reference Range Interpretation Comments Urine RBC (test code = 40572-8) 0-5 0-5 [facility] Jepbuerd4464-53-90 06:45:00* Test Item Value Reference Range Interpretation Comments Urine Bacteria (test code = 03699-4) MODERATE NONE H [facility] Epithelial Zalpc8213-27-71 06:45:00 * Test Item Value Reference Range Interpretation Comments Urine Epithelial Cells (test code = 29389-5) MODERATE NONE [facility] Amorphous Sncrnxdw5306-38-39 06:45:00* Test Item Value Reference Range Interpretation Comments Urine Amorphous Sediment (test code = 8246-1) FEW FEW [facility] FVM6951-16-70 06:45:00* Test Item Value Reference Range Interpretation Comments Urine WBC (test code = 5821-4) 6-10 0-5 H [facility] ZEX2820-08-23 06:45:00* Test Item Value Reference Range Interpretation Comments Urine RBC (test code = 52358-4) 0-5 0-5 [facility] Wrdmvqlo6417-25-53 06:45:00* Test Item Value Reference Range Interpretation Comments Urine Bacteria (test code = 46937-5) MODERATE NONE H [facility] Epithelial Xdrtq4614-72-21 06:45:00 * Test Item Value Reference Range Interpretation Comments Urine Epithelial Cells (test code = 18041-0) MODERATE NONE [facility] Amorphous Jliyhhdo1768-34-59 06:45:00* Test Item Value Reference Range Interpretation Comments Urine Amorphous Sediment (test code = 8246-1) FEW FEW [facility]anoUrine Xdyji9934-87-97 06:39:00* Test Item Value Reference Range Interpretation Comments Urine Color (test code = 5778-6) YELLOW YELLOW [facility]anoUrine Odwyadk7289-78-79 06:39:00* Test Item Value Reference Range Interpretation Comments Urine Clarity (test code = 50611-1) HAZY CLEAR [facility]anoUrine Specific Smaewmd0524-43-98 06:39:00 * Test Item Value Reference Range Interpretation Comments Urine Specific Lenore (test code = 5811-5) 1.020 1.010-1.02 5 [facility]anoUrine lI4391-36-71 06:39:00* Test Item Value Reference Range Interpretation Comments Urine pH (test code = 43081-8) 8 5-7 H [facility] Leukocyte Htvukeka5065-87-61 06:39:00* Test Item Value Reference Range Interpretation Comments Urine Leukocyte Esterase (test code = 5799-2) NEGATIVE NEGATIVE [facility] Jsfmwbs2772-96-44 06:39:00* Test Item Value Reference Range Interpretation Comments Urine Nitrite (test code = 69836-9) NEGATIVE NEGATIVE [facility]anoUrine Jfsjkul8287-98-40 06:39:00* Test Item Value Reference Range Interpretation Comments Urine Protein (test code = 5804-0) 3+ NEGATIVE H [facility]anoUrine Glucose (UA)2018-02-16 06:39:00* Test Item Value Reference Range Interpretation Comments Urine Glucose (UA) (test code = 2349-9) 2+ NEGATIVE H [facility]anoUrine Dlncetq0501-86-17 06:39:00* Test Item Value Reference Range Interpretation Comments Urine Ketones (test code = 01094-1) NEGATIVE NEGATIVE [facility]anoUrine Fpznypfnbjqx1781-84-49 06:39:00* Test Item Value Reference Range Interpretation Comments Urine Urobilinogen (test code = 83851-1) 0.2 0.2-1 [facility]anoUrine Ucvfqwzan5729-82-49 06:39:00* Test Item Value Reference Range Interpretation Comments Urine Bilirubin (test code = 1978-6) NEGATIVE NEGATIVE [facility]anoUrine Hbmap5717-09-93 06:39:00* Test Item Value Reference Range Interpretation Comments Urine Blood (test code = 95281-5) TRACE NEGATIVE H [facility]anoUrine Bufjg8252-32-84 06:39:00* Test Item Value Reference Range Interpretation Comments Urine Color (test code = 5778-6) YELLOW YELLOW [facility]anoUrine Ufaglao5913-54-32 06:39:00* Test Item Value Reference Range Interpretation Comments Urine Clarity (test code = 71140-4) HAZY CLEAR [facility]anoUrine Specific Ybiksjo3304-89-83 06:39:00 * Test Item Value Reference Range Interpretation Comments Urine Specific Lenore (test code = 5811-5) 1.020 1.010-1.02 5 [facility]anoU[facility] xK9718-68-29 06:39:00* Test Item Value Reference Range Interpretation Comments Urine pH (test code = 97084-8) 8 5-7 H [facility]anoUrine Leukocyte Sbzfkxqf2306-22-00 06:39:00* Test Item Value Reference Range Interpretation Comments Urine Leukocyte Esterase (test code = 5799-2) NEGATIVE NEGATIVE [facility]anoUrine Zalztul4389-89-59 06:39:00* Test Item Value Reference Range Interpretation Comments Urine Nitrite (test code = 22321-2) NEGATIVE NEGATIVE [facility]anoUrine Creviwn3515-80-61 06:39:00* Test Item Value Reference Range Interpretation Comments Urine Protein (test code = 5804-0) 3+ NEGATIVE H [facility]anoUrine Glucose (UA)2018-02-16 06:39:00* Test Item Value Reference Range Interpretation Comments Urine Glucose (UA) (test code = 2349-9) 2+ NEGATIVE H [facility]anoUrine Dybjwof4560-07-59 06:39:00* Test Item Value Reference Range Interpretation Comments Urine Ketones (test code = 54913-9) NEGATIVE NEGATIVE [facility]anoUrine Fdpieekakdyn2217-07-04 06:39:00* Test Item Value Reference Range Interpretation Comments Urine Urobilinogen (test code = 12546-4) 0.2 0.2-1 [facility]anoU[facility] Hgvvpgjvv3929-32-81 06:39:00* Test Item Value Reference Range Interpretation Comments Urine Bilirubin (test code = 1978-6) NEGATIVE NEGATIVE [facility] Hupve1897-57-39 06:39:00* Test Item Value Reference Range Interpretation Comments Urine Blood (test code = 53375-3) TRACE NEGATIVE H [facility]anoUrine Hhuas3467-72-36 06:39:00* Test Item Value Reference Range Interpretation Comments Urine Color (test code = 5778-6) YELLOW YELLOW [facility]anoUrine Gsgrvee4571-44-79 06:39:00* Test Item Value Reference Range Interpretation Comments Urine Clarity (test code = 88108-6) HAZY CLEAR [facility]anoU[facility] Specific Pcbxvio7222-01-54 06:39:00 * Test Item Value Reference Range Interpretation Comments Urine Specific Lenore (test code = 5811-5) 1.020 1.010-1.02 5 [facility]anoU[facility] kZ3685-72-34 06:39:00* Test Item Value Reference Range Interpretation Comments Urine pH (test code = 41177-2) 8 5-7 H [facility]anoU[facility] Leukocyte Kbffhcps2759-65-27 06:39:00* Test Item Value Reference Range Interpretation Comments Urine Leukocyte Esterase (test code = 5799-2) NEGATIVE NEGATIVE [facility]anoU[facility] Vcxsjov8484-51-84 06:39:00* Test Item Value Reference Range Interpretation Comments Urine Nitrite (test code = 25206-2) NEGATIVE NEGATIVE [facility]anoU[facility] Bbtkxko1402-13-94 06:39:00* Test Item Value Reference Range Interpretation Comments Urine Protein (test code = 5804-0) 3+ NEGATIVE H [facility]anoUrine Glucose (UA)2018-02-16 06:39:00* Test Item Value Reference Range Interpretation Comments Urine Glucose (UA) (test code = 2349-9) 2+ NEGATIVE H [facility]anoUrine Shinrnv8037-98-33 06:39:00* Test Item Value Reference Range Interpretation Comments Urine Ketones (test code = 53207-8) NEGATIVE NEGATIVE [facility]anoUrine Oznwmhkarzue3821-72-27 06:39:00* Test Item Value Reference Range Interpretation Comments Urine Urobilinogen (test code = 11696-1) 0.2 0.2-1 [facility]anoU[facility] Mzapktbyv2666-33-73 06:39:00* Test Item Value Reference Range Interpretation Comments Urine Bilirubin (test code = 1978-6) NEGATIVE NEGATIVE [facility]anoUrine Julbp2705-35-99 06:39:00* Test Item Value Reference Range Interpretation Comments Urine Blood (test code = 70471-6) TRACE NEGATIVE H [facility] PlanoHepatitis B Surface Efnawsw6435-01-90 06:34:00* Test Item Value Reference Range Interpretation Comments Hepatitis B Surface Antigen (test code = 5196-1) Negative Negat zak Performed at: [facility] [id number] Director: Mani Stevens MD, Phone: [phone] [facility] B Surface Qsjdgqe2759-28-21 06:34:00* Test Item Value Reference Range Interpretation Comments Hepatitis B Surface Antigen (test code = 5196-1) Negative Negat zak Performed at: [facility] [id number] Director: Mani Stevens MD, Phone: [phone] [facility] B Surface Apyyukp7264-66-11 06:34:00* Test Item Value Reference Range Interpretation Comments Hepatitis B Surface Antigen (test code = 5196-1) Negative Negat zak Performed at: - [facility] [id number] Director: Mani Stevens MD, Phone: [phone] Center Hospitalodium Ijzps8568-38-16 09:59:00* Test Item Value Reference Range Interpretation Comments Sodium Level (test code = 2951-2) 135 136-145 L [facility]anoPotassium Xsfmp2819-92-30 09:59:00* Test Item Value Reference Range Interpretation Comments Potassium Level (test code = 2823-3) 4.0 3.5-5.1 [facility] PlanoChloride Xlpie4277-08-29 09:59:00* Test Item Value Reference Range Interpretation Comments Chloride Level (test code = 2075-0) 100 98-107 [facility] PlanoCarbon Dioxide Bxwar4457-58-20 09:59:00* Test Item Value Reference Range Interpretation Comments Carbon Dioxide Level (test code = 2028-9) 23 22-29 [facility] PlanoAnion Tcw1398-77-73 09:59:00* Test Item Value Reference Range Interpretation Comments Anion Gap (test code = 73215-7) 16.0 8-16 [facility] PlanoBlood Urea Umkizowy3325-07-70 09:59:00* Test Item Value Reference Range Interpretation Comments Blood Urea Nitrogen (test code = 3094-0) 37 7-26 H [facility] PlanoCreatinine2018-12-29 09:59:00* Test Item Value Reference Range Interpretation Comments Creatinine (test code = 2160-0) 4.78 0.57-1.11 H [facility] PlanoBUN/Creatinine Bjtgk9487-07-04 09:59:00* Test Item Value Reference Range Interpretation Comments BUN/Creatinine Ratio (test code = 3097-3) 8 6-25 [facility] PlanoEstimat Glomerular Filtration Rate 2018-02-14 09:59:00* Test Item Value Reference Range Interpretation Comments Estimat Glomerular Filtration Rate (test code = 688198559) 9 >60 L Ranges were taken from the National Kidney Disease Education Program and the [facility] Foundation literature.Reference ranges:60 or greater: Eshjdl00-53 ( for 3 consecutive months): Chronic kidney disease 15 or less: Kidney failureTexas Health Presbyterian Hospital PlanoGlucose Uswwo9945-60-87 09:59:00* Test Item Value Reference Range Interpretation Comments Glucose Level (test code = YYV6716) 99 74-118 [facility] PlanoCalcium Otvkw5987-32-59 09:59:00* Test Item Value Reference Range Interpretation Comments Calcium Level (test code = 42955-2) 8.1 8.4-10.2 [facility] Wbftw9515-77-84 09:59:00* Test Item Value Reference Range Interpretation Comments Sodium Level (test code = 2951-2) 135 136-145 L [facility]anoPotassium Jnqxl6370-79-30 09:59:00* Test Item Value Reference Range Interpretation Comments Potassium Level (test code = 2823-3) 4.0 3.5-5.1 [facility] PlanoChloride Uluaw1732-21-33 09:59:00* Test Item Value Reference Range Interpretation Comments Chloride Level (test code = 2075-0) 100 98-107 [facility] PlanoCarbon Dioxide Mfwvb4067-89-79 09:59:00* Test Item Value Reference Range Interpretation Comments Carbon Dioxide Level (test code = 2028-9) 23 22-29 [facility] PlanoAnion Hpn6162-78-12 09:59:00* Test Item Value Reference Range Interpretation Comments Anion Gap (test code = 07980-9) 16.0 8-16 [facility] PlanoBlood Urea Jtmtphkk0261-42-87 09:59:00* Test Item Value Reference Range Interpretation Comments Blood Urea Nitrogen (test code = 3094-0) 37 7-26 H [facility] PlanoCreatinine2018-12-29 09:59:00* Test Item Value Reference Range Interpretation Comments Creatinine (test code = 2160-0) 4.78 0.57-1.11 [facility]inine Xbclv6595-69-38 09:59:00* Test Item Value Reference Range Interpretation Comments BUN/Creatinine Ratio (test code = 3097-3) 8 6-25 [facility]anoEstimat Glomerular Filtration Rate 2018-02-14 09:59:00* Test Item Value Reference Range Interpretation Comments Estimat Glomerular Filtration Rate (test code = 448877252) 9 >60 L Ranges were taken from the National Kidney Disease Education Program and the [facility] literature.Reference ranges:60 or greater: Oupnnv00-55 ( for 3 consecutive months): Chronic kidney disease 15 or less: Kidney failureTexas [facility]anoGlucose Hqtxa1726-98-65 09:59:00* Test Item Value Reference Range Interpretation Comments Glucose Level (test code = LZT2059) 99 74-118 [facility]anoCalcium Jocre7791-50-06 09:59:00* Test Item Value Reference Range Interpretation Comments Calcium Level (test code = 07472-3) 8.1 8.4-10.2 L [facility]anoWhite Blood Bdgop9512-19-37 09:46:00* Test Item Value Reference Range Interpretation Comments White Blood Count (test code = 6690-2) 9.33 4.8-10.8 [facility]anoRed Blood Tplfv0271-28-66 09:46:00* Test Item Value Reference Range Interpretation Comments Red Blood Count (test code = 789-8) 3.14 3.6-5.1 L [facility]anoHemoglobin2018-12-29 09:46:00* Test Item Value Reference Range Interpretation Comments Hemoglobin (test code = 81492-7) 9.4 12.0-16.0 L [facility]anoHematocrit2018-12-29 09:46:00* Test Item Value Reference Range Interpretation Comments Hematocrit (test code = 4544-3) 28.5 34.2-44.1 L [facility]anoMean Corpuscular Sdznlc7130-81-71 09:46:00* Test Item Value Reference Range Interpretation Comments Mean Corpuscular Volume (test code = 787-2) 90.8 81-99 [facility]anoMean Corpuscular Hxhghzvqxf8622-30-93 09:46:00* Test Item Value Reference Range Interpretation Comments Mean Corpuscular Hemoglobin (test code = 785-6) 29.9 28-32 [facility]anoMean Corpuscular Hemoglobin Concent 2018-02-14 09:46:00* Test Item Value Reference Range Interpretation Comments Mean Corpuscular Hemoglobin Concent (test code = 786-4) 33.0 31-35 [facility]anoRed Cell Distribution Mjxhn6682-23-31 09:46:00* Test Item Value Reference Range Interpretation Comments Red Cell Distribution Width (test code = 06181-3) 15.0 11.7 -14.4 H [facility]anoPlatelet Yqhqi1051-87-00 09:46:00* Test Item Value Reference Range Interpretation Comments Platelet Count (test code = 777-3) 319 140-360 [facility]anoNeutrophils (%) (Auto)2018-02-14 09:46:00 * Test Item Value Reference Range Interpretation Comments Neutrophils (%) (Auto) (test code = 59276-2) 67.0 38.7-80.0 [facility]anoLymphocytes (%) (Auto)2018-02-14 09:46:00 * Test Item Value Reference Range Interpretation Comments Lymphocytes (%) (Auto) (test code = 736-9) 22.5 18.0-39.1 [facility]anoMonocytes (%) (Auto)2018-02-14 09:46:00* Test Item Value Reference Range Interpretation Comments Monocytes (%) (Auto) (test code = 5905-5) 7.2 4.4-11.3 [facility]anoEosinophils (%) (Auto)2018-02-14 09:46:00 * Test Item Value Reference Range Interpretation Comments Eosinophils (%) (Auto) (test code = 713-8) 1.9 0.0-6.0 [facility]anoBasophils (%) (Auto)2018-02-14 09:46:00* Test Item Value Reference Range Interpretation Comments Basophils (%) (Auto) (test code = 706-2) 0.8 0.0-1.0 [facility]anoIM GRANULOCYTES %2018-02-14 09:46:00* Test Item Value Reference Range Interpretation Comments IM GRANULOCYTES % (test code = IM GRANULOCYTES %) 0.6 0.0- 1.0 [facility]anoNeutrophils # (Auto)2018-02-14 09:46:00* Test Item Value Reference Range Interpretation Comments Neutrophils # (Auto) (test code = 751-8) 6.3 2.1-6.9 [facility]anoLymphocytes # (Auto)2018-02-14 09:46:00* Test Item Value Reference Range Interpretation Comments Lymphocytes # (Auto) (test code = 78287-9) 2.1 1.0-3.2 [facility]anoMonocytes # (Auto)2018-02-14 09:46:00* Test Item Value Reference Range Interpretation Comments Monocytes # (Auto) (test code = 742-7) 0.7 0.2-0.8 [facility]anoEosinophils # (Auto)2018-02-14 09:46:00* Test Item Value Reference Range Interpretation Comments Eosinophils # (Auto) (test code = 711-2) 0.2 0.0-0.4 [facility]anoBasophils # (Auto)2018-02-14 09:46:00* Test Item Value Reference Range Interpretation Comments Basophils # (Auto) (test code = 704-7) 0.1 0.0-0.1 [facility]anoAbsolute Immature Granulocyte (auto 2018-02-14 09:46:00* Test Item Value Reference Range Interpretation Comments Absolute Immature Granulocyte (auto (bam t code = Absolute Immature Granulocyte (auto) 0.06 0-0.1 [facility]anoWhite Blood Xwgmg0632-45-72 09:46:00* Test Item Value Reference Range Interpretation Comments White Blood Count (test code = 6690-2) 9.33 4.8-10.8 [facility]anoRed Blood Kvhfq8357-40-12 09:46:00* Test Item Value Reference Range Interpretation Comments Red Blood Count (test code = 789-8) 3.14 3.6-5.1 L [facility]anoHemoglobin2018-12-29 09:46:00* Test Item Value Reference Range Interpretation Comments Hemoglobin (test code = 19832-0) 9.4 12.0-16.0 L [facility]anoHematocrit2018-12-29 09:46:00* Test Item Value Reference Range Interpretation Comments Hematocrit (test code = 4544-3) 28.5 34.2-44.1 L [facility]anoMean Corpuscular Zuimkr6262-85-15 09:46:00* Test Item Value Reference Range Interpretation Comments Mean Corpuscular Volume (test code = 787-2) 90.8 81-99 [facility]anoMean Corpuscular Cwrgbgjbyf1493-04-29 09:46:00* Test Item Value Reference Range Interpretation Comments Mean Corpuscular Hemoglobin (test code = 785-6) 29.9 28-32 [facility]anoMean Corpuscular Hemoglobin Concent 2018-02-14 09:46:00* Test Item Value Reference Range Interpretation Comments Mean Corpuscular Hemoglobin Concent (test code = 786-4) 33.0 31-35 [facility]anoRed Cell Distribution Hsghu9827-94-48 09:46:00* Test Item Value Reference Range Interpretation Comments Red Cell Distribution Width (test code = 84207-9) 15.0 11.7 -14.4 H [facility] PlanoPlatelet Djbhk4534-04-48 09:46:00* Test Item Value Reference Range Interpretation Comments Platelet Count (test code = 777-3) 319 140-360 [facility]anoNeutrophils (%) (Auto)2018-02-14 09:46:00 * Test Item Value Reference Range Interpretation Comments Neutrophils (%) (Auto) (test code = 87918-9) 67.0 38.7-80.0 [facility]anoLymphocytes (%) (Auto)2018-02-14 09:46:00 * Test Item Value Reference Range Interpretation Comments Lymphocytes (%) (Auto) (test code = 736-9) 22.5 18.0-39.1 [facility]anoMonocytes (%) (Auto)2018-02-14 09:46:00* Test Item Value Reference Range Interpretation Comments Monocytes (%) (Auto) (test code = 5905-5) 7.2 4.4-11.3 [facility]anoEosinophils (%) (Auto)2018-02-14 09:46:00 * Test Item Value Reference Range Interpretation Comments Eosinophils (%) (Auto) (test code = 713-8) 1.9 0.0-6.0 [facility]anoBasophils (%) (Auto)2018-02-14 09:46:00* Test Item Value Reference Range Interpretation Comments Basophils (%) (Auto) (test code = 706-2) 0.8 0.0-1.0 [facility]anoIM GRANULOCYTES %2018-02-14 09:46:00* Test Item Value Reference Range Interpretation Comments IM GRANULOCYTES % (test code = IM GRANULOCYTES %) 0.6 0.0- 1.0 [facility]anoNeutrophils # (Auto)2018-02-14 09:46:00* Test Item Value Reference Range Interpretation Comments Neutrophils # (Auto) (test code = 751-8) 6.3 2.1-6.9 [facility]anoLymphocytes # (Auto)2018-02-14 09:46:00* Test Item Value Reference Range Interpretation Comments Lymphocytes # (Auto) (test code = 76750-3) 2.1 1.0-3.2 [facility]anoMonocytes # (Auto)2018-02-14 09:46:00* Test Item Value Reference Range Interpretation Comments Monocytes # (Auto) (test code = 742-7) 0.7 0.2-0.8 [facility]anoEosinophils # (Auto)2018-02-14 09:46:00* Test Item Value Reference Range Interpretation Comments Eosinophils # (Auto) (test code = 711-2) 0.2 0.0-0.4 [facility]anoBasophils # (Auto)2018-02-14 09:46:00* Test Item Value Reference Range Interpretation Comments Basophils # (Auto) (test code = 704-7) 0.1 0.0-0.1 [facility]anoAbsolute Immature Granulocyte (auto 2018-02-14 09:46:00* Test Item Value Reference Range Interpretation Comments Absolute Immature Granulocyte (auto (bam t code = Absolute Immature Granulocyte (auto) 0.06 0-0.1 [facility] PlanoCreatine Kinase [id number] 04:10:00* Test Item Value Reference Range Interpretation Comments Creatine Kinase MB (test code = 66146-9) 0.80 0-5.0 [facility] G4657-53-76 04:10:00* Test Item Value Reference Range Interpretation Comments Troponin I (test code = UWM0361) 0.037 0-0.300 [facility]anoCreatine Kinase [id number] 04:10:00* Test Item Value Reference Range Interpretation Comments Creatine Kinase MB (test code = 36273-5) 0.80 0-5.0 [facility] A[facility]-51-86 04:10:00* Test Item Value Reference Range Interpretation Comments Troponin I (test code = VWX7708) 0.037 0-0.300 [facility]anoCreatine Kinase NQ9864-92-18 04:10:00* Test Item Value Reference Range Interpretation Comments Creatine Kinase MB (test code = 64965-1) 0.80 0-5.0 [facility]n Q0379-30-88 04:10:00* Test Item Value Reference Range Interpretation Comments Troponin I (test code = SQR1918) 0.037 0-0.300 [facility]anoCHEST [facility]INGLE [facility])2018 03:58:00 [place] [address] Patient Name: JIMBO TORRES MR #: [id number] : 1960 Age/Sex: 58/F Req #: [id number] Adm Physician: Ordered by: ESTEFANY SPAIN MD Report #: [id number] Location: ER Room/Bed: Procedure: [id number] D X/CHEST SINGLE (PORTABLE) Exam Date: 02/13/18 Exam T edvin: 0315 REPORT STATUS: Signed EXAM: CHEST SINGLE (PORTABLE), AP 1 view INDICATION: Nausea, vomiting, abdomin al pain COMPARISON: AP view the chest January 09, 2018 FINDINGS: LINES /TUBES: Stable position right internal jugular vein tunneled hemodialysis cath eter. LUNGS: No consolidations or edema. PLEURA: No effusions or pneu mothorax. HEART AND MEDIASTINUM: Normal size and contour. BONES AND SO FT TISSUES: No acute findings. IMPRESSION: No acute thoracic abnormality . Signed by: Dr. Nahomy Bustillo M.D. on 2018 3:59 AM Dictated By: NAHOMY BUSTILLO MD 8 COPY TO: CATE SPAIN MD Total Weozfssyc0145-91-57 03:57:00* Test Item Value Reference Range Interpretation Comments Total Bilirubin (test code = 1975-2) 0.6 0.2-1.2 [facility]anoAspartate Amino Transf (AST/SGOT) 2018 03:57:00* Test Item Value Reference Range Interpretation Comments Aspartate Amino Transf (AST/SGOT) (test code = Aspartate Amino Transf (AST/SGOT)) 18 5-34 [facility]anoAlanine Aminotransferase (ALT/SGPT) 2018 03:57:00* Test Item Value Reference Range Interpretation Comments Alanine Aminotransferase (ALT/SGPT) (test code = 1742-6) 14 0-55 [facility]anoTotal Cnhyomx7840-38-67 03:57:00* Test Item Value Reference Range Interpretation Comments Total Protein (test code = 2885-2) 8.8 6.5-8.1 H [facility]anoAlbumin2018-12-28 03:57:00* Test Item Value Reference Range Interpretation Comments Albumin (test code = 1751-7) 3.2 3.5-5.0 L [facility]anoGlobulin2018-12-28 03:57:00* Test Item Value Reference Range Interpretation Comments Globulin (test code = 93146-6) 5.6 2.3-3.5 H [facility]anoAlbumin/Globulin Jkypq2498-31-90 03:57:00 * Test Item Value Reference Range Interpretation Comments Albumin/Globulin Ratio (test code = 1759-0) 0.6 0.8-2.0 L [facility]anoAlkaline Sairkptlwut5610-39-24 03:57:00* Test Item Value Reference Range Interpretation Comments Alkaline Phosphatase (test code = 6768-6) 148 40-150 [facility]anoCreatine Jlxhqw3411-10-62 03:57:00* Test Item Value Reference Range Interpretation Comments Creatine Kinase (test code = 2157-6) 21 29-168 L [facility] PlanoLipase2018-12-28 03:57:00* Test Item Value Reference Range Interpretation Comments Lipase (test code = 3040-3) 27 8-78 [facility]anoTotal Aysucvinb6496-32-30 03:57:00* Test Item Value Reference Range Interpretation Comments Total Bilirubin (test code = 1975-2) 0.6 0.2-1.2 [facility]anoAspartate Amino Transf (AST/SGOT) 2018 03:57:00* Test Item Value Reference Range Interpretation Comments Aspartate Amino Transf (AST/SGOT) (test code = Aspartate Amino Transf (AST/SGOT)) 18 5-34 [facility]anoAlanine Aminotransferase (ALT/SGPT) 2018 03:57:00* Test Item Value Reference Range Interpretation Comments Alanine Aminotransferase (ALT/SGPT) (test code = 1742-6) 14 0-55 [facility]anoTotal Ntmxnkm0839-82-44 03:57:00* Test Item Value Reference Range Interpretation Comments Total Protein (test code = 2885-2) 8.8 6.5-8.1 H [facility] PlanoAlbumin2018-12-28 03:57:00* Test Item Value Reference Range Interpretation Comments Albumin (test code = 1751-7) 3.2 3.5-5.0 L [facility]anoGlobulin2018-12-28 03:57:00* Test Item Value Reference Range Interpretation Comments Globulin (test code = 92591-0) 5.6 2.3-3.5 H [facility]anoAlbumin/Globulin Jyzyu5700-59-13 03:57:00 * Test Item Value Reference Range Interpretation Comments Albumin/Globulin Ratio (test code = 1759-0) 0.6 0.8-2.0 L [facility]anoAlkaline Hkyigntwkoz4182-56-40 03:57:00* Test Item Value Reference Range Interpretation Comments Alkaline Phosphatase (test code = 6768-6) 148 40-150 [facility]anoCreatine Huzdhy9094-36-39 03:57:00* Test Item Value Reference Range Interpretation Comments Creatine Kinase (test code = 2157-6) 21 29-168 L [facility]anoLipase2018-12-28 03:57:00* Test Item Value Reference Range Interpretation Comments Lipase (test code = 3040-3) 27 8-78 [facility]anoTotal Vznihvqvx4959-06-60 03:57:00* Test Item Value Reference Range Interpretation Comments Total Bilirubin (test code = 1975-2) 0.6 0.2-1.2 [facility]anoAspartate Amino Transf (AST/SGOT) 2018 03:57:00* Test Item Value Reference Range Interpretation Comments Aspartate Amino Transf (AST/SGOT) (test code = Aspartate Amino Transf (AST/SGOT)) 18 5-34 [facility]anoAlanine Aminotransferase (ALT/SGPT) 2018 03:57:00* Test Item Value Reference Range Interpretation Comments Alanine Aminotransferase (ALT/SGPT) (test code = 1742-6) 14 0-55 [facility]anoTotal Hmdvllb5129-61-48 03:57:00* Test Item Value Reference Range Interpretation Comments Total Protein (test code = 2885-2) 8.8 6.5-8.1 H [facility]anoAlbumin2018-12-28 03:57:00* Test Item Value Reference Range Interpretation Comments Albumin (test code = 1751-7) 3.2 3.5-5.0 L [facility]anoGlobulin2018-12-28 03:57:00* Test Item Value Reference Range Interpretation Comments Globulin (test code = 20820-8) 5.6 2.3-3.5 H [facility]anoAlbumin/Globulin Nwnpj9881-99-35 03:57:00 * Test Item Value Reference Range Interpretation Comments Albumin/Globulin Ratio (test code = 1759-0) 0.6 0.8-2.0 L [facility]anoAlkaline Ceuosuhbyej2510-69-11 03:57:00* Test Item Value Reference Range Interpretation Comments Alkaline Phosphatase (test code = 6768-6) 148 40-150 [facility]anoCreatine Exqsui5983-86-20 03:57:00* Test Item Value Reference Range Interpretation Comments Creatine Kinase (test code = 2157-6) 21 29-168 L [facility] PlanoLipase2018-12-28 03:57:00* Test Item Value Reference Range Interpretation Comments Lipase (test code = 3040-3) 27 8-78 [facility] PlanoLactic Acid Prvrn6830-82-93 03:51:00* Test Item Value Reference Range Interpretation Comments Lactic Acid Level (test code = Lactic Acid Level) 12.4 4.5- 19.8 [facility] PlanoLactic Acid Ctrpr9844-23-47 03:51:00* Test Item Value Reference Range Interpretation Comments Lactic Acid Level (test code = Lactic Acid Level) 12.4 4.5- 19.8 [facility] PlanoLactic Acid Ayonp9598-93-57 03:51:00* Test Item Value Reference Range Interpretation Comments Lactic Acid Level (test code = Lactic Acid Level) 12.4 4.5- 19.8 [facility] B1322-89-04 03:48:00 [facility] [address] [address] Patient Name: JIMBO TORRES MR #: [id number] : [birth year] Age/Sex: 58/F Req #: [id number] Adm Physician: Ordered by: ESTEFANY SPAIN MD Report #: [id number] Location: ER Room/Bed: Procedure: [id number] C T/CT ABDOMEN/PELVIS W Exam Date: 02/13/18 Exam Time: 0320 REPORT STATUS: Signed EXAM : CT ABDOMEN AND PELVIS with IV CONTRAST DATE: 2018 2:35 AM Time stamp on Exam: 0331 hours INDICATION: Abdominal pain COMPARISON: CT of the abdom en and pelvis January 11, 2018 TECHNIQUE: The abdomen and pelvis were scanned using a multidetector helical scanner. Coronal and sagittal reformations were obtained. Dose modulation, iterative reconstruction, and/or weight based adju stment of the mA/kV was utilized to reduce the radiation dose to as low as miguel sonably achievable. Routine protocol performed. IV Contrast: 100 cc Isovue 3 70 Oral Contrast: None FINDINGS: LOWER THORAX: No consolidations. Trace pericardial effusion. LIVER: No masses BILIARY: Cholecystectomy. Stable expected dilation of the common bile duct from reservoir effect. Subcentimeter hypodensity in the liver is too small to characterize. SPLEEN: Mid sple en wedge shaped hypodensity PANCREAS: No masses ADRENALS: No nodules KI DNEYS: Symmetric perfusion. No enhancing masses. No hydronephrosis. GI TRAC T: Diffuse colonic wall thickening, predominantly involving the transverse, de scending and sigmoid colon is with adjacent vascular congestion. No bowel obst ruction. Normal appendix. VESSELS: Advanced atherosclerotic changes. The ma in portal and splenic veins are patent. Patent main splenic artery. The superi or mesenteric, celiac and inferior mesenteric arteries are patent. Severe foca l narrowing of the proximal superior mesenteric artery from soft plaque. PER ITONEUM/RETROPERITONEUM: No free air or fluid LYMPH NODES: No lymphadenopathy REPRODUCTIVE ORGANS: Unremarkable BLADDER: Unremarkable SOFT TISSUES : Unremarkable BONES: No suspicious bone lesions. IMPRESSION: Findings consistent with pancolitis. 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 Advanced atherosclerotic changes of the abdominal aorta and branches including severe focal narrowing of the proximal superior mesenteric artery fr om soft plaque. Signed by: Dr. Nahomy Bustillo M.D. on 2018 3:58 AM Dictated By: NAHOMY BUSTILLO MD 7 Transcribed By: JERMAN on 02/13/18357 COPY TO: ESTEFANY SPAIN MD Amylase Vmxnj2759-51-14 16:16:00* Test Item Value Reference Range Interpretation Comments Amylase Level (test code = 1798-8) 62 -125 [facility]anoLipase2018-11-25 16:16:00* Test Item Value Reference Range Interpretation Comments Lipase (test code = 3040-3) 41 8-78 [facility]anoAmylase Nzakw1072-74-57 16:16:00* Test Item Value Reference Range Interpretation Comments Amylase Level (test code = 1798-8) 62 25-125 [facility] PlanoAmylase Gxyyg6092-64-32 16:16:00* Test Item Value Reference Range Interpretation Comments Amylase Level (test code = 1798-8) 62 -125 [facility]anoAmylase Bkmgk7460-22-09 16:16:00* Test Item Value Reference Range Interpretation Comments Amylase Level (test code = 1798-8) 62 25-125 [facility]CT ABD[facility]EN/PELVIS [id number] 15:47:00 [facility] [address] [address] Patient Name: JIMBO TORRES MR #: [id number] : 1959 Age/Sex: 57/F Req #: [id number] Adm Physician: Ordered by: MORE GILBERT MD Report #: [id number] Location: ER Room/Bed: Procedure: [id number] CT /CT ABDOMEN/PELVIS WO Exam Date: 01/11/18 Exam Time: 1511 REPORT STATUS: Signed EXAM INATION: CT of the abdomen and pelvis without contrast. TECHNIQUE: Spiral CT images of the abdomen and pelvis were performed from the lung bases to the lesser trochanters. No intravenous contrast was given per renal stone protoco l. Coronal and sagittal reformatted images were obtained. COMPARISON: Non e. CLINICAL HISTORY:Stomach pain, epigastric pain, nausea and vomiting for 2 days DISCUSSION: ABSENCE OF INTRAVENOUS CONTRAST DECREASES SENSITIVI TY FOR DETECTION OF FOCAL LESIONS AND VASCULAR PATHOLOGY. ABDOMEN/PELVIS: LOWER THORAX: Unremarkable. HEPATOBILIARY: No focal hepatic lesions. No intra or extrahepatic biliary ductal dilation. GALLBLADDER: Cholecys tectomy clips. SPLEEN: No splenomegaly. PANCREAS: No focal masses or ductal dilatation. ADRENALS: No adrenal nodules. KIDNEYS/URETERS: No renal or ureteral calculi, hydronephrosis or obstruction. No significant pe rinephric stranding or contour abnormalities. PELVIC ORGANS/BLADDER: Bladde r is unremarkable. Calcification of uterine arteries. No adnexal masses. PERITONEUM/RETROPERITONEUM: No free air or fluid. LYMPH NODES: No intra-abd ominal,retroperitoneal, pelvic or inguinal lymphadenopathy. VESSELS: Athe rosclerotic calcification of the abdominal aorta and iliac vessels. GI TR ACT: No bowel dilation or evidence of obstruction BONES AND SOFT TISSUES: N o bony destructive lesions. Degenerative changes in the cervical spine. No sof t tissue abnormalities. IMPRESSION: 1. No renal, ureteral or santos dder calculi, hydronephrosis or obstruction. Signed by: Dr. Darion aguilar M.D. on 01/11/2018 3:54 PM Dictated By: DARION ram Signed By: DARION GAGE MD on 01/11/181553 Transcribed By: JERMAN on 01/11/181553 COPY TO: MORE GILBERT MD Urine [id number] 15:40:00* Test Item Value Reference Range Interpretation Comments Urine WBC (test code = 5821-4) 0-5 0-5 [facility] [id number] 15:40:00* Test Item Value Reference Range Interpretation Comments Urine RBC (test code = 23324-0) 6-10 0-5 H [facility]anoUrine Cadbgbkx4550-97-94 15:40:00* Test Item Value Reference Range Interpretation Comments Urine Bacteria (test code = 93183-1) MODERATE NONE H [facility]anoUrine Epithelial Cruyk7188-72-70 15:40:00 * Test Item Value Reference Range Interpretation Comments Urine Epithelial Cells (test code = 15775-9) MODERATE NONE [facility]anoUrine Hyaline Dddcp1618-51-40 15:40:00* Test Item Value Reference Range Interpretation Comments Urine Hyaline Casts (test code = 59426-5) 2-5 0-1 H [facility]anoUrine Hyaline Lukoa6251-23-33 15:40:00* Test Item Value Reference Range Interpretation Comments Urine Hyaline Casts (test code = 01937-3) 2-5 0-1 H [facility]anoUrine Hyaline Bmmlv1453-83-42 15:40:00* Test Item Value Reference Range Interpretation Comments Urine Hyaline Casts (test code = 66319-2) 2-5 0-1 [facility] Hyaline Jceva0260-69-72 15:40:00* Test Item Value Reference Range Interpretation Comments Urine Hyaline Casts (test code = 36786-8) 2-5 0-1 H [facility] Cwbpz4502-33-51 15:33:00* Test Item Value Reference Range Interpretation Comments Urine Color (test code = 5778-6) YELLOW YELLOW [facility] Aszvaen9967-66-89 15:33:00* Test Item Value Reference Range Interpretation Comments Urine Clarity (test code = 46578-2) HAZY CLEAR [facility]ano[facility] Specific Qayiwgg2810-28-84 15:33:00 * Test Item Value Reference Range Interpretation Comments Urine Specific Lenore (test code = 5811-5) 1.020 1.010-1.02 5 [facility]ano[facility] eP4048-57-73 15:33:00* Test Item Value Reference Range Interpretation Comments Urine pH (test code = 77619-8) 7 5-7 [facility] Leukocyte Htgdedjg8592-88-35 15:33:00* Test Item Value Reference Range Interpretation Comments Urine Leukocyte Esterase (test code = 5799-2) NEGATIVE NEGATIVE [facility] Hjovmnx4231-28-33 15:33:00* Test Item Value Reference Range Interpretation Comments Urine Nitrite (test code = 45607-4) NEGATIVE NEGATIVE [facility]anoU[facility] Siqrzym7875-48-49 15:33:00* Test Item Value Reference Range Interpretation Comments Urine Protein (test code = 5804-0) 3+ NEGATIVE H [facility]anoUrine Glucose (UA)2018-01-11 15:33:00* Test Item Value Reference Range Interpretation Comments Urine Glucose (UA) (test code = 2349-9) 3+ NEGATIVE H [facility]anoUrine Jjlflsm8993-97-11 15:33:00* Test Item Value Reference Range Interpretation Comments Urine Ketones (test code = 58216-5) NEGATIVE NEGATIVE [facility]anoU[facility] Qxjkwkcvonpf0670-96-57 15:33:00* Test Item Value Reference Range Interpretation Comments Urine Urobilinogen (test code = 49409-2) 0.2 0.2-1 [facility]ano[facility] Nuxtkgiyv8636-20-67 15:33:00* Test Item Value Reference Range Interpretation Comments Urine Bilirubin (test code = 1978-6) NEGATIVE NEGATIVE [facility] Fiywt3855-88-27 15:33:00* Test Item Value Reference Range Interpretation Comments Urine Blood (test code = 91425-5) [facility] Oycuw0766-15-39 14:42:00* Test Item Value Reference Range Interpretation Comments Sodium Level (test code = 2951-2) 133 136-145 L [facility]Potassium Njwad9048-09-06 14:42:00* Test Item Value Reference Range Interpretation Comments Potassium Level (test code = 2823-3) 3.7 3.5-5.1 [facility]anoChloride Erhmp0283-04-13 14:42:00* Test Item Value Reference Range Interpretation Comments Chloride Level (test code = 2075-0) 94 98-107 L [facility]anoCarbon Dioxide Lujcn3536-19-47 14:42:00* Test Item Value Reference Range Interpretation Comments Carbon Dioxide Level (test code = 2028-9) 24 22-29 [facility]anoAnion Jbk7504-96-87 14:42:00* Test Item Value Reference Range Interpretation Comments Anion Gap (test code = 43743-7) 18.7 8-16 H [facility]anoBlood Urea Zrknucms1114-17-69 14:42:00* Test Item Value Reference Range Interpretation Comments Blood Urea Nitrogen (test code = 3094-0) 47 7-26 H [facility]anoCreatinine2018-11-25 14:42:00* Test Item Value Reference Range Interpretation Comments Creatinine (test code = 2160-0) 5.79 0.57-1.11 H [facility]anoBUN/Creatinine Hwwox1214-74-43 14:42:00* Test Item Value Reference Range Interpretation Comments BUN/Creatinine Ratio (test code = 3097-3) 8 6-25 [facility]anoEstimat Glomerular Filtration Rate 2018-01-11 14:42:00* Test Item Value Reference Range Interpretation Comments Estimat Glomerular Filtration Rate (test code = 844120660) 8 >60 L Ranges were taken from the National Kidney Disease Education Program and the [facility] literature.Reference ranges:60 or greater: Hctook53-43 ( for 3 consecutive months): Chronic kidney disease 15 or less: Kidney failureTexas [facility] Hospital PlanoGlucose Fjpbu0959-70-55 14:42:00* Test Item Value Reference Range Interpretation Comments Glucose Level (test code = EUI2756) 304 74-118 H [facility]anoCalcium Bpytv0405-27-98 14:42:00* Test Item Value Reference Range Interpretation Comments Calcium Level (test code = 64269-3) 9.8 8.4-10.2 [facility]anoTotal Fikvboczb5856-31-62 14:42:00* Test Item Value Reference Range Interpretation Comments Total Bilirubin (test code = 1975-2) 0.7 0.2-1.2 [facility]anoAspartate Amino Transf (AST/SGOT) 2018-01-11 14:42:00* Test Item Value Reference Range Interpretation Comments Aspartate Amino Transf (AST/SGOT) (test code = Aspartate Amino Transf (AST/SGOT)) 21 5-34 [facility]anoAlanine Aminotransferase (ALT/SGPT) 2018-01-11 14:42:00* Test Item Value Reference Range Interpretation Comments Alanine Aminotransferase (ALT/SGPT) (test code = 1742-6) 10 0-55 [facility]anoTotal Xyniszh8548-28-87 14:42:00* Test Item Value Reference Range Interpretation Comments Total Protein (test code = 2885-2) 8.9 6.5-8.1 H [facility]anoAlbumin2018-11-25 14:42:00* Test Item Value Reference Range Interpretation Comments Albumin (test code = 1751-7) 3.3 3.5-5.0 L [facility]anoGlobulin2018-11-25 14:42:00* Test Item Value Reference Range Interpretation Comments Globulin (test code = 53906-6) 5.6 2.3-3.5 H [facility]anoAlbumin/Globulin Ecwgr5337-59-79 14:42:00 * Test Item Value Reference Range Interpretation Comments Albumin/Globulin Ratio (test code = 1759-0) 0.6 0.8-2.0 L [facility]anoAlkaline Msgorafwvoc0004-41-02 14:42:00* Test Item Value Reference Range Interpretation Comments Alkaline Phosphatase (test code = 6768-6) 111 40-150 [facility]anoWhite Blood Wpbuu3642-96-05 14:27:00* Test Item Value Reference Range Interpretation Comments White Blood Count (test code = 6690-2) 14.15 4.8-10.8 H [facility]anoRed Blood Vtfwq0767-13-46 14:27:00* Test Item Value Reference Range Interpretation Comments Red Blood Count (test code = 789-8) 4.43 3.6-5.1 [facility]anoHemoglobin2018-11-25 14:27:00* Test Item Value Reference Range Interpretation Comments Hemoglobin (test code = 71183-3) 13.3 12.0-16.0 [facility]anoHematocrit2018-11-25 14:27:00* Test Item Value Reference Range Interpretation Comments Hematocrit (test code = 4544-3) 39.5 34.2-44.1 [facility]anoMean Corpuscular Ovzjfw9905-53-93 14:27:00* Test Item Value Reference Range Interpretation Comments Mean Corpuscular Volume (test code = 787-2) 89.2 81-99 [facility]anoMean Corpuscular Rmqpenkjxv2035-80-74 14:27:00* Test Item Value Reference Range Interpretation Comments Mean Corpuscular Hemoglobin (test code = 785-6) 30.0 28-32 [facility]anoMean Corpuscular Hemoglobin Concent 2018-01-11 14:27:00* Test Item Value Reference Range Interpretation Comments Mean Corpuscular Hemoglobin Concent (test code = 786-4) 33.7 31-35 [facility]anoRed Cell Distribution Jxgit5667-24-60 14:27:00* Test Item Value Reference Range Interpretation Comments Red Cell Distribution Width (test code = 26188-9) 15.7 11.7 -14.4 H [facility]anoPlatelet Ahzic1709-39-63 14:27:00* Test Item Value Reference Range Interpretation Comments Platelet Count (test code = 777-3) 343 140-360 [facility]anoNeutrophils (%) (Auto)2018-01-11 14:27:00 * Test Item Value Reference Range Interpretation Comments Neutrophils (%) (Auto) (test code = 18626-3) 81.2 38.7-80.0 H [facility]anoLymphocytes (%) (Auto)2018-01-11 14:27:00 * Test Item Value Reference Range Interpretation Comments Lymphocytes (%) (Auto) (test code = 736-9) 11.4 18.0-39.1 L [facility]anoMonocytes (%) (Auto)2018-01-11 14:27:00* Test Item Value Reference Range Interpretation Comments Monocytes (%) (Auto) (test code = 5905-5) 4.9 4.4-11.3 [facility]anoEosinophils (%) (Auto)2018-01-11 14:27:00 * Test Item Value Reference Range Interpretation Comments Eosinophils (%) (Auto) (test code = 713-8) 0.7 0.0-6.0 [facility]anoBasophils (%) (Auto)2018-01-11 14:27:00* Test Item Value Reference Range Interpretation Comments Basophils (%) (Auto) (test code = 706-2) 0.8 0.0-1.0 [facility]anoIM GRANULOCYTES %2018-01-11 14:27:00* Test Item Value Reference Range Interpretation Comments IM GRANULOCYTES % (test code = IM GRANULOCYTES %) 1.0 0.0- 1.0 [facility]anoNeutrophils # (Auto)2018-01-11 14:27:00* Test Item Value Reference Range Interpretation Comments Neutrophils # (Auto) (test code = 751-8) 11.5 2.1-6.9 H [facility]anoLymphocytes # (Auto)2018-01-11 14:27:00* Test Item Value Reference Range Interpretation Comments Lymphocytes # (Auto) (test code = 38380-5) 1.6 1.0-3.2 [facility]anoMonocytes # (Auto)2018-01-11 14:27:00* Test Item Value Reference Range Interpretation Comments Monocytes # (Auto) (test code = 742-7) 0.7 0.2-0.8 [facility]anoEosinophils # (Auto)2018-01-11 14:27:00* Test Item Value Reference Range Interpretation Comments Eosinophils # (Auto) (test code = 711-2) 0.1 0.0-0.4 [facility]anoBasophils # (Auto)2018-01-11 14:27:00* Test Item Value Reference Range Interpretation Comments Basophils # (Auto) (test code = 704-7) 0.1 0.0-0.1 [facility]anoAbsolute Immature Granulocyte (auto 2018-01-11 14:27:00* Test Item Value Reference Range Interpretation Comments Absolute Immature Granulocyte (auto (bam t code = Absolute Immature Granulocyte (auto) 0.14 0-0.1 H [facility] PlanoCreatine Karhms3391-40-90 22:23:00* Test Item Value Reference Range Interpretation Comments Creatine Kinase (test code = 2157-6) 33 29-168 [facility]anoCreatine Kinase NE6420-80-68 22:23:00* Test Item Value Reference Range Interpretation Comments Creatine Kinase MB (test code = 46841-2) 1.20 0-5.0 [facility]anoTroponin G5856-48-21 22:23:00* Test Item Value Reference Range Interpretation Comments Troponin I (test code = OYF1739) 0.042 0-0.300 [facility]anoCHEST SINGLE (PORTABLE)2018-01-09 22:19:00 [place] [address] Patient Name: JIMBO TORRES MR #: [id number] : 1960 Age/Sex: 57/F Req #: [id number] Adm Physician: Ordered by: CHICA SEPULVEDA MD Report #: [id number] Location: ER Room/Bed: Procedure: 49 DX/CHEST SINGLE (PORTABLE) Exam Date: 01/09/18 Ex am Time: 2200 REPORT STATUS: Signed EXAMINATION: CHEST SINGLE (PORTABLE) INDICATION: Lower abdominal p ain. COMPARISON: Chest x-ray 01/04/2018 FINDINGS: AP view TUBES and LINES: Right IJ dual lumen dialysis catheter tip overlies the right atrium. LUNGS: Lungs are well inflated. Mild interstitial promin ence. There is no evidence of pneumonia. PLEURA: No pleural effusion o r pneumothorax. HEART AND MEDIASTINUM: The cardiomediastinal silhouette is unremarkable. BONES AND SOFT TISSUES: No acute osseous lesion. Soft tissues are unremarkable. UPPER ABDOMEN: No free air under the diaphragm. IMPRESSION: Mild interstitial edema. Signed by: DR. James zamora MD on 01/09/2018 10:22 PM Dictated By: JAMES GRIGGS MD [facility] Signed By: JAMES GRIGGS MD on 01/09/182221 Transcribed By: JERMAN on 2221 COPY TO: CHICA SEPULVEDA MD Prothrombin Time 2018-01-09 21:58:00* Test Item Value Reference Range Interpretation Comments Prothrombin Time (test code = 5902-2) 14.3 11.9-14.5 [facility]anoProthromb Time International Ratio 2018-01-09 21:58:00* Test Item Value Reference Range Interpretation Comments Prothromb Time International Ratio (test code = 6301-6) 1.02 Oral Anticoagulant Therapy INR Values:1. Low Intensity Therapy 1.5 - 2.02 . Moderate Intensity Therapy 2.0 - 3.03. High Intensity Therapy(1) 2.5 - 3. 54. High Intensity Therapy(2) 3.0 - 4.05. Panic Value INR > 5.0 [facility] PlanoActivated Partial Thromboplast Time 2018-01-09 21:58:00* Test Item Value Reference Range Interpretation Comments Activated Partial Thromboplast Time (test code = 44914-3) 33.0 23.8-35.5 [facility]anoProthrombin Schh3407-88-70 21:58:00* Test Item Value Reference Range Interpretation Comments Prothrombin Time (test code = 5902-2) 14.3 11.9-14.5 [facility]anoProthromb Time International Ratio 2018-01-09 21:58:00* Test Item Value Reference Range Interpretation Comments Prothromb Time International Ratio (test code = 6301-6) 1.02 Oral Anticoagulant Therapy INR Values:1. Low Intensity Therapy 1.5 - 2.02 . Moderate Intensity Therapy 2.0 - 3.03. High Intensity Therapy(1) 2.5 - 3. 54. High Intensity Therapy(2) 3.0 - 4.05. Panic Value INR > 5.0 [facility]anoActivated Partial Thromboplast Time 2018-01-09 21:58:00* Test Item Value Reference Range Interpretation Comments Activated Partial Thromboplast Time (test code = 49255-0) 33.0 23.8-35.5 [facility]anoProthrombin Qwla8594-65-45 21:58:00* Test Item Value Reference Range Interpretation Comments Prothrombin Time (test code = 5902-2) 14.3 11.9-14.5 [facility] PlanoProthromb Time International Ratio 2018-01-09 21:58:00* Test Item Value Reference Range Interpretation Comments Prothromb Time International Ratio (test code = 6301-6) 1.02 Oral Anticoagulant Therapy INR Values:1. Low Intensity Therapy 1.5 - 2.02 . Moderate Intensity Therapy 2.0 - 3.03. High Intensity Therapy(1) 2.5 - 3. 54. High Intensity Therapy(2) 3.0 - 4.05. Panic Value INR > 5.0 [facility]anoActivated Partial Thromboplast Time 2018-01-09 21:58:00* Test Item Value Reference Range Interpretation Comments Activated Partial Thromboplast Time (test code = 73622-6) 33.0 23.8-35.5 [facility]anoProthrombin Vacr9270-90-45 21:58:00* Test Item Value Reference Range Interpretation Comments Prothrombin Time (test code = 5902-2) 14.3 11.9-14.5 [facility]anoProthromb Time International Ratio 2018-01-09 21:58:00* Test Item Value Reference Range Interpretation Comments Prothromb Time International Ratio (test code = 6301-6) 1.02 Oral Anticoagulant Therapy INR Values:1. Low Intensity Therapy 1.5 - 2.02 . Moderate Intensity Therapy 2.0 - 3.03. High Intensity Therapy(1) 2.5 - 3. 54. High Intensity Therapy(2) 3.0 - 4.05. Panic Value INR > 5.0 [facility]anoActivated Partial Thromboplast Time 2018-01-09 21:58:00* Test Item Value Reference Range Interpretation Comments Activated Partial Thromboplast Time (test code = 16470-8) 33.0 23.8-35.5 [facility] Uoelpod2159-75-20 11:37:00* Test Item Value Reference Range Interpretation Comments Bedside Glucose (test code = 18251-9) 77 70-120 Meter ID: [id number] Peter Smith Hospital Glucose 2018-01-07 11:37:00* Test Item Value Reference Range Interpretation Comments Bedside Glucose (test code = 60046-2) 77 70-120 Meter ID: [id number] Health Presbyterian Hospital PlanoHepatitis B Surface Antibody, Cpfjb9633-04-79 10:32:00* Test Item Value Reference Range Interpretation Comments Hepatitis B Surface Antibody, Quant (test code = 5194-6) 8.8 Immunity>9.9 L Verified by repeat analysis Status of Immunity Anti-HBs Level Inconsistent with I mmunity 0.0 - 9.9Consistent with Immunity >9.9[facility] B Core Total Antibody 2018-01-06 10:32:00* Test Item Value Reference Range Interpretation Comments Hepatitis B Core Total Antibody (test code = 61376-0) Negative Negative Performed at: [address] [id number] Director: Mani Stevens MD, Phone: [phone] [facility] B Surface Obavpsw7409-56-67 10:32:00* Test Item Value Reference Range Interpretation Comments Hepatitis B Surface Antigen (test code = 5196-1) Negative Negat zak [facility] B Surface Antibody, Quant 2018-01-06 10:32:00* Test Item Value Reference Range Interpretation Comments Hepatitis B Surface Antibody, Quant (test code = 5194-6) 8.8 Immunity>9.9 L Verified by repeat analysis Status of Immunity Anti-HBs Level Inconsistent with I mmunity 0.0 - 9.9Consistent with Immunity >9.9[facility] B Core Total Antibody 2018-01-06 10:32:00* Test Item Value Reference Range Interpretation Comments Hepatitis B Core Total Antibody (test code = 00213-7) Negative Negative Performed at: [address] [id number] Director: Mani Stevens MD, Phone: [phone] [facility] B Surface Smkesdk8574-75-90 10:32:00* Test Item Value Reference Range Interpretation Comments Hepatitis B Surface Antigen (test code = 5196-1) Negative Negat [facility] B Surface Antibody, Quant 2018-01-06 10:32:00* Test Item Value Reference Range Interpretation Comments Hepatitis B Surface Antibody, Quant (test code = 5194-6) 8.8 Immunity>9.9 L Verified by repeat analysis Status of Immunity Anti-HBs Level Inconsistent with I mmunity 0.0 - 9.9Consistent with Immunity >9.9CDeTar [facility] B Core Total Antibody 2018-01-06 10:32:00* Test Item Value Reference Range Interpretation Comments Hepatitis B Core Total Antibody (test code = 20959-1) Negative Negative Performed at: - [address] [id number] Director: Mani Stevens MD, Phone: [phone] [facility] B Surface Antibody, Zwdtm2874-31-71 10:32:00* Test Item Value Reference Range Interpretation Comments Hepatitis B Surface Antibody, Quant (test code = 5194-6) 8.8 Immunity>9.9 L Verified by repeat analysis Status of Immunity Anti-HBs Level Inconsistent with I mmunity 0.0 - 9.9Consistent with Immunity >9.9CDeTar Healthcare System B Core Total Antibody 2018-01-06 10:32:00* Test Item Value Reference Range Interpretation Comments Hepatitis B Core Total Antibody (test code = 59435-3) Negative Negative Performed at: [facility] [address] [id number] Director: Mani Stevens MD, Phone: [phone] [facility] B Surface Antibody, Lascp2034-33-88 10:32:00* Test Item Value Reference Range Interpretation Comments Hepatitis B Surface Antibody, Quant (test code = 5194-6) 8.8 Immunity>9.9 L Verified by repeat analysis Status of Immunity Anti-HBs Level Inconsistent with I mmunity 0.0 - 9.9Consistent with Immunity >9.9[facility] Total Antibody 2018-01-06 10:32:00* Test Item Value Reference Range Interpretation Comments Hepatitis B Core Total Antibody (test code = 45483-0) Negative Negative Performed at: - [address] [id number] Director: Mani Stevens MD, Phone: [phone] Center Hospitalodium Zsujp5466-76-01 07:07:00* Test Item Value Reference Range Interpretation Comments Sodium Level (test code = 2951-2) 136 136-145 [facility]anoPotassium Qnugs1880-29-31 07:07:00* Test Item Value Reference Range Interpretation Comments Potassium Level (test code = 2823-3) 3.5 3.5-5.1 [facility]anoChloride Lwbbm1510-07-96 07:07:00* Test Item Value Reference Range Interpretation Comments Chloride Level (test code = 2075-0) 98 98-107 [facility] PlanoCarbon Dioxide Fopno4164-61-67 07:07:00* Test Item Value Reference Range Interpretation Comments Carbon Dioxide Level (test code = 2028-9) 29 22-29 [facility] PlanoAnion Ojq1641-42-85 07:07:00* Test Item Value Reference Range Interpretation Comments Anion Gap (test code = 54412-0) 12.5 8-16 [facility]anoBlood Urea Kaunmqbq4905-14-78 07:07:00* Test Item Value Reference Range Interpretation Comments Blood Urea Nitrogen (test code = 3094-0) 24 7-26 [facility]anoCreatinine2018-11-20 07:07:00* Test Item Value Reference Range Interpretation Comments Creatinine (test code = 2160-0) 3.08 0.57-1.11 H [facility] PlanoBUN/Creatinine Obqfu7657-93-32 07:07:00* Test Item Value Reference Range Interpretation Comments BUN/Creatinine Ratio (test code = 3097-3) 8 6-25 [facility] PlanoEstimat Glomerular Filtration Rate 2018-01-06 07:07:00* Test Item Value Reference Range Interpretation Comments Estimat Glomerular Filtration Rate (test code = 516210436) 16 >60 L Ranges were taken from the National Kidney Disease Education Program and the [facility] Foundation literature.Reference ranges:60 or greater: Xbogua98-76 ( for 3 consecutive months): Chronic kidney disease 15 or less: Kidney failureTexas Health Presbyterian Hospital PlanoGlucose Grier7737-60-88 07:07:00* Test Item Value Reference Range Interpretation Comments Glucose Level (test code = TLZ3887) 207 74-118 H [facility] PlanoCalcium Rrmyg8558-64-31 07:07:00* Test Item Value Reference Range Interpretation Comments Calcium Level (test code = 60682-0) 8.7 8.4-10.2 [facility]anoTotal Xncqkedvz6418-68-72 07:07:00* Test Item Value Reference Range Interpretation Comments Total Bilirubin (test code = 1975-2) 0.8 0.2-1.2 [facility] PlanoAspartate Amino Transf (AST/SGOT) 2018-01-06 07:07:00* Test Item Value Reference Range Interpretation Comments Aspartate Amino Transf (AST/SGOT) (test code = Aspartate Amino Transf (AST/SGOT)) 16 5-34 [facility] PlanoAlanine Aminotransferase (ALT/SGPT) 2018-01-06 07:07:00* Test Item Value Reference Range Interpretation Comments Alanine Aminotransferase (ALT/SGPT) (test code = 1742-6) 10 0-55 [facility] PlanoTotal Svatxtb9247-57-25 07:07:00* Test Item Value Reference Range Interpretation Comments Total Protein (test code = 2885-2) 6.8 6.5-8.1 [facility] PlanoAlbumin2018-11-20 07:07:00* Test Item Value Reference Range Interpretation Comments Albumin (test code = 1751-7) 2.2 3.5-5.0 L [facility] PlanoGlobulin2018-11-20 07:07:00* Test Item Value Reference Range Interpretation Comments Globulin (test code = 58631-0) 4.6 2.3-3.5 H [facility] PlanoAlbumin/Globulin Hpgyb5412-45-95 07:07:00 * Test Item Value Reference Range Interpretation Comments Albumin/Globulin Ratio (test code = 1759-0) 0.5 0.8-2.0 L [facility] PlanoAlkaline Mtpvxupyxoq2300-08-95 07:07:00* Test Item Value Reference Range Interpretation Comments Alkaline Phosphatase (test code = 6768-6) 123 40-150 [facility] PlanoWhite Blood Ugkyn8681-18-47 06:26:00* Test Item Value Reference Range Interpretation Comments White Blood Count (test code = 6690-2) 9.25 4.8-10.8 [facility] PlanoRed Blood Yxyvf7825-76-96 06:26:00* Test Item Value Reference Range Interpretation Comments Red Blood Count (test code = 789-8) 3.38 3.6-5.1 L [facility]anoHemoglobin2018-11-20 06:26:00* Test Item Value Reference Range Interpretation Comments Hemoglobin (test code = 07449-9) 10.0 12.0-16.0 L [facility] PlanoHematocrit2018-11-20 06:26:00* Test Item Value Reference Range Interpretation Comments Hematocrit (test code = 4544-3) 30.0 34.2-44.1 L [facility] [facility]Mean Corpuscular Sqnmwo8153-59-36 06:26:00* Test Item Value Reference Range Interpretation Comments Mean Corpuscular Volume (test code = 787-2) 88.8 81-99 [facility]Mean Corpuscular Cnribjgxhz4328-64-89 06:26:00* Test Item Value Reference Range Interpretation Comments Mean Corpuscular Hemoglobin (test code = 785-6) 29.6 28-32 [facility] Corpuscular Hemoglobin Concent 2018-01-06 06:26:00* Test Item Value Reference Range Interpretation Comments Mean Corpuscular Hemoglobin Concent (test code = 786-4) 33.3 31-35 [facility]anoRed Cell Distribution Vgaqx4585-71-37 06:26:00* Test Item Value Reference Range Interpretation Comments Red Cell Distribution Width (test code = 02355-3) 15.9 11.7 -14.4 H [facility]anoPlatelet Cprjc6753-45-42 06:26:00* Test Item Value Reference Range Interpretation Comments Platelet Count (test code = 777-3) 198 140-360 [facility]anoNeutrophils (%) (Auto)2018-01-06 06:26:00 * Test Item Value Reference Range Interpretation Comments Neutrophils (%) (Auto) (test code = 57045-5) 55.7 38.7-80.0 [facility]anoLymphocytes (%) (Auto)2018-01-06 06:26:00 * Test Item Value Reference Range Interpretation Comments Lymphocytes (%) (Auto) (test code = 736-9) 27.6 18.0-39.1 [facility]anoMonocytes (%) (Auto)2018-01-06 06:26:00* Test Item Value Reference Range Interpretation Comments Monocytes (%) (Auto) (test code = 5905-5) 9.5 4.4-11.3 [facility]osinophils (%) (Auto)2018-01-06 06:26:00 * Test Item Value Reference Range Interpretation Comments Eosinophils (%) (Auto) (test code = 713-8) 6.5 0.0-6.0 H [facility]anoBasophils (%) (Auto)2018-01-06 06:26:00* Test Item Value Reference Range Interpretation Comments Basophils (%) (Auto) (test code = 706-2) 0.5 0.0-1.0 [facility]anoIM GRANULOCYTES %2018-01-06 06:26:00* Test Item Value Reference Range Interpretation Comments IM GRANULOCYTES % (test code = IM GRANULOCYTES %) 0.2 0.0- 1.0 [facility]anoNeutrophils # (Auto)2018-01-06 06:26:00* Test Item Value Reference Range Interpretation Comments Neutrophils # (Auto) (test code = 751-8) 5.2 2.1-6.9 [facility]anoLymphocytes # (Auto)2018-01-06 06:26:00* Test Item Value Reference Range Interpretation Comments Lymphocytes # (Auto) (test code = 68797-7) 2.6 1.0-3.2 [facility]anoMonocytes # (Auto)2018-01-06 06:26:00* Test Item Value Reference Range Interpretation Comments Monocytes # (Auto) (test code = 742-7) 0.9 0.2-0.8 H [facility]anoEosinophils # (Auto)2018-01-06 06:26:00* Test Item Value Reference Range Interpretation Comments Eosinophils # (Auto) (test code = 711-2) 0.6 0.0-0.4 H [facility]anoBasophils # (Auto)2018-01-06 06:26:00* Test Item Value Reference Range Interpretation Comments Basophils # (Auto) (test code = 704-7) 0.1 0.0-0.1 [facility]anoAbsolute Immature Granulocyte (auto 2018-01-06 06:26:00* Test Item Value Reference Range Interpretation Comments Absolute Immature Granulocyte (auto (bam t code = Absolute Immature Granulocyte (auto) 0.02 0-0.1 [facility]anoCreatine Kinase ZD6813-92-91 09:36:00* Test Item Value Reference Range Interpretation Comments Creatine Kinase MB (test code = 13887-3) 0.60 0-5.0 [facility]anoTroponin I3363-56-26 09:36:00* Test Item Value Reference Range Interpretation Comments Troponin I (test code = XLD0690) 0.054 0-0.300 [facility]anoCreatine Pdezpj9804-26-41 09:29:00* Test Item Value Reference Range Interpretation Comments Creatine Kinase (test code = 2157-6) 12 29-168 L [facility]anoTriglycerides Wmuqt5318-01-94 05:24:00* Test Item Value Reference Range Interpretation Comments Triglycerides Level (test code = 2571-8) 72 0-149 [facility]anoCholesterol Cbkvp5442-93-23 05:24:00* Test Item Value Reference Range Interpretation Comments Cholesterol Level (test code = 2093-3) 124 0-199 Less than 200 mg/dL Low Purc701 - 239 mg/dL Borderline Fdvr380 m g/dl and greater High Risk [facility]anoLDL Jqfzhatavsd7403-99-89 05:24:00* Test Item Value Reference Range Interpretation Comments LDL Cholesterol (test code = 2089-1) 77 60-130 [facility]anoHDL Wlnisjzroza8642-93-38 05:24:00* Test Item Value Reference Range Interpretation Comments HDL Cholesterol (test code = 2085-9) 33 40-60 L [facility]anoCholesterol/HDL Hyipr1135-49-49 05:24:00 * Test Item Value Reference Range Interpretation Comments Cholesterol/HDL Ratio (test code = 9830-1) 3.8 3.0-3.6 H [facility]anoTriglycerides Cpxpb4049-16-20 05:24:00* Test Item Value Reference Range Interpretation Comments Triglycerides Level (test code = 2571-8) 72 0-149 [facility]anoCholesterol Ghmco3298-65-87 05:24:00* Test Item Value Reference Range Interpretation Comments Cholesterol Level (test code = 2093-3) 124 0-199 Less than 200 mg/dL Low Pdmz491 - 239 mg/dL Borderline Hwko792 m g/dl and greater High Risk [facility]anoLDL Ntazkfyysji9979-88-90 05:24:00* Test Item Value Reference Range Interpretation Comments LDL Cholesterol (test code = 2089-1) 77 60-130 [facility] Eyyeniaqxoi7630-53-07 05:24:00* Test Item Value Reference Range Interpretation Comments HDL Cholesterol (test code = 2085-9) 33 40-60 L [facility]Cholesterol/HDL Mzojz7220-22-53 05:24:00 * Test Item Value Reference Range Interpretation Comments Cholesterol/HDL Ratio (test code = 9830-1) 3.8 3.0-3.6 H [facility]anoTriglycerides Hbkmh2571-09-74 05:24:00* Test Item Value Reference Range Interpretation Comments Triglycerides Level (test code = 2571-8) 72 0-149 [facility]anoCholesterol Kurmm1167-63-92 05:24:00* Test Item Value Reference Range Interpretation Comments Cholesterol Level (test code = 2093-3) 124 0-199 Less than 200 mg/dL Low Femq515 - 239 mg/dL Borderline Ieyn119 m g/dl and greater High Risk [facility]anoLDL Ahejvruthzc9026-35-39 05:24:00* Test Item Value Reference Range Interpretation Comments LDL Cholesterol (test code = 2089-1) 77 60-130 [facility] Padkglsrbyg1121-21-82 05:24:00* Test Item Value Reference Range Interpretation Comments HDL Cholesterol (test code = 2085-9) 33 40-60 L [facility]anoCholesterol/HDL Bveuy5522-74-68 05:24:00 * Test Item Value Reference Range Interpretation Comments Cholesterol/HDL Ratio (test code = 9830-1) 3.8 3.0-3.6 H [facility]anoTriglycerides Qfqpy0209-88-50 05:24:00* Test Item Value Reference Range Interpretation Comments Triglycerides Level (test code = 2571-8) 72 0-149 [facility]anoCholesterol Qfexo0165-41-89 05:24:00* Test Item Value Reference Range Interpretation Comments Cholesterol Level (test code = 2093-3) 124 0-199 Less than 200 mg/dL Low Xecb561 - 239 mg/dL Borderline Dxhk741 m g/dl and greater High Risk [facility]anoLDL Wrkaptvuoos7317-21-98 05:24:00* Test Item Value Reference Range Interpretation Comments LDL Cholesterol (test code = 2089-1) 77 60-130 [facility]L Zhguzvsxfvb6304-75-86 05:24:00* Test Item Value Reference Range Interpretation Comments HDL Cholesterol (test code = 2085-9) 33 40-60 L [facility]anoCholesterol/HDL Zqnoj0874-95-75 05:24:00 * Test Item Value Reference Range Interpretation Comments Cholesterol/HDL Ratio (test code = 9830-1) 3.8 3.0-3.6 H [facility]anoTriglycerides Ikzkt3893-61-09 05:24:00* Test Item Value Reference Range Interpretation Comments Triglycerides Level (test code = 2571-8) 72 0-149 [facility]anoCholesterol Qfupu6367-97-43 05:24:00* Test Item Value Reference Range Interpretation Comments Cholesterol Level (test code = 2093-3) 124 0-199 Less than 200 mg/dL Low Smii643 - 239 mg/dL Borderline Gkxk096 m g/dl and greater High Risk [facility]anoLDL Vtrfgenkvvm1204-19-39 05:24:00* Test Item Value Reference Range Interpretation Comments LDL Cholesterol (test code = 2089-1) 77 60-130 [facility]anoHDL Zzxbglrqntw9198-79-96 05:24:00* Test Item Value Reference Range Interpretation Comments HDL Cholesterol (test code = 2085-9) 33 40-60 L [facility]anoCholesterol/HDL Pdbku3414-51-39 05:24:00 * Test Item Value Reference Range Interpretation Comments Cholesterol/HDL Ratio (test code = 9830-1) 3.8 3.0-3.6 H [facility]anoB-Type Natriuretic Hkxckdo0694-96-59 14:16:00* Test Item Value Reference Range Interpretation Comments B-Type Natriuretic Peptide (test code = 81340-5) 3086.5 0-100 H [facility]anoB-Type Natriuretic Ufcmsry5591-43-13 14:16:00* Test Item Value Reference Range Interpretation Comments B-Type Natriuretic Peptide (test code = 01591-7) 3086.5 0-100 H [facility]anoB-Type Natriuretic Urwimvh2319-79-11 14:16:00* Test Item Value Reference Range Interpretation Comments B-Type Natriuretic Peptide (test code = 95013-0) 3086.5 0-100 H [facility]anoB-Type Natriuretic Lbrmdub7724-46-39 14:16:00* Test Item Value Reference Range Interpretation Comments B-Type Natriuretic Peptide (test code = 86157-5) 3086.5 0-100 H [facility]anoB-Type Natriuretic Taxslcs1542-04-63 14:16:00* Test Item Value Reference Range Interpretation Comments B-Type Natriuretic Peptide (test code = 13026-5) 3086.5 0-100 H [facility]anoMagnesium Jlkfv0232-59-30 14:15:00* Test Item Value Reference Range Interpretation Comments Magnesium Level (test code = 32789-0) 2.1 1.3-2.1 [facility]anoAmylase Ptugt0209-84-90 14:15:00* Test Item Value Reference Range Interpretation Comments Amylase Level (test code = 1798-8) 44 25-125 [facility]anoLipase2018-11-18 14:15:00* Test Item Value Reference Range Interpretation Comments Lipase (test code = 3040-3) 20 8-78 [facility] Vhmzz6913-00-17 14:15:00* Test Item Value Reference Range Interpretation Comments Magnesium Level (test code = 13358-2) 2.1 1.3-2.1 [facility] Wsyyh3084-97-64 14:15:00* Test Item Value Reference Range Interpretation Comments Magnesium Level (test code = 92308-1) 2.1 1.3-2.1 [facility]anoMagnesium Ibwkx6274-95-55 14:15:00* Test Item Value Reference Range Interpretation Comments Magnesium Level (test code = 79986-3) 2.1 1.3-2.1 [facility]anoMagnesium Nsjmb7279-12-22 14:15:00* Test Item Value Reference Range Interpretation Comments Magnesium Level (test code = 05009-5) 2.1 1.3-2.1 [facility]anoCHES SINGLE (NOT PORTABLE)2018-01-04 14:08:00 [place] [address] Patient Name: JIMBO TORRES MR #: [id number] : 1960 Age/Sex: 57/F Req #: [id number] Adm Physician: Ordered by: TATA WATKINS NP Report #: [id number] Location: ER Room/Bed: Procedure: [id number] 3 DX/CHEST SINGLE (NOT PORTABLE) Exam Date: Exam Ti me: REPORT STATUS: Signed EXAMI NATION: CHEST SINGLE (NOT PORTABLE) COMPARISON: Chest x-ray 11/24/2017 INDICATION: Shortness of breath, left chest pain DISCUSSION: Fr ontal view of the chest obtained at 1343 hours. HEART AND MEDIASTINUM: The heart is top normal in size and normal in contour. LINES: Dual lumen centr al venous catheter remains at the cavoatrial junction. LUNGS: Low lung vol umes. No confluent infiltrates. Pulmonary vascular markings and interstitium a re normal. PLEURA: No pleural effusion or pneumothorax. BONES AND SOF T TISSUES: No focal osseous lesion. Cholecystectomy clips in the right upper quadrant are stable. IMPRESSION: Low lung volumes. No acute cardiopul monary process. Signed by: Dr. Otilio Kowalski MD on 01/04/2018 2:10 PM Dictated By: OTILIO KOWALSKI MD 09 Transcribed By: JERMAN on 01/04/18 1410 COPY T O: TATA WATKINS NP Prothrombin Cafi1113-49-79 14:06:00* Test Item Value Reference Range Interpretation Comments Prothrombin Time (test code = 5902-2) 13.7 11.9-14.5 [facility]anoProthromb Time International Ratio 2018-01-04 14:06:00* Test Item Value Reference Range Interpretation Comments Prothromb Time International Ratio (test code = 6301-6) 0.96 Oral Anticoagulant Therapy INR Values:1. Low Intensity Therapy 1.5 - 2.02 . Moderate Intensity Therapy 2.0 - 3.03. High Intensity Therapy(1) 2.5 - 3. 54. High Intensity Therapy(2) 3.0 - 4.05. Panic Value INR > 5.0 [facility]anoActivated Partial Thromboplast Time 2018-01-04 14:06:00* Test Item Value Reference Range Interpretation Comments Activated Partial Thromboplast Time (test code = 01192-2) 41.0 23.8-35.5 H [facility]anoLactic Acid Yrtpe5786-31-48 14:06:00* Test Item Value Reference Range Interpretation Comments Lactic Acid Level (test code = Lactic Acid Level) 14.8 4.5- 19.8 [facility] Hufug7562-03-73 14:06:00* Test Item Value Reference Range Interpretation Comments Lactic Acid Level (test code = Lactic Acid Level) 14.8 4.5- 19.8 [facility] Tizacit5627-07-69 01:55:00* Test Item Value Reference Range Interpretation Comments Ionized Calcium (test code = 92308-8) 1.1 1.09-1.30 [facility] Hxivmkx4478-59-60 01:55:00* Test Item Value Reference Range Interpretation Comments Ionized Calcium (test code = 73490-7) 1.1 1.09-1.30 [facility] Xxnmrnm2885-72-95 01:55:00* Test Item Value Reference Range Interpretation Comments Ionized Calcium (test code = 08628-3) 1.1 1.09-1.30 [facility] Cnoumij3015-85-88 01:55:00* Test Item Value Reference Range Interpretation Comments Ionized Calcium (test code = 37940-7) 1.1 1.09-1.30 [facility] Hftqqpl1118-47-49 01:55:00* Test Item Value Reference Range Interpretation Comments Ionized Calcium (test code = 79382-7) 1.1 1.09-1.30 [facility]anoIonized Osxmjia6320-61-85 01:55:00* Test Item Value Reference Range Interpretation Comments Ionized Calcium (test code = 70050-4) 1.1 1.09-1.30 [facility] Safyq4369-74-22 00:31:00* Test Item Value Reference Range Interpretation Comments Sodium Level (test code = 2951-2) 139 136-145 [facility]anoPotassium Mqslm3746-25-00 00:31:00* Test Item Value Reference Range Interpretation Comments Potassium Level (test code = 2823-3) 3.9 3.5-5.1 [facility]anoChloride Ukxmv7226-59-42 00:31:00* Test Item Value Reference Range Interpretation Comments Chloride Level (test code = 2075-0) 98 98-107 [facility]anoCarbon Dioxide Bcbyn4229-17-12 00:31:00* Test Item Value Reference Range Interpretation Comments Carbon Dioxide Level (test code = 2028-9) 32 22-29 H [facility]anoAnion Edo3960-18-31 00:31:00* Test Item Value Reference Range Interpretation Comments Anion Gap (test code = 86521-7) 12.9 8-16 [facility]anoBlood Urea Omofsyiw2894-02-51 00:31:00* Test Item Value Reference Range Interpretation Comments Blood Urea Nitrogen (test code = 3094-0) 24 7-26 [facility]anoCreatinine2018-10-09 00:31:00* Test Item Value Reference Range Interpretation Comments Creatinine (test code = 2160-0) 2.90 0.57-1.11 H [facility]anoBUN/Creatinine Rwysx4797-89-26 00:31:00* Test Item Value Reference Range Interpretation Comments BUN/Creatinine Ratio (test code = 3097-3) 8 6-25 [facility]anoEstimat Glomerular Filtration Rate 2017-11-25 00:31:00* Test Item Value Reference Range Interpretation Comments Estimat Glomerular Filtration Rate (test code = 187841775) 17 >60 L Ranges were taken from the National Kidney Disease Education Program and the [facility] [employer] literature.Reference ranges:60 or greater: Wmgirk76-81 ( for 3 consecutive months): Chronic kidney disease 15 or less: Kidney failureTexas Health Presbyterian Hospital PlanoGlucose Pguhq0220-53-63 00:31:00* Test Item Value Reference Range Interpretation Comments Glucose Level (test code = KLW4571) 228 74-118 H [facility]anoCalcium Swmjw2397-49-14 00:31:00* Test Item Value Reference Range Interpretation Comments Calcium Level (test code = 30662-0) 11.6 8.4-10.2 H VERIFIED PREVIOUS RESULTSTex[facility]anoTotal Bilirubin 2017-11-25 00:31:00* Test Item Value Reference Range Interpretation Comments Total Bilirubin (test code = 1975-2) 0.9 0.2-1.2 [facility] PlanoAspartate Amino Transf (AST/SGOT) 2017-11-25 00:31:00* Test Item Value Reference Range Interpretation Comments Aspartate Amino Transf (AST/SGOT) (test code = Aspartate Amino Transf (AST/SGOT)) 19 5-34 [facility]anoAlanine Aminotransferase (ALT/SGPT) 2017-11-25 00:31:00* Test Item Value Reference Range Interpretation Comments Alanine Aminotransferase (ALT/SGPT) (test code = 1742-6) 17 0-55 [facility]anoTotal Cahpsns7328-30-59 00:31:00* Test Item Value Reference Range Interpretation Comments Total Protein (test code = 2885-2) 7.9 6.5-8.1 [facility] PlanoAlbumin2018-10-09 00:31:00* Test Item Value Reference Range Interpretation Comments Albumin (test code = 1751-7) 3.2 3.5-5.0 L [facility]anoGlobulin2018-10-09 00:31:00* Test Item Value Reference Range Interpretation Comments Globulin (test code = 96820-6) 4.7 2.3-3.5 H [facility] PlanoAlbumin/Globulin Cfyye2214-76-55 00:31:00 * Test Item Value Reference Range Interpretation Comments Albumin/Globulin Ratio (test code = 1759-0) 0.7 0.8-2.0 L [facility]anoAlkaline Evrkujvpggh3428-34-12 00:31:00* Test Item Value Reference Range Interpretation Comments Alkaline Phosphatase (test code = 6768-6) 105 40-150 [facility]anoCreatine Uppkuq7334-87-52 00:31:00* Test Item Value Reference Range Interpretation Comments Creatine Kinase (test code = 2157-6) 35 29-168 [facility]anoCreatine Kinase TB7760-95-36 00:31:00* Test Item Value Reference Range Interpretation Comments Creatine Kinase MB (test code = 93873-7) 1.10 0-5.0 [facility]anoTroponin D2833-25-62 00:31:00* Test Item Value Reference Range Interpretation Comments Troponin I (test code = XEA7868) 0.028 0-0.300 [facility] PlanoAmylase Ljqkr3491-94-06 00:31:00* Test Item Value Reference Range Interpretation Comments Amylase Level (test code = 1798-8) 61 25-125 [facility] PlanoLipase2018-10-09 00:31:00* Test Item Value Reference Range Interpretation Comments Lipase (test code = 3040-3) 20 8-78 [facility]anoCHEST SINGLE ([facility]ABLE)2017-11-24 22:09:00 [place] [address] Patient Name: JIMBO TORRES MR #: [id number] : 1960 Age/Sex: 57/F Req #: [id number] Adm Physician: Ordered by: SANDEE GARY [employer] Report #: [id number] Location: ER Room/Bed: Procedure: [id number] DX/CHEST SINGLE (PORTABL E) Exam Date: 11/24/17 Exam Time: 2147 REPORT STATUS: Signed EXAM: CHEST SINGLE (PORTABLE), AP 1 view INDICATION: Nausea and vomiting since this morning after dialysis COMPARISON: AP view of the ches t July 09, 2017 FINDINGS: LINES/TUBES: Stable position right internal jugu lar vein tunneled hemodialysis catheter. LUNGS: Mild interstitial edema. PLEURA: Trace bilateral pleural effusions better seen on same-day CT of th e abdomen and pelvis. HEART AND MEDIASTINUM: Normal size and contour. BONES AND SOFT TISSUES: Right upper quadrant cholecystectomy clips. IMPRE SSION: Mild interstitial edema and trace bilateral pleural effusions. Signed by: Dr. Nahomy Bustillo M.D. on 11/24/2017 10:11 PM Dictated By: NAHOMY BUSTILLO MD 221 1 Transcribed By: JERMAN on 11/24/171 COPY TO: SANDEE GARY P CT ABDOMEN/PELVIS QA0913-32-01 22:03:00 [place] [address] Patient Name: JIMBO TORRES MR #: [id number] : 1960 Age/Sex: 57/F Req #: [id number] Adm Physician: Ordered by: SANDEE GARY [employer] Report #: [id number] Location: ER Room/Bed: Procedure: [id number] CT/CT ABDOMEN/PELVIS WO Exam Date: 11/24/17 Exam Time: 2147 REPORT STA TUS: Signed EXAM: CT ABDOMEN AND PELVIS without IV CONTRAST INDICATION: Na usea and vomiting after dialysis this morning COMPARISON: None TECHNIQUE: The abdomen and pelvis were scanned using a multidetector helical scanner. Cor onal and sagittal reformations were obtained. Dose modulation, iterative recon struction, and/or weight based adjustment of the mA/kV was utilized to reduce the radiation dose to as low as reasonably achievable. Renal stone protocol pe rformed. IV Contrast: None Oral Contrast: None CTDIvol has been reviewed. It is below the limits set by the Radiation Protocol Committee (RPC). FIN DINGS: LOWER THORAX: Mild septal thickening. Trace bilateral pleural effusions . Small pericardial effusion. Partially visualized hemodialysis catheter tip i n the proximal right atrium. LIVER: No masses BILIARY: Cholecystectomy. No ductal dilation. SPLEEN: No masses PANCREAS: No masses ADRENALS : No nodules RIGHT KIDNEY: No nephroureterolithiasis or hydronephrosis. LEFT KIDNEY: No nephroureterolithiasis or hydronephrosis. GI TRACT: No w all thickening or obstruction. Nonspecific debris in the fundus of the stomach . Normal appendix. VESSELS: Mild atherosclerotic changes of the abdominal aorta without aneurysm. PERITONEUM/RETROPERITONEUM: No free air or fluid LYM PH NODES: No lymphadenopathy REPRODUCTIVE ORGANS: Normal BLADDER: Normal SOFT TISSUES: Normal BONES: No suspicious bone lesions. IMPRESSION: No acute findings in the CT of the abdomen or pelvis. No bowel obstruction o r evidence of appendicitis. Mild interstitial edema, trace bilateral pleural e ffusions and small pericardial effusion. Signed by: Dr. Nahomy Bustillo M.D. on 11/24/2017 10:09 PM Dictated By: NAHOMY BUSTILLO MD [facility], [place], operated by [facility] Signed By: NAHOMY BUSTILLO MD on 11/24/172208 Transcribed By: JERMAN on 11/24 COPY TO: SANDEE GARY NP White Blood Count 2017-11-24 22:00:00* Test Item Value Reference Range Interpretation Comments White Blood Count (test code = 6690-2) 8.30 4.8-10.8 [facility]anoRed Blood Jnvps1390-41-71 22:00:00* Test Item Value Reference Range Interpretation Comments Red Blood Count (test code = 789-8) 3.94 3.6-5.1 [facility]anoHemoglobin2018-10-08 22:00:00* Test Item Value Reference Range Interpretation Comments Hemoglobin (test code = 05007-5) 11.6 12.0-16.0 L [facility]anoHematocrit2018-10-08 22:00:00* Test Item Value Reference Range Interpretation Comments Hematocrit (test code = 4544-3) 34.3 34.2-44.1 [facility]anoMean Corpuscular Hbxvdv1802-17-38 22:00:00* Test Item Value Reference Range Interpretation Comments Mean Corpuscular Volume (test code = 787-2) 87.1 81-99 [facility]anoMean Corpuscular Vslqgcemsm8822-48-86 22:00:00* Test Item Value Reference Range Interpretation Comments Mean Corpuscular Hemoglobin (test code = 785-6) 29.4 28-32 [facility]anoMean Corpuscular Hemoglobin Concent 2017-11-24 22:00:00* Test Item Value Reference Range Interpretation Comments Mean Corpuscular Hemoglobin Concent (test code = 786-4) 33.8 31-35 [facility] PlanoRed Cell Distribution Grcck9425-99-06 22:00:00* Test Item Value Reference Range Interpretation Comments Red Cell Distribution Width (test code = 37986-0) 14.1 11.7 -14.4 [facility]ate[facility] Tyqlb3936-12-95 22:00:00* Test Item Value Reference Range Interpretation Comments Platelet Count (test code = 777-3) 263 140-360 [facility]anoNeutrophils (%) (Auto)2017-11-24 22:00:00 * Test Item Value Reference Range Interpretation Comments Neutrophils (%) (Auto) (test code = 92259-4) 83.3 38.7-80.0 H [facility]anoLymphocytes (%) (Auto)2017-11-24 22:00:00 * Test Item Value Reference Range Interpretation Comments Lymphocytes (%) (Auto) (test code = 736-9) 13.1 18.0-39.1 L [facility]anoMonocytes (%) (Auto)2017-11-24 22:00:00* Test Item Value Reference Range Interpretation Comments Monocytes (%) (Auto) (test code = 5905-5) 2.9 4.4-11.3 L [facility]Eosinophils (%) (Auto)2017-11-24 22:00:00 * Test Item Value Reference Range Interpretation Comments Eosinophils (%) (Auto) (test code = 713-8) 0.1 0.0-6.0 [facility]Basophils (%) (Auto)2017-11-24 22:00:00* Test Item Value Reference Range Interpretation Comments Basophils (%) (Auto) (test code = 706-2) 0.5 0.0-1.0 [facility]anoIM GRANULOCYTES %2017-11-24 22:00:00* Test Item Value Reference Range Interpretation Comments IM GRANULOCYTES % (test code = IM GRANULOCYTES %) 0.1 0.0- 1.0 [facility]anoNeutrophils # (Auto)2017-11-24 22:00:00* Test Item Value Reference Range Interpretation Comments Neutrophils # (Auto) (test code = 751-8) 6.9 2.1-6.9 [facility]anoLymphocytes # (Auto)2017-11-24 22:00:00* Test Item Value Reference Range Interpretation Comments Lymphocytes # (Auto) (test code = 59876-6) 1.1 1.0-3.2 [facility]anoMonocytes # (Auto)2017-11-24 22:00:00* Test Item Value Reference Range Interpretation Comments Monocytes # (Auto) (test code = 742-7) 0.2 0.2-0.8 [facility]Eosinophils # (Auto)2017-11-24 22:00:00* Test Item Value Reference Range Interpretation Comments Eosinophils # (Auto) (test code = 711-2) 0.0 0.0-0.4 [facility]Basophils # (Auto)2017-11-24 22:00:00* Test Item Value Reference Range Interpretation Comments Basophils # (Auto) (test code = 704-7) 0.0 0.0-0.1 [facility]anoAbsolute Immature Granulocyte (auto 2017-11-24 22:00:00* Test Item Value Reference Range Interpretation Comments Absolute Immature Granulocyte (auto (bam t code = Absolute Immature Granulocyte (auto) 0.01 0-0.1 [facility]anoProthrombin Yxas4319-10-30 21:59:00* Test Item Value Reference Range Interpretation Comments Prothrombin Time (test code = 5902-2) 13.2 11.9-14.5 [facility]anoProthromb Time International Ratio 2017-11-24 21:59:00* Test Item Value Reference Range Interpretation Comments Prothromb Time International Ratio (test code = 6301-6) 0.92 Oral Anticoagulant Therapy INR Values:1. Low Intensity Therapy 1.5 - 2.02 . Moderate Intensity Therapy 2.0 - 3.03. High Intensity Therapy(1) 2.5 - 3. 54. High Intensity Therapy(2) 3.0 - 4.05. Panic Value INR > 5.0 [facility]anoActivated Partial Thromboplast Time 2017-11-24 21:59:00* Test Item Value Reference Range Interpretation Comments Activated Partial Thromboplast Time (test code = 94928-1) 30.8 23.8-35.5 [facility] Ahhculm4738-73-68 16:25:00* Test Item Value Reference Range Interpretation Comments Bedside Glucose (test code = 02900-7) 204 70-120 H Meter ID: [id number] Peter Smith Hospital Glucose 2017-07-17 16:25:00* Test Item Value Reference Range Interpretation Comments Bedside Glucose (test code = 35471-2) 204 70-120 H Meter ID: [id number] Center Hospitalodium Level 2017-07-14 06:44:00* Test Item Value Reference Range Interpretation Comments Sodium Level (test code = 2951-2) 134 136-145 L [facility]anoPotassium Dkntc4067-48-18 06:44:00* Test Item Value Reference Range Interpretation Comments Potassium Level (test code = 2823-3) 3.1 3.5-5.1 L [facility]anoChloride Vtwsr2806-61-88 06:44:00* Test Item Value Reference Range Interpretation Comments Chloride Level (test code = 2075-0) 96 98-107 L [facility]anoCarbon Dioxide Ngkbg2562-16-11 06:44:00* Test Item Value Reference Range Interpretation Comments Carbon Dioxide Level (test code = 2028-9) 27 - [facility]anoAnion Azr8892-10-63 06:44:00* Test Item Value Reference Range Interpretation Comments Anion Gap (test code = 70340-4) 14.1 8-16 [facility]anoBlood Urea Aczoynks0727-22-79 06:44:00* Test Item Value Reference Range Interpretation Comments Blood Urea Nitrogen (test code = 3094-0) 22 7- [facility]anoCreatinine2018-05-28 06:44:00* Test Item Value Reference Range Interpretation Comments Creatinine (test code = 2160-0) 3.69 0.57-1.11 H [facility]anoBUN/Creatinine Cjqna0060-10-41 06:44:00* Test Item Value Reference Range Interpretation Comments BUN/Creatinine Ratio (test code = 3097-3) 6 6- [facility]anoEstimat Glomerular Filtration Rate 2017-07-14 06:44:00* Test Item Value Reference Range Interpretation Comments Estimat Glomerular Filtration Rate (test code = 35560-5) 13 >60 L Ranges were taken from the National Kidney Disease Education Program and the [facility] Foundation literature.Reference ranges:60 or greater: Bjxmix36-14 ( for 3 consecutive months): Chronic kidney disease 15 or less: Kidney failureTexas [facility] Hospital PlanoGlucose Qbnlc2695-60-91 06:44:00* Test Item Value Reference Range Interpretation Comments Glucose Level (test code = USL5282) 90 74-118 [facility]anoCalcium Anjrm6586-15-09 06:44:00* Test Item Value Reference Range Interpretation Comments Calcium Level (test code = 85765-7) 7.7 8.4-10.2 L [facility]anoTotal Iiubocvbm8240-12-76 06:44:00* Test Item Value Reference Range Interpretation Comments Total Bilirubin (test code = 1975-2) 0.2 0.2-1.2 [facility] PlanoAspartate Amino Transf (AST/SGOT) 2017-07-14 06:44:00* Test Item Value Reference Range Interpretation Comments Aspartate Amino Transf (AST/SGOT) (test code = Aspartate Amino Transf (AST/SGOT)) 16 5-34 [facility]anoAlanine Aminotransferase (ALT/SGPT) 2017-07-14 06:44:00* Test Item Value Reference Range Interpretation Comments Alanine Aminotransferase (ALT/SGPT) (test code = 1742-6) 6 0-55 [facility]anoTotal Lnvsisb4851-36-23 06:44:00* Test Item Value Reference Range Interpretation Comments Total Protein (test code = 2885-2) 5.2 6.5-8.1 L [facility]anoAlbumin2018-05-28 06:44:00* Test Item Value Reference Range Interpretation Comments Albumin (test code = 1751-7) 1.6 3.5-5.0 L [facility]anoGlobulin2018-05-28 06:44:00* Test Item Value Reference Range Interpretation Comments Globulin (test code = 40141-0) 3.6 2.3-3.5 H [facility]anoAlbumin/Globulin Vczgs7143-71-91 06:44:00 * Test Item Value Reference Range Interpretation Comments Albumin/Globulin Ratio (test code = 1759-0) 0.4 0.8-2.0 L [facility]anoAlkaline Kpuhchpkhnv2963-13-89 06:44:00* Test Item Value Reference Range Interpretation Comments Alkaline Phosphatase (test code = 6768-6) 66 40-150 [facility]anoTriglycerides Whlwm9353-27-07 15:12:00* Test Item Value Reference Range Interpretation Comments Triglycerides Level (test code = 2571-8) 103 0-149 [facility]anoCholesterol Wdvrg7874-57-60 15:12:00* Test Item Value Reference Range Interpretation Comments Cholesterol Level (test code = 2093-3) 124 0-199 Less than 200 mg/dL Low Vhoa360 - 239 mg/dL Borderline Ixsz394 m g/dl and greater High Risk [facility] PlanoLDL Zsmqkvmqika7076-43-78 15:12:00* Test Item Value Reference Range Interpretation Comments LDL Cholesterol (test code = 2089-1) 74 60-130 [facility]anoHDL Rwlmmuoizid6864-55-83 15:12:00* Test Item Value Reference Range Interpretation Comments HDL Cholesterol (test code = 2085-9) 29 40-60 L [facility]anoCholesterol/HDL Kvzxd1808-53-13 15:12:00 * Test Item Value Reference Range Interpretation Comments Cholesterol/HDL Ratio (test code = 9830-1) 4.3 3.0-3.6 H [facility]anoTriglycerides Frabb3851-27-80 15:12:00* Test Item Value Reference Range Interpretation Comments Triglycerides Level (test code = 2571-8) 103 0-149 [facility]anoCholesterol Cidbb9521-85-85 15:12:00* Test Item Value Reference Range Interpretation Comments Cholesterol Level (test code = 2093-3) 124 0-199 Less than 200 mg/dL Low Thpy708 - 239 mg/dL Borderline Hfny412 m g/dl and greater High Risk [facility]anoLDL Kbtkswbrtbb3243-06-75 15:12:00* Test Item Value Reference Range Interpretation Comments LDL Cholesterol (test code = 2089-1) 74 60-130 [facility]anoHDL Uogiqzynzth2793-53-64 15:12:00* Test Item Value Reference Range Interpretation Comments HDL Cholesterol (test code = 2085-9) 29 40-60 L [facility]anoCholesterol/HDL Nbitb6992-71-69 15:12:00 * Test Item Value Reference Range Interpretation Comments Cholesterol/HDL Ratio (test code = 9830-1) 4.3 3.0-3.6 H [facility]anoHepatitis B Surface Antibody, Quant 2017-07-11 13:05:00* Test Item Value Reference Range Interpretation Comments Hepatitis B Surface Antibody, Quant (test code = 5194-6) -3.1 Immunity>9.9 L Status of Immunity Anti-HBs Level Inconsistent with Immunity 0.0 - 9.9Consistent with Immunity >9.9[facility] B Core Total Rsjtheng1394-89-79 13:05:00* Test Item Value Reference Range Interpretation Comments Hepatitis B Core Total Antibody (test code = 58970-7) Negative Negative Performed at: [facility] [id number] Director: Mani Stevens MD, Phone: [phone] [facility] B Surface Hibyrpu1703-50-68 13:05:00* Test Item Value Reference Range Interpretation Comments Hepatitis B Surface Antigen (test code = 5196-1) Negative Negat zak [facility] B Surface Antibody, Quant 2017-07-11 13:05:00* Test Item Value Reference Range Interpretation Comments Hepatitis B Surface Antibody, Quant (test code = 5194-6) -3.1 Immunity>9.9 L Status of Immunity Anti-HBs Level Inconsistent with Immunity 0.0 - 9.9Consistent with Immunity >9.9[facility] B Core Total Wjvtyszv9520-05-38 13:05:00* Test Item Value Reference Range Interpretation Comments Hepatitis B Core Total Antibody (test code = 17372-8) Negative Negative Performed at: [facility] [id number] Director: Mani Stevens MD, Phone: [phone] [facility] B Surface Veujjft9651-76-21 13:05:00* Test Item Value Reference Range Interpretation Comments Hepatitis B Surface Antigen (test code = 5196-1) Negative Negat zak [facility]anoDifferential Total Cells Counted 2017-07-11 07:59:00* Test Item Value Reference Range Interpretation Comments Differential Total Cells Counted (test code = Differserena tial Total Cells Counted) 100 [facility]anoNeutrophils % (Manual)2017-07-11 07:59:00 * Test Item Value Reference Range Interpretation Comments Neutrophils % (Manual) (test code = 38783-1) 80 40-74 H [facility]anoLymphocytes % (Manual)2017-07-11 07:59:00 * Test Item Value Reference Range Interpretation Comments Lymphocytes % (Manual) (test code = 737-7) 10 19-48 L [facility]anoMonocytes % (Manual)2017-07-11 07:59:00* Test Item Value Reference Range Interpretation Comments Monocytes % (Manual) (test code = 744-3) 9 3.4-9.0 [facility]anoReactive Oviqozphydx9230-40-51 07:59:00* Test Item Value Reference Range Interpretation Comments Reactive Lymphocytes (test code = 87535-5) 1 [facility]anoPlatelet Vsniuzav1092-41-40 07:59:00* Test Item Value Reference Range Interpretation Comments Platelet Estimate (test code = 22585-4) ADEQUATE [facility]anoPlatelet Morphology Duhyvls9323-71-45 07:59:00* Test Item Value Reference Range Interpretation Comments Platelet Morphology Comment (test code = 42482-9) FEW LARGE [facility]anoHypochromasia2018-05-25 07:59:00* Test Item Value Reference Range Interpretation Comments Hypochromasia (test code = 728-6) SLIGHT [facility]anoAnisocytosis2018-05-25 07:59:00* Test Item Value Reference Range Interpretation Comments Anisocytosis (test code = 702-1) SLIGHT [facility] PlanoRed Cell Morphology Paygars1912-71-59 07:59:00* Test Item Value Reference Range Interpretation Comments Red Cell Morphology Comment (test code = 6742-1) NORMAL [facility]anoDifferential Total Cells Counted 2017-07-11 07:59:00* Test Item Value Reference Range Interpretation Comments Differential Total Cells Counted (test code = Jaleesa tial Total Cells Counted) 100 [facility]anoNeutrophils % (Manual)2017-07-11 07:59:00 * Test Item Value Reference Range Interpretation Comments Neutrophils % (Manual) (test code = 97657-8) 80 40-74 H [facility]anoLymphocytes % (Manual)2017-07-11 07:59:00 * Test Item Value Reference Range Interpretation Comments Lymphocytes % (Manual) (test code = 737-7) 10 19-48 L [facility]anoMonocytes % (Manual)2017-07-11 07:59:00* Test Item Value Reference Range Interpretation Comments Monocytes % (Manual) (test code = 744-3) 9 3.4-9.0 [facility]anoReactive Dtilnzfxcxm6473-47-49 07:59:00* Test Item Value Reference Range Interpretation Comments Reactive Lymphocytes (test code = 65380-5) 1 [facility]anoPlatelet Mjguqoqd0843-10-77 07:59:00* Test Item Value Reference Range Interpretation Comments Platelet Estimate (test code = 30211-2) ADEQUATE [facility]anoPlatelet Morphology Cxzaufw5816-09-74 07:59:00* Test Item Value Reference Range Interpretation Comments Platelet Morphology Comment (test code = 92819-6) FEW LARGE [facility]anoHypochromasia2018-05-25 07:59:00* Test Item Value Reference Range Interpretation Comments Hypochromasia (test code = 728-6) SLIGHT [facility]anoAnisocytosis2018-05-25 07:59:00* Test Item Value Reference Range Interpretation Comments Anisocytosis (test code = 702-1) SLIGHT [facility]anoRed Cell Morphology Ozwgtgq3945-74-91 07:59:00* Test Item Value Reference Range Interpretation Comments Red Cell Morphology Comment (test code = 6742-1) NORMAL [facility]anoDifferential Total Cells Counted 2017-07-11 07:59:00* Test Item Value Reference Range Interpretation Comments Differential Total Cells Counted (test code = Differen tial Total Cells Counted) 100 [facility]anoNeutrophils % (Manual)2017-07-11 07:59:00 * Test Item Value Reference Range Interpretation Comments Neutrophils % (Manual) (test code = 14199-0) 80 40-74 H [facility]anoLymphocytes % (Manual)2017-07-11 07:59:00 * Test Item Value Reference Range Interpretation Comments Lymphocytes % (Manual) (test code = 737-7) 10 19-48 L [facility]anoMonocytes % (Manual)2017-07-11 07:59:00* Test Item Value Reference Range Interpretation Comments Monocytes % (Manual) (test code = 744-3) 9 3.4-9.0 [facility]anoReactive Ivdgdringke0381-60-98 07:59:00* Test Item Value Reference Range Interpretation Comments Reactive Lymphocytes (test code = 91894-9) 1 [facility]anoPlatelet Nqklmcrm1774-82-00 07:59:00* Test Item Value Reference Range Interpretation Comments Platelet Estimate (test code = 20353-5) ADEQUATE [facility]anoPlatelet Morphology Ynbczoe4382-49-84 07:59:00* Test Item Value Reference Range Interpretation Comments Platelet Morphology Comment (test code = 90852-6) FEW LARGE [facility]anoHypochromasia2018-05-25 07:59:00* Test Item Value Reference Range Interpretation Comments Hypochromasia (test code = 728-6) SLIGHT [facility]anoAnisocytosis2018-05-25 07:59:00* Test Item Value Reference Range Interpretation Comments Anisocytosis (test code = 702-1) SLIGHT [facility]anoRed Cell Morphology Zcjknmq5798-43-32 07:59:00* Test Item Value Reference Range Interpretation Comments Red Cell Morphology Comment (test code = 6742-1) NORMAL [facility]anoDifferential Total Cells Counted 2017-07-11 07:59:00* Test Item Value Reference Range Interpretation Comments Differential Total Cells Counted (test code = Differen tial Total Cells Counted) 100 [facility]anoNeutrophils % (Manual)2017-07-11 07:59:00 * Test Item Value Reference Range Interpretation Comments Neutrophils % (Manual) (test code = 27552-3) 80 40-74 H [facility]anoLymphocytes % (Manual)2017-07-11 07:59:00 * Test Item Value Reference Range Interpretation Comments Lymphocytes % (Manual) (test code = 737-7) 10 19-48 L [facility]anoMonocytes % (Manual)2017-07-11 07:59:00* Test Item Value Reference Range Interpretation Comments Monocytes % (Manual) (test code = 744-3) 9 3.4-9.0 [facility]anoReactive Lpcrmfqwgym3509-79-54 07:59:00* Test Item Value Reference Range Interpretation Comments Reactive Lymphocytes (test code = 22648-7) 1 [facility]anoPlatelet Voajekry5451-54-52 07:59:00* Test Item Value Reference Range Interpretation Comments Platelet Estimate (test code = 30408-2) ADEQUATE [facility]anoPlatelet Morphology Ymojxnx0284-95-63 07:59:00* Test Item Value Reference Range Interpretation Comments Platelet Morphology Comment (test code = 19151-5) FEW LARGE [facility]anoHypochromasia2018-05-25 07:59:00* Test Item Value Reference Range Interpretation Comments Hypochromasia (test code = 728-6) SLIGHT [facility]anoAnisocytosis2018-05-25 07:59:00* Test Item Value Reference Range Interpretation Comments Anisocytosis (test code = 702-1) SLIGHT [facility]anoRed Cell Morphology Apterjg1291-60-59 07:59:00* Test Item Value Reference Range Interpretation Comments Red Cell Morphology Comment (test code = 6742-1) NORMAL [facility]anoDifferential Total Cells Counted 2017-07-11 07:59:00* Test Item Value Reference Range Interpretation Comments Differential Total Cells Counted (test code = Differen tial Total Cells Counted) 100 [facility]anoNeutrophils % (Manual)2017-07-11 07:59:00 * Test Item Value Reference Range Interpretation Comments Neutrophils % (Manual) (test code = 24259-3) 80 40-74 H [facility]anoLymphocytes % (Manual)2017-07-11 07:59:00 * Test Item Value Reference Range Interpretation Comments Lymphocytes % (Manual) (test code = 737-7) 10 19-48 L [facility]anoMonocytes % (Manual)2017-07-11 07:59:00* Test Item Value Reference Range Interpretation Comments Monocytes % (Manual) (test code = 744-3) 9 3.4-9.0 [facility]anoReactive Ukgfnsfegpg7588-14-39 07:59:00* Test Item Value Reference Range Interpretation Comments Reactive Lymphocytes (test code = 49966-2) 1 [facility] PlanoPlatelet Ifjqhduk9099-31-08 07:59:00* Test Item Value Reference Range Interpretation Comments Platelet Estimate (test code = 78795-4) ADEQUATE [facility]anoPlatelet Morphology Iuxivht5321-10-92 07:59:00* Test Item Value Reference Range Interpretation Comments Platelet Morphology Comment (test code = 75517-1) FEW LARGE [facility]anoHypochromasia2018-05-25 07:59:00* Test Item Value Reference Range Interpretation Comments Hypochromasia (test code = 728-6) SLIGHT [facility]anoAnisocytosis2018-05-25 07:59:00* Test Item Value Reference Range Interpretation Comments Anisocytosis (test code = 702-1) SLIGHT [facility]anoRed Cell Morphology Vfeeydp9639-08-92 07:59:00* Test Item Value Reference Range Interpretation Comments Red Cell Morphology Comment (test code = 6742-1) NORMAL [facility]anoDifferential Total Cells Counted 2017-07-11 07:59:00* Test Item Value Reference Range Interpretation Comments Differential Total Cells Counted (test code = Differen tial Total Cells Counted) 100 [facility]anoNeutrophils % (Manual)2017-07-11 07:59:00 * Test Item Value Reference Range Interpretation Comments Neutrophils % (Manual) (test code = 60997-1) 80 40-74 H [facility]anoLymphocytes % (Manual)2017-07-11 07:59:00 * Test Item Value Reference Range Interpretation Comments Lymphocytes % (Manual) (test code = 737-7) 10 19-48 L [facility]anoMonocytes % (Manual)2017-07-11 07:59:00* Test Item Value Reference Range Interpretation Comments Monocytes % (Manual) (test code = 744-3) 9 3.4-9.0 [facility]anoReactive Ftwvcodqspc9792-14-33 07:59:00* Test Item Value Reference Range Interpretation Comments Reactive Lymphocytes (test code = 24844-9) 1 [facility]anoPlatelet Fxssdtdk5008-78-74 07:59:00* Test Item Value Reference Range Interpretation Comments Platelet Estimate (test code = 31815-0) ADEQUATE [facility]anoPlatelet Morphology Ecbtkdw3156-29-35 07:59:00* Test Item Value Reference Range Interpretation Comments Platelet Morphology Comment (test code = 95145-3) FEW LARGE [facility]anoHypochromasia2018-05-25 07:59:00* Test Item Value Reference Range Interpretation Comments Hypochromasia (test code = 728-6) SLIGHT [facility]anoAnisocytosis2018-05-25 07:59:00* Test Item Value Reference Range Interpretation Comments Anisocytosis (test code = 702-1) SLIGHT [facility]anoRed Cell Morphology Ifpsmld5360-04-71 07:59:00* Test Item Value Reference Range Interpretation Comments Red Cell Morphology Comment (test code = 6742-1) NORMAL [facility]anoThyroid Stimulating Hormone (TSH) 2017-07-11 07:13:00* Test Item Value Reference Range Interpretation Comments Thyroid Stimulating Hormone (TSH) (test code = 47376-4) 3.370 0.350-4.940 [facility]anoThyroid Stimulating Hormone (TSH) 2017-07-11 07:13:00* Test Item Value Reference Range Interpretation Comments Thyroid Stimulating Hormone (TSH) (test code = 56664-5) 3.370 0.350-4.940 [facility]anoThyroid Stimulating Hormone (TSH) 2017-07-11 07:13:00* Test Item Value Reference Range Interpretation Comments Thyroid Stimulating Hormone (TSH) (test code = 46136-9) 3.370 0.350-4.940 [facility]anoThyroid Stimulating Hormone (TSH) 2017-07-11 07:13:00* Test Item Value Reference Range Interpretation Comments Thyroid Stimulating Hormone (TSH) (test code = 75786-4) 3.370 0.350-4.940 [facility]anoThyroid Stimulating Hormone (TSH) 2017-07-11 07:13:00* Test Item Value Reference Range Interpretation Comments Thyroid Stimulating Hormone (TSH) (test code = 41118-3) 3.370 0.350-4.940 [facility] 2017-07-11 07:13:00* Test Item Value Reference Range Interpretation Comments Thyroid Stimulating Hormone (TSH) (test code = 66247-5) 3.370 0.350-4.940 [facility]Hem[facility] A1c Osgmxam6107-72-65 06:39:00 * Test Item Value Reference Range Interpretation Comments Hemoglobin A1c Percent (test code = Hemoglobin A1c Percent) 5.2 4.0-7.0 [facility] A[facility] Idkzsfc0424-26-05 06:39:00 * Test Item Value Reference Range Interpretation Comments Hemoglobin A1c Percent (test code = Hemoglobin A1c Percent) 5.2 4.0-7.0 [facility] Jvxbnpk3735-02-81 06:39:00 * Test Item Value Reference Range Interpretation Comments Hemoglobin A1c Percent (test code = Hemoglobin A1c Percent) 5.2 4.0-7.0 [facility] A[facility] Vuxjcpe0822-23-79 06:39:00 * Test Item Value Reference Range Interpretation Comments Hemoglobin A1c Percent (test code = Hemoglobin A1c Percent) 5.2 4.0-7.0 [facility] A[facility]c Kuiuixn4133-84-98 06:39:00 * Test Item Value Reference Range Interpretation Comments Hemoglobin A1c Percent (test code = Hemoglobin A1c Percent) 5.2 4.0-7.0 [facility] A[facility]c Fnzoeso2575-62-07 06:39:00 * Test Item Value Reference Range Interpretation Comments Hemoglobin A1c Percent (test code = Hemoglobin A1c Percent) 5.2 4.0-7.0 [facility]White Blood Hnlim7826-83-30 06:28:00* Test Item Value Reference Range Interpretation Comments White Blood Count (test code = 6690-2) 6.56 4.8-10.8 [facility]Red Blood Gxida3463-88-55 06:28:00* Test Item Value Reference Range Interpretation Comments Red Blood Count (test code = 789-8) 3.10 3.6-5.1 L [facility]emoglobin2018-05-25 06:28:00* Test Item Value Reference Range Interpretation Comments Hemoglobin (test code = 78274-2) 9.2 12.0-16.0 L [facility]ematocrit2018-05-25 06:28:00* Test Item Value Reference Range Interpretation Comments Hematocrit (test code = 4544-3) 26.9 34.2-44.1 L [facility]Mean Corpuscular Dirjjm6845-36-70 06:28:00* Test Item Value Reference Range Interpretation Comments Mean Corpuscular Volume (test code = 787-2) 86.8 81-99 [facility]Mean Corpuscular Gobxnqvypk3705-77-08 06:28:00* Test Item Value Reference Range Interpretation Comments Mean Corpuscular Hemoglobin (test code = 785-6) 29.7 28-32 [facility]Mean Corpuscular Hemoglobin Concent 2017-07-11 06:28:00* Test Item Value Reference Range Interpretation Comments Mean Corpuscular Hemoglobin Concent (test code = 786-4) 34.2 31-35 [facility]anoRed Cell Distribution Wzkch0432-08-98 06:28:00* Test Item Value Reference Range Interpretation Comments Red Cell Distribution Width (test code = 53470-0) 14.5 11.7 -14.4 H [facility]anoPlatelet Icxmu8921-93-62 06:28:00* Test Item Value Reference Range Interpretation Comments Platelet Count (test code = 777-3) 165 140-360 [facility]anoNeutrophils (%) (Auto)2017-07-11 06:28:00 * Test Item Value Reference Range Interpretation Comments Neutrophils (%) (Auto) (test code = 02058-7) 80.2 38.7-80.0 H [facility]anoLymphocytes (%) (Auto)2017-07-11 06:28:00 * Test Item Value Reference Range Interpretation Comments Lymphocytes (%) (Auto) (test code = 736-9) 14.0 18.0-39.1 L [facility]Mon[facility] (%) (Auto)2017-07-11 06:28:00* Test Item Value Reference Range Interpretation Comments Monocytes (%) (Auto) (test code = 5905-5) 5.2 4.4-11.3 [facility] (%) (Auto)2017-07-11 06:28:00 * Test Item Value Reference Range Interpretation Comments Eosinophils (%) (Auto) (test code = 713-8) 0.0 0.0-6.0 [facility]Bas[facility] (%) (Auto)2017-07-11 06:28:00* Test Item Value Reference Range Interpretation Comments Basophils (%) (Auto) (test code = 706-2) 0.3 0.0-1.0 [facility]anoIM GRANULOCYTES %2017-07-11 06:28:00* Test Item Value Reference Range Interpretation Comments IM GRANULOCYTES % (test code = IM GRANULOCYTES %) 0.3 0.0- 1.0 [facility]Neutrophils # (Auto)2017-07-11 06:28:00* Test Item Value Reference Range Interpretation Comments Neutrophils # (Auto) (test code = 751-8) 5.3 2.1-6.9 [facility]anoLymphocytes # (Auto)2017-07-11 06:28:00* Test Item Value Reference Range Interpretation Comments Lymphocytes # (Auto) (test code = 39420-1) 0.9 1.0-3.2 L [facility]Monocytes # (Auto)2017-07-11 06:28:00* Test Item Value Reference Range Interpretation Comments Monocytes # (Auto) (test code = 742-7) 0.3 0.2-0.8 [facility]Eosinophils # (Auto)2017-07-11 06:28:00* Test Item Value Reference Range Interpretation Comments Eosinophils # (Auto) (test code = 711-2) 0.0 0.0-0.4 [facility]Basophils # (Auto)2017-07-11 06:28:00* Test Item Value Reference Range Interpretation Comments Basophils # (Auto) (test code = 704-7) 0.0 0.0-0.1 [facility]anoAbsolute Immature Granulocyte (auto 2017-07-11 06:28:00* Test Item Value Reference Range Interpretation Comments Absolute Immature Granulocyte (auto (bam t code = Absolute Immature Granulocyte (auto) 0.02 0-0.1 [facility]anoCreatine Kinase SR6670-58-02 15:14:00* Test Item Value Reference Range Interpretation Comments Creatine Kinase MB (test code = 44137-3) 1.20 0-5.0 [facility]anoTroponin X2924-88-07 15:14:00* Test Item Value Reference Range Interpretation Comments Troponin I (test code = WCZ6463) 0.265 0-0.300 [facility]anoCreatine Ehchdy9995-59-99 15:07:00* Test Item Value Reference Range Interpretation Comments Creatine Kinase (test code = 2157-6) 45 29-168 [facility]anoUrine MCB9249-67-91 07:02:00* Test Item Value Reference Range Interpretation Comments Urine WBC (test code = 5821-4) 6-10 0-5 H [facility]anoUrine SWZ3353-16-55 07:02:00* Test Item Value Reference Range Interpretation Comments Urine RBC (test code = 80223-0) 0-5 0-5 [facility]anoUrine Brxtwdjm1526-90-34 07:02:00* Test Item Value Reference Range Interpretation Comments Urine Bacteria (test code = 34697-5) RARE NONE [facility]anoUrine Epithelial Rxpsw0069-78-62 07:02:00 * Test Item Value Reference Range Interpretation Comments Urine Epithelial Cells (test code = 03745-8) MODERATE NONE [facility]anoUrine Hyaline Capmk8931-13-91 07:02:00* Test Item Value Reference Range Interpretation Comments Urine Hyaline Casts (test code = 73369-2) 2-5 0-1 H [facility] Vpzel7375-99-49 07:02:00* Test Item Value Reference Range Interpretation Comments Urine Mucus (test code = 8247-9) RARE RARE [facility] Tuysz4805-79-49 07:02:00* Test Item Value Reference Range Interpretation Comments Urine Yeast (test code = 05845-7) FEW NONE H [facility]anoUrine VIS7921-43-16 07:02:00* Test Item Value Reference Range Interpretation Comments Urine WBC (test code = 5821-4) 6-10 0-5 H [facility]anoUrine VMO0744-21-13 07:02:00* Test Item Value Reference Range Interpretation Comments Urine RBC (test code = 27142-6) 0-5 0-5 [facility]anoU[facility] Urnmnntm4747-11-79 07:02:00* Test Item Value Reference Range Interpretation Comments Urine Bacteria (test code = 29393-9) RARE NONE [facility]anoUrine Epithelial Icklh1717-57-16 07:02:00 * Test Item Value Reference Range Interpretation Comments Urine Epithelial Cells (test code = 81502-0) MODERATE NONE [facility]anoUrine Hyaline Hzvuu3637-91-04 07:02:00* Test Item Value Reference Range Interpretation Comments Urine Hyaline Casts (test code = 29546-9) 2-5 0-1 H [facility] Kmjfi0244-83-51 07:02:00* Test Item Value Reference Range Interpretation Comments Urine Mucus (test code = 8247-9) RARE RARE [facility] Hywap8138-01-69 07:02:00* Test Item Value Reference Range Interpretation Comments Urine Yeast (test code = 99885-6) FEW NONE H [facility] KDP0602-98-16 07:02:00* Test Item Value Reference Range Interpretation Comments Urine WBC (test code = 5821-4) 6-10 0-5 H [facility] HKC6429-75-09 07:02:00* Test Item Value Reference Range Interpretation Comments Urine RBC (test code = 58036-2) 0-5 0-5 [facility] Obwlnjes8018-04-64 07:02:00* Test Item Value Reference Range Interpretation Comments Urine Bacteria (test code = 46471-1) RARE NONE [facility] Epithelial Ornvn0076-59-71 07:02:00 * Test Item Value Reference Range Interpretation Comments Urine Epithelial Cells (test code = 53024-8) MODERATE NONE [facility] Hyaline Wequr0963-35-67 07:02:00* Test Item Value Reference Range Interpretation Comments Urine Hyaline Casts (test code = 88425-3) 2-5 0-1 H [facility] Kagrx4194-67-27 07:02:00* Test Item Value Reference Range Interpretation Comments Urine Mucus (test code = 8247-9) RARE RARE [facility] Oqzal3728-87-95 07:02:00* Test Item Value Reference Range Interpretation Comments Urine Yeast (test code = 59762-5) FEW NONE H [facility] Alkrl2215-71-47 07:02:00* Test Item Value Reference Range Interpretation Comments Urine Mucus (test code = 8247-9) RARE RARE [facility] Osivs5068-10-86 07:02:00* Test Item Value Reference Range Interpretation Comments Urine Yeast (test code = 93589-6) FEW NONE H [facility] Xckdk5243-66-14 07:02:00* Test Item Value Reference Range Interpretation Comments Urine Mucus (test code = 8247-9) RARE RARE [facility] Gweuf0001-47-27 07:02:00* Test Item Value Reference Range Interpretation Comments Urine Yeast (test code = 46955-9) FEW NONE H [facility] Jrxxu7008-70-88 07:02:00* Test Item Value Reference Range Interpretation Comments Urine Mucus (test code = 8247-9) RARE RARE [facility] Ubihs8833-38-65 07:02:00* Test Item Value Reference Range Interpretation Comments Urine Yeast (test code = 66794-1) FEW NONE H [facility] Ypswm0645-44-26 06:52:00* Test Item Value Reference Range Interpretation Comments Urine Color (test code = 5778-6) YELLOW YELLOW [facility] Vckuxcu5157-06-76 06:52:00* Test Item Value Reference Range Interpretation Comments Urine Clarity (test code = 28993-2) SL CLOUDY CLEAR [facility] Specific Hztkknx5755-36-44 06:52:00 * Test Item Value Reference Range Interpretation Comments Urine Specific Lenore (test code = 5811-5) 1.020 1.010-1.02 5 [facility] wS9626-45-32 06:52:00* Test Item Value Reference Range Interpretation Comments Urine pH (test code = 63443-8) 8 5-7 H [facility] Leukocyte Liylxcrb7920-62-29 06:52:00* Test Item Value Reference Range Interpretation Comments Urine Leukocyte Esterase (test code = 5799-2) NEGATIVE NEGATIVE [facility] Hiafpaj2414-35-23 06:52:00* Test Item Value Reference Range Interpretation Comments Urine Nitrite (test code = 99656-1) NEGATIVE NEGATIVE [facility] Wexqele1453-53-10 06:52:00* Test Item Value Reference Range Interpretation Comments Urine Protein (test code = 5804-0) 3+ NEGATIVE H [facility] Glucose (UA)2017-07-10 06:52:00* Test Item Value Reference Range Interpretation Comments Urine Glucose (UA) (test code = 2349-9) 3+ NEGATIVE H [facility] Kkbcfuw0496-34-16 06:52:00* Test Item Value Reference Range Interpretation Comments Urine Ketones (test code = 20284-0) NEGATIVE NEGATIVE [facility] Wdkkxlhlzied4117-54-87 06:52:00* Test Item Value Reference Range Interpretation Comments Urine Urobilinogen (test code = 01455-6) 0.2 0.2-1 [facility] Ptfudgpud7859-51-52 06:52:00* Test Item Value Reference Range Interpretation Comments Urine Bilirubin (test code = 1978-6) NEGATIVE NEGATIVE [facility] Qwixk0369-98-64 06:52:00* Test Item Value Reference Range Interpretation Comments Urine Blood (test code = 35579-4) TRACE NEGATIVE H [facility]anoU[facility] Whpyv8772-87-59 06:52:00* Test Item Value Reference Range Interpretation Comments Urine Color (test code = 5778-6) YELLOW YELLOW [facility] Zlthjfj6419-12-75 06:52:00* Test Item Value Reference Range Interpretation Comments Urine Clarity (test code = 11679-2) SL CLOUDY CLEAR [facility]anoU[facility] Specific Wxgorqs4357-65-06 06:52:00 * Test Item Value Reference Range Interpretation Comments Urine Specific Lenore (test code = 5811-5) 1.020 1.010-1.02 5 [facility] vE7383-63-73 06:52:00* Test Item Value Reference Range Interpretation Comments Urine pH (test code = 92800-0) 8 5-7 H [facility] Leukocyte Uvrhfuwl3320-01-42 06:52:00* Test Item Value Reference Range Interpretation Comments Urine Leukocyte Esterase (test code = 5799-2) NEGATIVE NEGATIVE [facility] Dzortba1814-67-44 06:52:00* Test Item Value Reference Range Interpretation Comments Urine Nitrite (test code = 67467-8) NEGATIVE NEGATIVE [facility] Nwngycj3371-65-60 06:52:00* Test Item Value Reference Range Interpretation Comments Urine Protein (test code = 5804-0) 3+ NEGATIVE H [facility] Glucose (UA)2017-07-10 06:52:00* Test Item Value Reference Range Interpretation Comments Urine Glucose (UA) (test code = 2349-9) 3+ NEGATIVE H [facility] Lvhtouw8477-98-63 06:52:00* Test Item Value Reference Range Interpretation Comments Urine Ketones (test code = 78929-7) NEGATIVE NEGATIVE [facility] Qrkuxtdbxpau5802-59-04 06:52:00* Test Item Value Reference Range Interpretation Comments Urine Urobilinogen (test code = 21727-7) 0.2 0.2-1 [facility] Aigyqwlwu2655-36-54 06:52:00* Test Item Value Reference Range Interpretation Comments Urine Bilirubin (test code = 1978-6) NEGATIVE NEGATIVE [facility] Tkqce3676-20-74 06:52:00* Test Item Value Reference Range Interpretation Comments Urine Blood (test code = 51243-0) TRACE NEGATIVE H [facility] Cnjqk9910-37-27 06:52:00* Test Item Value Reference Range Interpretation Comments Urine Color (test code = 5778-6) YELLOW YELLOW [facility] Rjsyjgv5291-40-49 06:52:00* Test Item Value Reference Range Interpretation Comments Urine Clarity (test code = 56381-9) SL CLOUDY CLEAR [facility] Specific Kqloxll1956-12-50 06:52:00 * Test Item Value Reference Range Interpretation Comments Urine Specific Lenore (test code = 5811-5) 1.020 1.010-1.02 5 [facility] sP6778-99-24 06:52:00* Test Item Value Reference Range Interpretation Comments Urine pH (test code = 16339-6) 8 5-7 H [facility] Leukocyte Efowlpyv0210-54-31 06:52:00* Test Item Value Reference Range Interpretation Comments Urine Leukocyte Esterase (test code = 5799-2) NEGATIVE NEGATIVE [facility] Tsrexad9040-14-08 06:52:00* Test Item Value Reference Range Interpretation Comments Urine Nitrite (test code = 30376-4) NEGATIVE NEGATIVE [facility] Hlyvgso6450-08-24 06:52:00* Test Item Value Reference Range Interpretation Comments Urine Protein (test code = 5804-0) 3+ NEGATIVE H [facility] Glucose (UA)2017-07-10 06:52:00* Test Item Value Reference Range Interpretation Comments Urine Glucose (UA) (test code = 2349-9) 3+ NEGATIVE H [facility] Xyheeyl8529-64-22 06:52:00* Test Item Value Reference Range Interpretation Comments Urine Ketones (test code = 17695-4) NEGATIVE NEGATIVE [facility] Vfnatodafbzi2999-15-31 06:52:00* Test Item Value Reference Range Interpretation Comments Urine Urobilinogen (test code = 70326-6) 0.2 0.2-1 [facility] Wdcmyqele6702-12-05 06:52:00* Test Item Value Reference Range Interpretation Comments Urine Bilirubin (test code = 1978-6) NEGATIVE NEGATIVE [facility] Lgyza4110-75-40 06:52:00* Test Item Value Reference Range Interpretation Comments Urine Blood (test code = 74048-3) TRACE NEGATIVE H [facility] PlanoLactic Acid Athri8640-62-01 16:26:00* Test Item Value Reference Range Interpretation Comments Lactic Acid Level (test code = Lactic Acid Level) 11.5 4.5- 19.8 [facility]anoLactic Acid Xejzf9919-60-30 16:26:00* Test Item Value Reference Range Interpretation Comments Lactic Acid Level (test code = Lactic Acid Level) 11.5 4.5- 19.8 [facility]anoB-Type Natriuretic Lpgugww7671-27-21 14:59:00* Test Item Value Reference Range Interpretation Comments B-Type Natriuretic Peptide (test code = 88523-2) 2675.9 0-100 H [facility]anoB-Type Natriuretic Kuudrib0144-61-98 14:59:00* Test Item Value Reference Range Interpretation Comments B-Type Natriuretic Peptide (test code = 16523-5) 2675.9 0-100 H [facility]anoAmylase Svqcv4117-62-55 14:39:00* Test Item Value Reference Range Interpretation Comments Amylase Level (test code = 1798-8) 30 25-125 [facility]anoProthrombin Glfr0929-84-57 14:29:00* Test Item Value Reference Range Interpretation Comments Prothrombin Time (test code = 5902-2) 12.8 11.9-14.5 [facility]anoProthromb Time International Ratio 2017-07-09 14:29:00* Test Item Value Reference Range Interpretation Comments Prothromb Time International Ratio (test code = 6301-6) 1.04 Oral Anticoagulant Therapy INR Values:1. Low Intensity Therapy 1.5 - 2.02 . Moderate Intensity Therapy 2.0 - 3.03. High Intensity Therapy(1) 2.5 - 3. 54. High Intensity Therapy(2) 3.0 - 4.05. Panic Value INR > 5.0 [facility]anoActivated Partial Thromboplast Time 2017-07-09 14:29:00* Test Item Value Reference Range Interpretation Comments Activated Partial Thromboplast Time (test code = 78340-8) 34.9 23.8-35.5 [facility]anoBedside Pxbdanx2310-46-09 15:46:00* Test Item Value Reference Range Interpretation Comments Bedside Glucose (test code = 96171-7) 88 70-120 Meter ID: [id number] [facility] 2017-06-22 07:33:00* Test Item Value Reference Range Interpretation Comments White Blood Count (test code = 6690-2) 11.54 4.8-10.8 H [facility]anoRed Blood Imaao0109-44-37 07:33:00* Test Item Value Reference Range Interpretation Comments Red Blood Count (test code = 789-8) 2.69 3.6-5.1 L [facility]Hemoglobin2018-05-06 07:33:00* Test Item Value Reference Range Interpretation Comments Hemoglobin (test code = 01086-3) 8.0 12.0-16.0 L [facility]anoHematocrit2018-05-06 07:33:00* Test Item Value Reference Range Interpretation Comments Hematocrit (test code = 4544-3) 24.8 34.2-44.1 L [facility]anoMean Corpuscular Qtmgab2230-30-47 07:33:00* Test Item Value Reference Range Interpretation Comments Mean Corpuscular Volume (test code = 787-2) 92.2 81-99 [facility]anoMean Corpuscular Exorcagdni1357-43-15 07:33:00* Test Item Value Reference Range Interpretation Comments Mean Corpuscular Hemoglobin (test code = 785-6) 29.7 28-32 [facility]Mean Corpuscular Hemoglobin Concent 2017-06-22 07:33:00* Test Item Value Reference Range Interpretation Comments Mean Corpuscular Hemoglobin Concent (test code = 786-4) 32.3 31-35 [facility]anoRed Cell Distribution Vxqea6569-69-36 07:33:00* Test Item Value Reference Range Interpretation Comments Red Cell Distribution Width (test code = 11828-8) 13.8 11.7 -14.4 [facility]anoPlatelet Nilte5553-72-15 07:33:00* Test Item Value Reference Range Interpretation Comments Platelet Count (test code = 777-3) 227 140-360 [facility]anoNeutrophils (%) (Auto)2017-06-22 07:33:00 * Test Item Value Reference Range Interpretation Comments Neutrophils (%) (Auto) (test code = 08346-2) 72.8 38.7-80.0 [facility]anoLymphocytes (%) (Auto)2017-06-22 07:33:00 * Test Item Value Reference Range Interpretation Comments Lymphocytes (%) (Auto) (test code = 736-9) 15.0 18.0-39.1 L [facility]anoMonocytes (%) (Auto)2017-06-22 07:33:00* Test Item Value Reference Range Interpretation Comments Monocytes (%) (Auto) (test code = 5905-5) 9.5 4.4-11.3 [facility]Eosinophils (%) (Auto)2017-06-22 07:33:00 * Test Item Value Reference Range Interpretation Comments Eosinophils (%) (Auto) (test code = 713-8) 1.6 0.0-6.0 [facility]Basophils (%) (Auto)2017-06-22 07:33:00* Test Item Value Reference Range Interpretation Comments Basophils (%) (Auto) (test code = 706-2) 0.5 0.0-1.0 [facility]anoIM GRANULOCYTES %2017-06-22 07:33:00* Test Item Value Reference Range Interpretation Comments IM GRANULOCYTES % (test code = IM GRANULOCYTES %) 0.6 0.0- 1.0 [facility]anoNeutrophils # (Auto)2017-06-22 07:33:00* Test Item Value Reference Range Interpretation Comments Neutrophils # (Auto) (test code = 751-8) 8.4 2.1-6.9 H [facility]anoLymphocytes # (Auto)2017-06-22 07:33:00* Test Item Value Reference Range Interpretation Comments Lymphocytes # (Auto) (test code = 36872-9) 1.7 1.0-3.2 [facility]anoMonocytes # (Auto)2017-06-22 07:33:00* Test Item Value Reference Range Interpretation Comments Monocytes # (Auto) (test code = 742-7) 1.1 0.2-0.8 H [facility]anoEosinophils # (Auto)2017-06-22 07:33:00* Test Item Value Reference Range Interpretation Comments Eosinophils # (Auto) (test code = 711-2) 0.2 0.0-0.4 [facility]Basophils # (Auto)2017-06-22 07:33:00* Test Item Value Reference Range Interpretation Comments Basophils # (Auto) (test code = 704-7) 0.1 0.0-0.1 [facility]anoAbsolute Immature Granulocyte (auto 2017-06-22 07:33:00* Test Item Value Reference Range Interpretation Comments Absolute Immature Granulocyte (auto (bam t code = Absolute Immature Granulocyte (auto) 0.07 [facility]0.1 [facility] Xybvk0107-68-03 10:39:00* Test Item Value Reference Range Interpretation Comments Sodium Level (test code = 2951-2) 137 136-145 [facility] Oclah0041-82-86 10:39:00* Test Item Value Reference Range Interpretation Comments Potassium Level (test code = 2823-3) 4.5 3.5-5.1 [facility]anoChloride Chfhm5526-77-94 10:39:00* Test Item Value Reference Range Interpretation Comments Chloride Level (test code = 2075-0) 103 98-107 [facility]anoCarbon Dioxide Mvuom6143-00-45 10:39:00* Test Item Value Reference Range Interpretation Comments Carbon Dioxide Level (test code = 2028-9) 23 22-29 [facility]anoAnion Eci7749-25-24 10:39:00* Test Item Value Reference Range Interpretation Comments Anion Gap (test code = 73581-2) 15.5 8-16 [facility]anoBlood Urea Avuteruf1918-33-98 10:39:00* Test Item Value Reference Range Interpretation Comments Blood Urea Nitrogen (test code = 3094-0) 12 7-26 [facility]anoCreatinine2018-05-05 10:39:00* Test Item Value Reference Range Interpretation Comments Creatinine (test code = 2160-0) 2.63 0.57-1.11 H [facility]anoBUN/Creatinine Vpnht9272-71-64 10:39:00* Test Item Value Reference Range Interpretation Comments BUN/Creatinine Ratio (test code = 3097-3) 5 6-25 L [facility]anoEstimat Glomerular Filtration Rate 2017-06-21 10:39:00* Test Item Value Reference Range Interpretation Comments Estimat Glomerular Filtration Rate (test code = 55592-3) 19 >60 L Ranges were taken from the National Kidney Disease Education Program and the [facility] literature.Reference ranges:60 or greater: Esliio36-54 ( for 3 consecutive months): Chronic kidney disease 15 or less: Kidney failureTexas Health Presbyterian Hospital PlanoGlucose Edcny4175-82-70 10:39:00* Test Item Value Reference Range Interpretation Comments Glucose Level (test code = NDS1720) 129 74-118 H [facility]anoCalcium Klrnb7818-69-62 10:39:00* Test Item Value Reference Range Interpretation Comments Calcium Level (test code = 29817-7) 8.1 8.4-10.2 L [facility]Hep[facility] B Surface Antibody, Quant 2017-06-19 07:53:00* Test Item Value Reference Range Interpretation Comments Hepatitis B Surface Antibody, Quant (test code = 5194-6) -3.1 Immunity>9.9 L Status of Immunity Anti-HBs Level Inconsistent with Immunity 0.0 - 9.9Consistent with Immunity >9.9[facility] Core Total Zcgxzxbe3400-41-96 07:53:00* Test Item Value Reference Range Interpretation Comments Hepatitis B Core Total Antibody (test code = 45308-0) Negative Negative Performed at: [address] [id number] Director: Mani Stevens MD, Phone: [phone] Health Pres[facility]anoHepatisk[facility] B Surface Rwtipkx4607-88-42 07:53:00* Test Item Value Reference Range Interpretation Comments Hepatitis B Surface Antigen (test code = 5196-1) Negative Negat zak [facility]anoPhosphorus Klcyi7025-67-66 11:42:00* Test Item Value Reference Range Interpretation Comments Phosphorus Level (test code = NBZ7622) 2.4 2.3-4.7 [facility]anoPhosphorus Rfhke1734-95-57 11:42:00* Test Item Value Reference Range Interpretation Comments Phosphorus Level (test code = KCW2128) 2.4 2.3-4.7 [facility]2018-04-30 11:42:00* Test Item Value Reference Range Interpretation Comments Phosphorus Level (test code = TPP9103) 2.4 2.3-4.7 [facility]2018-04-30 11:42:00* Test Item Value Reference Range Interpretation Comments Phosphorus Level (test code = BGU7521) 2.4 2.3-4.7 [facility]2018-04-30 11:42:00* Test Item Value Reference Range Interpretation Comments Phosphorus Level (test code = EFQ1753) 2.4 2.3-4.7 [facility]2018-04-30 11:42:00* Test Item Value Reference Range Interpretation Comments Phosphorus Level (test code = BUV7566) 2.4 2.3-4.7 [facility]2018-04-30 11:42:00* Test Item Value Reference Range Interpretation Comments Phosphorus Level (test code = YHD8152) 2.4 2.3-4.7 [facility]2018-04-29 07:39:00* Test Item Value Reference Range Interpretation Comments Blood Culture (test code = 600-7) Organism: STAPHYLOCOCCUS SP COAG NEG [facility]2018-04-29 07:39:00* Test Item Value Reference Range Interpretation Comments Blood Culture (test code = 600-7) Organism: STAPHYLOCOCCUS SP COAG NEG [facility]2018-04-29 07:39:00* Test Item Value Reference Range Interpretation Comments Blood Culture (test code = 600-7) Organism: STAPHYLOCOCCUS SP COAG NEG [facility]2018-04-29 07:39:00* Test Item Value Reference Range Interpretation Comments Blood Culture (test code = 600-7) Organism: STAPHYLOCOCCUS SP COAG NEG [facility]2018-04-29 07:39:00* Test Item Value Reference Range Interpretation Comments Blood Culture (test code = 600-7) Organism: STAPHYLOCOCCUS SP COAG NEG [facility]2018-04-29 07:39:00* Test Item Value Reference Range Interpretation Comments Blood Culture (test code = 600-7) Organism: STAPHYLOCOCCUS SP COAG NEG [facility]2018-04-29 07:39:00* Test Item Value Reference Range Interpretation Comments Blood Culture (test code = 600-7) Organism: STAPHYLOCOCCUS SP COAG NEG [facility]2018-04-28 18:54:00* Test Item Value Reference Range Interpretation Comments Blood Culture (test code = 58330184) NO GROWTH AFTER 5 DAYS, FINAL REPORT [facility]2018-04-28 18:54:00* Test Item Value Reference Range Interpretation Comments Blood Culture (test code = 06819331) NO GROWTH AFTER 5 DAYS, FINAL REPORT [facility]2018-04-28 18:54:00* Test Item Value Reference Range Interpretation Comments Blood Culture (test code = 99872555) NO GROWTH AFTER 5 DAYS, FINAL REPORT [facility]2018-04-28 18:54:00* Test Item Value Reference Range Interpretation Comments Blood Culture (test code = 96646668) NO GROWTH AFTER 5 DAYS, FINAL REPORT [facility]2018-04-28 18:54:00* Test Item Value Reference Range Interpretation Comments Blood Culture (test code = 26821447) NO GROWTH AFTER 5 DAYS, FINAL REPORT [facility]2018-04-28 18:54:00* Test Item Value Reference Range Interpretation Comments Blood Culture (test code = 87539809) NO GROWTH AFTER 5 DAYS, FINAL REPORT [facility]2018-04-28 18:54:00* Test Item Value Reference Range Interpretation Comments Blood Culture (test code = 84896390) NO GROWTH AFTER 5 DAYS, FINAL REPORT [facility] Nmaiopfec6199-36-04 07:36:00* Test Item Value Reference Range Interpretation Comments Total Bilirubin (test code = 1975-2) 0.3 0.2-1.2 [facility]anoAspartate Amino Transf (AST/SGOT) 2017-06-12 07:36:00* Test Item Value Reference Range Interpretation Comments Aspartate Amino Transf (AST/SGOT) (test code = Aspartate Amino Transf (AST/SGOT)) 13 5-34 [facility]anoAlanine Aminotransferase (ALT/SGPT) 2017-06-12 07:36:00* Test Item Value Reference Range Interpretation Comments Alanine Aminotransferase (ALT/SGPT) (test code = 1742-6) 7 0-55 [facility]anoTotal Cqmzpdc3426-45-73 07:36:00* Test Item Value Reference Range Interpretation Comments Total Protein (test code = 2885-2) 5.2 6.5-8.1 L [facility]anoAlbumin2018-04-26 07:36:00* Test Item Value Reference Range Interpretation Comments Albumin (test code = 1751-7) 1.6 3.5-5.0 L [facility]anoGlobulin2018-04-26 07:36:00* Test Item Value Reference Range Interpretation Comments Globulin (test code = 73016-2) 3.6 2.3-3.5 H [facility]anoAlbumin/Globulin Spdck0617-38-85 07:36:00 * Test Item Value Reference Range Interpretation Comments Albumin/Globulin Ratio (test code = 1759-0) 0.4 0.8-2.0 L [facility]anoAlkaline Aesqvzdmhhs0633-30-22 07:36:00* Test Item Value Reference Range Interpretation Comments Alkaline Phosphatase (test code = 6768-6) 90 40-150 [facility] PlanoPrealbumin2018-04-25 13:17:00* Test Item Value Reference Range Interpretation Comments Prealbumin (test code = 05113-4) 14 10-36 Performed at: - [facility] [id number] Director: Mani Setvens MD, Phone: [phone] Health Presbyterian Hospital PlanoPrealbumin2018-04-25 13:17:00* Test Item Value Reference Range Interpretation Comments Prealbumin (test code = 12593-7) 14 - Performed at: [address] [id number] Director: Mani Stevens MD, Phone: [phone] Health Presbyterian Hospital PlanoPrealbumin2018-04-25 13:17:00* Test Item Value Reference Range Interpretation Comments Prealbumin (test code = 01675-0) 14 - Performed at: [address] [id number] Director: Mani Stevens MD, Phone: [phone] Health Presbyterian Hospital PlanoPrealbumin2018-04-25 13:17:00* Test Item Value Reference Range Interpretation Comments Prealbumin (test code = 39925-3) 14 - Performed at: [address] [id number] Director: Mani Stevens MD, Phone: [phone] Health Presbyterian Hospital PlanoPrealbumin2018-04-25 13:17:00* Test Item Value Reference Range Interpretation Comments Prealbumin (test code = 51341-7) 14 - Performed at: [address] [id number] Director: Mani Stevens MD, Phone: [phone] Health Presbyterian Hospital PlanoPrealbumin2018-04-25 13:17:00* Test Item Value Reference Range Interpretation Comments Prealbumin (test code = 10551-3) 14 -36 Performed at: [address] [id number] Director: Mani Stevens MD, Phone: [phone] Health Presbyterian Hospital PlanoPrealbumin2018-04-25 13:17:00* Test Item Value Reference Range Interpretation Comments Prealbumin (test code = 13739-2) 14 - Performed at: [address] [id number] Director: Mani Stevens MD, Phone: [phone] Health Presbyterian Hospital PlanoUrine Random Total Ivmimin0380-90-40 11:18:00* Test Item Value Reference Range Interpretation Comments Urine Random Total Protein (test code = 2888-6) 892.5 1-14 H [facility]anoUrine Total Protein 24 Llqe6223-33-74 11:18:00* Test Item Value Reference Range Interpretation Comments Urine Total Protein 24 Hour (test code = 2889-4) 8032.5 50-10 0 H [facility] PlanoUrine Random Total Ppmkguo0178-10-26 11:18:00* Test Item Value Reference Range Interpretation Comments Urine Random Total Protein (test code = 2888-6) 892.5 1-14 H [facility] PlanoUrine Total Protein Zibw6118-06-53 11:18:00* Test Item Value Reference Range Interpretation Comments Urine Total Protein 24 Hour (test code = 2889-4) 8032.5 50-10 0 H [facility] PlanoUrine Random Total Halssku7980-27-53 11:18:00* Test Item Value Reference Range Interpretation Comments Urine Random Total Protein (test code = 2888-6) 892.5 1-14 H [facility] PlanoUrine Total Protein 24 Bhat0636-89-19 11:18:00* Test Item Value Reference Range Interpretation Comments Urine Total Protein 24 Hour (test code = 2889-4) 8032.5 50-10 0 H [facility]anoUrine Random Total Cupgakt3916-24-86 11:18:00* Test Item Value Reference Range Interpretation Comments Urine Random Total Protein (test code = 2888-6) 892.5 1-14 H [facility] PlanoUrine Total Protein 24 Ddna5522-89-63 11:18:00* Test Item Value Reference Range Interpretation Comments Urine Total Protein 24 Hour (test code = 2889-4) 8032.5 50-10 0 H [facility]anoUrine Random Total Fgtrqph0228-57-07 11:18:00* Test Item Value Reference Range Interpretation Comments Urine Random Total Protein (test code = 2888-6) 892.5 1-14 H [facility]anoUrine Total Protein 24 Faxp2728-39-57 11:18:00* Test Item Value Reference Range Interpretation Comments Urine Total Protein 24 Hour (test code = 2889-4) 8032.5 50-10 0 H [facility]anoUrine Random Total Qlblxxv2071-10-65 11:18:00* Test Item Value Reference Range Interpretation Comments Urine Random Total Protein (test code = 2888-6) 892.5 1-14 H [facility]anoUrine Total Protein 24 Yriu5830-07-51 11:18:00* Test Item Value Reference Range Interpretation Comments Urine Total Protein 24 Hour (test code = 2889-4) 8032.5 50-10 0 H [facility]anoUrine Random Total Ronnrhs2893-65-97 11:18:00* Test Item Value Reference Range Interpretation Comments Urine Random Total Protein (test code = 2888-6) 892.5 1-14 H [facility]anoUrine Total Protein 24 Rzxb3702-66-55 11:18:00* Test Item Value Reference Range Interpretation Comments Urine Total Protein 24 Hour (test code = 2889-4) 8032.5 50-10 0 H [facility]anoUrine Wocfibpgcu9550-39-62 11:04:00* Test Item Value Reference Range Interpretation Comments Urine Creatinine (test code = 2161-8) 50.57 47-110 [facility]anoUrine Creatinine 24 Oqhy7909-30-58 11:04:00* Test Item Value Reference Range Interpretation Comments Urine Creatinine 24 Hour (test code = 2162-6) 303 224-2220 L [facility]anoCreatinine Mkcmneutl1874-16-97 11:04:00* Test Item Value Reference Range Interpretation Comments Creatinine Clearance (test code = 86211-0) 6 88-128 L [facility]anoUrine Magtxdkzol2362-55-74 11:04:00* Test Item Value Reference Range Interpretation Comments Urine Creatinine (test code = 2161-8) 50.57 47-110 [facility]anoUrine Creatinine 24 Slkt8835-08-64 11:04:00* Test Item Value Reference Range Interpretation Comments Urine Creatinine 24 Hour (test code = 2162-6) 298 103-8377 L [facility]anoCreatinine Orukwbbsg1981-83-65 11:04:00* Test Item Value Reference Range Interpretation Comments Creatinine Clearance (test code = 26945-7) 6 88-128 L [facility]anoUrine Ownxfhjyad5290-64-32 11:04:00* Test Item Value Reference Range Interpretation Comments Urine Creatinine (test code = 2161-8) 50.57 47-110 [facility]anoUrine Creatinine 24 Uyps7265-92-04 11:04:00* Test Item Value Reference Range Interpretation Comments Urine Creatinine 24 Hour (test code = 2162-6) 005 953-4150 L [facility]anoCreatinine Chdbvdxgb1505-49-25 11:04:00* Test Item Value Reference Range Interpretation Comments Creatinine Clearance (test code = 14102-1) 6 88-128 L [facility]anoUrine Zfxteydhof3087-55-78 11:04:00* Test Item Value Reference Range Interpretation Comments Urine Creatinine (test code = 2161-8) 50.57 47-110 [facility]anoUrine Creatinine 24 Ppfv0562-32-35 11:04:00* Test Item Value Reference Range Interpretation Comments Urine Creatinine 24 Hour (test code = 2162-6) 717 610-3210 L [facility]anoCreatinine Fqqjnhhdy3415-71-25 11:04:00* Test Item Value Reference Range Interpretation Comments Creatinine Clearance (test code = 26813-7) 6 88-128 L [facility]anoUrine Rlhtsvlhgg4493-64-43 11:04:00* Test Item Value Reference Range Interpretation Comments Urine Creatinine (test code = 2161-8) 50.57 47-110 [facility]anoUrine Creatinine 24 Ihnn2715-99-17 11:04:00* Test Item Value Reference Range Interpretation Comments Urine Creatinine 24 Hour (test code = 2162-6) 479 048-7160 L [facility]anoCreatinine Grkilyjsq9382-95-25 11:04:00* Test Item Value Reference Range Interpretation Comments Creatinine Clearance (test code = 73555-7) 6 88-128 L [facility]anoUrine Xazjqpiyij4878-84-73 11:04:00* Test Item Value Reference Range Interpretation Comments Urine Creatinine (test code = 2161-8) 50.57 47-110 [facility]anoU[facility] Creatinine Qpqj7147-05-63 11:04:00* Test Item Value Reference Range Interpretation Comments Urine Creatinine 24 Hour (test code = 2162-6) 771 641-5914 L [facility]anoCreatinine Zoacneuwy1706-85-88 11:04:00* Test Item Value Reference Range Interpretation Comments Creatinine Clearance (test code = 83567-4) 6 88-128 L [facility]anoUrine Vtqaexcvii3546-28-98 11:04:00* Test Item Value Reference Range Interpretation Comments Urine Creatinine (test code = 2161-8) 50.57 47-110 [facility]anoU[facility] Creatinine Hjrl3399-68-51 11:04:00* Test Item Value Reference Range Interpretation Comments Urine Creatinine 24 Hour (test code = 2162-6) 912 805-1657 L [facility]anoCreatinine Fsxxqweol5103-43-43 11:04:00* Test Item Value Reference Range Interpretation Comments Creatinine Clearance (test code = 91881-5) 6 88-128 L [facility]anoUrine Collection Khtn1872-16-14 10:50:00 * Test Item Value Reference Range Interpretation Comments Urine Collection Time (test code = 12780-4) 24 [facility]anoUrine Total Hlxqhn7734-76-63 10:50:00* Test Item Value Reference Range Interpretation Comments Urine Total Volume (test code = 39363-0) 386 444-7835 [facility]anoUrine Collection Hwmv5976-29-49 10:50:00 * Test Item Value Reference Range Interpretation Comments Urine Collection Time (test code = 36103-1) 24 [facility]anoUrine Total Grdrky4174-76-13 10:50:00* Test Item Value Reference Range Interpretation Comments Urine Total Volume (test code = 53114-8) 835 157-7099 [facility]anoUrine Collection Duqg5165-35-36 10:50:00 * Test Item Value Reference Range Interpretation Comments Urine Collection Time (test code = 60738-2) 24 [facility]anoUrine Total Mtkiwv7294-49-19 10:50:00* Test Item Value Reference Range Interpretation Comments Urine Total Volume (test code = 00203-2) 433 756-2669 [facility]anoUrine Collection Nhdw0099-56-78 10:50:00 * Test Item Value Reference Range Interpretation Comments Urine Collection Time (test code = 25573-8) 24 [facility]anoUrine Total Lomdpp7918-42-25 10:50:00* Test Item Value Reference Range Interpretation Comments Urine Total Volume (test code = 89258-9) 071 031-8010 [facility]anoUrine Collection Uuqi9350-35-34 10:50:00 * Test Item Value Reference Range Interpretation Comments Urine Collection Time (test code = 28244-6) 24 [facility]anoUrine Total Ilsjio8809-86-56 10:50:00* Test Item Value Reference Range Interpretation Comments Urine Total Volume (test code = 91019-9) 095 137-2996 [facility]anoUrine Collection Obhf5236-93-13 10:50:00 * Test Item Value Reference Range Interpretation Comments Urine Collection Time (test code = 68823-2) 24 [facility]anoUrine Total Chjwzq6177-50-85 10:50:00* Test Item Value Reference Range Interpretation Comments Urine Total Volume (test code = 22292-6) 516 265-6399 [facility]anoUrine Collection Ywoj2270-73-44 10:50:00 * Test Item Value Reference Range Interpretation Comments Urine Collection Time (test code = 16999-6) 24 [facility]anoUrine Total Cgmgqr9851-12-47 10:50:00* Test Item Value Reference Range Interpretation Comments Urine Total Volume (test code = 71371-3) 475 889-6159 [facility]anoThyroid Stimulating Hormone (TSH) 2017-06-10 08:56:00* Test Item Value Reference Range Interpretation Comments Thyroid Stimulating Hormone (TSH) (test code = 18439-1) 6.568 0.350-4.940 H [facility]anoHemoglobin A1c Pvrhdpv9036-91-50 08:47:00 * Test Item Value Reference Range Interpretation Comments Hemoglobin A1c Percent (test code = Hemoglobin A1c Percent) 5.0 4.0-7.0 [facility]anoMagnesium Qowvy3986-58-19 06:06:00* Test Item Value Reference Range Interpretation Comments Magnesium Level (test code = 28446-1) 1.6 1.3-2.1 [facility]anoMagnesium Ruhzw0528-88-97 06:06:00* Test Item Value Reference Range Interpretation Comments Magnesium Level (test code = 14334-1) 1.6 1.3-2.1 [facility]anoMaesium Lzcua4510-18-31 06:06:00* Test Item Value Reference Range Interpretation Comments Magnesium Level (test code = 46861-3) 1.6 1.3-2.1 [facility]anoProthrombin Jtis4721-95-71 05:22:00* Test Item Value Reference Range Interpretation Comments Prothrombin Time (test code = 5902-2) 13.5 11.9-14.5 [facility]anoProthromb Time International Ratio 2017-06-10 05:22:00* Test Item Value Reference Range Interpretation Comments Prothromb Time International Ratio (test code = 6301-6) 1.11 Oral Anticoagulant Therapy INR Values:1. Low Intensity Therapy 1.5 - 2.02 . Moderate Intensity Therapy 2.0 - 3.03. High Intensity Therapy(1) 2.5 - 3. 54. High Intensity Therapy(2) 3.0 - 4.05. Panic Value INR > 5.0 [facility] PlanoActivated Partial Thromboplast Time 2017-06-10 05:22:00* Test Item Value Reference Range Interpretation Comments Activated Partial Thromboplast Time (test code = 59873-7) 35.4 23.8-35.5 [facility]anoCreatine Kinase RM0883-07-49 15:10:00* Test Item Value Reference Range Interpretation Comments Creatine Kinase MB (test code = 76268-4) 5.30 0-5.0 H [facility]anoTroponin S8719-28-92 15:10:00* Test Item Value Reference Range Interpretation Comments Troponin I (test code = PQX0303) 0.016 0-0.300 [facility] PlanoB-Type Natriuretic Fwlathj4968-84-20 15:05:00* Test Item Value Reference Range Interpretation Comments B-Type Natriuretic Peptide (test code = 94369-4) 2158.5 0-100 H [facility]anoUrine VJU3403-99-66 15:02:00* Test Item Value Reference Range Interpretation Comments Urine WBC (test code = 5821-4) 0-5 0-5 [facility]anoUrine DLS4258-50-97 15:02:00* Test Item Value Reference Range Interpretation Comments Urine RBC (test code = 24240-8) 11-20 0-5 H [facility]anoUrine Jcayomfh5473-26-41 15:02:00* Test Item Value Reference Range Interpretation Comments Urine Bacteria (test code = 60525-6) RARE NONE [facility]anoUrine Epithelial Ayqvv9316-12-62 15:02:00 * Test Item Value Reference Range Interpretation Comments Urine Epithelial Cells (test code = 04972-7) MODERATE NONE [facility]anoUrine Obnle0661-83-87 15:02:00* Test Item Value Reference Range Interpretation Comments Urine Mucus (test code = 8247-9) FEW RARE H [facility]anoCreatine Rwidmq6850-52-77 15:02:00* Test Item Value Reference Range Interpretation Comments Creatine Kinase (test code = 2157-6) 107 29-168 [facility]anoUrine Zvaxs3083-31-65 14:47:00* Test Item Value Reference Range Interpretation Comments Urine Color (test code = 5778-6) YELLOW YELLOW [facility]anoUrine Bflpncw2599-03-51 14:47:00* Test Item Value Reference Range Interpretation Comments Urine Clarity (test code = 78848-8) CLEAR CLEAR [facility] PlanoUrine Specific Ydfkhuq7704-96-75 14:47:00 * Test Item Value Reference Range Interpretation Comments Urine Specific Lenore (test code = 5811-5) 1.025 1.010-1.02 5 [facility] [id number] 14:47:00* Test Item Value Reference Range Interpretation Comments Urine pH (test code = 04978-9) 7 5-7 [facility] Leukocyte Jonvuxzs0732-39-86 14:47:00* Test Item Value Reference Range Interpretation Comments Urine Leukocyte Esterase (test code = 5799-2) NEGATIVE NEGATIVE [facility] Adrxhuw0124-36-85 14:47:00* Test Item Value Reference Range Interpretation Comments Urine Nitrite (test code = 97442-4) NEGATIVE NEGATIVE [facility] Nihgggs2118-77-37 14:47:00* Test Item Value Reference Range Interpretation Comments Urine Protein (test code = 5804-0) 3+ NEGATIVE H [facility]ano[facility] Glucose (UA)2017-06-09 14:47:00* Test Item Value Reference Range Interpretation Comments Urine Glucose (UA) (test code = 2349-9) 2+ NEGATIVE H [facility]anoU[facility] Shpjwho9430-98-72 14:47:00* Test Item Value Reference Range Interpretation Comments Urine Ketones (test code = 09990-3) NEGATIVE NEGATIVE [facility]anoU[facility] Noybuyneppwb9454-74-80 14:47:00* Test Item Value Reference Range Interpretation Comments Urine Urobilinogen (test code = 42114-7) 0.2 0.2-1 [facility] Wcddswrsa4773-41-12 14:47:00* Test Item Value Reference Range Interpretation Comments Urine Bilirubin (test code = 1978-6) NEGATIVE NEGATIVE [facility] Vjevr7342-34-46 14:47:00* Test Item Value Reference Range Interpretation Comments Urine Blood (test code = 64077-4) 2+ NEGATIVE H [facility]anoBedside Ftvjjxz5792-86-83 12:04:00* Test Item Value Reference Range Interpretation Comments Bedside Glucose (test code = 45575-7) 103 70-120 Meter ID: [id number] [facility] Hospitalodium Level 2017-04-22 07:49:00* Test Item Value Reference Range Interpretation Comments Sodium Level (test code = 2951-2) 140 136-145 [facility]Potassium Mkxrk5995-60-63 07:49:00* Test Item Value Reference Range Interpretation Comments Potassium Level (test code = 2823-3) 4.1 3.5-5.1 [facility]anoChloride Eorpk7630-05-69 07:49:00* Test Item Value Reference Range Interpretation Comments Chloride Level (test code = 2075-0) 112 98-107 H [facility]anoCarbon Dioxide Utlaw6438-39-59 07:49:00* Test Item Value Reference Range Interpretation Comments Carbon Dioxide Level (test code = 2028-9) 19 22-29 L [facility]anoAnion Gmm9198-18-89 07:49:00* Test Item Value Reference Range Interpretation Comments Anion Gap (test code = 97009-7) 13.1 8-16 [facility]anoBlood Urea Fdwoqgyi1974-79-16 07:49:00* Test Item Value Reference Range Interpretation Comments Blood Urea Nitrogen (test code = 3094-0) 45 7-26 H [facility]anoCreatinine2018-03-06 07:49:00* Test Item Value Reference Range Interpretation Comments Creatinine (test code = 2160-0) 4.55 0.57-1.11 H [facility]anoBUN/Creatinine Jhwrh9997-83-73 07:49:00* Test Item Value Reference Range Interpretation Comments BUN/Creatinine Ratio (test code = 3097-3) 10 6-25 [facility]anoEstimat Glomerular Filtration Rate 2017-04-22 07:49:00* Test Item Value Reference Range Interpretation Comments Estimat Glomerular Filtration Rate (test code = 32133-4) 10 >60 L Ranges were taken from the National Kidney Disease Education Program and the [facility] literature.Reference ranges:60 or greater: Tnkfpa24-07 ( for 3 consecutive months): Chronic kidney disease 15 or less: Kidney failureTexas [facility] PlanoGlucose Mbvus4626-42-85 07:49:00* Test Item Value Reference Range Interpretation Comments Glucose Level (test code = NRM9701) 82 74-118 [facility]anoCalcium Puizs6775-76-79 07:49:00* Test Item Value Reference Range Interpretation Comments Calcium Level (test code = 12401-7) 7.8 8.4-10.2 L [facility]anoMagnesium Ybsuo3353-93-61 07:49:00* Test Item Value Reference Range Interpretation Comments Magnesium Level (test code = 16349-1) 1.9 1.3-2.1 [facility]anoWhite Blood Xuhqy1337-57-75 07:36:00* Test Item Value Reference Range Interpretation Comments White Blood Count (test code = 6690-2) 10.50 4.8-10.8 [facility]anoRed Blood Oawxe0015-13-38 07:36:00* Test Item Value Reference Range Interpretation Comments Red Blood Count (test code = 789-8) 3.13 3.6-5.1 L [facility]anoHemoglobin2018-03-06 07:36:00* Test Item Value Reference Range Interpretation Comments Hemoglobin (test code = 83919-7) 9.4 12.0-16.0 L [facility]anoHematocrit2018-03-06 07:36:00* Test Item Value Reference Range Interpretation Comments Hematocrit (test code = 4544-3) 28.2 34.2-44.1 L [facility]anoMean Corpuscular Aforeu0646-34-13 07:36:00* Test Item Value Reference Range Interpretation Comments Mean Corpuscular Volume (test code = 787-2) 90.1 81-99 [facility]anoMean Corpuscular Rqbmbzlqpz2137-62-78 07:36:00* Test Item Value Reference Range Interpretation Comments Mean Corpuscular Hemoglobin (test code = 785-6) 30.0 28-32 [facility] Hem[facility] Concent 2017-04-22 07:36:00* Test Item Value Reference Range Interpretation Comments Mean Corpuscular Hemoglobin Concent (test code = 786-4) 33.3 31-35 [facility]anoRed Cell Distribution Ybpkx2372-29-06 07:36:00* Test Item Value Reference Range Interpretation Comments Red Cell Distribution Width (test code = 58974-0) 14.6 11.7 -14.4 H [facility]anoPlatelet Rowzx3445-27-03 07:36:00* Test Item Value Reference Range Interpretation Comments Platelet Count (test code = 777-3) 249 140-360 [facility]anoNeutrophils (%) (Auto)2017-04-22 07:36:00 * Test Item Value Reference Range Interpretation Comments Neutrophils (%) (Auto) (test code = 97504-5) 67.3 38.7-80.0 [facility]anoLymphocytes (%) (Auto)2017-04-22 07:36:00 * Test Item Value Reference Range Interpretation Comments Lymphocytes (%) (Auto) (test code = 736-9) 21.4 18.0-39.1 [facility]anoMonocytes (%) (Auto)2017-04-22 07:36:00* Test Item Value Reference Range Interpretation Comments Monocytes (%) (Auto) (test code = 5905-5) 7.5 4.4-11.3 [facility]anoEosinophils (%) (Auto)2017-04-22 07:36:00 * Test Item Value Reference Range Interpretation Comments Eosinophils (%) (Auto) (test code = 713-8) 3.0 0.0-6.0 [facility]anoBasophils (%) (Auto)2017-04-22 07:36:00* Test Item Value Reference Range Interpretation Comments Basophils (%) (Auto) (test code = 706-2) 0.4 0.0-1.0 [facility]anoIM GRANULOCYTES %2017-04-22 07:36:00* Test Item Value Reference Range Interpretation Comments IM GRANULOCYTES % (test code = IM GRANULOCYTES %) 0.4 0.0- 1.0 [facility]anoNeutrophils # (Auto)2017-04-22 07:36:00* Test Item Value Reference Range Interpretation Comments Neutrophils # (Auto) (test code = 751-8) 7.1 2.1-6.9 H [facility]anoLymphocytes # (Auto)2017-04-22 07:36:00* Test Item Value Reference Range Interpretation Comments Lymphocytes # (Auto) (test code = 87180-0) 2.3 1.0-3.2 [facility]anoMonocytes # (Auto)2017-04-22 07:36:00* Test Item Value Reference Range Interpretation Comments Monocytes # (Auto) (test code = 742-7) 0.8 0.2-0.8 [facility]anoEosinophils # (Auto)2017-04-22 07:36:00* Test Item Value Reference Range Interpretation Comments Eosinophils # (Auto) (test code = 711-2) 0.3 0.0-0.4 [facility]anoBasophils # (Auto)2017-04-22 07:36:00* Test Item Value Reference Range Interpretation Comments Basophils # (Auto) (test code = 704-7) 0.0 0.0-0.1 [facility]anoAbsolute Immature Granulocyte (auto 2017-04-22 07:36:00* Test Item Value Reference Range Interpretation Comments Absolute Immature Granulocyte (auto (bam t code = Absolute Immature Granulocyte (auto) 0.04 0-0.1 [facility]anoVitamin B12 Fpueu9434-83-86 08:49:00* Test Item Value Reference Range Interpretation Comments Vitamin B12 Level (test code = 89728-2) 530 213-816 [facility]anoFolate2018-03-05 08:49:00* Test Item Value Reference Range Interpretation Comments Folate (test code = 2284-8) 6.4 7.0-15.4 L [facility]anoVitamin B12 Ssznj5312-14-32 08:49:00* Test Item Value Reference Range Interpretation Comments Vitamin B12 Level (test code = 81985-4) 530 213-816 [facility]anoFolate2018-03-05 08:49:00* Test Item Value Reference Range Interpretation Comments Folate (test code = 2284-8) 6.4 7.0-15.4 L [facility]anoVitamin B12 Srrai8837-75-23 08:49:00* Test Item Value Reference Range Interpretation Comments Vitamin B12 Level (test code = 89555-7) 530 213-816 [facility]anoFolate2018-03-05 08:49:00* Test Item Value Reference Range Interpretation Comments Folate (test code = 2284-8) 6.4 7.0-15.4 L [facility]anoVitamin B12 Plccr4684-14-13 08:49:00* Test Item Value Reference Range Interpretation Comments Vitamin B12 Level (test code = 14332-7) 530 213-816 [facility]anoFolate2018-03-05 08:49:00* Test Item Value Reference Range Interpretation Comments Folate (test code = 2284-8) 6.4 7.0-15.4 L [facility]anoVitamin B12 Xbizh7210-36-54 08:49:00* Test Item Value Reference Range Interpretation Comments Vitamin B12 Level (test code = 12787-3) 530 213-816 [facility]anoFolate2018-03-05 08:49:00* Test Item Value Reference Range Interpretation Comments Folate (test code = 2284-8) 6.4 7.0-15.4 L [facility]anoVitamin B12 Brlru7838-14-43 08:49:00* Test Item Value Reference Range Interpretation Comments Vitamin B12 Level (test code = 53273-7) 530 213-816 [facility]anoFolate2018-03-05 08:49:00* Test Item Value Reference Range Interpretation Comments Folate (test code = 2284-8) 6.4 7.0-15.4 L [facility]anoVitamin B12 Vudev7708-81-65 08:49:00* Test Item Value Reference Range Interpretation Comments Vitamin B12 Level (test code = 72945-2) 530 213-816 [facility]anoFolate2018-03-05 08:49:00* Test Item Value Reference Range Interpretation Comments Folate (test code = 2284-8) 6.4 7.0-15.4 L [facility]anoFree Mypxvecws1751-16-52 08:02:00* Test Item Value Reference Range Interpretation Comments Free Thyroxine (test code = 3024-7) 0.89 0.9-1.8 L [facility]anoThyroid Stimulating Hormone (TSH) 2017-04-21 08:02:00* Test Item Value Reference Range Interpretation Comments Thyroid Stimulating Hormone (TSH) (test code = 69769-2) 5.413 0.350-4.940 H [facility] Apuhkbpig0082-64-16 08:02:00* Test Item Value Reference Range Interpretation Comments Free Thyroxine (test code = 3024-7) 0.89 0.9-1.8 L [facility] Ewarmzfdr5941-64-09 08:02:00* Test Item Value Reference Range Interpretation Comments Free Thyroxine (test code = 3024-7) 0.89 0.9-1.8 L [facility] Hiknozoti6497-11-96 08:02:00* Test Item Value Reference Range Interpretation Comments Free Thyroxine (test code = 3024-7) 0.89 0.9-1.8 L [facility] Urzovhatq3374-24-19 08:02:00* Test Item Value Reference Range Interpretation Comments Free Thyroxine (test code = 3024-7) 0.89 0.9-1.8 L [facility] Xfrvffddv6523-70-24 08:02:00* Test Item Value Reference Range Interpretation Comments Free Thyroxine (test code = 3024-7) 0.89 0.9-1.8 L [facility] Mzgfpdtlx0859-95-98 08:02:00* Test Item Value Reference Range Interpretation Comments Free Thyroxine (test code = 3024-7) 0.89 0.9-1.8 L [facility]anoIron Wbxgs2950-76-85 08:01:00* Test Item Value Reference Range Interpretation Comments Iron Level (test code = 2498-4) 57 50-170 [facility]anoTotal Iron Binding Ttxxfdnn3193-79-97 08:01:00* Test Item Value Reference Range Interpretation Comments Total Iron Binding Capacity (test code = 2500-7) 137 261-4 78 L [facility] Nbokofnuws9764-91-04 08:01:00* Test Item Value Reference Range Interpretation Comments Percent Iron Saturation (test code = 2502-3) 42 15-50 [facility]anoTransferrin2018-03-05 08:01:00* Test Item Value Reference Range Interpretation Comments Transferrin (test code = 3034-6) 98 180-382 L [facility]2018-03-05 08:01:00* Test Item Value Reference Range Interpretation Comments Iron Level (test code = 2498-4) 57 50-170 [facility] Iron Binding Ewqukept9119-46-30 08:01:00* Test Item Value Reference Range Interpretation Comments Total Iron Binding Capacity (test code = 2500-7) 137 261-4 78 L [facility] Iron Zsqxrngill6491-38-96 08:01:00* Test Item Value Reference Range Interpretation Comments Percent Iron Saturation (test code = 2502-3) 42 15-50 [facility]2018-03-05 08:01:00* Test Item Value Reference Range Interpretation Comments Transferrin (test code = 3034-6) 98 180-382 L [facility]2018-03-05 08:01:00* Test Item Value Reference Range Interpretation Comments Iron Level (test code = 2498-4) 57 50-170 [facility] Iron Binding Jduqygmr6888-90-01 08:01:00* Test Item Value Reference Range Interpretation Comments Total Iron Binding Capacity (test code = 2500-7) 137 261-4 78 L [facility] Iron Ahmrlqwpha6994-70-25 08:01:00* Test Item Value Reference Range Interpretation Comments Percent Iron Saturation (test code = 2502-3) 42 15-50 [facility]anoTransferrin2018-03-05 08:01:00* Test Item Value Reference Range Interpretation Comments Transferrin (test code = 3034-6) 98 180-382 L [facility]2018-03-05 08:01:00* Test Item Value Reference Range Interpretation Comments Iron Level (test code = 2498-4) 57 50-170 [facility] Iron Binding Fwakwkft1952-82-10 08:01:00* Test Item Value Reference Range Interpretation Comments Total Iron Binding Capacity (test code = 2500-7) 137 261-4 78 L [facility]anoPercent Iron Artkqqrmbe3451-25-39 08:01:00* Test Item Value Reference Range Interpretation Comments Percent Iron Saturation (test code = 2502-3) 42 15-50 [facility]anoTransferrin2018-03-05 08:01:00* Test Item Value Reference Range Interpretation Comments Transferrin (test code = 3034-6) 98 180-382 L [facility]2018-03-05 08:01:00* Test Item Value Reference Range Interpretation Comments Iron Level (test code = 2498-4) 57 50-170 [facility] Iron Binding Mjmkubxp8249-78-42 08:01:00* Test Item Value Reference Range Interpretation Comments Total Iron Binding Capacity (test code = 2500-7) 137 261-4 78 L [facility] Iron Jijxveahpp2010-47-01 08:01:00* Test Item Value Reference Range Interpretation Comments Percent Iron Saturation (test code = 2502-3) 42 15-50 [facility]2018-03-05 08:01:00* Test Item Value Reference Range Interpretation Comments Transferrin (test code = 3034-6) 98 180-382 L [facility]2018-03-05 08:01:00* Test Item Value Reference Range Interpretation Comments Iron Level (test code = 2498-4) 57 50-170 [facility] Iron Binding Arcddddy9757-14-26 08:01:00* Test Item Value Reference Range Interpretation Comments Total Iron Binding Capacity (test code = 2500-7) 137 261-4 78 [facility] Iqvgxtlxks9135-85-40 08:01:00* Test Item Value Reference Range Interpretation Comments Percent Iron Saturation (test code = 2502-3) 42 15-50 [facility]Trans[facility]2018-[facility]-05 08:01:00* Test Item Value Reference Range Interpretation Comments Transferrin (test code = 3034-6) 98 180-382 L [facility]anoIron Pmera0386-01-06 08:01:00* Test Item Value Reference Range Interpretation Comments Iron Level (test code = 2498-4) 57 50-170 [facility]Total Iron Binding Tkuhfhxp4126-09-62 08:01:00* Test Item Value Reference Range Interpretation Comments Total Iron Binding Capacity (test code = 2500-7) 137 261-4 78 L [facility]anoPercent Iron Plukhudssn9340-31-64 08:01:00* Test Item Value Reference Range Interpretation Comments Percent Iron Saturation (test code = 2502-3) 42 15-50 [facility]anoTransferrin2018-03-05 08:01:00* Test Item Value Reference Range Interpretation Comments Transferrin (test code = 3034-6) 98 180-382 L [facility]anoB-Type Natriuretic Pzoxodt1993-02-15 07:57:00* Test Item Value Reference Range Interpretation Comments B-Type Natriuretic Peptide (test code = 17151-2) 573.2 0-100 H [facility] Occult Fwsti4094-70-26 15:33:00* Test Item Value Reference Range Interpretation Comments Stool Occult Blood (test code = 2335-8) NEGATIVE NEGATIVE [facility] Occult Kwzqa0331-24-72 15:33:00* Test Item Value Reference Range Interpretation Comments Stool Occult Blood (test code = 2335-8) NEGATIVE NEGATIVE [facility] Occult Rehoj8132-80-35 15:33:00* Test Item Value Reference Range Interpretation Comments Stool Occult Blood (test code = 2335-8) NEGATIVE NEGATIVE [facility] Occult Xdyzr9713-58-68 15:33:00* Test Item Value Reference Range Interpretation Comments Stool Occult Blood (test code = 2335-8) NEGATIVE NEGATIVE [facility] Occult Thnyf6400-66-54 15:33:00* Test Item Value Reference Range Interpretation Comments Stool Occult Blood (test code = 2335-8) [facility] Uldmv9154-20-35 15:33:00* Test Item Value Reference Range Interpretation Comments Stool Occult Blood (test code = 2335-8) [facility]GAT[facility] Dvewm1007-41-55 15:33:00* Test Item Value Reference Range Interpretation Comments Stool Occult Blood (test code = 2335-8) NEGATIVE NEGATIVE [facility]Creat[facility] Zcxjyq5860-10-86 07:39:00* Test Item Value Reference Range Interpretation Comments Creatine Kinase (test code = 2157-6) 107 29-168 [facility]anoCreat[facility] Kinase QV8028-36-83 07:39:00* Test Item Value Reference Range Interpretation Comments Creatine Kinase MB (test code = 52596-7) 2.30 0-5.0 [facility]anoTroponin P8571-63-32 07:39:00* Test Item Value Reference Range Interpretation Comments Troponin I (test code = GXL8900) 0.027 0-0.300 [facility]anoUrine ABG0228-75-26 22:35:00* Test Item Value Reference Range Interpretation Comments Urine WBC (test code = 5821-4) 6-10 0-5 H [facility]anoUrine MQI4369-94-22 22:35:00* Test Item Value Reference Range Interpretation Comments Urine RBC (test code = 40561-2) 6-10 0-5 H [facility] Zffljtkt0869-04-20 22:35:00* Test Item Value Reference Range Interpretation Comments Urine Bacteria (test code = 09728-1) FEW NONE [facility] Epithelial Xqtny3698-12-33 22:35:00 * Test Item Value Reference Range Interpretation Comments Urine Epithelial Cells (test code = 83422-1) FEW NONE [facility]anoUrine Kacdx5670-21-92 22:15:00* Test Item Value Reference Range Interpretation Comments Urine Color (test code = 5778-6) YELLOW YELLOW [facility]anoUrine Ofjlhzj7785-11-52 22:15:00* Test Item Value Reference Range Interpretation Comments Urine Clarity (test code = 17575-4) CLEAR CLEAR [facility]anoU[facility] Specific Rqzylst0379-94-31 22:15:00 * Test Item Value Reference Range Interpretation Comments Urine Specific Lenore (test code = 5811-5) 1.015 1.010-1.02 5 [facility]anoU[facility] aS0681-57-13 22:15:00* Test Item Value Reference Range Interpretation Comments Urine pH (test code = 49227-3) 6.5 5-7 [facility] Leukocyte Ctvjfudy8466-62-84 22:15:00* Test Item Value Reference Range Interpretation Comments Urine Leukocyte Esterase (test code = 5799-2) NEGATIVE NEGATIVE [facility] Qjweqhl6442-62-50 22:15:00* Test Item Value Reference Range Interpretation Comments Urine Nitrite (test code = 27870-9) NEGATIVE NEGATIVE [facility] Xrcavsv8859-89-28 22:15:00* Test Item Value Reference Range Interpretation Comments Urine Protein (test code = 5804-0) 3+ NEGATIVE H [facility] Glucose (UA)2017-04-19 22:15:00* Test Item Value Reference Range Interpretation Comments Urine Glucose (UA) (test code = 2349-9) 2+ NEGATIVE H [facility] Mxctsgv5278-64-53 22:15:00* Test Item Value Reference Range Interpretation Comments Urine Ketones (test code = 61271-2) NEGATIVE NEGATIVE [facility]anoUrine Lgmmytowyolf2864-97-33 22:15:00* Test Item Value Reference Range Interpretation Comments Urine Urobilinogen (test code = 08628-3) 0.2 0.2-1 [facility] Ykowlplee4511-75-03 22:15:00* Test Item Value Reference Range Interpretation Comments Urine Bilirubin (test code = 1978-6) NEGATIVE NEGATIVE [facility] Gedzn4942-65-45 22:15:00* Test Item Value Reference Range Interpretation Comments Urine Blood (test code = 48042-1) 1+ NEGATIVE H [facility]anoTotal Osnfprdpw7467-10-62 10:43:00* Test Item Value Reference Range Interpretation Comments Total Bilirubin (test code = 1975-2) -0.3 0.2-1.2 [facility]anoAspartate Amino Transf (AST/SGOT) 2017-04-19 10:43:00* Test Item Value Reference Range Interpretation Comments Aspartate Amino Transf (AST/SGOT) (test code = Aspartate Amino Transf (AST/SGOT)) 17 5-34 [facility]anoAlanine Aminotransferase (ALT/SGPT) 2017-04-19 10:43:00* Test Item Value Reference Range Interpretation Comments Alanine Aminotransferase (ALT/SGPT) (test code = 1742-6) 11 0-55 [facility] Oxgvtla1236-98-03 10:43:00* Test Item Value Reference Range Interpretation Comments Total Protein (test code = 2885-2) 6.0 6.5-8.1 L [facility]anoAlbumin2018-03-03 10:43:00* Test Item Value Reference Range Interpretation Comments Albumin (test code = 1751-7) 1.6 3.5-5.0 L [facility]Globulin2018-03-03 10:43:00* Test Item Value Reference Range Interpretation Comments Globulin (test code = 66951-5) 4.4 2.3-3.5 H [facility]Albumin/Globulin Duhij0479-66-20 10:43:00 * Test Item Value Reference Range Interpretation Comments Albumin/Globulin Ratio (test code = 1759-0) 0.4 0.8-2.0 L [facility]anoAlkaline Tueeolqyqxp1001-22-88 10:43:00* Test Item Value Reference Range Interpretation Comments Alkaline Phosphatase (test code = 6768-6) 104 40-150 [facility]anoProthrombin Dgvs7528-61-62 10:29:00* Test Item Value Reference Range Interpretation Comments Prothrombin Time (test code = 5902-2) 12.5 11.9-14.5 [facility] International Ratio 2017-04-19 10:29:00* Test Item Value Reference Range Interpretation Comments Prothromb Time International Ratio (test code = 6301-6) 1.01 Oral Anticoagulant Therapy INR Values:1. Low Intensity Therapy 1.5 - 2.02 . Moderate Intensity Therapy 2.0 - 3.03. High Intensity Therapy(1) 2.5 - 3. 54. High Intensity Therapy(2) 3.0 - 4.05. Panic Value INR > 5.0 [facility] Partial Thromboplast Time 2017-04-19 10:29:00* Test Item Value Reference Range Interpretation Comments Activated Partial Thromboplast Time (test code = 28586-6) 34.7 23.8-35.5 [facility]Influenza Virus Types A,B Antigen 2017-03-13 22:31:00* Test Item Value Reference Range Interpretation Comments Influenza Virus Types A,B Antigen (test code = 06459-6) NEGATIVE NEGATIVE [facility] A,B Antigen 2017-03-13 22:31:00* Test Item Value Reference Range Interpretation Comments Influenza Virus Types A,B Antigen (test code = 19052-2) NEGATIVE NEGATIVE [facility] Virus Types A,B Antigen 2017-03-13 22:31:00* Test Item Value Reference Range Interpretation Comments Influenza Virus Types A,B Antigen (test code = 72407-7) NEGATIVE NEGATIVE [facility] Virus Types A,B Antigen 2017-03-13 22:31:00* Test Item Value Reference Range Interpretation Comments Influenza Virus Types A,B Antigen (test code = 31038-3) NEGATIVE NEGATIVE [facility] Virus Types A,B Antigen 2017-03-13 22:31:00* Test Item Value Reference Range Interpretation Comments Influenza Virus Types A,B Antigen (test code = 99246-8) NEGATIVE NEGATIVE [facility]CT [facility] [place] [address] Patient Name: JIMBO TORRES MR #: [id number] : 1960 Age/Sex: 57/F Req #: [id number] Adm Physician: PORTER DAVALOS MD Ordered by: NISH TYLER M.D. Report #: [id number] Location: MED/SURG2 Room/Bed: [facility] [place] Procedure: [id number]/CT BRAIN W Exam Date: 07/11/17 Exam Time: 2200 REPORT STATUS: Signed History: Abnormal MR Comparison studies: MR bra in 07/10/17 Technique: Axial images were obtained from the skull base to the vertex. Coronal and sagittal reconstructions obtained from the axial john a. Findings: Scalp/skull: No abnormalities. No fractures, blastic o r lytic lesions. Extra-axial spaces: No masses. No fluid collections. Brain sulci: Appropriate for age. Ventricles: Normal in size and configura tion. No hydrocephalus. Parenchyma: Subtle non enhancing small hypodensi ty in the right middle cerebellar peduncle , no surrounding edema or significa nt mass effect. . No hemorrhage. Sellar/suprasellar region: No abnormal ities Craniocervical junction: Patent foramen magnum. No Chiari one malformat ion. IMPRESSION: Non specific small non enhancing lesion at the right middle cerebellar peduncle, better seen on MR, recommend MR follow up in 3 mo nths . Signed by: DR Nestor Calvillo M.D. on 07/11/2017 10:40 PM Dictated By: NESTOR HAGEN MD 39 Transcribed By: JERMAN on 07/11/172239 COPY TO: NISH TYLER M.D. MRI BRAIN WO [place] [address] Patient Name: JIMBO TORRES MR #: [id number] : 1960 Age/Sex: 57/F [facility] #: [id number] Req #: [id number] Adm Physician: PORTER DAVALOS MD Ordered by: NISH TYLER M.D. Report #: [id number] Location: [facility] Room/Bed: [place] [address] Procedure: [id number] 2 MRI/MRI BRAIN WO Exam Date: Exam Time: REP ORT STATUS: Signed EXAMINATION: MRI of the brain without contrast. HI STORY: CVA, pneumonia, evaluate for acute infarct, facial droop COMPARISON: He ad CT on 07/09/2017 TECHNIQUE: Sagittal T2; axial DWI, T2, FLAIR, T1-IR, T2 gra dient echo; coronal FLAIR. IMAGE QUALITY: Adequate. FINDINGS: Parenchyma: 1. Approximately 8 mm low T1, high T2 and FLAIR signal intens ity lesion in the right middle cerebellar peduncle with minimal expansion, no surrounding edema or significant mass effect. This finding is nonspecific and may represent an area of ischemia, demyelinating lesion, less likely low-grade neoplasm. 2. Few scattered white matter T2 hyperintense foci, most likely no nspecific chronic microvascular ischemic changes. 3. Small focal cortical s ubcortical encephalomalacia in the left inferior parietal lobule, likely seque la from remote infarction or trauma. 4. No hemorrhage or acute infarcts. Skull: Unremarkable. Vessels: Expected flow voids present in the major arteries and dural sinuses. Extra-axial spaces: No abnormal signal intensity or mass effect. Brain volume: Within normal limits for a ge. Ventricles: No hydrocephalus or displacement. Foramen magnum: Unremarkable. Sella: Unremarkable. Paranasal / mastoid sinuses : No significant inflammatory disease. IMPRESSION: 1. No acute infarc ts. 2. Nonspecific small focal lesion in the right middle cerebellar pedic le, the differential diagnoses would include ischemia, demyelination or low-gr becky neoplasm. Comparison to prior brain MRIs if available is recommended, othe rwise a brain MRI with contrast is advised. 3. 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 4. Mild chronic microvascular ischemic ch anges. Signed by: Dr. Saadia Lundy M.D. on 07/10/2017 3:52 PM Dictate d By: SAADIA LUNDY MD 51 Transcribed By: JERMAN on 07/10/171551 COPY TO: NISH TYLER CT BRAIN WO [place] [address] Patient Name: JIMBO TORRES MR #: [id number] : 1960 Age/Sex: 57/F Req #: [id number] Adm Physician: Ordered by: CHICA SEPULVEDA MD Report #: [id number] Location: ER Room/Bed: Procedure: [id number] CT/CT BRAIN WO Exam Date: 07/09/17 Exam Time: 1340 REPORT STATUS: Signed Examination: CT BRAIN WITHOUT CONTRAST History:Weakness. Comparison s tudies:None Technique: Axial images were obtained from the skull base to the vertex. Coronal and sagittal images reconstructed from the axial data. I ntravenous contrast: None Findings: Scalp: No abnormalities. Bones: No fractures, blastic or lytic lesions. Brain sulci: Mild central volume lo ss for age with ex vacuo dilatation of the lateral ventricles. Ventricles: N o hydrocephalus. Extra-axial space: No abnormalities. Parenchyma: No masses, hemorrhage, or acute or chronic cortical based vascular insults. Sellar/suprasellar region: No abnormalities. Craniocervical junction: Patent foramen magnum. No Chiari one malformation. Incidental findings: Athero sclerotic calcification of the cavernous and supraclinoid internal carotid art eries. Impression: No acute intracranial abnormalities. Mild vol ume loss for age. Signed by: Dr. Lu Giron M.D. on 07/09/2017 2:08 P M Dictated By: LU JAY MD 1404 Transcribed By: JERMAN on 07/09/17 1 408 COPY TO: CHICA SEPULVEDA MD CHEST SINGLE (PORTABLE) [place] [address] Patient Name: JIMBO TORRES MR #: [id number] : 1960 Age/Sex: 57/F Req #: [id number] Adm Physician: Ordered by: CHICA SEPULVEDA MD Report #: [id number] Location: ER Room /Bed: Procedure: [id number] DX/CHEST SINGLE (PORTABLE) Exam Date: 07/09/17 Exam Time: [address] ATUS: Signed PROCEDURE: A single AP view of the chest. COMPARISON: [facility], DX, CHEST SINGLE (NOT PORTABLE), 06/09/2017, 14:31. INDICATIONS: COUGH, EYE TWITCH FINDINGS: Lines/tubes: Right kathleen ed dual lumen tunneled central venous catheter with the distal tips projected on the cavoatrial junction/right atrium. Lungs: There is patchy density i n the right upper lobe, and left lower lobe concerning for multifocal pneumon ia. Pleura: There is no pneumothorax. The small left pleural effusion. Heart and mediastinum: The heart and the mediastinum are unremarkable. Bones: No acute bony abnormality. IMPRESSION: 1. Findings sugges tive of right upper lobe and left lower lobe pneumonia. Recommend followup af ter treatment to document resolution. Libia Mcpherson M.D. Dict ated by: Libia Mcpherson M.D. on 07/09/2017 at 14:17 Electronically approved by: Libia Mcpherson M.D. on 07/09/2017 at 14:17 Dictated By: NATHALIE MCPHERSON MD, MD 16 Transcribed By: BRENT on 07/09/171416 COPY TO: CHICA TALLEY MD SPECIAL PROCEDURE IN ELEVATOR WORKER [place] [address] Patient Name: JIMBO TORRES MR #: [id number] : 1960 Age/Sex: 57/F Req #: [id number] Adm Physician: SCOTT BUENROSTRO MD Ordered by: MARIA DOLORES YAO, LINDSAY YAO Report #: [id number] Location: MED/SURG3 Room/Bed: [facility] Procedure: [id number] IR/ SPECIAL PROCEDURE IN ELEVATOR WORKER Exam Date: Exam Time: REPORT STATUS: Signed Procedure: Tunneled right IJ hemodialysis gary ter placement. Indication: Chronic kidney disease Comparison: None Sedation: Patient did receive IV conscious sedation and had 1 mg of Versed and 50 mcg of Fentanyl. She was continuously monitored during the procedure and following the procedure. Description: Following sterile preparation and lo angie anesthesia with 1% Xylocaine a wire was placed into the internal jugular v ein. A tunnel was then formed from below the clavicle to the venous entry site . A Bard split tip 19 cm long 16 Cook Islander hemodialysis catheter was then tunnele d to the insertion site. Serial dilatation at the venous entry site was accomp lished over a 0.035 " Amplatz superstiff wire. The hemodialysis catheter was t hen placed through a peel-away sheath. Each port flushes adequately. Tip of th e venous and arterial lumen are in the right atrium. Each lumen was packed wit h 1,000 units of heparin. The line is okay for immediate use. Patient andrea erated the procedure well. Fluoroscopy time: 1.6 minutes Total dose: 85.6 cGycm2 Impression: Successful right IJ tunneled hemodialysis catheter plac ement. Signed by: Dr. Naomi Wrad DO on 06/20/2017 7:30 AM Dictated By: NAOMI WARD DO 15 03 Transcribed By: JERMAN on 06/25/17 1503 COPY TO: LINDSAY WHITTEN CONSULT [place] [address] Patient Name: JIMBO TORRES MR #: [id number] : 1960 Age/Sex: 57/F Req #: [id number] Adm Physician: SCOTT BUENROSTRO MD Ordered by: LINDSAY WHITTEN MD, MD Report #: [id number] Location: [facility]/SURG Room/Bed: [facility] Procedure: [id number] DX/ IR CONSULT Exam Date: Exam Time: REPORT STAT US: Signed PROCEDURE: NON-TUNNELLED CVC CATH PLACMNT COMPARISON: Chest radiograph 06/09/2017. Preprocedure diagnosis: End-stage renal disease Post p rocedure diagnosis: End-stage renal disease Sedation/anesthesia: None Additi onal medications: Lidocaine 1% for local anesthesia Estimated blood loss: Mini mal Blood products administered: None Implants/grafts: 13 Cook Islander, 15 cm trip le-lumen high flow central venous catheter Specimens: None Condition at c ompletion of procedure: Stable Disposition: Return to [place]. Fluoroscopy time : 0.5 minutes Air Kerma: 7.9 mGy PROCEDURE: Informed consent w as obtained and documented in the medical record after discussion of risks an d benefits. The patient was placed in the supine position on the fluoroscopic table. Preliminary sonographic evaluation confirmed patency of the right int ernal jugular vein, evidenced by compressibility. The right neck was th en prepped and draped in standard sterile fashion. 1% lidocaine was infiltrat ed into the skin and subcutaneous tissues for local anesthesia. Then, under c ontinuous sonographic guidance, an 18 gauge singlewall needle was advanced in to the right internal jugular vein. A permanent sonographic image was stored in the medical record. A 0.035 inch wire was advanced through the need le and into the inferior vena cava under fluoroscopic guidance. The needle wa s removed over the wire and the tract was dilated. Then, a 13 Cook Islander, 15 cm t riple-lumen high flow central venous catheter was advanced over the wire unde r fluoroscopic guidance. The wire was removed and the catheter tip was pos itioned at the superior cavoatrial junction. All 3 lumens showed adequate bid irectional flow and were flushed with sterile saline. The catheter was secure d to the skin with monofilament nylon suture and a sterile dressing was appli ed. The patient tolerated the procedure well without immediate complication. Findings: Patent right internal jugular vein. CONCLUSION: Successful placement of a 13 Cook Islander, 15 cm triple-lumen high flow central ve nous catheter via a right internal jugular approach under sonographic and flu oroscopic guidance. Dictated by: Suzi Quinteros M.D. on 06/12/2017 at 14:48 Electronically approved by: Suzi Quinteros M.D. on 06/12/2017 at 14:48 Dictated By: SUZI QUINTEROS MD 1448 Transcribed By: BRENT on 06/12/17 1448 COPY TO: Cindy WHITTEN NON-TUNNELLED CVC CATH PLACMNT [facility] [address] [place] [address] Patient Name: JIMBO TORRES MR #: [id number] : 1960 Age/Sex: 57/F Req #: [id number] Adm Physician: SCOTT BUENROSTRO MD Ordered by: MARIA DOLORES YAO, LINDSAY YAO Report #: [id number] Location: MED/SURG3 Room/Bed: [facility] Procedure: [id number] IR/ NON-TUNNELLED CVC CATH PLACMNT Exam Date: 06/12/17 E xam Time: 1345 REPORT STATUS: Signed PROCEDURE: NON-TUNNELLED CVC CAT H PLACMNT COMPARISON: Chest radiograph 06/09/2017. Preprocedure diagnosis: End-stage renal disease Post procedure diagnosis: End-stage renal disease Se dation/anesthesia: None Additional medications: Lidocaine 1% for local anesthe alex Estimated blood loss: Minimal Blood products administered: None Implan ts/grafts: 13 Cook Islander, 15 cm triple-lumen high flow central venous catheter Specimens: None Condition at completion of procedure: Stable Disposition: Re turn to [place]. Fluoroscopy time: 0.5 minutes Air Kerma: 7.9 mGy CA OCEDURE: Informed consent was obtained and documented in the medical record after discussion of risks and benefits. The patient was placed in the sup ine position on the fluoroscopic table. Preliminary sonographic evaluation co nfirmed patency of the right internal jugular vein, evidenced by compressibil ity. The right neck was then prepped and draped in standard sterile fashio n. 1% lidocaine was infiltrated into the skin and subcutaneous tissues for local anesthesia. Then, under continuous sonographic guidance, an 18 gauge s inglewall needle was advanced into the right internal jugular vein. A permane nt sonographic image was stored in the medical record. A 0.035 inch wi re was advanced through the needle and into the inferior vena cava under fluo roscopic guidance. The needle was removed over the wire and the tract was dil ated. Then, a 13 Cook Islander, 15 cm triple-lumen high flow central venous catheter was advanced over the wire under fluoroscopic guidance. The wire was removed and the catheter tip was positioned at the superior cavoatrial junction. All 3 lumens showed adequate bidirectional flow and were flushed with sterile sa line. The catheter was secured to the skin with monofilament nylon suture and a sterile dressing was applied. The patient tolerated the procedure well without immediate complication. Findings: Patent right internal jugu lar vein. CONCLUSION: Successful placement of a 13 Cook Islander, 15 cm trip le-lumen high flow central venous catheter via a right internal jugular appro ach under sonographic and fluoroscopic guidance. Dictated by: Suzi Quinteros M.D. on 06/12/2017 at 14:48 Electronically approved by: Suzi Quinteros M.D. on 06/12/2017 at 14:48 Dictated By: SUZI QUINTEROS MD Electronica lly Signed By: SUZI QUINTEROS MD on 06/12/17 1448 Transcribed By: BRENT on 06/12 1448 COPY TO: LINDSAY WHITTEN GUIDANCE [facility] [address]/REM [place] [address] Patient Name: JIMBO TORRES MR #: [id number] : 1960 Age/Sex: 57/F Req #: [id number] Adm Physician: SCOTT BUENROSTRO MD Ordered by: LINDSAY WHITTEN MD, MD Report #: [id number] Locatio n: MED/SURG3 Room/Bed: 2921 Procedure: [id number] DX/ FLUORO GUIDANCE [address]/REM Exam Date: 06/12/17 E xam Time: 1345 REPORT STATUS: Signed PROCEDURE: NON-TUNNELLED CVC CAT [place] PLACMNT COMPARISON: Chest radiograph 06/09/2017. Preprocedure diagnosis: End-stage renal disease Post procedure diagnosis: End-stage renal disease Se dation/anesthesia: None Additional medications: Lidocaine 1% for local anesthe alex Estimated blood loss: Minimal Blood products administered: None Implan ts/grafts: 13 Cook Islander, 15 cm triple-lumen high flow central venous catheter Specimens: None Condition at completion of procedure: Stable Disposition: Re turn to [place]. Fluoroscopy time: 0.5 minutes Air Kerma: 7.9 mGy CA OCEDURE: Informed consent was obtained and documented in the medical record after discussion of risks and benefits. The patient was placed in the sup ine position on the fluoroscopic table. Preliminary sonographic evaluation co nfirmed patency of the right internal jugular vein, evidenced by compressibil ity. The right neck was then prepped and draped in standard sterile fashio n. 1% lidocaine was infiltrated into the skin and subcutaneous tissues for local anesthesia. Then, under continuous sonographic guidance, an 18 gauge s inglewall needle was advanced into the right internal jugular vein. A BuyWithM[employer] nt sonographic image was stored in the medical record. A 0.035 inch wi re was advanced through the needle and into the inferior vena cava under fluo roscopic guidance. The needle was removed over the wire and the tract was dil ated. Then, a 13 Cook Islander, 15 cm triple-lumen high flow central venous catheter was advanced over the wire under fluoroscopic guidance. The wire was removed and the catheter tip was positioned at the superior cavoatrial junction. All 3 lumens showed adequate bidirectional flow and were flushed with sterile sa line. The catheter was secured to the skin with monofilament nylon suture and a sterile dressing was applied. The patient tolerated the procedure well without immediate complication. Findings: Patent right internal jugu lar vein. CONCLUSION: Successful placement of a 13 Cook Islander, 15 cm trip le-lumen high flow central venous catheter via a right internal jugular appro ach under sonographic and fluoroscopic guidance. Dictated by: Suzi Quinteros M.D. on 06/12/2017 at 14:48 Electronically approved by: Suzi Quinteros M.D. on 06/12/2017 at 14:48 Dictated By: SUZI QUINTEROS MD Electronica lly Signed By: SUZI QUINTEROS MD on 06/12/171447 Transcribed By: BRENT on 06/12 COPY TO: LINDSAY WHITTEN GUIDANCE FOR VASCULAR ACCES [place] [address] Patient Name: JIMBO TORRES MR #: [id number] : 1960 Age/Sex: 57/F Req #: [id number] Adm Physician: SCOTT BUENROSTRO MD Ordered by: SCOTT BUENROSTRO MD Report #: [id number] [facility] Room/Bed: [facility] Procedure: [id number] US/US GUIDANCE FOR VASCULAR ACCES Exam Date: Exam Time: REPORT STATUS: Signed PROCEDURE: ULTRASOUND GUIDANCE FOR VASCULAR ACC ESS COMPARISON: None. INDICATIONS: Trialysis Placement FIN DINGS: Right internal jugular vein is noted to be patent. Ultrasound juanita nce was utilized for access for central line placement. CONCLUSION: Landry nt right internal jugular vein. Successful ultrasound guidance for central l ine placement. Dictated by: Suzi Quinteros M.D. on 06/12/2017 at 14:48 Electronically approved by: Suzi Quinteros M.D. on 06/12/2017 at 14:48 Dictated By: SUZI QUINTEROS MD 47 COPY TO: Monica BUENROSTRO MD CHEST SINGLE (NOT PORTABLE) [address] [address] Patient Name: JIMBO TORRES MR #: [id number] : 1960 Age/Sex: 57/F Req #: [id number] Adm Physician: Ordered by: ARCHIE THORNTON MD Report #: [id number] Location: ER Room/Bed: Procedure: [id number] DX/CHEST SINGLE (NOT PORTABL E) Exam Date: 06/09/17 Exam Time: 1430 REPORT STATUS: Signed PROCEDURE: A single AP view of the chest. COMPARISON: 04/22/17 INDICATIONS: COUGH, SHORTNESS OF BREATH FINDINGS: Christina es/tubes: None. Lungs: Low lung volumes. Left base opacification. Pleura: There is no pleural effusion or pneumothorax. Heart and mediastin um: The heart and the mediastinum are unremarkable. Bones: No acute bony abnormality. IMPRESSION: Left base opacification, representing sma ll effusion/atelectasis and/or pneumonia. Dictated by: Cb Bai M.D. on 06/09/2017 at 14:47 Electronically approved by: Zina Bhatia on 06/09/2017 at 14:47 Dictated By: CB BAI MD Electr onically Signed By: CB BAI MD on 06/09/17 1447 Transcribed By: BRENT on 06/09/17 1447 COPY TO: ARCHIE THORNTON MD RENAL RETROPERITONEAL COMP [address] [address] Patient Name: JIMBO TORRES MR #: [id number] : 1960 Age/Sex: 57/F Req #: [id number] Adm Physician: SCOTT BUENROSTRO MD Ordered by: TATA WATKINS POST CLOSER Report #: [id number] Location: [facility] Room/Bed: [place] [address] Procedure: [id number] U S/US RENAL RETROPERITONEAL COMP Exam Date: 06/09/17 Exam Time: 1734 REPORT STATUS: Signed EXAM: Renal Ultrasound INDICATI ON: COMPARISON: None TECHNIQUE: Transverse and longitudina l images of the kidneys and bladder were obtained. FINDINGS: Right Kidney: Size: 9.8 cm Echogenicity: Mildly increased Parenchymal thickness: Normal Collecting system: No hydronephrosis Stones: None Cyst/Mass: None Left Kidney: Size: 10.5 cm Echogenicity: Mildly increased Parenchymal thickness: Normal Collecting system: No hydronephrosis Stones: None Cyst/Mass : None Bladder: Unremarkable. Incidentally seen left pleural effusi on. IMPRESSION: Mildly increased renal cortical echogenicity, suggestive of medical renal disease. Signed by: Dr. Cb Bai MD on 06/09/2017 6 :22 PM Dictated By: CB BAI MD 21 Transcribed By: JERMAN on 06/09/171821 COPY TO : TATA WATKINS POST CLOSER CHEST SINGLE (PORTABLE) [place] [address] Patient Name: JIMBO TORRES MR #: [id number] : 1960 Age/Sex: 57/F Req #: [id number] Adm Physician: MENDOZA VILLEGAS MD Ordered by: Mehul Marquez POST CLOSER Report #: [id number] Location: MED/SURG Room/Bed: [facility] Procedure: [id number] DX /CHEST SINGLE (PORTABLE) Exam Date: 04/22/17 Exam Ti me: 0520 REPORT STATUS: Signed PROCEDURE: CHEST SINGLE (PORTABLE) COM PARISON: [facility], DX, CHEST SINGLE (PORTABLE), 04/20/2017, 7:1 3. INDICATIONS: SHORTNESS OF BREATH. PULMONARY EDEMA FINDINGS: L UNGS: Bibasilar airspace opacities likely represents pneumonia with a worsene d appearance. PLEURA: There is a left pleural effusion. HEART T MEDIASTINUM: The heart is within normal size-limits. BONES T SOFT TIS SUES: No acute findings. CONCLUSION: Worsening bibasilar airspac e opacities. Naomi Ward D.O. Dictated by: Kenji Benites on 04/22/2017 at 9:06 Electronically approved by: Ronni Benites n 04/22/2017 at 9:06 Dictated By: NAOMI WARD DO Electronic ally Signed By: NAOMI WARD DO on 04/22/17905 Transcribed By: BRENT on 08/04 09 COPY TO: MEHUL MARQUEZ NP CHEST SINGLE (PORTABLE) [place] [address] Patient Name: JIMBO TORRES MR #: [id number] : 1960 Age/Sex: 57/F Req #: [id number] Adm Physician: MENDOZA VILLEGAS MD Ordered by: ARCHIE THORNTON MD Report #: [id number] Loca tion: MED/SURG Room/Bed: [facility] Procedure: [id number] D X/CHEST SINGLE (PORTABLE) Exam Date: 04/20/17 Exam T edvin: 0720 REPORT STATUS: Signed EXAM: Single AP view of the chest (Port able). COMPARISON: Chest radiograph from 04/19/2017 INDICATION: CHF FINDINGS: Single portable AP view of the chest. The visualized bones and soft tissues, cardiac silhouette , pleura appear unchanged. IMPRESSION: 1. Lines/tubes: None 2. Significant improvement in the bilateral interstiti al edema. Signed by: Dr. Eileen Blake M.D. on 04/20/2017 7:39 AM Dictated By: EILEEN BLAKE MD Transcribed By: JERMAN on 04/20/17738 COPY TO: ARCHIE THORNTON MD CHEST 2 VIEWS [place] [address] Patient Name: JIMBO TORRES MR #: [id number] : 1960 Age/Sex: 57/F Req #: [id number] Adm Physician: Ordered by: ARCHIE THORNTON MD Report #: [id number] Location: ER Room/Bed: Procedure: [id number] DX/CHEST 2 VIEWS Exam Date: 04/19/17 Exam Time: 1040 REPORT STATUS: Signed EXAMINATION: CHEST 2 VIEWS INDICATION: COMP ARISON: Chest radiograph from 03/13/2017 FINDINGS: PA and lateral vie ws TUBES and LINES: None. LUNGS: Lungs are well inflated. Bilateral interstitial edema, new since prior exam. No lobar consolidations. PLE URA: No pleural effusion or pneumothorax. HEART AND MEDIASTINUM: The card iac silhouette is mildly enlarged. Mild atherosclerotic calcifications of the aortic arch. BONES AND SOFT TISSUES: No acute osseous lesion. Soft tissue s are unremarkable. UPPER ABDOMEN: No free air under the diaphragm. IMPRESSION: Interval development of bilateral interstitial edema. Superimpos ed atypical infection can have a similar appearance. Signed by: Dr Abigail Blake M.D. on 04/19/2017 11:42 AM Dictated By: SIMONE BLAKE MD 1142 COPY TO: DONNIE THORNTON MD CHEST 2 VIEWS [place] [address] Patient Name: JIMBO TORRES MR #: [id number] : 1960 Age/Sex: 57/F Req #: [id number] Adm Physician: Ordered by: MOE MCKEON MD Report #: [id number] Location: ER Room/Bed: Procedure: [id number] DX/CHEST 2 VIEWS Exam John e: 03/13/17 Exam Time: 1820 REPORT STATUS: Sign ed PROCEDURE: Frontal and lateral views of the chest. COMPARISON: Non e. INDICATIONS: cough, sob FINDINGS: Lines/tubes: None. Lungs: The lungs are well inflated and clear. There is no evidence of pne umonia or pulmonary edema. Pleura: There is no pleural effusion or pneumo thorax. Heart and mediastinum: The heart and the mediastinum are normal. Mild calcification of aortic arch. Bones: No acute bony abnormality. IMPRESSION: 1. No acute cardiopulmonary disease. Libia Mcpherson M.D. Dictated by: Libia Mcpherson M.D. on 03/13/2017 at 18:45 Electronically approved by: Libia Mcpherson M.D. on 8 at 18:45 Dictated By: NATHALIE MCPHERSON MD, MD Electronically S igned By: NATHALIE MCPHERSON MD, MD on 03/13/171844 Transcribed By: BRENT on 1844 COPY TO: MOE MCKEON MD
== END 2019-11-25 15:42 | disposition home or self-care (01) ==
LOC: ER 12:45
DX: S76.811A Strain of other specified muscles, fascia and tendons at thigh level, right thigh, initial encounter (principal); W01.0XXA Fall on same level from slipping, tripping and stumbling without subsequent striking against object, initial encounter; Y92.002 Bathroom of unspecified non-institutional (private) residence as the place of occurrence of the external cause; I12.0 Hypertensive chronic kidney disease with stage 5 chronic kidney disease or end stage renal disease; E11.22 Type 2 diabetes mellitus with diabetic chronic kidney disease; N18.6 End stage renal disease; Z99.2 Dependence on renal dialysis; E78.5 Hyperlipidemia, unspecified; I50.9 Heart failure, unspecified; Z86.73 Personal history of transient ischemic attack (TIA), and cerebral infarction without residual deficits
CPT/HCPCS: 73502; 73552; 73562; 99283; J3010

== ENCOUNTER 2020-03-05 01:48 | Emergency (ER) | payer MEDICARE ==
[~2020-03-05] VITALS: Ht 147.3 cm; Wt 63.0 kg
[2020-03-05 02:28] LABS: BASOPHILS # (AUTO) 0.1 (0.0-0.1); BASOPHILS % 0.8 % (0.0-1.0); EOSINOPHILS # (AUTO) 0.5 (0.0-0.4); EOSINOPHILS % 4.8 % (0.0-6.0); HEMATOCRIT 34.7 % (34.2-44.1); HEMOGLOBIN 10.9 g/dL (12.0-16.0); LYMPHOCYTES # (AUTO) 2.5 (1.0-3.2); LYMPHOCYTES % 23.4 % (18.0-39.1); MEAN CORPUSCULAR HEMOGLOBIN 28.5 pg (28-32); MEAN CORPUSCULAR HGB CONC 31.4 g/dL (31-35); MEAN CORPUSCULAR VOLUME 90.8 fL (81-99); MONOCYTES # (AUTO) 0.8 (0.2-0.8); MONOCYTES % 7.2 % (4.4-11.3); NEUTROPHILS # (AUTO) 6.7 (2.1-6.9); NEUTROPHILS % 63.3 % (38.7-80.0); PLATELET COUNT 195 x10e3/uL (140-360); RED BLOOD COUNT 3.82 x10e6/uL (3.6-5.1); RED CELL DISTRIBUTION WIDTH 15.9 % (11.7-14.4)
[2020-03-05] MEDS ORDERED: HYDROCODONE/APAP 7.5MG-325MG 1 EA TAB PO PRN (02:30)
[2020-03-05 02:46] LABS: ALBUMIN 3.1 g/dL (3.5-5.0); ALBUMIN/GLOBULIN RATIO 0.8 (0.8-2.0); ANION GAP 17.8 mmol/L (8-16); CALCIUM 8.2 mg/dL (8.4-10.2); CREATININE, SERUM 6.24 mg/dL (0.57-1.11); POTASSIUM 4.8 mmol/L (3.5-5.1)
[2020-03-05 02:52] LABS: CREATINE KINASE MB 1.5 ng/mL (0-5.0)
[2020-03-05] MEDS ORDERED: CLONIDINE HCL 0.2 MG TAB PO ONE (03:30)
[2020-03-05] MEDS ORDERED: HYDRALAZINE HCL 20 MG/ML VIAL IV STA (04:36)
== END 2020-03-05 05:15 | disposition home or self-care (01) ==
LOC: ER 02:19
DX: S53.402A Unspecified sprain of left elbow, initial encounter (principal); I12.0 Hypertensive chronic kidney disease with stage 5 chronic kidney disease or end stage renal disease; E11.22 Type 2 diabetes mellitus with diabetic chronic kidney disease; N18.6 End stage renal disease; Z99.2 Dependence on renal dialysis; I50.9 Heart failure, unspecified; E78.5 Hyperlipidemia, unspecified; F41.9 Anxiety disorder, unspecified
CPT/HCPCS: 36415; 70450; 71045; 80053; 82550; 82553; 84484; 85025; 93005; 99284

== ENCOUNTER 2020-06-05 13:27 | Inpatient (IN) | payer MEDICARE ==
[~2020-06-05] VITALS: Ht 147.3 cm; Wt 54.9 kg
[2020-06-05] MEDS ORDERED: SODIUM CHLORIDE 0.9% 1000ML 1,000 ML IV SCH (13:30)
[2020-06-05] MEDS ORDERED: INSULIN REGULAR, HUMAN 100 UNIT/1 ML 3ML VIAL IV ONE (14:00)
[2020-06-05] MEDS ORDERED: DEXTROSE 50% SYRINGE 50 ML IV ONE ×2 (14:00→14:02)
[2020-06-05] MEDS ORDERED: SODIUM BICARBONATE 8.4% INJ 50 ML SYR IV STA (14:00)
[2020-06-05] MEDS ORDERED: CALCIUM GLUCONATE 10% INJ 9.3 MEQ in SODIUM CHLORIDE 0.9% 100 ML 100 ML IV ONE (14:00)
[2020-06-05 14:01] LABS: BASOPHILS # (AUTO) 0.1 (0.0-0.1); BASOPHILS % 0.9 % (0.0-1.0); EOSINOPHILS # (AUTO) 0.2 (0.0-0.4); HEMATOCRIT 47.7 % (34.2-44.1); HEMOGLOBIN 15.1 g/dL (12.0-16.0); LYMPHOCYTES # (AUTO) 1.8 (1.0-3.2); LYMPHOCYTES % 18.4 % (18.0-39.1); MEAN CORPUSCULAR HEMOGLOBIN 31.3 pg (28-32); MEAN CORPUSCULAR HGB CONC 31.7 g/dL (31-35); MONOCYTES # (AUTO) 0.6 (0.2-0.8); MONOCYTES % 5.9 % (4.4-11.3); NEUTROPHILS % 72.4 % (38.7-80.0); PLATELET COUNT 230 x10e3/uL (140-360); RED BLOOD COUNT 4.82 x10e6/uL (3.6-5.1); RED CELL DISTRIBUTION WIDTH 17.2 % (11.7-14.4)
[2020-06-05] MEDS ORDERED: SODIUM BICARBONATE 8.4% SYRING 50 ML ONE (14:02)
[2020-06-05] MEDS ORDERED: CALCIUM GLUCONATE 10% INJ 0.465 MEQ/ML VIAL ONE (14:02)
[2020-06-05] MEDS ORDERED: SODIUM CHLORIDE 0.9% 50ML 50 ML ONE (14:05)
[2020-06-05 14:15] LABS: ALBUMIN/GLOBULIN RATIO 0.9 (0.8-2.0); ANION GAP 25.2 mmol/L (8-16); CALCIUM 9.3 mg/dL (8.4-10.2); CREATININE, SERUM 9.79 mg/dL (0.57-1.11)
[2020-06-05 14:17] LABS: POTASSIUM 7.2 mmol/L (3.5-5.1)
[2020-06-05 14:45] VITALS: BP 196/68
[2020-06-05] MEDS ORDERED: SODIUM CHLORIDE 0.9% 1000ML 2,000 ML ONE (15:33)
[2020-06-05 15:52] VITALS: BP 196/68
[2020-06-05] MEDS ORDERED: HYDRALAZINE HCL 20 MG/ML VIAL IV PRN (16:45)
[2020-06-05] MEDS ORDERED: ONDANSETRON HCL INJ 2MG/ML 2ML 2 MG/ML VIAL IV PRN (16:45)
[2020-06-05] MEDS ORDERED: XANAX1 MG PO (16:49)
[2020-06-05] MEDS ORDERED: CLONIDINE HCL0.1 MG PO (17:01)
[2020-06-05] MEDS ORDERED: SODIUM CHLORIDE 0.9% 1000ML 1,000 ML ONE (18:03)
[2020-06-05 20:53] VITALS: BP 209/79
[2020-06-05] MEDS: CHOLESTYRAMINE 4 GM PACKET PO SCH (21:00)
[2020-06-06] MEDS ORDERED: DICYCLOMINE HCL 20 MG TAB PO ONE (02:30)
[2020-06-06] MEDS: PANTOPRAZOLE 40 MG 10ML VIAL IV SCH ×2 (03:30→17:25)
[2020-06-06 06:19] LABS: BASOPHILS % 0.5 % (0.0-1.0); EOSINOPHILS # (AUTO) 0.3 (0.0-0.4); HEMOGLOBIN 11.3 g/dL (12.0-16.0); LYMPHOCYTES # (AUTO) 1.6 (1.0-3.2); LYMPHOCYTES % 18.1 % (18.0-39.1); MEAN CORPUSCULAR HEMOGLOBIN 31.2 pg (28-32); MEAN CORPUSCULAR HGB CONC 32.3 g/dL (31-35); MEAN CORPUSCULAR VOLUME 96.7 fL (81-99); MONOCYTES % 10.9 % (4.4-11.3); NEUTROPHILS # (AUTO) 5.8 (2.1-6.9); NEUTROPHILS % 67.2 % (38.7-80.0); PLATELET COUNT 152 x10e3/uL (140-360); RED BLOOD COUNT 3.62 x10e6/uL (3.6-5.1); RED CELL DISTRIBUTION WIDTH 17.2 % (11.7-14.4)
[2020-06-06 06:48] LABS: ANION GAP 14.9 mmol/L (8-16); CREATININE, SERUM 4.81 mg/dL (0.57-1.11); POTASSIUM 3.9 mmol/L (3.5-5.1)
[2020-06-06 06:53] LABS: CALCIUM 6.8 mg/dL (8.4-10.2)
[2020-06-06 07:02] LABS: PHOSPHORUS 5.5 MG/DL (2.3-4.7)
[2020-06-06 07:21] LABS: THYROID STIMULATING HORMONE 3.566 uIU/mL (0.350-4.940)
[2020-06-06] MEDS ORDERED: FAMOTIDINE 20 MG TAB PO SCH (07:30)
[2020-06-06 08:47] VITALS: BP 105/47
[2020-06-06] MEDS: DICYCLOMINE HCL 10 MG CAP PO SCH ×3 (09:00→21:00)
[2020-06-06 09:35] VITALS: BP 105/47
[2020-06-06] MEDS: CHOLESTYRAMINE 4 GM PACKET PO SCH ×3 (10:00→22:00)
[2020-06-06] MEDS: ACETAMINOPHEN 325 MG TAB PO PRN (11:21)
[2020-06-06 11:35] VITALS: BP 122/80
[2020-06-06 16:22] VITALS: BP 129/56
[2020-06-06 20:37] VITALS: BP 110/56
[2020-06-06 21:00] VITALS: BP 110/56
[2020-06-07] MEDS: PANTOPRAZOLE 40 MG 10ML VIAL IV SCH (03:30)
[2020-06-07 06:35] LABS: BASOPHILS # (AUTO) 0.1 (0.0-0.1); BASOPHILS % 0.8 % (0.0-1.0); EOSINOPHILS # (AUTO) 0.3 (0.0-0.4); HEMATOCRIT 34.5 % (34.2-44.1); LYMPHOCYTES # (AUTO) 1.8 (1.0-3.2); LYMPHOCYTES % 24.4 % (18.0-39.1); MEAN CORPUSCULAR HEMOGLOBIN 31.5 pg (28-32); MEAN CORPUSCULAR HGB CONC 31.9 g/dL (31-35); MEAN CORPUSCULAR VOLUME 98.9 fL (81-99); MONOCYTES # (AUTO) 0.8 (0.2-0.8); MONOCYTES % 10.7 % (4.4-11.3); NEUTROPHILS # (AUTO) 4.5 (2.1-6.9); NEUTROPHILS % 59.4 % (38.7-80.0); PLATELET COUNT 151 x10e3/uL (140-360); RED BLOOD COUNT 3.49 x10e6/uL (3.6-5.1); RED CELL DISTRIBUTION WIDTH 16.9 % (11.7-14.4)
[2020-06-07 07:00] LABS: ANION GAP 17.2 mmol/L (8-16); CALCIUM 7.5 mg/dL (8.4-10.2); CREATININE, SERUM 6.68 mg/dL (0.57-1.11); PHOSPHORUS 8.3 MG/DL (2.3-4.7); POTASSIUM 4.2 mmol/L (3.5-5.1)
[2020-06-07 08:35] VITALS: BP 141/69
[2020-06-07 08:39] VITALS: BP 141/69
[2020-06-07] MEDS: DICYCLOMINE HCL 10 MG CAP PO SCH (08:51)
[2020-06-07] MEDS: CHOLESTYRAMINE 4 GM PACKET PO SCH ×2 (08:51→11:48)
[2020-06-07] MEDS ORDERED: SODIUM CHLORIDE 0.9% 1000ML 2,000 ML ONE (08:52)
[2020-06-07 11:59] VITALS: BP 121/82
[2020-06-07] MEDS ORDERED: DICYCLOMINE HCL10 MG PO (12:03)
[2020-06-07] MEDS ORDERED: DICYCLOMINE HCL20 MG PO (12:04)
[2020-06-07] MEDS: ACETAMINOPHEN 325 MG TAB PO PRN (13:11)
== END 2020-06-07 14:27 | disposition home health service (06) | DRG 640 ==
LOC: ER 13:29 → ERHOLD 14:20 → MED/SURG3 14:44
PROVIDERS: ADMIT Internal Medicine; ATTEND Internal Medicine
PROC: 5A1D70Z Performance of Urinary Filtration, Intermittent, Less than 6 Hours Per Day (ICD-10-PCS; principal; 2020-06-05)
DX: E87.5 Hyperkalemia (principal); I50.33 Acute on chronic diastolic (congestive) heart failure; N18.6 End stage renal disease; I13.2 Hypertensive heart and chronic kidney disease with heart failure and with stage 5 chronic kidney disease, or end stage renal disease; E87.6 Hypokalemia; E11.22 Type 2 diabetes mellitus with diabetic chronic kidney disease; E78.5 Hyperlipidemia, unspecified; Z99.2 Dependence on renal dialysis; Z20.822 Contact with and (suspected) exposure to COVID-19; Z86.73 Personal history of transient ischemic attack (TIA), and cerebral infarction without residual deficits; R19.7 Diarrhea, unspecified; F41.9 Anxiety disorder, unspecified
CPT/HCPCS: 36415; 71045; 80048; 80053; 80061; 82948; 83036; 83993; 84100; 84443; 85025; 87045; 87177; 87493; 93005; 93306; 99284; J0360; J0610; J1817; J7030; J7799; U0002

== ENCOUNTER 2021-01-15 14:51 | Inpatient (IN) | payer MEDICARE ==
[~2021-01-15] VITALS: Ht 147.3 cm; Wt 49.0 kg
[~2021-01-15 14:51] MED LIST changes: +DICYCLOMINE HCL10 MG PO; +DICYCLOMINE HCL20 MG PO; +XANAX1 MG PO
[2021-01-15] MEDS ORDERED: DEXTROSE 50% SYRINGE 50 ML IV STA (15:09)
[2021-01-15] MEDS ORDERED: ONDANSETRON HCL INJ 2MG/ML 2ML 2 MG/ML VIAL IV STA (16:06)
[2021-01-15 16:19] LABS: BASOPHILS # (AUTO) 0.1 (0.0-0.1); BASOPHILS % 0.7 % (0.0-1.0); EOSINOPHILS % 0.1 % (0.0-6.0); HEMOGLOBIN 12.3 g/dL (12.0-16.0); MEAN CORPUSCULAR HGB CONC 29.3 g/dL (31-35); MEAN CORPUSCULAR VOLUME 99.1 fL (81-99); MONOCYTES # (AUTO) 0.5 (0.2-0.8); MONOCYTES % 6.4 % (4.4-11.3); NEUTROPHILS # (AUTO) 5.7 (2.1-6.9); NEUTROPHILS % 78.3 % (38.7-80.0); PLATELET COUNT 102 x10e3/uL (140-360); RED BLOOD COUNT 4.24 x10e6/uL (3.6-5.1); RED CELL DISTRIBUTION WIDTH 20.3 % (11.7-14.4)
[2021-01-15] MEDS ORDERED: METOCLOPRAMIDE HCL 10 MG/2ML VIAL IV ONE (16:30)
[2021-01-15 16:49] LABS: ANION GAP 28.3 mmol/L (8-16); CALCIUM 8.4 mg/dL (8.4-10.2); CREATININE, SERUM 5.32 mg/dL (0.57-1.11); POTASSIUM 4.3 mmol/L (3.5-5.1)
[2021-01-15 16:59] LABS: ALBUMIN 2.5 g/dL (3.5-5.0)
[2021-01-15 17:00] LABS: ALBUMIN/GLOBULIN RATIO 0.6 (0.8-2.0)
[2021-01-15] MEDS ORDERED: KETOROLAC TROMETHAMINE 30 MG/ML VIAL IV STA (18:05)
[2021-01-15] MEDS ORDERED: PROMETHAZINE 25MG/ NS 50ML (IV) IV ONE ×2 (18:15→19:45)
[2021-01-15] MEDS ORDERED: PROMETHAZINE HCL (IM) 25 MG/ML VIAL IM ONE (18:45)
[2021-01-15] MEDS ORDERED: DEXTROSE 5%/0.45% SOD CHL 1,000 ML IV STA (21:16)
[2021-01-15] MEDS ORDERED: ACETAMINOPHEN 325 MG TAB PO PRN (21:30)
[2021-01-15 22:00] VITALS: BP 174/71
[2021-01-15] MEDS: HYDRALAZINE HCL 100 MG TABLET PO SCH (22:40)
[2021-01-15] MEDS: CLONIDINE HCL 0.1 MG TAB PO SCH (22:40)
[2021-01-16] VITALS (8 sets, daily range): BP systolic 113–165; BP diastolic 51–62
[2021-01-16] MEDS ORDERED: DEXTROSE 50% SYRINGE 50 ML IV PRN (01:15)
[2021-01-16 05:23] LABS: BASOPHILS # (AUTO) 0.1 (0.0-0.1); BASOPHILS % 0.9 % (0.0-1.0); EOSINOPHILS % 0.5 % (0.0-6.0); HEMATOCRIT 38.2 % (34.2-44.1); HEMOGLOBIN 12.2 g/dL (12.0-16.0); LYMPHOCYTES # (AUTO) 1.3 (1.0-3.2); LYMPHOCYTES % 19.5 % (18.0-39.1); MEAN CORPUSCULAR HEMOGLOBIN 29.4 pg (28-32); MEAN CORPUSCULAR HGB CONC 31.9 g/dL (31-35); MONOCYTES # (AUTO) 0.4 (0.2-0.8); MONOCYTES % 6.4 % (4.4-11.3); NEUTROPHILS # (AUTO) 4.7 (2.1-6.9); NEUTROPHILS % 72.2 % (38.7-80.0); PLATELET COUNT 123 x10e3/uL (140-360); RED BLOOD COUNT 4.15 x10e6/uL (3.6-5.1); RED CELL DISTRIBUTION WIDTH 19.5 % (11.7-14.4)
[2021-01-16 05:35] LABS: ALBUMIN 2.2 g/dL (3.5-5.0); ALBUMIN/GLOBULIN RATIO 0.7 (0.8-2.0); ANION GAP 18.1 mmol/L (8-16); CALCIUM 7.5 mg/dL (8.4-10.2); CREATININE, SERUM 5.63 mg/dL (0.57-1.11); POTASSIUM 3.1 mmol/L (3.5-5.1)
[2021-01-16] MEDS: INSULIN LISPRO 100 UNIT/1 ML 3ML VIAL SQ SCH ×4 (07:30→21:30)
[2021-01-16] MEDS: CLONIDINE HCL 0.1 MG TAB PO SCH (09:06)
[2021-01-16] MEDS: HYDRALAZINE HCL 100 MG TABLET PO SCH ×3 (09:06→21:02)
[2021-01-16] MEDS ORDERED: ALPRAZOLAM 0.25 MG TAB PO SCH (10:45)
[2021-01-16] MEDS ORDERED: POTASSIUM CHLORIDE 20 MEQ TAB CR PO ONE (12:45)
[2021-01-16] MEDS: PANTOPRAZOLE SOD 40 MG TABEC PO SCH (17:04)
[2021-01-16] MEDS: CALCIUM CARBONATE 500 MG CHEWABLE TABS PO SCH (17:04)
[2021-01-16] MEDS: ATENOLOL 50 MG TAB PO SCH (17:05)
[2021-01-16] MEDS ORDERED: PANTOPRAZOLE SOD 40 MG TABEC PO SCH (21:00)
[2021-01-16] MEDS: ENOXAPARIN 30 MG/0.3 ML SYR SC SCH (21:02)
[2021-01-16] MEDS ORDERED: ZOLPIDEM TARTRATE 5 MG TAB PO PRN (21:15)
[2021-01-17] VITALS: BP 106/49
[2021-01-17 04:00] VITALS: BP 139/57
[2021-01-17 05:00] LABS: BASOPHILS % 0.6 % (0.0-1.0); EOSINOPHILS # (AUTO) 0.1 (0.0-0.4); EOSINOPHILS % 1.2 % (0.0-6.0); HEMOGLOBIN 11.9 g/dL (12.0-16.0); LYMPHOCYTES # (AUTO) 1.4 (1.0-3.2); LYMPHOCYTES % 21.1 % (18.0-39.1); MEAN CORPUSCULAR HEMOGLOBIN 28.9 pg (28-32); MEAN CORPUSCULAR HGB CONC 31.3 g/dL (31-35); MEAN CORPUSCULAR VOLUME 92.2 fL (81-99); MONOCYTES # (AUTO) 0.6 (0.2-0.8); MONOCYTES % 8.2 % (4.4-11.3); NEUTROPHILS # (AUTO) 4.6 (2.1-6.9); NEUTROPHILS % 68.6 % (38.7-80.0); PLATELET COUNT 97 x10e3/uL (140-360); RED BLOOD COUNT 4.12 x10e6/uL (3.6-5.1); RED CELL DISTRIBUTION WIDTH 19.9 % (11.7-14.4)
[2021-01-17 05:30] LABS: ALBUMIN 1.9 g/dL (3.5-5.0); ALBUMIN/GLOBULIN RATIO 0.7 (0.8-2.0); CALCIUM 7.4 mg/dL (8.4-10.2); CREATININE, SERUM 6.21 mg/dL (0.57-1.11)
[2021-01-17] MEDS: INSULIN LISPRO 100 UNIT/1 ML 3ML VIAL SQ SCH ×3 (07:21→15:31)
[2021-01-17] MEDS: CALCIUM CARBONATE 500 MG CHEWABLE TABS PO SCH ×2 (07:30→16:52)
[2021-01-17 08:01] VITALS: BP 136/55
[2021-01-17] MEDS: CLONIDINE HCL 0.1 MG TAB PO SCH (08:40)
[2021-01-17] MEDS: PANTOPRAZOLE SOD 40 MG TABEC PO SCH ×2 (08:40→16:52)
[2021-01-17] MEDS: HYDRALAZINE HCL 100 MG TABLET PO SCH ×2 (08:40→15:47)
[2021-01-17] MEDS: ATENOLOL 50 MG TAB PO SCH (08:40)
[2021-01-17] MEDS: ENOXAPARIN 30 MG/0.3 ML SYR SC SCH (08:41)
[2021-01-17] MEDS ORDERED: SODIUM CHLORIDE 0.9% 1000ML 2,000 ML IV PRN (09:30)
[2021-01-17 09:40] VITALS: BP 136/55
[2021-01-17 11:50] VITALS: BP 120/50
[2021-01-17] MEDS ORDERED: METOCLOPRAMIDE HCL 10 MG TAB PO ONE (12:30)
[2021-01-17 16:21] VITALS: BP 158/51
== END 2021-01-17 17:20 | disposition home or self-care (01) | DRG 291 ==
LOC: ER 14:55 → ERHOLD 18:40 → MED/SURG 21:53 → OBSVTOIN 01-16 15:10
PROVIDERS: ADMIT Internal Medicine; ATTEND Internal Medicine
PROC: 5A1D70Z Performance of Urinary Filtration, Intermittent, Less than 6 Hours Per Day (ICD-10-PCS; principal; 2021-01-17)
DX: I13.2 Hypertensive heart and chronic kidney disease with heart failure and with stage 5 chronic kidney disease, or end stage renal disease (principal); I50.33 Acute on chronic diastolic (congestive) heart failure; N18.6 End stage renal disease; N25.81 Secondary hyperparathyroidism of renal origin; E11.649 Type 2 diabetes mellitus with hypoglycemia without coma; E11.22 Type 2 diabetes mellitus with diabetic chronic kidney disease; Z99.2 Dependence on renal dialysis; Z79.899 Other long term (current) drug therapy; F41.9 Anxiety disorder, unspecified; Z74.09 Other reduced mobility; E87.6 Hypokalemia; I25.10 Atherosclerotic heart disease of native coronary artery without angina pectoris; K29.70 Gastritis, unspecified, without bleeding; Z20.822 Contact with and (suspected) exposure to COVID-19
CPT/HCPCS: 36415; 74176; 80053; 82948; 83036; 84484; 84681; 85025; 86705; 86706; 87340; 93005; 93306; 94799; 97139; 99251; 99284; G0378; J1650; J1885; J2550; J2765; J7030; J7799; U0002

== ENCOUNTER 2021-01-19 08:37 | Emergency (ER) | payer OTHER, MEDICARE ==
[~2021-01-19] VITALS: Ht 147.3 cm; Wt 49.0 kg
== END 2021-01-19 11:19 | disposition home or self-care (01) ==
LOC: ER 08:43
DX: Z49.01 Encounter for fitting and adjustment of extracorporeal dialysis catheter (principal); I12.9 Hypertensive chronic kidney disease with stage 1 through stage 4 chronic kidney disease, or unspecified chronic kidney disease; E11.22 Type 2 diabetes mellitus with diabetic chronic kidney disease; N18.9 Chronic kidney disease, unspecified
CPT/HCPCS: 93971; 99283

== ENCOUNTER 2021-02-21 12:49 | Outpatient (RCR) | payer MEDICARE ==
[2021-02-28] MEDS ORDERED: ULTRACET TABLE1 EACH PO (19:49)
[2021-02-28] MEDS ORDERED: BACTRIM DS TAB1 EACH PO (19:49)
[2021-02-28] MEDS ORDERED: CEPHALEXIN500 MG PO (19:49)
[2021-03-07] MEDS ORDERED: GABAPENTIN300 MG PO (02:00)
== END 2021-03-19 ==
LOC: WCC 12:49
PROVIDERS: ATTEND Podiatrist
DX: E11.621 Type 2 diabetes mellitus with foot ulcer (principal); E11.622 Type 2 diabetes mellitus with other skin ulcer; L97.521 Non-pressure chronic ulcer of other part of left foot limited to breakdown of skin; L97.421 Non-pressure chronic ulcer of left heel and midfoot limited to breakdown of skin; N18.6 End stage renal disease; I10 Essential (primary) hypertension; G90.09 Other idiopathic peripheral autonomic neuropathy

== ENCOUNTER 2021-02-28 19:11 | Emergency (ER) | payer MEDICARE ==
[~2021-02-28] VITALS: Ht 147.3 cm; Wt 49.0 kg
[2021-02-28] MEDS ORDERED: BACTRIM DS TAB1 EACH PO (19:49)
[2021-02-28] MEDS ORDERED: CEPHALEXIN500 MG PO (19:49)
[2021-02-28] MEDS ORDERED: ULTRACET TABLE1 EACH PO (19:49)
[2021-02-28] MEDS ORDERED: ACETAMINOPHEN/CODEINE 300MG - 30MG TAB ONE (19:55)
[2021-02-28] MEDS ORDERED: ACETAMINOPHEN/CODEINE 300MG - 30MG TAB PO ONE (20:00)
[2021-02-28] MEDS ORDERED: TRIMETHOPRIM/SULFAMETHOXAZOLE 160-800 MG TAB PO ONE (20:00)
[2021-02-28] MEDS ORDERED: CEPHALEXIN 500 MG CAP PO SCH (20:00)
== END 2021-02-28 20:35 | disposition home or self-care (01) ==
LOC: ER 19:31
DX: L02.415 Cutaneous abscess of right lower limb (principal); E11.9 Type 2 diabetes mellitus without complications; I12.9 Hypertensive chronic kidney disease with stage 1 through stage 4 chronic kidney disease, or unspecified chronic kidney disease; E11.22 Type 2 diabetes mellitus with diabetic chronic kidney disease; N18.9 Chronic kidney disease, unspecified; Z99.2 Dependence on renal dialysis
CPT/HCPCS: 99283

== ENCOUNTER 2021-03-01 08:20 | Emergency (ER) | payer MEDICARE ==
[~2021-03-01] VITALS: Ht 147.3 cm; Wt 49.0 kg
[~2021-03-01 08:20] MED LIST changes: +BACTRIM DS TAB1 EACH PO; +CEPHALEXIN500 MG PO; +ULTRACET TABLE1 EACH PO
[2021-03-01 08:43] LABS: BASOPHILS % 0.2 % (0.0-1.0); EOSINOPHILS # (AUTO) 0.1 (0.0-0.4); EOSINOPHILS % 0.5 % (0.0-6.0); HEMATOCRIT 25.1 % (34.2-44.1); HEMOGLOBIN 7.5 g/dL (12.0-16.0); LYMPHOCYTES % 6.8 % (18.0-39.1); MEAN CORPUSCULAR HEMOGLOBIN 28.7 pg (28-32); MEAN CORPUSCULAR HGB CONC 29.9 g/dL (31-35); MEAN CORPUSCULAR VOLUME 96.2 fL (81-99); MONOCYTES # (AUTO) 0.5 (0.2-0.8); MONOCYTES % 3.5 % (4.4-11.3); NEUTROPHILS # (AUTO) 13.2 (2.1-6.9); NEUTROPHILS % 88.4 % (38.7-80.0); PLATELET COUNT 87 x10e3/uL (140-360); RED BLOOD COUNT 2.61 x10e6/uL (3.6-5.1); RED CELL DISTRIBUTION WIDTH 21.2 % (11.7-14.4)
[2021-03-01 09:03] LABS: ALBUMIN 1.3 g/dL (3.5-5.0); ALBUMIN/GLOBULIN RATIO 0.3 (0.8-2.0); ANION GAP 6.9 mmol/L (8-16); CALCIUM 7.5 mg/dL (8.4-10.2); CREATININE, SERUM 2.43 mg/dL (0.57-1.11)
[2021-03-01 09:05] LABS: POTASSIUM 2.9 mmol/L (3.5-5.1)
[2021-03-01] MEDS ORDERED: POTASSIUM CHLORIDE 20 MEQ TAB CR PO STA (09:07)
[2021-03-01] MEDS ORDERED: FUROSEMIDE INJ 10 MG/ML 4 ML VIAL IV ONE (10:00)
== END 2021-03-01 11:50 | disposition home or self-care (01) ==
LOC: ER 08:31
DX: U07.1 COVID-19 (principal); R06.02 Shortness of breath; R05.9 Cough, unspecified; E87.6 Hypokalemia; I12.0 Hypertensive chronic kidney disease with stage 5 chronic kidney disease or end stage renal disease; E11.22 Type 2 diabetes mellitus with diabetic chronic kidney disease; N18.6 End stage renal disease; Z99.2 Dependence on renal dialysis; R94.31 Abnormal electrocardiogram [ECG] [EKG]
CPT/HCPCS: 36415; 71045; 80053; 83880; 84484; 85025; 93005; 99284; J1940; U0002

== ENCOUNTER 2021-03-05 08:35 | Inpatient (IN) | payer MEDICARE ==
[~2021-03-05] VITALS: Ht 147.3 cm; Wt 47.2 kg
[2021-03-05] MEDS ORDERED: DEXTROSE 50% SYRINGE 50 ML IV ONE (08:54)
[2021-03-05] MEDS ORDERED: DEXTROSE 50% SYRINGE 50 ML IV STA (09:08)
[2021-03-05 09:19] LABS: BASOPHILS % 0.2 % (0.0-1.0); LYMPHOCYTES # (AUTO) 1.3 (1.0-3.2); LYMPHOCYTES % 10.7 % (18.0-39.1); MEAN CORPUSCULAR HEMOGLOBIN 28.9 pg (28-32); MEAN CORPUSCULAR HGB CONC 29.5 g/dL (31-35); MEAN CORPUSCULAR VOLUME 98.2 fL (81-99); MONOCYTES # (AUTO) 0.1 (0.2-0.8); MONOCYTES % 1.1 % (4.4-11.3); NEUTROPHILS # (AUTO) 10.6 (2.1-6.9); NEUTROPHILS % 87.2 % (38.7-80.0); PLATELET COUNT 55 x10e3/uL (140-360); RED BLOOD COUNT 2.28 x10e6/uL (3.6-5.1); RED CELL DISTRIBUTION WIDTH 22.7 % (11.7-14.4)
[2021-03-05 09:30] LABS: HEMOGLOBIN 6.6 g/dL (12.0-16.0)
[2021-03-05 09:31] LABS: HEMATOCRIT 22.4 % (34.2-44.1)
[2021-03-05 09:35] LABS: INR 1.71; PROTHROMBIN TIME 21.1 seconds (11.9-14.5)
[2021-03-05 09:41] LABS: PARTIAL THROMBOPLASTIN TIME 58.1 seconds (23.8-35.5)
[2021-03-05 09:48] LABS: ALBUMIN 1.2 g/dL (3.5-5.0); ALBUMIN/GLOBULIN RATIO 0.4 (0.8-2.0); ANION GAP 9.2 mmol/L (8-16); CALCIUM 7.1 mg/dL (8.4-10.2); CREATININE, SERUM 2.69 mg/dL (0.57-1.11); MAGNESIUM 1.6 MG/DL (1.3-2.1); POTASSIUM 3.2 mmol/L (3.5-5.1)
[2021-03-05 09:55] LABS: CREATINE KINASE MB 1.9 ng/mL (0-5.0)
[2021-03-05] MEDS ORDERED: DEXTROSE 5% 1,000 ML IV ONE (10:00)
[2021-03-05] MEDS ORDERED: Vancomycin IV 1 GM in SODIUM CHLORIDE 0.9% 250ML 250 ML IV ONE (10:00)
[2021-03-05] MEDS ORDERED: PIPERACILLIN/TAZOBACTAM 2.25 GM in SODIUM CHLORIDE 0.9% 50ML 50 ML IV ONE (10:00)
[2021-03-05 10:21] LABS: CLARITY,URINE CLOUDY (CLEAR); COLOR,URINE AMBER (YELLOW); KETONES,URINE TRACE (NEGATIVE); LEUKOCYTE ESTERASE ,URINE NEGATIVE (NEGATIVE); NITRITE,URINE NEGATIVE (NEGATIVE); PROTEIN,URINE DIPSTICK >=300 (NEGATIVE); URINE UROBILINOGEN 0.2 mg/dL (0.2 - 1)
[2021-03-05 10:26] LABS: EPITHELIAL CELLS,URINE MANY /LPF
[2021-03-05 10:27] LABS: BACTERIA,URINE MODERATE /HPF; RBC,URINE 0-5 /HPF (0-5); TRANSITIONAL EPI CELLS,URINE RARE
[2021-03-05] MEDS ORDERED: SODIUM CHLORIDE 0.9% 250ML 250 ML IV ONE (11:15)
[2021-03-05 11:42] LABS: BAND NEUTROPHILS % (MANUAL) 2 %; EOSINOPHILS % (MANUAL) 1 % (0-7); LYMPHOCYTES % (MANUAL) 5 % (19-48); MONOCYTES % (MANUAL) 1 % (3.4-9.0); NEUTROPHILS % (MANUAL) 91 % (40-74); PLATELET ESTIMATE MODERATELY DECREASED; PLATELET MORPHOLOGY COMMENT NORMAL; RBC MORPHOLOGY COMMENT NORMAL
[2021-03-05 11:43] LABS: MICROCYTOSIS SLIGHT
[2021-03-05] MEDS ORDERED: DEXTROSE 50% SYRINGE 50 ML IV PRN (12:00)
[2021-03-05 13:21] LABS: IRON 50 ug/dL (50-170); TRANSFERRIN < 70 mg/dL (180-382)
[2021-03-05] MEDS ORDERED: SODIUM CHLORIDE 0.9% 1000ML 2,000 ML ONE (14:06)
[2021-03-05] MEDS ORDERED: CLONIDINE HCL 0.2 MG TAB PO PRN (15:00)
[2021-03-05] MEDS ORDERED: SODIUM CHLORIDE 0.9% 250ML 0 ML ONE (15:13)
[2021-03-05 15:37] LABS: CREATINE KINASE MB 2.5 ng/mL (0-5.0)
[2021-03-05] MEDS ORDERED: SODIUM CHLORIDE 0.9% 250ML 250 ML ONE ×2 (18:46→18:47)
[2021-03-05] MEDS ORDERED: Vancomycin IV 1 GM VIAL ONE (18:46)
[2021-03-05] MEDS: FUROSEMIDE INJ 10 MG/ML 2 ML VIAL IV PRN (20:14)
[2021-03-05] MEDS: PANTOPRAZOLE SOD 40 MG TABEC PO SCH (20:17)
[2021-03-05] MEDS ORDERED: ALPRAZOLAM 0.25 MG TAB PO ONE (20:45)
[2021-03-05] MEDS: INSULIN LISPRO 100 UNIT/1 ML 3ML VIAL SQ SCH (21:00)
[2021-03-06 06:31] LABS: BASOPHILS % 0.2 % (0.0-1.0); EOSINOPHILS % 0.2 % (0.0-6.0); HEMATOCRIT 35.5 % (34.2-44.1); HEMOGLOBIN 11.3 g/dL (12.0-16.0); LYMPHOCYTES # (AUTO) 1.2 (1.0-3.2); LYMPHOCYTES % 9.5 % (18.0-39.1); MEAN CORPUSCULAR HGB CONC 31.8 g/dL (31-35); MONOCYTES # (AUTO) 0.2 (0.2-0.8); MONOCYTES % 1.7 % (4.4-11.3); NEUTROPHILS # (AUTO) 10.8 (2.1-6.9); NEUTROPHILS % 87.7 % (38.7-80.0); RED CELL DISTRIBUTION WIDTH 21.6 % (11.7-14.4)
[2021-03-06 06:35] LABS: ALBUMIN 1.3 g/dL (3.5-5.0); ALBUMIN/GLOBULIN RATIO 0.3 (0.8-2.0); ANION GAP 12.1 mmol/L (8-16); CALCIUM 7.4 mg/dL (8.4-10.2); CREATININE, SERUM 1.52 mg/dL (0.57-1.11); POTASSIUM 3.1 mmol/L (3.5-5.1)
[2021-03-06 06:38] LABS: PLATELET COUNT 31 x10e3/uL (140-360)
[2021-03-06 06:51] LABS: CREATINE KINASE MB 2.2 ng/mL (0-5.0)
[2021-03-06] MEDS: INSULIN LISPRO 100 UNIT/1 ML 3ML VIAL SQ SCH ×4 (07:30→21:00)
[2021-03-06 09:43] LABS: LYMPHOCYTES % (MANUAL) 3 % (19-48); MONOCYTES % (MANUAL) 1 % (3.4-9.0); NEUTROPHILS % (MANUAL) 96 % (40-74)
[2021-03-06 09:45] LABS: ANISOCYTOSIS MODERATE; HYPOCHROMASIA SLIGHT; PLATELET ESTIMATE MARKEDLY DECREASED; PLATELET MORPHOLOGY COMMENT NORMAL; RBC MORPHOLOGY COMMENT ABNORMAL
[2021-03-06] MEDS: DEXAMETHASONE 4 MG TAB PO SCH (12:29)
[2021-03-06] MEDS ORDERED: REMDESIVIR 100MG 200 MG in SODIUM CHLORIDE 0.9% 100 ML IV ONE (12:30)
[2021-03-06 15:20] LABS: CREATINE KINASE MB 2.4 ng/mL (0-5.0)
[2021-03-06] MEDS: PANTOPRAZOLE SOD 40 MG TABEC PO SCH (21:00)
[2021-03-06 23:15] VITALS: BP 128/58
[2021-03-07] VITALS (10 sets, daily range): BP systolic 115–147; BP diastolic 52–67
[2021-03-07] MEDS: TRAMADOL HCL 50 MG TAB PO PRN ×2 (00:26→20:14)
[2021-03-07] MEDS ORDERED: GABAPENTIN300 MG PO (02:00)
[2021-03-07] MEDS: INSULIN LISPRO 100 UNIT/1 ML 3ML VIAL SQ SCH ×4 (07:30→20:17)
[2021-03-07 08:58] LABS: BASOPHILS % 0.1 % (0.0-1.0); HEMATOCRIT 39.6 % (34.2-44.1); HEMOGLOBIN 12.4 g/dL (12.0-16.0); LYMPHOCYTES % 7.4 % (18.0-39.1); MEAN CORPUSCULAR HGB CONC 31.3 g/dL (31-35); MEAN CORPUSCULAR VOLUME 92.5 fL (81-99); MONOCYTES # (AUTO) 0.4 (0.2-0.8); MONOCYTES % 2.8 % (4.4-11.3); NEUTROPHILS # (AUTO) 11.9 (2.1-6.9); NEUTROPHILS % 88.8 % (38.7-80.0); RED BLOOD COUNT 4.28 x10e6/uL (3.6-5.1); RED CELL DISTRIBUTION WIDTH 22.3 % (11.7-14.4)
[2021-03-07] MEDS ORDERED: AZITHROMYCIN 250 MG TAB PO SCH (09:00)
[2021-03-07 09:04] LABS: PLATELET COUNT 34 x10e3/uL (140-360)
[2021-03-07 09:28] LABS: ALBUMIN 1.5 g/dL (3.5-5.0); ALBUMIN/GLOBULIN RATIO 0.3 (0.8-2.0); ANION GAP 16.4 mmol/L (8-16); CALCIUM 7.9 mg/dL (8.4-10.2); CREATININE, SERUM 2.16 mg/dL (0.57-1.11); POTASSIUM 3.4 mmol/L (3.5-5.1)
[2021-03-07 09:47] LABS: MAGNESIUM 1.8 MG/DL (1.3-2.1); PHOSPHORUS 2.4 MG/DL (2.3-4.7)
[2021-03-07] MEDS ORDERED: WATER STERILE 10 ML VIAL ONE (12:36)
[2021-03-07] MEDS ORDERED: ETOMIDATE 2 MG/ML 10 ML INJ IV ONE (12:36)
[2021-03-07] MEDS ORDERED: VECURONIUM BROMIDE FOR INJ 20 MG VIAL ONE (12:36)
[2021-03-07] MEDS ORDERED: EPINEPHRINE HCL SYRINGE ONE (12:36)
[2021-03-07] MEDS ORDERED: SODIUM BICARBONATE 8.4% INJ 50 ML SYR ONE (12:36)
[2021-03-07] MEDS ORDERED: SODIUM CHLORIDE FLUSH 10 ML SYR ONE (12:36)
[2021-03-07] MEDS ORDERED: SODIUM CHLORIDE 0.9% 250ML 750 ML IV PRN (13:15)
[2021-03-07] MEDS ORDERED: SODIUM CHLORIDE 0.9% 1000ML 2,000 ML IV PRN (13:15)
[2021-03-07] MEDS ORDERED: SODIUM CHLORIDE 0.9% 1000ML 1,000 ML ONE (13:20)
[2021-03-07] MEDS ORDERED: ALBUMIN 25% 12.5GM 0.25 GM/ML BTL IV PRN (16:30)
[2021-03-07] MEDS ORDERED: SODIUM CHLORIDE 0.9% 250ML 500 ML IV PRN (16:30)
[2021-03-07] MEDS: DEXAMETHASONE 4 MG TAB PO SCH (18:24)
[2021-03-07] MEDS: CEFTRIAXONE 1 GM in SODIUM CHLORIDE 0.9% 50ML 50 ML IV SCH (18:24)
[2021-03-07] MEDS: REMDESIVIR 100MG 100 MG in SODIUM CHLORIDE 0.9% 100 ML IV SCH (19:44)
[2021-03-07] MEDS: PANTOPRAZOLE SOD 40 MG TABEC PO SCH (20:14)
[2021-03-07] MEDS ORDERED: MIDAZOLAM HCL 5MG/ML 10ML VIAL 100 ML IV ONE (21:47)
[2021-03-07] MEDS ORDERED: FENTANYL 2000MCG/NS 250 250 ML ONE (21:47)
[2021-03-07] MEDS ORDERED: PROPOFOL IV EMULSION 10MG/ML 100 ML ONE (22:00)
[2021-03-07] MEDS ORDERED: ASPIRIN 81 MG CHEW TAB PO ONE (22:00)
[2021-03-07 22:21] LABS: CALCIUM 7.5 mg/dL (8.4-10.2); CREATININE, SERUM 1.48 mg/dL (0.57-1.11)
[2021-03-07 22:27] LABS: CREATINE KINASE MB 1.1 ng/mL (0-5.0)
[2021-03-07 22:30] LABS: ABG PCO2 43 mmHg (35-45); ABG PH 7.42 (7.35-7.45); ABG PO2 62 mmHg (80-105)
[2021-03-07 22:31] LABS: ABG HCO3 28 mmol/L (22-26); ABG TCO2 29
[2021-03-08] VITALS (26 sets, daily range): BP systolic 90–148; BP diastolic 58–80
[2021-03-08] MEDS ORDERED: PROPOFOL IV EMULSION 10MG/ML 100 ML IV PRN (01:30)
[2021-03-08 05:12] LABS: BASOPHILS % 0.2 % (0.0-1.0); EOSINOPHILS % 0.1 % (0.0-6.0); HEMATOCRIT 26.7 % (34.2-44.1); HEMOGLOBIN 8.8 g/dL (12.0-16.0); LYMPHOCYTES # (AUTO) 1.2 (1.0-3.2); LYMPHOCYTES % 9.1 % (18.0-39.1); MEAN CORPUSCULAR HEMOGLOBIN 29.8 pg (28-32); MEAN CORPUSCULAR VOLUME 90.5 fL (81-99); MONOCYTES # (AUTO) 0.4 (0.2-0.8); MONOCYTES % 2.7 % (4.4-11.3); NEUTROPHILS # (AUTO) 11.3 (2.1-6.9); NEUTROPHILS % 86.4 % (38.7-80.0); PLATELET COUNT 68 x10e3/uL (140-360); RED BLOOD COUNT 2.95 x10e6/uL (3.6-5.1); RED CELL DISTRIBUTION WIDTH 21.2 % (11.7-14.4)
[2021-03-08 05:54] LABS: ALBUMIN 1.9 g/dL (3.5-5.0); ALBUMIN/GLOBULIN RATIO 0.6 (0.8-2.0); ANION GAP 17.4 mmol/L (8-16); CALCIUM 7.5 mg/dL (8.4-10.2); CREATININE, SERUM 1.53 mg/dL (0.57-1.11); POTASSIUM 3.4 mmol/L (3.5-5.1)
[2021-03-08] MEDS: INSULIN LISPRO 100 UNIT/1 ML 3ML VIAL SQ SCH ×3 (07:30→16:30)
[2021-03-08 08:35] LABS: ALBUMIN 1.8 g/dL (3.5-5.0); ALBUMIN/GLOBULIN RATIO 0.6 (0.8-2.0); ANION GAP 17.4 mmol/L (8-16); CALCIUM 7.5 mg/dL (8.4-10.2); CREATININE, SERUM 1.58 mg/dL (0.57-1.11); POTASSIUM 3.4 mmol/L (3.5-5.1)
[2021-03-08 08:37] LABS: ABG HCO3 30 mmol/L (22-26); ABG PCO2 29 mmHg (35-45); ABG PH 7.63 (7.35-7.45); ABG PO2 253 mmHg (80-105); ABG TCO2 31
[2021-03-08] MEDS: COLLAGENASE 5 GM TUBE TOP SCH (09:20)
[2021-03-08] MEDS: BALSAM PERU/CASTOR OIL 60 GM OINT...G. TP SCH (09:21)
[2021-03-08 09:51] LABS: ABG HCO3 29 mmol/L (22-26); ABG PCO2 34 mmHg (35-45); ABG PH 7.54 (7.35-7.45); ABG PO2 99 mmHg (80-105)
[2021-03-08 09:52] LABS: ABG TCO2 30
[2021-03-08] MEDS: FOLIC ACID MDV 1 MG in SODIUM CHLORIDE 0.9% 50ML 50 ML IV SCH (10:32)
[2021-03-08 12:31] LABS: BAND NEUTROPHILS % (MANUAL) 1 %; LYMPHOCYTES % (MANUAL) 4 % (19-48); METAMYELOCYTES % (MANUAL) 1 % (0-0); MONOCYTES % (MANUAL) 4 % (3.4-9.0); MYELOCYTES % (MANUAL) 1 % (0-0); NEUTROPHILS % (MANUAL) 89 % (40-74); NUCLEATED RED BLOOD CELLS 1; PLATELET ESTIMATE MODERATELY DECREASED; PLATELET MORPHOLOGY COMMENT NORMAL
[2021-03-08 12:32] LABS: RBC MORPHOLOGY COMMENT NORMAL
[2021-03-08] MEDS: NOREPINEPHRINE 8 MG/D5W 250 ML 250 ML IV SCH (12:42)
[2021-03-08] MEDS: DEXAMETHASONE 4 MG TAB PO SCH (12:43)
[2021-03-08] MEDS ORDERED: SODIUM CHLORIDE 0.9% 500ML 500 ML ONE (15:10)
[2021-03-08] MEDS ORDERED: ALBUMIN 5% 0.05 GM/ML BTL IV ONE (15:15)
[2021-03-08] MEDS: REMDESIVIR 100MG 100 MG in SODIUM CHLORIDE 0.9% 100 ML IV SCH (15:23)
[2021-03-08] MEDS ORDERED: ALBUMIN 5% 250ML 250 ML IV ONE (15:30)
[2021-03-08] MEDS: DEXAMETHASONE SOD PHOS 10 MG/1 ML VIAL IV SCH ×2 (16:29→20:26)
[2021-03-08] MEDS: CEFTRIAXONE 1 GM in SODIUM CHLORIDE 0.9% 50ML 50 ML IV SCH (16:30)
[2021-03-08] MEDS: DEXTROSE 50% SYRINGE 50 ML IV PRN (16:53)
[2021-03-08] MEDS: PANTOPRAZOLE SOD 40 MG TABEC PO SCH (20:25)
[2021-03-09] VITALS (25 sets, daily range): BP systolic 87–135; BP diastolic 49–72
[2021-03-09 05:04] LABS: BASOPHILS # (AUTO) 0.1 (0.0-0.1); BASOPHILS % 0.2 % (0.0-1.0); HEMATOCRIT 31.2 % (34.2-44.1); HEMOGLOBIN 9.3 g/dL (12.0-16.0); LYMPHOCYTES # (AUTO) 1.5 (1.0-3.2); MEAN CORPUSCULAR HEMOGLOBIN 29.2 pg (28-32); MEAN CORPUSCULAR HGB CONC 29.8 g/dL (31-35); MEAN CORPUSCULAR VOLUME 97.8 fL (81-99); MONOCYTES # (AUTO) 0.7 (0.2-0.8); MONOCYTES % 3.1 % (4.4-11.3); NEUTROPHILS # (AUTO) 18.7 (2.1-6.9); RED BLOOD COUNT 3.19 x10e6/uL (3.6-5.1); RED CELL DISTRIBUTION WIDTH 22.6 % (11.7-14.4)
[2021-03-09 05:40] LABS: INR 3.61; PROTHROMBIN TIME 37.9 seconds (11.9-14.5)
[2021-03-09 05:43] LABS: PLATELET COUNT 44 x10e3/uL (140-360)
[2021-03-09 05:48] LABS: ALBUMIN 2.9 g/dL (3.5-5.0); ALBUMIN/GLOBULIN RATIO 1.2 (0.8-2.0); ANION GAP 26.1 mmol/L (8-16); CALCIUM 8.2 mg/dL (8.4-10.2); CREATININE, SERUM 2.23 mg/dL (0.57-1.11); POTASSIUM 4.1 mmol/L (3.5-5.1)
[2021-03-09] MEDS: INSULIN LISPRO 100 UNIT/1 ML 3ML VIAL SQ SCH ×4 (06:00→17:10)
[2021-03-09] MEDS: BALSAM PERU/CASTOR OIL 60 GM OINT...G. TP SCH (08:06)
[2021-03-09] MEDS: COLLAGENASE 5 GM TUBE TOP SCH (08:06)
[2021-03-09] MEDS: DEXAMETHASONE SOD PHOS 10 MG/1 ML VIAL IV SCH (08:06)
[2021-03-09] MEDS: FOLIC ACID MDV 1 MG in SODIUM CHLORIDE 0.9% 50ML 50 ML IV SCH (08:06)
[2021-03-09 09:35] LABS: LYMPHOCYTES % (MANUAL) 6 % (19-48); NEUTROPHILS % (MANUAL) 94 % (40-74); NUCLEATED RED BLOOD CELLS 4; PLATELET ESTIMATE MODERATELY DECREASED
[2021-03-09 09:36] LABS: PLATELET MORPHOLOGY COMMENT NORMAL; RBC MORPHOLOGY COMMENT NORMAL
[2021-03-09 09:58] LABS: ABG HCO3 22 mmol/L (22-26); ABG PCO2 49 mmHg (35-45); ABG PH 7.27 (7.35-7.45); ABG PO2 110 mmHg (80-105)
[2021-03-09 09:59] LABS: ABG TCO2 24
[2021-03-09] MEDS: PIPERACILLIN/TAZOBACTAM 2.25 GM in SODIUM CHLORIDE 0.9% 50ML 50 ML IV SCH ×2 (10:22→17:08)
[2021-03-09] MEDS: NOREPINEPHRINE 8 MG/D5W 250 ML 250 ML IV SCH (12:00)
[2021-03-09] MEDS: REMDESIVIR 100MG 100 MG in SODIUM CHLORIDE 0.9% 100 ML IV SCH (13:05)
[2021-03-09] MEDS ORDERED: PHYTONADIONE 10 MG/ML AMP IV ONE (13:15)
[2021-03-09] MEDS ORDERED: PHYTONADIONE 10MG/ML 10 MG in SODIUM CHLORIDE 0.9% 50ML 50 ML IV ONE (14:00)
[2021-03-10] VITALS (25 sets, daily range): BP systolic 78–147; BP diastolic 43–93
[2021-03-10] MEDS: INSULIN LISPRO 100 UNIT/1 ML 3ML VIAL SQ SCH ×4 (00:25→17:17)
[2021-03-10] MEDS: PIPERACILLIN/TAZOBACTAM 2.25 GM in SODIUM CHLORIDE 0.9% 50ML 50 ML IV SCH ×3 (01:35→16:08)
[2021-03-10 06:24] LABS: BASOPHILS # (AUTO) 0.1 (0.0-0.1); BASOPHILS % 0.3 % (0.0-1.0); HEMATOCRIT 33.3 % (34.2-44.1); HEMOGLOBIN 10.3 g/dL (12.0-16.0); LYMPHOCYTES # (AUTO) 0.6 (1.0-3.2); LYMPHOCYTES % 2.6 % (18.0-39.1); MEAN CORPUSCULAR HGB CONC 30.9 g/dL (31-35); MEAN CORPUSCULAR VOLUME 97.1 fL (81-99); MONOCYTES # (AUTO) 0.6 (0.2-0.8); MONOCYTES % 2.3 % (4.4-11.3); NEUTROPHILS # (AUTO) 22.3 (2.1-6.9); RED BLOOD COUNT 3.43 x10e6/uL (3.6-5.1)
[2021-03-10 06:38] LABS: ALBUMIN 2.3 g/dL (3.5-5.0); ALBUMIN/GLOBULIN RATIO 0.9 (0.8-2.0); ANION GAP 20.9 mmol/L (8-16); CALCIUM 8.1 mg/dL (8.4-10.2); CREATININE, SERUM 2.82 mg/dL (0.57-1.11); POTASSIUM 3.9 mmol/L (3.5-5.1)
[2021-03-10 06:50] LABS: PLATELET COUNT 29 x10e3/uL (140-360)
[2021-03-10 07:17] LABS: INR 2.91
[2021-03-10] MEDS: DEXAMETHASONE SOD PHOS 10 MG/1 ML VIAL IV SCH (08:11)
[2021-03-10] MEDS: FOLIC ACID MDV 1 MG in SODIUM CHLORIDE 0.9% 50ML 50 ML IV SCH (08:11)
[2021-03-10] MEDS: BALSAM PERU/CASTOR OIL 60 GM OINT...G. TP SCH (08:12)
[2021-03-10] MEDS: COLLAGENASE 5 GM TUBE TOP SCH (08:12)
[2021-03-10 09:45] LABS: LYMPHOCYTES % (MANUAL) 2 % (19-48); MONOCYTES % (MANUAL) 1 % (3.4-9.0); NEUTROPHILS % (MANUAL) 97 % (40-74); NUCLEATED RED BLOOD CELLS 4
[2021-03-10 09:46] LABS: PLATELET ESTIMATE MARKEDLY DECREASED; PLATELET MORPHOLOGY COMMENT NORMAL; RBC MORPHOLOGY COMMENT NORMAL
[2021-03-10] MEDS: NOREPINEPHRINE 8 MG/D5W 250 ML 250 ML IV SCH (12:00)
[2021-03-10] MEDS: REMDESIVIR 100MG 100 MG in SODIUM CHLORIDE 0.9% 100 ML IV SCH (13:36)
[2021-03-10] MEDS: AMLODIPINE BESYLATE 5 MG TAB PO SCH (16:45)
[2021-03-10] MEDS ORDERED: HEPARIN SOD (PORCINE) 1000 UNIT/ML SDV IV PRN (17:30)
[2021-03-10] MEDS ORDERED: ALBUMIN 25% 12.5GM 0.25 GM/ML BTL IV PRN (17:30)
[2021-03-10] MEDS ORDERED: SODIUM CHLORIDE 0.9% 1000ML 2,000 ML IV PRN (17:30)
[2021-03-10] MEDS ORDERED: SODIUM CHLORIDE 0.9% 250ML 500 ML IV PRN (17:30)
[2021-03-11] VITALS (25 sets, daily range): BP systolic 131–156; BP diastolic 50–73
[2021-03-11] MEDS: PIPERACILLIN/TAZOBACTAM 2.25 GM in SODIUM CHLORIDE 0.9% 50ML 50 ML IV SCH ×3 (01:45→17:17)
[2021-03-11] MEDS: BALSAM PERU/CASTOR OIL 60 GM OINT...G. TP SCH ×3 (05:20→23:45)
[2021-03-11] MEDS: INSULIN LISPRO 100 UNIT/1 ML 3ML VIAL SQ SCH ×4 (06:04→17:17)
[2021-03-11 06:07] LABS: INR 2.88; PROTHROMBIN TIME 31.8 seconds (11.9-14.5)
[2021-03-11 06:09] LABS: BASOPHILS % 0.2 % (0.0-1.0); EOSINOPHILS # (AUTO) 0.1 (0.0-0.4); EOSINOPHILS % 0.2 % (0.0-6.0); HEMOGLOBIN 7.3 g/dL (12.0-16.0); LYMPHOCYTES # (AUTO) 0.4 (1.0-3.2); LYMPHOCYTES % 1.9 % (18.0-39.1); MEAN CORPUSCULAR HEMOGLOBIN 30.3 pg (28-32); MEAN CORPUSCULAR HGB CONC 32.2 g/dL (31-35); MEAN CORPUSCULAR VOLUME 94.2 fL (81-99); MONOCYTES # (AUTO) 0.4 (0.2-0.8); MONOCYTES % 1.8 % (4.4-11.3); NEUTROPHILS # (AUTO) 20.7 (2.1-6.9); NEUTROPHILS % 94.8 % (38.7-80.0); RED BLOOD COUNT 2.41 x10e6/uL (3.6-5.1); RED CELL DISTRIBUTION WIDTH 21.9 % (11.7-14.4)
[2021-03-11 06:25] LABS: ALBUMIN 2.5 g/dL (3.5-5.0); ALBUMIN/GLOBULIN RATIO 1.1 (0.8-2.0); ANION GAP 16.3 mmol/L (8-16); CALCIUM 8.1 mg/dL (8.4-10.2); CREATININE, SERUM 1.8 mg/dL (0.57-1.11); POTASSIUM 3.3 mmol/L (3.5-5.1)
[2021-03-11 06:27] LABS: HEMATOCRIT 22.7 % (34.2-44.1)
[2021-03-11 06:28] LABS: PLATELET COUNT 14 x10e3/uL (140-360)
[2021-03-11] MEDS: AMLODIPINE BESYLATE 5 MG TAB PO SCH (08:01)
[2021-03-11] MEDS: DEXAMETHASONE SOD PHOS 10 MG/1 ML VIAL IV SCH (08:01)
[2021-03-11] MEDS: FOLIC ACID MDV 1 MG in SODIUM CHLORIDE 0.9% 50ML 50 ML IV SCH (08:01)
[2021-03-11] MEDS: COLLAGENASE 5 GM TUBE TOP SCH (08:02)
[2021-03-11] MEDS: FUROSEMIDE INJ 10 MG/ML 2 ML VIAL IV PRN (09:08)
[2021-03-11 11:54] LABS: ABG HCO3 27 mmol/L (22-26); ABG PCO2 37 mmHg (35-45); ABG PH 7.47 (7.35-7.45); ABG PO2 140 mmHg (80-105); ABG TCO2 28
[2021-03-12] VITALS (16 sets, daily range): BP systolic 123–151; BP diastolic 55–90
[2021-03-12] MEDS: INSULIN LISPRO 100 UNIT/1 ML 3ML VIAL SQ SCH ×5 (00:18→23:28)
[2021-03-12] MEDS ORDERED: DIPHENOXYLATE/ATROPINE TAB PO STA (01:26)
[2021-03-12] MEDS: PIPERACILLIN/TAZOBACTAM 2.25 GM in SODIUM CHLORIDE 0.9% 50ML 50 ML IV SCH ×3 (01:32→18:42)
[2021-03-12 06:24] LABS: BASOPHILS % 0.1 % (0.0-1.0); LYMPHOCYTES # (AUTO) 0.4 (1.0-3.2); LYMPHOCYTES % 1.7 % (18.0-39.1); MEAN CORPUSCULAR HEMOGLOBIN 29.8 pg (28-32); MEAN CORPUSCULAR HGB CONC 30.8 g/dL (31-35); MEAN CORPUSCULAR VOLUME 96.8 fL (81-99); MONOCYTES # (AUTO) 0.6 (0.2-0.8); MONOCYTES % 2.6 % (4.4-11.3); NEUTROPHILS # (AUTO) 20.6 (2.1-6.9); NEUTROPHILS % 94.7 % (38.7-80.0); RED BLOOD COUNT 2.18 x10e6/uL (3.6-5.1); RED CELL DISTRIBUTION WIDTH 22.3 % (11.7-14.4)
[2021-03-12 06:39] LABS: ALBUMIN 2.3 g/dL (3.5-5.0); ALBUMIN/GLOBULIN RATIO 0.9 (0.8-2.0); ANION GAP 16.3 mmol/L (8-16); CALCIUM 8.5 mg/dL (8.4-10.2); CREATININE, SERUM 2.38 mg/dL (0.57-1.11); POTASSIUM 3.3 mmol/L (3.5-5.1)
[2021-03-12 07:25] LABS: BILIRUBIN,DIRECT 3.2 mg/dL (0.0-0.5)
[2021-03-12 07:29] LABS: HEMOGLOBIN 6.5 g/dL (12.0-16.0)
[2021-03-12 07:30] LABS: HEMATOCRIT 21.1 % (34.2-44.1); PLATELET COUNT 28 x10e3/uL (140-360)
[2021-03-12] MEDS ORDERED: ACETAMINOPHEN 325 MG TAB PO STA (07:55)
[2021-03-12] MEDS ORDERED: SODIUM CHLORIDE 0.9% 250ML 250 ML IV ONE ×2 (08:00→09:00)
[2021-03-12] MEDS: DEXAMETHASONE SOD PHOS 10 MG/1 ML VIAL IV SCH (08:54)
[2021-03-12] MEDS: FOLIC ACID MDV 1 MG in SODIUM CHLORIDE 0.9% 50ML 50 ML IV SCH (08:55)
[2021-03-12] MEDS: COLLAGENASE 5 GM TUBE TOP SCH (09:00)
[2021-03-12] MEDS: AMLODIPINE BESYLATE 5 MG TAB PO SCH (09:01)
[2021-03-12] MEDS ORDERED: SODIUM CHLORIDE 0.9% 50ML 0 ML ONE (09:02)
[2021-03-12] MEDS ORDERED: KCL 20 MEQ PACKET/ ORAL SOLN NG ONE (10:00)
[2021-03-12] MEDS ORDERED: METHYLPREDNISOLONE SOD SUCC 125 MG/2ML VIAL IV SCH (12:15)
[2021-03-12] MEDS ORDERED: ACETAMINOPHEN 325 MG TAB ONE (13:28)
[2021-03-12 18:46] LABS: ANISOCYTOSIS SLIGHT; HYPOCHROMASIA SLIGHT; PLATELET ESTIMATE MARKEDLY DECREASED; PLATELET MORPHOLOGY COMMENT NORMAL; RBC MORPHOLOGY COMMENT ABNORMAL
[2021-03-12] MEDS ORDERED: DIPHENOXYLATE/ATROPINE TAB PO PRN (21:00)
[2021-03-13] VITALS (25 sets, daily range): BP systolic 139–159; BP diastolic 57–74
[2021-03-13] MEDS: PIPERACILLIN/TAZOBACTAM 2.25 GM in SODIUM CHLORIDE 0.9% 50ML 50 ML IV SCH ×3 (01:39→17:14)
[2021-03-13] MEDS: BALSAM PERU/CASTOR OIL 60 GM OINT...G. TP SCH (01:39)
[2021-03-13 05:59] LABS: BASOPHILS % 0.1 % (0.0-1.0); HEMATOCRIT 26.9 % (34.2-44.1); HEMOGLOBIN 8.6 g/dL (12.0-16.0); LYMPHOCYTES # (AUTO) 0.3 (1.0-3.2); LYMPHOCYTES % 1.6 % (18.0-39.1); MEAN CORPUSCULAR HEMOGLOBIN 30.5 pg (28-32); MEAN CORPUSCULAR VOLUME 95.4 fL (81-99); MONOCYTES # (AUTO) 0.5 (0.2-0.8); MONOCYTES % 2.5 % (4.4-11.3); NEUTROPHILS # (AUTO) 18.1 (2.1-6.9); RED BLOOD COUNT 2.82 x10e6/uL (3.6-5.1); RED CELL DISTRIBUTION WIDTH 20.6 % (11.7-14.4)
[2021-03-13 06:04] LABS: PLATELET COUNT 40 x10e3/uL (140-360)
[2021-03-13] MEDS: INSULIN LISPRO 100 UNIT/1 ML 3ML VIAL SQ SCH ×3 (06:04→17:57)
[2021-03-13 06:15] LABS: INR 1.54; PROTHROMBIN TIME 19.5 seconds (11.9-14.5)
[2021-03-13 06:17] LABS: ALBUMIN 2.4 g/dL (3.5-5.0); ALBUMIN/GLOBULIN RATIO 0.8 (0.8-2.0); ANION GAP 15.6 mmol/L (8-16); CREATININE, SERUM 1.41 mg/dL (0.57-1.11); POTASSIUM 3.6 mmol/L (3.5-5.1)
[2021-03-13 08:00] LABS: ABG HCO3 28 mmol/L (22-26); ABG PCO2 36 mmHg (35-45); ABG PO2 157 mmHg (80-105); ABG TCO2 29
[2021-03-13] MEDS: DEXAMETHASONE SOD PHOS 10 MG/1 ML VIAL IV SCH (09:03)
[2021-03-13] MEDS: AMLODIPINE BESYLATE 5 MG TAB PO SCH (09:03)
[2021-03-13] MEDS: COLLAGENASE 5 GM TUBE TOP SCH (09:03)
[2021-03-13] MEDS: FOLIC ACID MDV 1 MG in SODIUM CHLORIDE 0.9% 50ML 50 ML IV SCH (09:03)
[2021-03-13] MEDS ORDERED: SODIUM CHLORIDE 0.9% 50ML 50 ML ONE (09:04)
[2021-03-13] MEDS ORDERED: DIPHENOXYLATE/ATROPINE TAB PO PRN (12:00)
[2021-03-13] MEDS ORDERED: AMLODIPINE BESYLATE 5 MG TAB PO ONE (12:15)
[2021-03-13] MEDS: ZINC OXIDE 30 GM TUBE TOP SCH (22:17)
[2021-03-14] VITALS (18 sets, daily range): BP systolic 86–161; BP diastolic 46–71
[2021-03-14] MEDS: PIPERACILLIN/TAZOBACTAM 2.25 GM in SODIUM CHLORIDE 0.9% 50ML 50 ML IV SCH ×3 (02:41→17:29)
[2021-03-14 05:33] LABS: BASOPHILS % 0.1 % (0.0-1.0); HEMATOCRIT 30.9 % (34.2-44.1); HEMOGLOBIN 9.9 g/dL (12.0-16.0); LYMPHOCYTES # (AUTO) 0.3 (1.0-3.2); LYMPHOCYTES % 1.2 % (18.0-39.1); MEAN CORPUSCULAR HEMOGLOBIN 30.5 pg (28-32); MEAN CORPUSCULAR VOLUME 95.1 fL (81-99); MONOCYTES # (AUTO) 0.8 (0.2-0.8); MONOCYTES % 3.4 % (4.4-11.3); NEUTROPHILS # (AUTO) 20.8 (2.1-6.9); NEUTROPHILS % 93.8 % (38.7-80.0); RED BLOOD COUNT 3.25 x10e6/uL (3.6-5.1); RED CELL DISTRIBUTION WIDTH 21.7 % (11.7-14.4)
[2021-03-14 05:35] LABS: PLATELET COUNT 39 x10e3/uL (140-360)
[2021-03-14 05:52] LABS: ALBUMIN 2.4 g/dL (3.5-5.0); ALBUMIN/GLOBULIN RATIO 0.8 (0.8-2.0); ANION GAP 18.9 mmol/L (8-16); CALCIUM 8.2 mg/dL (8.4-10.2); CREATININE, SERUM 1.9 mg/dL (0.57-1.11); POTASSIUM 3.9 mmol/L (3.5-5.1)
[2021-03-14] MEDS: INSULIN LISPRO 100 UNIT/1 ML 3ML VIAL SQ SCH ×4 (06:00→17:32)
[2021-03-14] MEDS: DEXAMETHASONE SOD PHOS 10 MG/1 ML VIAL IV SCH (08:10)
[2021-03-14] MEDS: FOLIC ACID MDV 1 MG in SODIUM CHLORIDE 0.9% 50ML 50 ML IV SCH (08:10)
[2021-03-14] MEDS: AMLODIPINE BESYLATE 10 MG TAB PO SCH (08:11)
[2021-03-14] MEDS: BALSAM PERU/CASTOR OIL 60 GM OINT...G. TP SCH (10:16)
[2021-03-14] MEDS: ZINC OXIDE 30 GM TUBE TOP SCH ×3 (10:16→21:18)
[2021-03-14] MEDS: COLLAGENASE 5 GM TUBE TOP SCH (10:16)
[2021-03-14] MEDS: EPOETIN ALFA-EPBX 10,000 UNIT/ML VIAL SC SCH (13:00)
[2021-03-14] MEDS ORDERED: IOPAMIDOL 370 MG/ML 200 ML INFUS..BTL INJ ONE (23:02)
[2021-03-14] MEDS ORDERED: SODIUM CHLORIDE 0.9% 50ML 50 ML ONE (23:02)
[2021-03-15] VITALS (7 sets, daily range): BP systolic 134–150; BP diastolic 53–57
[2021-03-15] MEDS: INSULIN LISPRO 100 UNIT/1 ML 3ML VIAL SQ SCH ×4 (00:12→17:57)
[2021-03-15] MEDS: PIPERACILLIN/TAZOBACTAM 2.25 GM in SODIUM CHLORIDE 0.9% 50ML 50 ML IV SCH ×2 (02:30→08:51)
[2021-03-15 06:04] LABS: BASOPHILS % 0.1 % (0.0-1.0); HEMOGLOBIN 9.3 g/dL (12.0-16.0); LYMPHOCYTES # (AUTO) 0.3 (1.0-3.2); LYMPHOCYTES % 1.3 % (18.0-39.1); MEAN CORPUSCULAR HGB CONC 33.2 g/dL (31-35); MEAN CORPUSCULAR VOLUME 93.3 fL (81-99); MONOCYTES # (AUTO) 1.1 (0.2-0.8); NEUTROPHILS % 92.5 % (38.7-80.0); RED CELL DISTRIBUTION WIDTH 22.5 % (11.7-14.4)
[2021-03-15 06:16] LABS: PLATELET COUNT 33 x10e3/uL (140-360)
[2021-03-15 06:21] LABS: ALBUMIN 2.2 g/dL (3.5-5.0); ALBUMIN/GLOBULIN RATIO 0.7 (0.8-2.0); ANION GAP 18.5 mmol/L (8-16); CALCIUM 7.6 mg/dL (8.4-10.2); CREATININE, SERUM 1.26 mg/dL (0.57-1.11); POTASSIUM 4.5 mmol/L (3.5-5.1)
[2021-03-15 06:57] LABS: MAGNESIUM 1.8 MG/DL (1.3-2.1); PHOSPHORUS 1.9 MG/DL (2.3-4.7)
[2021-03-15 07:11] LABS: INR 1.36; PROTHROMBIN TIME 17.7 seconds (11.9-14.5)
[2021-03-15] MEDS: SUCRALFATE 1 GM/10 ML SUSP NG SCH ×4 (08:35→23:05)
[2021-03-15 08:40] LABS: LYMPHOCYTES % (MANUAL) 3 % (19-48); MONOCYTES % (MANUAL) 2 % (3.4-9.0); NEUTROPHILS % (MANUAL) 95 % (40-74); NUCLEATED RED BLOOD CELLS 1; PLATELET ESTIMATE MARKEDLY DECREASED; PLATELET MORPHOLOGY COMMENT NORMAL; RBC MORPHOLOGY COMMENT NORMAL
[2021-03-15] MEDS: FOLIC ACID MDV 1 MG in SODIUM CHLORIDE 0.9% 50ML 50 ML IV SCH (08:50)
[2021-03-15] MEDS ORDERED: SODIUM CHLORIDE 0.9% 250ML 250 ML ONE (08:50)
[2021-03-15] MEDS: BALSAM PERU/CASTOR OIL 60 GM OINT...G. TP SCH (08:51)
[2021-03-15] MEDS: COLLAGENASE 5 GM TUBE TOP SCH (08:51)
[2021-03-15] MEDS: ZINC OXIDE 30 GM TUBE TOP SCH ×3 (08:51→23:04)
[2021-03-15] MEDS: AMLODIPINE BESYLATE 10 MG TAB PO SCH (08:51)
[2021-03-15] MEDS ORDERED: PHOSPHORUS 250 MG TAB PO ONE (10:00)
[2021-03-16] VITALS (11 sets, daily range): BP systolic 103–149; BP diastolic 48–61
[2021-03-16] MEDS: INSULIN LISPRO 100 UNIT/1 ML 3ML VIAL SQ SCH ×4 (00:46→17:48)
[2021-03-16 05:09] LABS: BASOPHILS % 0.1 % (0.0-1.0); EOSINOPHILS % 0.1 % (0.0-6.0); HEMATOCRIT 27.1 % (34.2-44.1); HEMOGLOBIN 8.7 g/dL (12.0-16.0); LYMPHOCYTES # (AUTO) 0.4 (1.0-3.2); LYMPHOCYTES % 1.6 % (18.0-39.1); MEAN CORPUSCULAR HEMOGLOBIN 31.2 pg (28-32); MEAN CORPUSCULAR HGB CONC 32.1 g/dL (31-35); MEAN CORPUSCULAR VOLUME 97.1 fL (81-99); MONOCYTES # (AUTO) 1.3 (0.2-0.8); MONOCYTES % 5.1 % (4.4-11.3); NEUTROPHILS # (AUTO) 23.5 (2.1-6.9); NEUTROPHILS % 91.8 % (38.7-80.0); RED BLOOD COUNT 2.79 x10e6/uL (3.6-5.1); RED CELL DISTRIBUTION WIDTH 23.2 % (11.7-14.4)
[2021-03-16 05:14] LABS: PLATELET COUNT 45 x10e3/uL (140-360)
[2021-03-16 05:25] LABS: ALBUMIN 2.2 g/dL (3.5-5.0); ALBUMIN/GLOBULIN RATIO 0.7 (0.8-2.0); ANION GAP 20.6 mmol/L (8-16); CALCIUM 7.9 mg/dL (8.4-10.2); CREATININE, SERUM 2.01 mg/dL (0.57-1.11); POTASSIUM 3.6 mmol/L (3.5-5.1)
[2021-03-16 05:58] LABS: MAGNESIUM 1.9 MG/DL (1.3-2.1); PHOSPHORUS 1.7 MG/DL (2.3-4.7)
[2021-03-16] MEDS: COLLAGENASE 5 GM TUBE TOP SCH (08:51)
[2021-03-16] MEDS: SUCRALFATE 1 GM/10 ML SUSP NG SCH ×4 (08:51→20:37)
[2021-03-16] MEDS: METOPROLOL SUCCINATE 50 MG TAB XL PO SCH (08:51)
[2021-03-16] MEDS: BALSAM PERU/CASTOR OIL 60 GM OINT...G. TP SCH (08:52)
[2021-03-16] MEDS: FOLIC ACID MDV 1 MG in SODIUM CHLORIDE 0.9% 50ML 50 ML IV SCH (08:52)
[2021-03-16] MEDS: ZINC OXIDE 30 GM TUBE TOP SCH ×4 (08:52→20:37)
[2021-03-16 10:35] LABS: LYMPHOCYTES % (MANUAL) 1 % (19-48); MONOCYTES % (MANUAL) 3 % (3.4-9.0); NEUTROPHILS % (MANUAL) 96 % (40-74); NUCLEATED RED BLOOD CELLS 1
[2021-03-16 10:36] LABS: ANISOCYTOSIS MODERATE; HYPOCHROMASIA SLIGHT; PLATELET ESTIMATE ADEQUATE; PLATELET MORPHOLOGY COMMENT FEW LARGE; RBC MORPHOLOGY COMMENT ABNORMAL
[2021-03-16] MEDS: EPOETIN ALFA-EPBX 10,000 UNIT/ML VIAL SC SCH (12:05)
[2021-03-16] MEDS ORDERED: VECURONIUM BROMIDE FOR INJ 20 MG VIAL ONE (12:09)
[2021-03-16] MEDS ORDERED: WATER STERILE 10 ML VIAL ONE (12:09)
[2021-03-16] MEDS ORDERED: EPINEPHRINE HCL SYRINGE ONE (12:12)
[2021-03-16] MEDS ORDERED: NOREPINEPHRINE 8 MG/D5W 250 ML 250 ML ONE (18:58)
[2021-03-16] MEDS ORDERED: ALBUMIN 25% 25GM 100ML 0.25 GM/ML BTL IV ONE (19:00)
[2021-03-16] MEDS ORDERED: FENTANYL 2000MCG/NS 250 250 ML IV SCH (19:00)
[2021-03-16] MEDS: PROPOFOL IV EMULSION 10MG/ML 100 ML IV SCH (19:00)
[2021-03-16] MEDS ORDERED: NOREPINEPHRINE 8 MG/D5W 250 ML 250 ML IV SCH ×2 (19:00)
[2021-03-16] MEDS ORDERED: LORAZEPAM INJ 2 MG/ML VIAL IV PRN (19:00)
[2021-03-16] MEDS ORDERED: ALBUMIN 25% 25GM 100ML 100 ML ONE (19:03)
[2021-03-16] MEDS ORDERED: ALBUMIN 5% 0.05 GM/ML BTL IV ONE (19:30)
[2021-03-16] MEDS ORDERED: Vancomycin IV 1 GM in SODIUM CHLORIDE 0.9% 250ML 250 ML IV ONE (19:30)
[2021-03-16] MEDS ORDERED: DEXTROSE 50% SYRINGE 50 ML IV ONE (19:30)
[2021-03-16] MEDS: MEROPENEM 500 MG in SODIUM CHLORIDE 0.9% 50ML 50 ML IV SCH (20:19)
[2021-03-16 21:31] LABS: ABG PH 7.25 (7.35-7.45)
[2021-03-16 21:32] LABS: ABG PCO2 73 mmHg (35-45)
[2021-03-16 21:33] LABS: ABG HCO3 32 mmol/L (22-26); ABG PO2 28 mmHg (80-105); ABG TCO2 35
[2021-03-17] VITALS (16 sets, daily range): BP systolic 96–144; BP diastolic 42–76
[2021-03-17] MEDS ORDERED: SODIUM BICARBONATE 8.4% INJ 50 ML SYR IV STA (01:49)
[2021-03-17 05:59] LABS: BASOPHILS % 0.1 % (0.0-1.0); EOSINOPHILS # (AUTO) 0.1 (0.0-0.4); EOSINOPHILS % 0.7 % (0.0-6.0); HEMOGLOBIN 7.2 g/dL (12.0-16.0); LYMPHOCYTES # (AUTO) 0.7 (1.0-3.2); LYMPHOCYTES % 4.8 % (18.0-39.1); MEAN CORPUSCULAR HEMOGLOBIN 31.3 pg (28-32); MEAN CORPUSCULAR HGB CONC 32.3 g/dL (31-35); MONOCYTES # (AUTO) 0.5 (0.2-0.8); MONOCYTES % 3.8 % (4.4-11.3); NEUTROPHILS # (AUTO) 12.4 (2.1-6.9); NEUTROPHILS % 89.4 % (38.7-80.0); RED CELL DISTRIBUTION WIDTH 23.9 % (11.7-14.4)
[2021-03-17] MEDS: INSULIN LISPRO 100 UNIT/1 ML 3ML VIAL SQ SCH ×4 (06:10→17:59)
[2021-03-17 06:11] LABS: HEMATOCRIT 22.3 % (34.2-44.1); PLATELET COUNT 36 x10e3/uL (140-360)
[2021-03-17 06:18] LABS: ALBUMIN 2.8 g/dL (3.5-5.0); ALBUMIN/GLOBULIN RATIO 1.2 (0.8-2.0); ANION GAP 15.6 mmol/L (8-16); CALCIUM 8.1 mg/dL (8.4-10.2); CREATININE, SERUM 1.03 mg/dL (0.57-1.11); POTASSIUM 3.6 mmol/L (3.5-5.1)
[2021-03-17] MEDS: SUCRALFATE 1 GM/10 ML SUSP NG SCH ×4 (06:28→20:31)
[2021-03-17] MEDS: MEROPENEM 500 MG in SODIUM CHLORIDE 0.9% 50ML 50 ML IV SCH ×2 (08:06→20:31)
[2021-03-17] MEDS: METOPROLOL SUCCINATE 50 MG TAB XL PO SCH (09:00)
[2021-03-17] MEDS: COLLAGENASE 5 GM TUBE TOP SCH (09:29)
[2021-03-17] MEDS: ZINC OXIDE 30 GM TUBE TOP SCH ×3 (09:29→20:31)
[2021-03-17] MEDS: BALSAM PERU/CASTOR OIL 60 GM OINT...G. TP SCH (09:29)
[2021-03-17] MEDS: FOLIC ACID MDV 1 MG in SODIUM CHLORIDE 0.9% 50ML 50 ML IV SCH (11:17)
[2021-03-17 11:34] LABS: ABG HCO3 31 mmol/L (22-26); ABG PCO2 38 mmHg (35-45); ABG PH 7.52 (7.35-7.45); ABG PO2 153 mmHg (80-105); ABG TCO2 32
[2021-03-17] MEDS: DEXTROSE 50% SYRINGE 50 ML IV PRN (12:59)
[2021-03-17] MEDS: PROPOFOL IV EMULSION 10MG/ML 100 ML IV SCH (19:00)
[2021-03-18] VITALS (17 sets, daily range): BP systolic 119–142; BP diastolic 44–63
[2021-03-18] MEDS ORDERED: DEXMEDETOMIDINE 400MCG/NS100ML 100 ML IV PRN (02:30)
[2021-03-18] MEDS ORDERED: DEXMEDETOMIDINE 400MCG/NS100ML 100 ML IV ONE (02:45)
[2021-03-18 05:55] LABS: EOSINOPHILS # (AUTO) 0.2 (0.0-0.4); EOSINOPHILS % 1.4 % (0.0-6.0); LYMPHOCYTES # (AUTO) 0.7 (1.0-3.2); LYMPHOCYTES % 4.7 % (18.0-39.1); MEAN CORPUSCULAR HEMOGLOBIN 31.6 pg (28-32); MEAN CORPUSCULAR HGB CONC 31.6 g/dL (31-35); MONOCYTES # (AUTO) 0.6 (0.2-0.8); MONOCYTES % 4.1 % (4.4-11.3); NEUTROPHILS # (AUTO) 12.2 (2.1-6.9); NEUTROPHILS % 88.9 % (38.7-80.0); RED BLOOD COUNT 2.06 x10e6/uL (3.6-5.1); RED CELL DISTRIBUTION WIDTH 24.8 % (11.7-14.4)
[2021-03-18] MEDS: INSULIN LISPRO 100 UNIT/1 ML 3ML VIAL SQ SCH ×4 (05:55→18:00)
[2021-03-18 06:07] LABS: INR 1.45; PROTHROMBIN TIME 18.6 seconds (11.9-14.5)
[2021-03-18 06:20] LABS: ALBUMIN/GLOBULIN RATIO 0.7 (0.8-2.0); ANION GAP 13.7 mmol/L (8-16); CALCIUM 8.3 mg/dL (8.4-10.2); CREATININE, SERUM 1.72 mg/dL (0.57-1.11); POTASSIUM 3.7 mmol/L (3.5-5.1)
[2021-03-18 06:25] LABS: HEMOGLOBIN 6.5 g/dL (12.0-16.0)
[2021-03-18 06:26] LABS: HEMATOCRIT 20.6 % (34.2-44.1); PLATELET COUNT 38 x10e3/uL (140-360)
[2021-03-18] MEDS: SUCRALFATE 1 GM/10 ML SUSP NG SCH ×4 (06:30→20:10)
[2021-03-18] MEDS ORDERED: SODIUM CHLORIDE 0.9% 250ML 250 ML IV ONE (07:45)
[2021-03-18 07:56] LABS: POLYCHROMASIA FEW; TARGET CELLS FEW
[2021-03-18 07:57] LABS: ANISOCYTOSIS SLIGHT
[2021-03-18 07:58] LABS: PLATELET ESTIMATE MARKEDLY DECREASED; PLATELET MORPHOLOGY COMMENT NORMAL
[2021-03-18] MEDS: COLLAGENASE 5 GM TUBE TOP SCH (10:16)
[2021-03-18] MEDS: FOLIC ACID MDV 1 MG in SODIUM CHLORIDE 0.9% 50ML 50 ML IV SCH (10:16)
[2021-03-18] MEDS: ZINC OXIDE 30 GM TUBE TOP SCH ×3 (10:16→20:08)
[2021-03-18] MEDS: MEROPENEM 500 MG in SODIUM CHLORIDE 0.9% 50ML 50 ML IV SCH ×2 (10:16→20:08)
[2021-03-18] MEDS: BALSAM PERU/CASTOR OIL 60 GM OINT...G. TP SCH (10:17)
[2021-03-18 12:34] LABS: ABG HCO3 37 mmol/L (22-26); ABG PCO2 39 mmHg (35-45); ABG PH 7.46 (7.35-7.45); ABG PO2 195 mmHg (80-105); ABG TCO2 29
[2021-03-18] MEDS: PROPOFOL IV EMULSION 10MG/ML 100 ML IV SCH (19:00)
[2021-03-19] VITALS (26 sets, daily range): BP systolic 88–144; BP diastolic 40–75
[2021-03-19] MEDS: INSULIN LISPRO 100 UNIT/1 ML 3ML VIAL SQ SCH ×4 (00:45→17:08)
[2021-03-19] MEDS ORDERED: ATROPINE SULFATE 0.1 MG/ML 10ML SYR IV ONE (03:15)
[2021-03-19] MEDS ORDERED: ATROPINE SULFATE 1 MG/ML VIAL ONE (03:23)
[2021-03-19 03:36] LABS: CREATINE KINASE MB 1.3 ng/mL (0-5.0)
[2021-03-19] MEDS ORDERED: PHYTONADIONE IV ONE (04:00)
[2021-03-19] MEDS ORDERED: SODIUM CHLORIDE 0.9% IV ONE (04:00)
[2021-03-19 04:32] LABS: BASOPHILS % 0.1 % (0.0-1.0); EOSINOPHILS # (AUTO) 0.2 (0.0-0.4); EOSINOPHILS % 1.4 % (0.0-6.0); HEMATOCRIT 27.1 % (34.2-44.1); HEMOGLOBIN 8.9 g/dL (12.0-16.0); LYMPHOCYTES # (AUTO) 0.6 (1.0-3.2); LYMPHOCYTES % 4.2 % (18.0-39.1); MEAN CORPUSCULAR HEMOGLOBIN 31.3 pg (28-32); MEAN CORPUSCULAR HGB CONC 32.8 g/dL (31-35); MONOCYTES # (AUTO) 0.7 (0.2-0.8); MONOCYTES % 5.3 % (4.4-11.3); NEUTROPHILS # (AUTO) 11.9 (2.1-6.9); NEUTROPHILS % 88.3 % (38.7-80.0); RED BLOOD COUNT 2.84 x10e6/uL (3.6-5.1); RED CELL DISTRIBUTION WIDTH 22.4 % (11.7-14.4)
[2021-03-19 04:34] LABS: PLATELET COUNT 42 x10e3/uL (140-360)
[2021-03-19 04:35] LABS: MEAN CORPUSCULAR VOLUME 95.4 fL (81-99)
[2021-03-19 04:51] LABS: ANION GAP 16.2 mmol/L (8-16); CALCIUM 8.4 mg/dL (8.4-10.2); CREATININE, SERUM 2.12 mg/dL (0.57-1.11); POTASSIUM 3.2 mmol/L (3.5-5.1)
[2021-03-19] MEDS: SUCRALFATE 1 GM/10 ML SUSP NG SCH ×4 (06:45→20:23)
[2021-03-19] MEDS ORDERED: SODIUM CHLORIDE 0.9% 50ML 50 ML ONE (08:09)
[2021-03-19] MEDS: NOREPINEPHRINE 8 MG/D5W 250 ML 250 ML IV SCH (08:15)
[2021-03-19] MEDS ORDERED: MIDAZOLAM HCL 2 MG/2 ML VIAL ONE ×2 (08:39→12:19)
[2021-03-19] MEDS: MEROPENEM 500 MG in SODIUM CHLORIDE 0.9% 50ML 50 ML IV SCH ×2 (09:38→20:23)
[2021-03-19] MEDS: FOLIC ACID MDV 1 MG in SODIUM CHLORIDE 0.9% 50ML 50 ML IV SCH (09:38)
[2021-03-19] MEDS ORDERED: ALBUMIN 25% 25GM 100ML 0.25 GM/ML BTL IV ONE (09:45)
[2021-03-19 09:53] LABS: ABG HCO3 26 mmol/L (22-26); ABG PCO2 44 mmHg (35-45); ABG PH 7.38 (7.35-7.45); ABG PO2 208 mmHg (80-105); ABG TCO2 27
[2021-03-19] MEDS: EPOETIN ALFA-EPBX 10,000 UNIT/ML VIAL SC SCH (11:45)
[2021-03-19 11:50] LABS: LYMPHOCYTES % (MANUAL) 2 % (19-48); MONOCYTES % (MANUAL) 2 % (3.4-9.0); NEUTROPHILS % (MANUAL) 96 % (40-74)
[2021-03-19 11:51] LABS: PLATELET ESTIMATE MODERATELY DECREASED; PLATELET MORPHOLOGY COMMENT NORMAL; RBC MORPHOLOGY COMMENT NORMAL
[2021-03-19] MEDS ORDERED: ETOMIDATE 2 MG/ML 10 ML INJ IV ONE (12:19)
[2021-03-19] MEDS ORDERED: WATER STERILE 10 ML VIAL ONE (12:19)
[2021-03-19] MEDS: BALSAM PERU/CASTOR OIL 60 GM OINT...G. TP SCH (12:54)
[2021-03-19] MEDS: COLLAGENASE 5 GM TUBE TOP SCH (12:54)
[2021-03-19] MEDS: ZINC OXIDE 30 GM TUBE TOP SCH ×3 (12:54→21:00)
[2021-03-19] MEDS ORDERED: ATROPINE SULFATE 1 MG/ML VIAL IV PRN (15:00)
[2021-03-19] MEDS: PROPOFOL IV EMULSION 10MG/ML 100 ML IV SCH (20:23)
[2021-03-20] VITALS (24 sets, daily range): BP systolic 95–145; BP diastolic 47–87
[2021-03-20] MEDS: INSULIN LISPRO 100 UNIT/1 ML 3ML VIAL SQ SCH ×4 (00:15→18:36)
[2021-03-20 06:10] LABS: BASOPHILS % 0.1 % (0.0-1.0); EOSINOPHILS # (AUTO) 0.2 (0.0-0.4); EOSINOPHILS % 1.5 % (0.0-6.0); HEMATOCRIT 22.9 % (34.2-44.1); HEMOGLOBIN 7.5 g/dL (12.0-16.0); LYMPHOCYTES # (AUTO) 1.6 (1.0-3.2); LYMPHOCYTES % 12.2 % (18.0-39.1); MEAN CORPUSCULAR HEMOGLOBIN 31.3 pg (28-32); MEAN CORPUSCULAR HGB CONC 32.8 g/dL (31-35); MEAN CORPUSCULAR VOLUME 95.4 fL (81-99); MONOCYTES # (AUTO) 0.9 (0.2-0.8); MONOCYTES % 6.9 % (4.4-11.3); NEUTROPHILS # (AUTO) 10.1 (2.1-6.9); NEUTROPHILS % 78.7 % (38.7-80.0); PLATELET COUNT 52 x10e3/uL (140-360); RED CELL DISTRIBUTION WIDTH 22.7 % (11.7-14.4)
[2021-03-20] MEDS: DEXTROSE 50% SYRINGE 50 ML IV PRN (06:10)
[2021-03-20 06:21] LABS: INR 1.4; PROTHROMBIN TIME 18.1 seconds (11.9-14.5)
[2021-03-20 06:32] LABS: ALBUMIN 2.2 g/dL (3.5-5.0); ALBUMIN/GLOBULIN RATIO 0.7 (0.8-2.0); ANION GAP 18.1 mmol/L (8-16); CALCIUM 7.3 mg/dL (8.4-10.2); CREATININE, SERUM 2.01 mg/dL (0.57-1.11); POTASSIUM 4.1 mmol/L (3.5-5.1)
[2021-03-20] MEDS: COLLAGENASE 5 GM TUBE TOP SCH (08:23)
[2021-03-20] MEDS: MEROPENEM 500 MG in SODIUM CHLORIDE 0.9% 50ML 50 ML IV SCH ×2 (08:23→21:18)
[2021-03-20] MEDS: BALSAM PERU/CASTOR OIL 60 GM OINT...G. TP SCH (08:23)
[2021-03-20] MEDS: ZINC OXIDE 30 GM TUBE TOP SCH ×3 (08:23→21:00)
[2021-03-20] MEDS: SUCRALFATE 1 GM/10 ML SUSP NG SCH ×4 (08:23→21:18)
[2021-03-20] MEDS: FOLIC ACID MDV 1 MG in SODIUM CHLORIDE 0.9% 50ML 50 ML IV SCH (08:23)
[2021-03-20] MEDS ORDERED: SODIUM CHLORIDE 0.9% 250ML 250 ML IV ONE (08:45)
[2021-03-20] MEDS: PROPOFOL IV EMULSION 10MG/ML 100 ML IV SCH ×2 (10:02→22:06)
[2021-03-20 11:44] LABS: ABG HCO3 29 mmol/L (22-26); ABG PCO2 33 mmHg (35-45); ABG PH 7.54 (7.35-7.45); ABG PO2 159 mmHg (80-105); ABG TCO2 29
[2021-03-20] MEDS: NOREPINEPHRINE 8 MG/D5W 250 ML 250 ML IV SCH (17:30)
[2021-03-20 20:26] LABS: ANION GAP 13.2 mmol/L (8-16); CALCIUM 8.4 mg/dL (8.4-10.2); CREATININE, SERUM 1.39 mg/dL (0.57-1.11); POTASSIUM 3.2 mmol/L (3.5-5.1)
[2021-03-21] VITALS (39 sets, daily range): BP systolic 84–139; BP diastolic 45–59
[2021-03-21] MEDS: INSULIN LISPRO 100 UNIT/1 ML 3ML VIAL SQ SCH ×4 (00:16→18:00)
[2021-03-21 05:59] LABS: BASOPHILS % 0.1 % (0.0-1.0); EOSINOPHILS # (AUTO) 0.2 (0.0-0.4); EOSINOPHILS % 2.1 % (0.0-6.0); HEMATOCRIT 26.5 % (34.2-44.1); HEMOGLOBIN 8.7 g/dL (12.0-16.0); LYMPHOCYTES # (AUTO) 0.9 (1.0-3.2); MEAN CORPUSCULAR HEMOGLOBIN 31.4 pg (28-32); MEAN CORPUSCULAR HGB CONC 32.8 g/dL (31-35); MEAN CORPUSCULAR VOLUME 95.7 fL (81-99); MONOCYTES # (AUTO) 0.7 (0.2-0.8); MONOCYTES % 5.7 % (4.4-11.3); NEUTROPHILS # (AUTO) 9.5 (2.1-6.9); NEUTROPHILS % 83.7 % (38.7-80.0); RED BLOOD COUNT 2.77 x10e6/uL (3.6-5.1); RED CELL DISTRIBUTION WIDTH 20.6 % (11.7-14.4)
[2021-03-21 06:08] LABS: PLATELET COUNT 41 x10e3/uL (140-360)
[2021-03-21 06:24] LABS: INR 1.31; PROTHROMBIN TIME 17.2 seconds (11.9-14.5)
[2021-03-21] MEDS: SUCRALFATE 1 GM/10 ML SUSP NG SCH ×4 (07:55→21:12)
[2021-03-21] MEDS: MEROPENEM 500 MG in SODIUM CHLORIDE 0.9% 50ML 50 ML IV SCH ×2 (07:56→21:12)
[2021-03-21] MEDS: PROPOFOL IV EMULSION 10MG/ML 100 ML IV SCH (07:59)
[2021-03-21] MEDS: BALSAM PERU/CASTOR OIL 60 GM OINT...G. TP SCH (08:00)
[2021-03-21] MEDS: FOLIC ACID MDV 1 MG in SODIUM CHLORIDE 0.9% 50ML 50 ML IV SCH (08:00)
[2021-03-21] MEDS: COLLAGENASE 5 GM TUBE TOP SCH (08:00)
[2021-03-21] MEDS: ZINC OXIDE 30 GM TUBE TOP SCH ×3 (08:00→21:00)
[2021-03-21 09:08] LABS: ALBUMIN 2.4 g/dL (3.5-5.0); ALBUMIN/GLOBULIN RATIO 0.8 (0.8-2.0); ANION GAP 14.4 mmol/L (8-16); CALCIUM 8.5 mg/dL (8.4-10.2); CREATININE, SERUM 1.72 mg/dL (0.57-1.11); POTASSIUM 3.4 mmol/L (3.5-5.1)
[2021-03-21] MEDS: ACETAMINOPHEN 325 MG/10 ML UDC NG PRN (13:15)
[2021-03-21] MEDS ORDERED: POTASSIUM CHLORIDE 20MEQ/100ML 100 ML IV ONE (15:00)
[2021-03-21] MEDS: NOREPINEPHRINE 8 MG/D5W 250 ML 250 ML IV SCH (17:30)
[2021-03-22] VITALS (37 sets, daily range): BP systolic 84–162; BP diastolic 42–135
[2021-03-22] MEDS: INSULIN LISPRO 100 UNIT/1 ML 3ML VIAL SQ SCH ×5 (00:24→23:42)
[2021-03-22] MEDS: PROPOFOL IV EMULSION 10MG/ML 100 ML IV SCH ×2 (00:45→02:40)
[2021-03-22 05:46] LABS: BASOPHILS % 0.2 % (0.0-1.0); EOSINOPHILS # (AUTO) 0.3 (0.0-0.4); EOSINOPHILS % 2.8 % (0.0-6.0); HEMATOCRIT 26.3 % (34.2-44.1); HEMOGLOBIN 8.6 g/dL (12.0-16.0); LYMPHOCYTES # (AUTO) 0.8 (1.0-3.2); LYMPHOCYTES % 6.7 % (18.0-39.1); MEAN CORPUSCULAR HEMOGLOBIN 31.6 pg (28-32); MEAN CORPUSCULAR HGB CONC 32.7 g/dL (31-35); MEAN CORPUSCULAR VOLUME 96.7 fL (81-99); MONOCYTES # (AUTO) 0.6 (0.2-0.8); MONOCYTES % 4.7 % (4.4-11.3); NEUTROPHILS # (AUTO) 10.1 (2.1-6.9); NEUTROPHILS % 85.1 % (38.7-80.0); RED BLOOD COUNT 2.72 x10e6/uL (3.6-5.1); RED CELL DISTRIBUTION WIDTH 21.1 % (11.7-14.4)
[2021-03-22 05:55] LABS: PLATELET COUNT 42 x10e3/uL (140-360)
[2021-03-22 06:02] LABS: ALBUMIN 2.1 g/dL (3.5-5.0); ALBUMIN/GLOBULIN RATIO 0.7 (0.8-2.0); ANION GAP 13.8 mmol/L (8-16); CALCIUM 8.1 mg/dL (8.4-10.2); CREATININE, SERUM 2.13 mg/dL (0.57-1.11); POTASSIUM 3.8 mmol/L (3.5-5.1)
[2021-03-22] MEDS: MEROPENEM 500 MG in SODIUM CHLORIDE 0.9% 50ML 50 ML IV SCH ×2 (08:33→19:34)
[2021-03-22] MEDS: ZINC OXIDE 30 GM TUBE TOP SCH ×3 (08:33→19:34)
[2021-03-22] MEDS: FOLIC ACID MDV 1 MG in SODIUM CHLORIDE 0.9% 50ML 50 ML IV SCH (08:33)
[2021-03-22] MEDS: SUCRALFATE 1 GM/10 ML SUSP NG SCH ×4 (08:33→20:31)
[2021-03-22] MEDS: COLLAGENASE 5 GM TUBE TOP SCH (08:33)
[2021-03-22] MEDS: BALSAM PERU/CASTOR OIL 60 GM OINT...G. TP SCH (08:33)
[2021-03-22 12:45] LABS: ABG HCO3 27 mmol/L (22-26); ABG PCO2 38 mmHg (35-45); ABG PH 7.47 (7.35-7.45); ABG PO2 156 mmHg (80-105); ABG TCO2 28
[2021-03-22] MEDS: NOREPINEPHRINE 8 MG/D5W 250 ML 250 ML IV SCH (14:11)
[2021-03-22] MEDS ORDERED: HEPARIN SOD (PORCINE) 1000 UNIT/ML SDV IV PRN (16:00)
[2021-03-22] MEDS: ACETAMINOPHEN 325 MG/10 ML UDC NG PRN (16:18)
[2021-03-23] VITALS (24 sets, daily range): BP systolic 8–142; BP diastolic 40–74
[2021-03-23] MEDS ORDERED: DIPHENOXYLATE/ATROPINE TAB PO PRN (03:00)
[2021-03-23 05:30] LABS: BASOPHILS % 0.3 % (0.0-1.0); EOSINOPHILS # (AUTO) 0.4 (0.0-0.4); EOSINOPHILS % 3.1 % (0.0-6.0); LYMPHOCYTES # (AUTO) 0.8 (1.0-3.2); LYMPHOCYTES % 6.4 % (18.0-39.1); MEAN CORPUSCULAR HEMOGLOBIN 31.1 pg (28-32); MEAN CORPUSCULAR VOLUME 94.3 fL (81-99); MONOCYTES # (AUTO) 0.6 (0.2-0.8); MONOCYTES % 5.3 % (4.4-11.3); NEUTROPHILS # (AUTO) 9.9 (2.1-6.9); NEUTROPHILS % 84.2 % (38.7-80.0); RED BLOOD COUNT 2.83 x10e6/uL (3.6-5.1); RED CELL DISTRIBUTION WIDTH 20.7 % (11.7-14.4)
[2021-03-23] MEDS: INSULIN LISPRO 100 UNIT/1 ML 3ML VIAL SQ SCH ×4 (05:41→23:17)
[2021-03-23 05:44] LABS: ALBUMIN 2.6 g/dL (3.5-5.0); ALBUMIN/GLOBULIN RATIO 0.7 (0.8-2.0); ANION GAP 12.8 mmol/L (8-16); CALCIUM 8.3 mg/dL (8.4-10.2); CREATININE, SERUM 1.24 mg/dL (0.57-1.11); POTASSIUM 3.8 mmol/L (3.5-5.1)
[2021-03-23] MEDS: SUCRALFATE 1 GM/10 ML SUSP NG SCH ×4 (05:47→21:49)
[2021-03-23 06:06] LABS: HEMOGLOBIN 8.9 g/dL (12.0-16.0)
[2021-03-23 06:07] LABS: PLATELET COUNT 48 x10e3/uL (140-360)
[2021-03-23] MEDS: PROPOFOL IV EMULSION 10MG/ML 100 ML IV SCH (06:52)
[2021-03-23] MEDS: MEROPENEM 500 MG in SODIUM CHLORIDE 0.9% 50ML 50 ML IV SCH ×2 (07:40→21:49)
[2021-03-23] MEDS: COLLAGENASE 5 GM TUBE TOP SCH (09:36)
[2021-03-23] MEDS: FOLIC ACID MDV 1 MG in SODIUM CHLORIDE 0.9% 50ML 50 ML IV SCH (09:36)
[2021-03-23] MEDS: ZINC OXIDE 30 GM TUBE TOP SCH ×3 (09:37→21:00)
[2021-03-23] MEDS: BALSAM PERU/CASTOR OIL 60 GM OINT...G. TP SCH (09:37)
[2021-03-23 11:55] LABS: ABG HCO3 30 mmol/L (22-26); ABG PCO2 43 mmHg (35-45); ABG PH 7.45 (7.35-7.45); ABG PO2 128 mmHg (80-105); ABG TCO2 31
[2021-03-23] MEDS: NOREPINEPHRINE 8 MG/D5W 250 ML 250 ML IV SCH (17:30)
[2021-03-24] VITALS (25 sets, daily range): BP systolic 86–128; BP diastolic 41–73
[2021-03-24] MEDS: INSULIN LISPRO 100 UNIT/1 ML 3ML VIAL SQ SCH ×3 (05:52→16:28)
[2021-03-24] MEDS: SUCRALFATE 1 GM/10 ML SUSP NG SCH ×4 (07:12→20:52)
[2021-03-24] MEDS: MEROPENEM 500 MG in SODIUM CHLORIDE 0.9% 50ML 50 ML IV SCH ×2 (07:12→20:52)
[2021-03-24] MEDS: COLLAGENASE 5 GM TUBE TOP SCH (08:27)
[2021-03-24] MEDS: ZINC OXIDE 30 GM TUBE TOP SCH ×3 (08:27→20:52)
[2021-03-24] MEDS: BALSAM PERU/CASTOR OIL 60 GM OINT...G. TP SCH (08:27)
[2021-03-24 09:06] LABS: BASOPHILS % 0.3 % (0.0-1.0); EOSINOPHILS # (AUTO) 0.4 (0.0-0.4); EOSINOPHILS % 4.9 % (0.0-6.0); HEMATOCRIT 27.1 % (34.2-44.1); HEMOGLOBIN 8.6 g/dL (12.0-16.0); LYMPHOCYTES # (AUTO) 0.8 (1.0-3.2); LYMPHOCYTES % 9.2 % (18.0-39.1); MEAN CORPUSCULAR HEMOGLOBIN 31.3 pg (28-32); MEAN CORPUSCULAR HGB CONC 31.7 g/dL (31-35); MEAN CORPUSCULAR VOLUME 98.5 fL (81-99); MONOCYTES # (AUTO) 0.4 (0.2-0.8); MONOCYTES % 4.7 % (4.4-11.3); NEUTROPHILS # (AUTO) 7.2 (2.1-6.9); NEUTROPHILS % 80.5 % (38.7-80.0); RED BLOOD COUNT 2.75 x10e6/uL (3.6-5.1); RED CELL DISTRIBUTION WIDTH 21.2 % (11.7-14.4)
[2021-03-24 09:12] LABS: PLATELET COUNT 46 x10e3/uL (140-360)
[2021-03-24] MEDS: FOLIC ACID MDV 1 MG in SODIUM CHLORIDE 0.9% 50ML 50 ML IV SCH (09:16)
[2021-03-24 09:30] LABS: ALBUMIN 2.3 g/dL (3.5-5.0); ANION GAP 14.9 mmol/L (8-16); CALCIUM 8.5 mg/dL (8.4-10.2); CREATININE, SERUM 1.83 mg/dL (0.57-1.11); POTASSIUM 3.9 mmol/L (3.5-5.1)
[2021-03-24 09:31] LABS: ALBUMIN/GLOBULIN RATIO 0.7 (0.8-2.0)
[2021-03-24] MEDS: ACETAMINOPHEN 325 MG/10 ML UDC NG PRN (13:31)
[2021-03-24] MEDS: NOREPINEPHRINE 8 MG/D5W 250 ML 250 ML IV SCH (17:30)
[2021-03-25] VITALS (18 sets, daily range): BP systolic 103–146; BP diastolic 45–72
[2021-03-25] MEDS: INSULIN LISPRO 100 UNIT/1 ML 3ML VIAL SQ SCH ×4 (05:50→17:51)
[2021-03-25] MEDS ORDERED: DIPHENOXYLATE/ATROPINE TAB PO SCH (06:00)
[2021-03-25 06:23] LABS: BASOPHILS % 0.2 % (0.0-1.0); EOSINOPHILS # (AUTO) 0.5 (0.0-0.4); EOSINOPHILS % 5.5 % (0.0-6.0); HEMATOCRIT 26.4 % (34.2-44.1); HEMOGLOBIN 8.7 g/dL (12.0-16.0); LYMPHOCYTES # (AUTO) 0.7 (1.0-3.2); LYMPHOCYTES % 8.2 % (18.0-39.1); MEAN CORPUSCULAR HEMOGLOBIN 31.5 pg (28-32); MEAN CORPUSCULAR VOLUME 95.7 fL (81-99); MONOCYTES # (AUTO) 0.5 (0.2-0.8); MONOCYTES % 5.2 % (4.4-11.3); NEUTROPHILS # (AUTO) 7.3 (2.1-6.9); NEUTROPHILS % 80.6 % (38.7-80.0); RED BLOOD COUNT 2.76 x10e6/uL (3.6-5.1); RED CELL DISTRIBUTION WIDTH 21.2 % (11.7-14.4)
[2021-03-25 06:34] LABS: PLATELET COUNT 53 x10e3/uL (140-360)
[2021-03-25 06:47] LABS: ALBUMIN 2.4 g/dL (3.5-5.0); ALBUMIN/GLOBULIN RATIO 0.6 (0.8-2.0); ANION GAP 13.8 mmol/L (8-16); CALCIUM 8.6 mg/dL (8.4-10.2); CREATININE, SERUM 1.14 mg/dL (0.57-1.11); POTASSIUM 3.8 mmol/L (3.5-5.1)
[2021-03-25] MEDS: SUCRALFATE 1 GM/10 ML SUSP NG SCH ×4 (07:33→21:10)
[2021-03-25] MEDS: MEROPENEM 500 MG in SODIUM CHLORIDE 0.9% 50ML 50 ML IV SCH ×2 (07:33→21:10)
[2021-03-25] MEDS: FOLIC ACID MDV 1 MG in SODIUM CHLORIDE 0.9% 50ML 50 ML IV SCH (08:35)
[2021-03-25] MEDS: ZINC OXIDE 30 GM TUBE TOP SCH ×3 (09:46→21:00)
[2021-03-25] MEDS: COLLAGENASE 5 GM TUBE TOP SCH (09:46)
[2021-03-25] MEDS: BALSAM PERU/CASTOR OIL 60 GM OINT...G. TP SCH (09:46)
[2021-03-25 11:12] LABS: EOSINOPHILS % (MANUAL) 2 % (0-7); LYMPHOCYTES % (MANUAL) 10 % (19-48); MONOCYTES % (MANUAL) 5 % (3.4-9.0); NEUTROPHILS % (MANUAL) 80 % (40-74); PLATELET ESTIMATE MARKEDLY DECREASED; PLATELET MORPHOLOGY COMMENT FEW LARGE; RBC MORPHOLOGY COMMENT NORMAL; STOMATOCYTES SLIGHT
[2021-03-25] MEDS: NOREPINEPHRINE 8 MG/D5W 250 ML 250 ML IV SCH (17:30)
[2021-03-26 04:00] VITALS: BP 134/55
[2021-03-26] MEDS: INSULIN LISPRO 100 UNIT/1 ML 3ML VIAL SQ SCH ×4 (05:36→17:59)
[2021-03-26] MEDS: ACETAMINOPHEN 325 MG/10 ML UDC NG PRN ×2 (05:50→17:30)
[2021-03-26 08:18] VITALS: BP 140/48
[2021-03-26] MEDS ORDERED: SODIUM CHLORIDE 0.9% 250ML 250 ML ONE (08:28)
[2021-03-26] MEDS: SUCRALFATE 1 GM/10 ML SUSP NG SCH ×4 (08:30→20:29)
[2021-03-26] MEDS: DIPHENOXYLATE/ATROPINE TAB PO SCH ×2 (09:00→16:39)
[2021-03-26] MEDS: ZINC OXIDE 30 GM TUBE TOP SCH ×3 (09:00→20:30)
[2021-03-26] MEDS: MEROPENEM 500 MG in SODIUM CHLORIDE 0.9% 50ML 50 ML IV SCH (09:00)
[2021-03-26 09:15] VITALS: BP 140/48
[2021-03-26 09:15] LABS: BASOPHILS # (AUTO) 0.1 (0.0-0.1); BASOPHILS % 0.5 % (0.0-1.0); EOSINOPHILS # (AUTO) 0.7 (0.0-0.4); HEMATOCRIT 30.5 % (34.2-44.1); HEMOGLOBIN 9.5 g/dL (12.0-16.0); LYMPHOCYTES # (AUTO) 0.9 (1.0-3.2); LYMPHOCYTES % 9.4 % (18.0-39.1); MEAN CORPUSCULAR HEMOGLOBIN 31.3 pg (28-32); MEAN CORPUSCULAR HGB CONC 31.1 g/dL (31-35); MEAN CORPUSCULAR VOLUME 100.3 fL (81-99); MONOCYTES # (AUTO) 0.6 (0.2-0.8); NEUTROPHILS # (AUTO) 7.1 (2.1-6.9); NEUTROPHILS % 76.8 % (38.7-80.0); PLATELET COUNT 60 x10e3/uL (140-360); RED BLOOD COUNT 3.04 x10e6/uL (3.6-5.1); RED CELL DISTRIBUTION WIDTH 21.9 % (11.7-14.4)
[2021-03-26] MEDS: FOLIC ACID MDV 1 MG in SODIUM CHLORIDE 0.9% 50ML 50 ML IV SCH (10:00)
[2021-03-26 11:57] VITALS: BP 156/55
[2021-03-26 16:09] VITALS: BP 148/51
[2021-03-26] MEDS: BALSAM PERU/CASTOR OIL 60 GM OINT...G. TP SCH (16:38)
[2021-03-26] MEDS: COLLAGENASE 5 GM TUBE TOP SCH (16:38)
[2021-03-26 20:00] VITALS: BP 126/55
[2021-03-27] VITALS (8 sets, daily range): BP systolic 113–158; BP diastolic 51–64
[2021-03-27 05:03] LABS: BASOPHILS # (AUTO) 0.1 (0.0-0.1); BASOPHILS % 0.5 % (0.0-1.0); EOSINOPHILS # (AUTO) 0.9 (0.0-0.4); HEMATOCRIT 29.1 % (34.2-44.1); HEMOGLOBIN 9.5 g/dL (12.0-16.0); LYMPHOCYTES # (AUTO) 1.1 (1.0-3.2); MEAN CORPUSCULAR HEMOGLOBIN 31.8 pg (28-32); MEAN CORPUSCULAR HGB CONC 32.6 g/dL (31-35); MONOCYTES # (AUTO) 0.6 (0.2-0.8); MONOCYTES % 6.3 % (4.4-11.3); NEUTROPHILS % 72.7 % (38.7-80.0); PLATELET COUNT 68 x10e3/uL (140-360); RED BLOOD COUNT 2.99 x10e6/uL (3.6-5.1); RED CELL DISTRIBUTION WIDTH 21.6 % (11.7-14.4)
[2021-03-27 05:05] LABS: MEAN CORPUSCULAR VOLUME 97.3 fL (81-99)
[2021-03-27 05:34] LABS: ANION GAP 17.2 mmol/L (8-16); CALCIUM 10.1 mg/dL (8.4-10.2); CREATININE, SERUM 2.27 mg/dL (0.57-1.11); POTASSIUM 4.2 mmol/L (3.5-5.1)
[2021-03-27] MEDS: INSULIN LISPRO 100 UNIT/1 ML 3ML VIAL SQ SCH ×4 (06:32→18:00)
[2021-03-27] MEDS: SUCRALFATE 1 GM/10 ML SUSP NG SCH ×4 (07:30→22:50)
[2021-03-27] MEDS ORDERED: SODIUM CHLORIDE 0.9% 1000ML 1,000 ML ONE (07:45)
[2021-03-27] MEDS: DIPHENOXYLATE/ATROPINE TAB PO SCH ×2 (11:48→17:08)
[2021-03-27] MEDS: ZINC OXIDE 30 GM TUBE TOP SCH ×3 (11:49→22:50)
[2021-03-27] MEDS: COLLAGENASE 5 GM TUBE TOP SCH (11:49)
[2021-03-27] MEDS: BALSAM PERU/CASTOR OIL 60 GM OINT...G. TP SCH (11:49)
[2021-03-27] MEDS: FOLIC ACID MDV 1 MG in SODIUM CHLORIDE 0.9% 50ML 50 ML IV SCH (12:01)
[2021-03-28] VITALS: BP 147/52
[2021-03-28] MEDS: INSULIN LISPRO 100 UNIT/1 ML 3ML VIAL SQ SCH ×2 (01:19→06:01)
[2021-03-28 04:00] VITALS: BP 140/49
[2021-03-28 06:18] LABS: BASOPHILS % 0.6 % (0.0-1.0); EOSINOPHILS # (AUTO) 0.6 (0.0-0.4); HEMATOCRIT 28.2 % (34.2-44.1); HEMOGLOBIN 9.1 g/dL (12.0-16.0); LYMPHOCYTES # (AUTO) 0.8 (1.0-3.2); LYMPHOCYTES % 12.4 % (18.0-39.1); MEAN CORPUSCULAR HEMOGLOBIN 32.5 pg (28-32); MEAN CORPUSCULAR HGB CONC 32.3 g/dL (31-35); MEAN CORPUSCULAR VOLUME 100.7 fL (81-99); MONOCYTES # (AUTO) 0.6 (0.2-0.8); MONOCYTES % 9.3 % (4.4-11.3); NEUTROPHILS # (AUTO) 4.4 (2.1-6.9); NEUTROPHILS % 68.1 % (38.7-80.0); PLATELET COUNT 73 x10e3/uL (140-360); RED CELL DISTRIBUTION WIDTH 21.9 % (11.7-14.4)
[2021-03-28 06:51] LABS: ALBUMIN 2.7 g/dL (3.5-5.0); ALBUMIN/GLOBULIN RATIO 0.7 (0.8-2.0); ANION GAP 15.2 mmol/L (8-16); CALCIUM 9.5 mg/dL (8.4-10.2); CREATININE, SERUM 1.47 mg/dL (0.57-1.11); POTASSIUM 4.2 mmol/L (3.5-5.1)
[2021-03-28] MEDS: ZINC OXIDE 30 GM TUBE TOP SCH (07:54)
[2021-03-28] MEDS: BALSAM PERU/CASTOR OIL 60 GM OINT...G. TP SCH (07:54)
[2021-03-28] MEDS: COLLAGENASE 5 GM TUBE TOP SCH (07:54)
[2021-03-28] MEDS ORDERED: FOLIC ACID 1 MG TAB NG SCH (09:00)
[2021-03-28] MEDS ORDERED: CARVEDILOL 3.125 MG TAB PO SCH (09:00)
[2021-03-28 09:28] VITALS: BP 125/44
[2021-03-28 10:44] VITALS: BP 125/44
== END 2021-03-28 14:50 | disposition expired | DRG 207 ==
LOC: ER 09:24 → ERHOLD 11:57 → IMCU 03-06 23:10 → ICU 03-08 00:38 → IMCU 03-14 11:01 → ICU 03-16 18:36 → IMCU 03-25 13:01
PROVIDERS: ADMIT Internal Medicine; ATTEND Internal Medicine
PROC: 30233N1 Transfusion of Nonautologous Red Blood Cells into Peripheral Vein, Percutaneous Approach (ICD-10-PCS; 2021-03-05)
PROC: 5A1D70Z Performance of Urinary Filtration, Intermittent, Less than 6 Hours Per Day (ICD-10-PCS; 2021-03-05)
PROC: 8E0ZXY6 Isolation (ICD-10-PCS; 2021-03-05)
PROC: XW033E5 Introduction of Remdesivir Anti-infective into Peripheral Vein, Percutaneous Approach, New Technology Group 5 (ICD-10-PCS; 2021-03-06)
PROC: 02HV33Z Insertion of Infusion Device into Superior Vena Cava, Percutaneous Approach (ICD-10-PCS; principal; 2021-03-07)
PROC: 5A1955Z Respiratory Ventilation, Greater than 96 Consecutive Hours (ICD-10-PCS; 2021-03-07)
PROC: 0BH18EZ Insertion of Endotracheal Airway into Trachea, Via Natural or Artificial Opening Endoscopic (ICD-10-PCS; 2021-03-07)
PROC: 30233R1 Transfusion of Nonautologous Platelets into Peripheral Vein, Percutaneous Approach (ICD-10-PCS; 2021-03-07)
PROC: 3E043XZ Introduction of Vasopressor into Central Vein, Percutaneous Approach (ICD-10-PCS; 2021-03-07)
PROC: 5A12012 Performance of Cardiac Output, Single, Manual (ICD-10-PCS; 2021-03-07)
PROC: 3E0333Z Introduction of Anti-inflammatory into Peripheral Vein, Percutaneous Approach (ICD-10-PCS; 2021-03-08)
PROC: 02HV33Z Insertion of Infusion Device into Superior Vena Cava, Percutaneous Approach (ICD-10-PCS; 2021-03-10)
PROC: 30233L1 Transfusion of Nonautologous Fresh Plasma into Peripheral Vein, Percutaneous Approach (ICD-10-PCS; 2021-03-10)
PROC: 30233K1 Transfusion of Nonautologous Frozen Plasma into Peripheral Vein, Percutaneous Approach (ICD-10-PCS; 2021-03-10)
PROC: 5A1945Z Respiratory Ventilation, 24-96 Consecutive Hours (ICD-10-PCS; 2021-03-16)
PROC: 0BH18EZ Insertion of Endotracheal Airway into Trachea, Via Natural or Artificial Opening Endoscopic (ICD-10-PCS; 2021-03-16)
PROC: 5A12012 Performance of Cardiac Output, Single, Manual (ICD-10-PCS; 2021-03-16)
PROC: 5A1955Z Respiratory Ventilation, Greater than 96 Consecutive Hours (ICD-10-PCS; 2021-03-19)
PROC: 0BH18EZ Insertion of Endotracheal Airway into Trachea, Via Natural or Artificial Opening Endoscopic (ICD-10-PCS; 2021-03-19)
DX: U07.1 COVID-19 (principal); A41.89 Other specified sepsis; N18.6 End stage renal disease; J12.82 Pneumonia due to coronavirus disease 2019; I21.A1 Myocardial infarction type 2; G93.41 Metabolic encephalopathy; J96.01 Acute respiratory failure with hypoxia; I50.23 Acute on chronic systolic (congestive) heart failure; N17.0 Acute kidney failure with tubular necrosis; D65 Disseminated intravascular coagulation [defibrination syndrome]; J69.0 Pneumonitis due to inhalation of food and vomit; K72.00 Acute and subacute hepatic failure without coma; E43 Unspecified severe protein-calorie malnutrition; R65.20 Severe sepsis without septic shock; L02.415 Cutaneous abscess of right lower limb; I13.2 Hypertensive heart and chronic kidney disease with heart failure and with stage 5 chronic kidney disease, or end stage renal disease; R18.8 Other ascites; I50.32 Chronic diastolic (congestive) heart failure; T84.51XA Infection and inflammatory reaction due to internal right hip prosthesis, initial encounter; I46.9 Cardiac arrest, cause unspecified; E11.22 Type 2 diabetes mellitus with diabetic chronic kidney disease; Z99.2 Dependence on renal dialysis; E11.649 Type 2 diabetes mellitus with hypoglycemia without coma; Z66 Do not resuscitate; D50.0 Iron deficiency anemia secondary to blood loss (chronic); Z88.8 Allergy status to other drugs, medicaments and biological substances; E11.65 Type 2 diabetes mellitus with hyperglycemia; N30.90 Cystitis, unspecified without hematuria; D69.6 Thrombocytopenia, unspecified; B96.20 Unspecified Escherichia coli [E. coli] as the cause of diseases classified elsewhere; E87.6 Hypokalemia; E77.8 Other disorders of glycoprotein metabolism; E88.09 Other disorders of plasma-protein metabolism, not elsewhere classified; I48.0 Paroxysmal atrial fibrillation; B96.89 Other specified bacterial agents as the cause of diseases classified elsewhere; K74.60 Unspecified cirrhosis of liver; D75.89 Other specified diseases of blood and blood-forming organs; L89.620 Pressure ulcer of left heel, unstageable; L89.152 Pressure ulcer of sacral region, stage 2; L89.520 Pressure ulcer of left ankle, unstageable; E11.621 Type 2 diabetes mellitus with foot ulcer; I49.5 Sick sinus syndrome; R19.7 Diarrhea, unspecified
CPT/HCPCS: 31500; 36415; 36600; 51700; 70450; 71045; 71250; 74018; 74177; 76700; 80048; 80053; 81001; 82140; 82248; 82270; 82550; 82553; 82607; 82728; 82746; 82805; 82948; 83010; 83036; 83525; 83540; 83605; 83615; 83735; 83880; 84100; 84155; 84466; 84484; 84681; 85025; 85045; 85384; 85610; 85730; 86078; 86704; 86706; 86850; 86880; 86886; 86900; 86920; 86922; 87040; 87070; 87071; 87086; 87186; 87205; 87340; 87493; 90962; 92950; 93005; 93306; 94003; 94799; 96372; 97139; 97605; 97606; 99251; 99285; J0171; J0248; J0456; J0461; J0696; J1100; J1644; J1940; J2185; J2250; J2543; J3370; J3430; J3480; J7030; J7040; J7050; J7070; J7799; P9016; P9017; P9034; P9045; P9047; Q9967; U0002